=== PATIENT | male | born 1955 | race Two or more races ===

== ENCOUNTER 2020-09-20 12:41 | Outpatient (REF) | payer BC, SELFPAY ==
[2020-09-20 13:33] LABS: Hematocrit 42.9 % (42-52); Hemoglobin 13.9 g/dl (14.0-18.0); Mean Corpuscular HGB Conc 32.4 g/dl (31.0-36.0); Mean Corpuscular Hemoglobin 31.6 pg (27.0-33.0); Mean Corpuscular Volume 97.5 fL (80-98); Mean Platelet Volume 11.2 fL (9.4-12.4); Platelet Count 154 X10*3/uL (160-400); Red Cell Distribution Width 11.3 % (11.0-16.0); White Blood Count 5.2 X10*3/uL (4.8-10.8)
[2020-09-20 13:47] LABS: Alanine Aminotransferase 20 U/L (0-40); Albumin Level 4.2 g/dL (3.5-5.0); Alkaline Phosphatase 87 U/L (39-117); Anion Gap 10 (12-20); Aspartate Amino Transferase 18 U/L (5-37); Bilirubin Direct 0.3 mg/dL (0.0-0.5); Bilirubin Total 1.1 mg/dL (0.0-1.0); Blood Urea Nitrogen 19 mg/dL (9-16); Calcium 9.2 mg/dL (8.4-10.2); Carbon Dioxide 30 mmol/L (22-29); Chloride 104 mmol/L (96-108); Cholesterol 227 mg/dL; Estimated Glomerular Filt Rate > 60; Glucose Random 174 mg/dL (60-115); HDL Cholesterol 52 mg/dL; LDL Cholesterol Calculated 160 mg/dl; Sodium 140 mmol/L (135-145); Total Protein 7.3 g/dL (6.5-8.0); Triglycerides 77 mg/dL
[2020-09-20 13:48] LABS: Glucose Urine UA NEG (NEG); Leukocyte Esterase Urine NEG (NEG); Nitrite Urine NEG (NEG); PH 5.5 (5.0-8.0); Specific Gravity - Urine 1.025 (1.005-1.025); Urine Blood TRACE (NEG); Urine Ketones 5 MG/DL (NEG); Urine Protein NEG (NEG-TRACE)
[2020-09-20 13:58] LABS: Appearance Urine CLEAR; Color Urine YELLOW
[2020-09-20 14:00] LABS: Estimated Average Glucose 120 mg/dL; Hemoglobin A1c % 5.8 %
[2020-09-20 14:07] LABS: Mucus Urine TRACE /LPF; WBC Urine 0 /HPF (0-4)
[2020-09-20 14:10] LABS: Thyroid Stimulating Hormone 1.29 uIU/mL (0.32-4.0)
[2020-09-20 14:18] LABS: Prostate Specific Antigen Scr < 0.05 ng/mL (<0.05-4.0)
[2020-09-20 14:34] LABS: Folate 9.1 ng/mL (> or = 4.0); Vitamin B12 299 pg/mL (200-900)
[2020-09-26 13:57] LABS: Vitamin D 25-OH, D2 39 ng/mL; Vitamin D 25-OH, D3 6 ng/mL; Vitamin D 25-OH, Total 45 ng/mL (30-100)
== END 2020-09-20 12:42 | disposition home or self-care (01) ==
LOC: HO.LAB 12:41
PROVIDERS: PCP Internal Medicine; Visit Provider Internal Medicine
DX: R73.9 Hyperglycemia, unspecified (principal); E55.9 Vitamin D deficiency, unspecified; C61 Malignant neoplasm of prostate; Z12.5 Encounter for screening for malignant neoplasm of prostate
CPT/HCPCS: 36415; 80048; 80061; 80076; 81001; 82306; 82607; 82746; 83036; 84153; 84443; 85027

== ENCOUNTER 2021-04-03 09:57 | Outpatient (RCR) | payer BC, SELFPAY ==
--- NOTE | 2021-04-03 10:50 | MHC.PT.EP ---
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 pt presents to physical therapy with pain, decreased range of motion, decreased strength, impaired functional mobility, and impaired postural awareness. pt is a good candidate for skilled PT due to age, potential remediation of impairments, typical disease/condition progression and prognosis, comorbidities, and motivation. pt would benefit from tailored strengthening and stretching exercise program, functional training, postural re-training, neuromuscular re-education, modalities as needed for pain, equipment safety demonstration. Frequency and Duration: The patient will be seen 2x/wk for 4 wks Short Term Goals: pt will be I w/ HEP to promote self-management of condition. pt will improve shoulder flexion by 15 degrees to promote ease in reaching for objects on higher shelves. [employer]ident Responder Goals: pt will report a statistically significant improvement in self-reported outcome measure, SPADI, to promote return to PLOF. Treatment Plan: Modalities to reduce pain, spasms and effusion. Manual therapy to restore motion and function. Therapeutic exercise to improve strength and flexibility. Neuromuscular re-education for posture and balance. Therapeutic activities to return to functional activities of daily living. Electronically signed by: Kaylynn Kendrick PT, DPT Please sign and return to therapist. Thank you for your referral.
--- NOTE | 2021-04-20 11:30 | MHC.PT.DC ---
[facility] [place] Office [place] Office [place] Office [address] Mario Tam 140 [facility] [phone] F: [phone] F: [phone] F: [phone] F: [phone] Physical Therapy Discharge Report Diagnosis: strain of muscle, fascia, and tendon at shoulder Date of Surgery: N/A Date of Evaluation: 04/03/21 Date of Discharge: 04/20/21 Treatments to Date: 1 Cancellations to Date: 0 No Shows to Date: 0 Discharge Status: Insurance Declined Tx Discharge Summary: The patient's insurance declined the patient to attend physical therapy in a hospital-based outpatient facility. He is discharged due to insurance limitations. Electronically signed by: Kaylynn Kendrick PT, DPT Please sign and return to therapist. Thank you for your referral.
== END 2021-04-20 11:31 | disposition home or self-care (01) ==
LOC: HO.PT 09:57
PROVIDERS: PCP Internal Medicine; Visit Provider Internal Medicine
DX: S46.919A Strain of unspecified muscle, fascia and tendon at shoulder and upper arm level, unspecified arm, initial encounter (principal)
CPT/HCPCS: 97110; 97161

== ENCOUNTER → 2021-05-08 09:35 | Outpatient (BNVA) | payer BC, SELFPAY | PROVIDERS: PCP Internal Medicine; Referring Provider Internal Medicine; Visit Provider Nurse Practitioner ==

== ENCOUNTER 2021-07-17 09:00 | Day surgery (SDC) | payer BC, SELFPAY ==
[2021-07-11 15:35] VITALS: BMI 27.4
[2021-07-17 09:27] VITALS: BP 109/66; PULSE 62; RESP 16; TEMP 36.1; O2SAT 99
--- NOTE | 2021-07-17 09:31 | HO.ANESPROP2 ---
[facility] Active Problems Active Problems: All Active Problems (Updated 03/03/21 @ 07:50 by Edwin Hobbs MD) Strain of AC joint (Acute) Screening for colon cancer (Acute) Blepharitis (Acute) Eczema (Acute) Hyperglycemia (Acute) Prostate cancer (Acute) Vitamin D deficiency (Acute) Past Medical History Medical History Contusion of chest wall Eczema Hyperglycemia Prostate cancer Vitamin D deficiency Family History Family History Father Prostate cancer Mother No problems noted. Surgical History Surgical History History of appendectomy History of prostatectomy History of Problems with Anesthesia: No Social History Social History Housing: House Alcohol intake: current Alcohol intake frequency: holidays/special occasions only Patient Tobacco Use Status: Former Tobacco user Quit Date: quit greater than 20 yr ago e-Cigarette/Vaping Use: Never Used Second Hand Smoke Exposure: No Use of substances other than those prescribed or required for medical reasons: No Are you DNR?: No Advance Directives: No Advance Directives Information Provided: Yes service: No Current occupational status: employed Meds Allergies Allergy/AdvReac Type Severity Reaction Status Date / Time Penicillins Allergy Intermediate SICKNESS Verified 05/08/21 09:47 ampicillin Allergy Unknown Unknown Verified 05/08/21 09:47 Exam Exam Date and Time: July 17, 2021 0931 Height,Weight and Vital Signs: Height 5 ft 6 in Weight 77.111 kg Airway Mallampati Class: III TM Dist: >3cm Heart: RRR Lungs: CTA Assessment and Plan Assessment Anesthesia Assessment: Anesthesia Plan Discussed and Chart Reviewed Final Anesthetic Review History of Problems with Anesthesia: No NPO: Yes ASA Class: II Final Preanesthetic Review: Meds/Allgs Chart Reviewed, Consent Obtained/Reviewed and Anes Risks/Benef Reviewed Patient Risk: Low Procedure Risk: Low Anesthetic Plan Anesthetic Plan: MAC: Disposition: Standard PACU
[2021-07-17] MEDS: Lactated Ringers 1,000 ML 50 ML IVCONT (10:05)
--- NOTE | 2021-07-17 10:52 | MHC.SHP ---
Pre-Procedural Eval Section A Date of Service: 07/17/21 The patient is an INPATIENT: No The History & Physical has been completed within 30 days and I have reviewed it.: No Section B Chief Complaint: screening Details of Present Illness: Colon cancer screening Relevant Family History (Specify if Yes): No Relevant Social History: Tobacco Use (Former smoker) Present Medications: see Short Stay Collaborative assessment Medical History: Significant History (Contusion of chest wall Eczema Hyperglycemia Prostate cancer Vitamin D deficiency) History of Previous Operations: Relevant previous surgery/procedure and date(s) (History of appendectomy History of prostatectomy) Allergies: Allergies Allergy/AdvReac Type Severity Reaction Status Date / Time Penicillins Allergy Intermediate SICKNESS Verified 05/08/21 09:47 ampicillin Allergy Unknown Unknown Verified 05/08/21 09:47 Review of Systems Sugical H&P ROS: Negative: Constitution, Cardiovascular, Respiratory and Gastrointestinal Exam Surgical H&P Exam: Normal: Heart, Normal: Lungs, Normal: Extremities and Normal: Abdomen Plan Diagnosis/Plan: Unchanged I have reviewed the history and physical and performed a pertinent physical examination on my patient. No changes have occurred unless specified.
--- NOTE | 2021-07-17 11:09 | PCN2_ITS ---
Brief Operative Note Date of procedure: 07/17/21 Pre-op diagnosis: Colon cancer screening Post-op diagnosis: other (Diverticulosis, hemorrhoids) Procedure: Procedure:? COLONOSCOPY TILL CECUM Consent: Indications for the procedure and potential complications of bleeding, perforation, reaction to medications and missed diagnosis were discussed with the patient and informed consent was obtained. Instrument: Olympus PCF H 190 L variable stiffness pediatric colonoscope Monitoring: Vital signs and clinical assessment, intermittent blood pressure monitoring, continuous EKG monitoring, Pulse oximetry and Carbon Dioxide monitoring were done throughout the procedure. Colon withdrawl time was 15 minutes. Procedure: The patient was placed in the left lateral decubitis position and pre-procedure medications were administered. After a digital rectal examination of the ano-rectum, the video colonoscope was inserted into the rectum and advanced through the colon to the cecum. The colonoscope was slowly withdrawn in a retrograde panoramic fashion and the colon mucosa was carefully examined including a retroflexed view of the rectum. Findings and interventions are described below. Procedure Difficulty:? Colon was long and tortuous and there was spasm and some loop formation.? LLQ pressure applied to intubate the cecum Findings: Terminal Ileum: Not evaluated Cecum:? Normal Ascending Colon:? Normal Transverse Colon:? Normal Descending Colon:? Moderate diverticulosis Sigmoid Colon:? Moderate diverticulosis Rectum:? Normal Ano-rectum:? Moderate internal hemorrhoids Colon preparation: Excellent ? Impression and Post Procedure Diagnosis: Colonoscopy Findings: No polyps were detected Moderate diverticulosis seen in the left colon Moderate hemorrhoids on retroflexed exam. Plan: Await pathology results Patient has an appointment on 07/31/21 in the GI Clinic with? Shanti Townsend NP? . Repeat Colonoscopy in 10 years. Above findings were reviewed with the patient and diverticulosis handout was given in the discharge area Surgeon:?Danna Bingham MD Anesthesia:?MAC (Dr Infante) Anesthesia: MAC Surgeon: Danna Bingham Conduit Mechanic: Jose Miguel Chapman Estimated blood loss (mL): 0 Pathology: none sent Condition: stable Disposition: PACU
[2021-07-17 11:50] VITALS: BP 95/59; PULSE 68; RESP 18; TEMP 36.4; O2SAT 100
[2021-07-17 12:06] VITALS: BP 91/59; PULSE 87; RESP 14; O2SAT 100
[2021-07-17 12:22] VITALS: BP 119/77; PULSE 61; RESP 18; TEMP 36.9; O2SAT 99
== END 2021-07-17 13:10 | disposition home or self-care (01) ==
PROVIDERS: PCP Internal Medicine; Visit Provider Internal Medicine Gastroenterology
PROC: 0DJD8ZZ Inspection of Lower Intestinal Tract, Via Natural or Artificial Opening Endoscopic (ICD-10-PCS; CPT 45378; principal; 2021-07-17 10:00)
DX: Z12.11 Encounter for screening for malignant neoplasm of colon (principal); K57.30 Diverticulosis of large intestine without perforation or abscess without bleeding; K64.8 Other hemorrhoids; E55.9 Vitamin D deficiency, unspecified; E78.00 Pure hypercholesterolemia, unspecified; L30.9 Dermatitis, unspecified; Z85.46 Personal history of malignant neoplasm of prostate; Z88.0 Allergy status to penicillin; Z87.891 Personal history of nicotine dependence
CPT/HCPCS: 45378

== ENCOUNTER → 2021-09-20 10:04 | Outpatient (BNVA) | payer BC, SELFPAY | PROVIDERS: PCP Internal Medicine; Referring Provider Internal Medicine; Visit Provider Nurse Practitioner ==

== ENCOUNTER 2021-10-31 12:06 | Outpatient (REF) | payer BC, SELFPAY ==
[2021-10-31 13:17] LABS: Hematocrit 40.3 % (42.0-52.0); Hemoglobin 12.8 g/dl (14.0-18.0); Mean Corpuscular HGB Conc 31.8 g/dl (31.0-36.0); Mean Corpuscular Hemoglobin 31.9 pg (27.0-33.0); Mean Corpuscular Volume 100.5 fL (80.0-98.0); Mean Platelet Volume 11.6 fL (9.4-12.4); Platelet Count 158 X10*3/uL (160-400); Red Blood Count 4.01 X10*6/uL (4.60-5.80); Red Cell Distribution Width 11.7 % (11.0-16.0); White Blood Count 5.7 X10*3/uL (4.8-10.8)
[2021-10-31 13:21] LABS: Appearance Urine CLEAR; Color Urine YELLOW; Glucose Urine UA NEG (NEG); Leukocyte Esterase Urine NEG (NEG); Nitrite Urine NEG (NEG); Specific Gravity - Urine 1.015 (1.005-1.025); Urine Blood NEG (NEG); Urine Ketones NEG (NEG); Urine Protein NEG (NEG-TRACE)
[2021-10-31 13:42] LABS: Alanine Aminotransferase 49 U/L (0-40); Albumin Level 4.3 g/dL (3.5-5.0); Alkaline Phosphatase 69 U/L (39-117); Anion Gap 10 (12-20); Aspartate Amino Transferase 38 U/L (5-37); Bilirubin Direct 0.3 mg/dL (0.0-0.5); Blood Urea Nitrogen 18 mg/dL (9-16); Calcium 9.8 mg/dL (8.4-10.2); Carbon Dioxide 29 mmol/L (22-29); Chloride 103 mmol/L (96-108); Estimated Glomerular Filt Rate > 60; Glucose Random 111 mg/dL (60-115); Potassium 4.4 mmol/L (3.3-5.1); Sodium 138 mmol/L (135-145); Total Protein 7.7 g/dL (6.5-8.0)
[2021-10-31 14:00] LABS: Estimated Average Glucose 108 mg/dL; Hemoglobin A1c % 5.4 %
[2021-10-31 14:06] LABS: Prostate Specific Antigen Scr < 0.05 ng/mL (<0.05-4.0); Thyroid Stimulating Hormone 1.07 uIU/mL (0.32-4.0)
== END 2021-10-31 12:07 | disposition home or self-care (01) ==
LOC: HO.LAB 12:06
PROVIDERS: PCP Internal Medicine; Visit Provider Internal Medicine
DX: C61 Malignant neoplasm of prostate (principal); R73.9 Hyperglycemia, unspecified; Z12.5 Encounter for screening for malignant neoplasm of prostate
CPT/HCPCS: 36415; 80048; 80076; 81003; 83036; 84153; 84443; 85027

== ENCOUNTER 2022-03-04 08:44 | Outpatient (REF) | payer BC, SELFPAY ==
--- NOTE | ~2022-03-04 | XR_ITS ---
EXAMINATION: XR SHOULDER, RIGHT CLINICAL INFORMATION: Shoulder pain. COMPARISON: None TECHNIQUE: Three views of the right shoulder. FINDINGS: No acute findings. The humeral head is well positioned over the intact glenoid. Glenohumeral joint space is maintained. No arthritic deformity, fracture or subluxation. Acromioclavicular joint is normal. The acromiohumeral and coracoclavicular distances are normal. Scapula is unremarkable. No calcium deposition within rotator cuff tendons. The visualized portion of the right lung is normal. XR/XR shoulder RT min 2V IMPRESSION: Normal right shoulder. No fracture or malalignment.
== END 2022-03-04 08:45 | disposition home or self-care (01) ==
LOC: HO.HOSX 08:44
PROVIDERS: Visit Provider Orthopaedic Surgery
DX: M75.41 Impingement syndrome of right shoulder (principal)
CPT/HCPCS: 20610; 73030; J1100

== ENCOUNTER 2022-04-17 10:00 | Outpatient (RCR) | payer BC, SELFPAY ==
--- NOTE | 2022-03-20 09:59 | MHC.PT.EP ---
[facility] [place] Office [place] Office [place] Office [address] Mario Tam [address] [phone] F: [phone] F: [phone] F: [phone] F: [phone] Physical Therapy Plan of Care Date of Evaluation: Date of Surgery: Diagnosis: This is a 66 yo male with a script for impingement syndrome of R shoulder. Assessment: This is a 66 yo male with a script for impingement syndrome of R shoulder. Patient (Left hand dominant) presenting with ongoing R shoulder pain for over 2 years now (He also reports of bilateral shoulder pain but the right shoulder is worse) but has been increasing as of late. Pain is located anterior but can be posterior as well at times. Pain is described as sharp. He has increased pain with use of the arm, particularly overhead movements, reaching and lifting (he reports pain at rest when sleeping but also with movement). He has no hx of treatment prior to this and is being followed by [facility] ot (he had a cortisone injection which was helpful, he does not have an appointment to return). He does also report having some numbness and tingling in both arms. Assessment reveals pain that ranges up to a 9/10. He demos decreased shoulder and cervical ROM, decreased B strength, impaired resting posture with forward head, rounded shoulders and decreased scapular awareness, impaired joint mobility with AP mobs as well as gross functional decline with pushing, lifting, reaching. He is a good candidate for skilled PT 2x/wk for 5wks. Frequency and Duration: The patient will be seen 2x/wk for 5wks Short Term Goals: I in HEP Demo good scap/retract/stab with HEP without need from cues from PT Skilled Nursing Goals: Demos functional ROM and strength Improve SPADI by at least 10 points Improve pain at the worst to no more than 2/10 Demo proper lifting, squatting and carrying techniques without increase in pain or radiating symptoms Treatment Plan: Modalities to reduce pain, spasms and effusion. Manual therapy to restore motion and function. Therapeutic exercise to improve strength and flexibility. Neuromuscular re-education for posture and balance. Therapeutic activities to return to functional activities of daily living. Electronically signed by: Lidia Rayo PT Please sign and return to therapist. Thank you for your referral.
--- NOTE | 2022-07-03 09:48 | MHC.PT.DC ---
[facility] [place] Office [place] Office [place] Office [address] Mario Tam [address] [phone] F: [phone] F: [phone] F: [phone] F: [phone] Physical Therapy Discharge Report Diagnosis: This is a 66 yo male with a script for impingement syndrome of R shoulder. Date of Surgery: Date of Evaluation: 03/20/22 Date of Discharge: 07/03/22 Treatments to Date: 7 Cancellations to Date: 0 No Shows to Date: 0 Discharge Status: Independent with HEP Patient Elected to Stop Discharge Summary: Pt elected to continue with HEP only at this time. 04/17; Pt c/o fatigue after wt ball wall exs. Pt fatigued after Rx with no c/o increased pain. 04/15/22: pt progressing well with skilled PT. having reduced s/s and improved tolerance to progressing strength and ROM. 04/10; Pt luan exs with only min c/o pain with pec stretch, modified to luan Electronically signed by: Ervin Hitchcock, PT Please sign and return to therapist. Thank you for your referral.
== END 2022-07-03 09:49 | disposition home or self-care (01) ==
LOC: HO.PTCHIC 10:00
PROVIDERS: Visit Provider Orthopaedic Surgery
DX: M75.41 Impingement syndrome of right shoulder (principal)
CPT/HCPCS: 97110; 97140; 97162

== ENCOUNTER 2022-05-23 13:46 | Outpatient (REF) | payer BC, SELFPAY ==
--- NOTE | ~2022-05-23 | XR_ITS ---
EXAMINATION: XR RIBS, RIGHT CLINICAL INFORMATION: Pleurodynia COMPARISON: None TECHNIQUE: 3 views of the right ribs were obtained. PA view of the chest. FINDINGS: Lungs are clear. No consolidation, pneumothorax, or pleural effusion. The cardiomediastinal silhouette and pulmonary vasculature are normal. A marker overlies the lower right ribs. Osseous structures are unremarkable. Ribs are intact. No fractures are identified. XR/XR ribs RT min 3V w CXR1V IMPRESSION: Clear lungs. No focal rib abnormality identified.
== END 2022-05-23 13:47 | disposition home or self-care (01) ==
LOC: HO.HMGCX 13:46
PROVIDERS: PCP Internal Medicine
DX: R07.81 Pleurodynia (principal)
CPT/HCPCS: 71101

== ENCOUNTER 2022-07-18 09:28 | Outpatient (REF) | payer BC, SELFPAY ==
[2022-07-18 10:30] LABS: Hematocrit 44.3 % (42.0-52.0); Hemoglobin 14.2 g/dl (14.0-18.0); Mean Corpuscular HGB Conc 32.1 g/dl (31.0-36.0); Mean Corpuscular Hemoglobin 31.5 pg (27.0-33.0); Mean Corpuscular Volume 98.2 fL (80.0-98.0); Mean Platelet Volume 11.3 fL (9.4-12.4); Platelet Count 160 X10*3/uL (160-400); Red Blood Count 4.51 X10*6/uL (4.60-5.80); Red Cell Distribution Width 11.3 % (11.0-16.0); White Blood Count 5.2 X10*3/uL (4.8-10.8)
[2022-07-18 11:13] LABS: Alanine Aminotransferase 34 U/L (0-40); Albumin Level 4.3 g/dL (3.5-5.0); Alkaline Phosphatase 73 U/L (39-117); Anion Gap 10 (12-20); Aspartate Amino Transferase 30 U/L (5-37); Bilirubin Direct 0.5 mg/dL (0.0-0.5); Bilirubin Total 1.9 mg/dL (0.0-1.0); Blood Urea Nitrogen 15 mg/dL (9-16); Calcium 9.5 mg/dL (8.4-10.2); Carbon Dioxide 31 mmol/L (22-29); Chloride 103 mmol/L (96-108); Cholesterol 219 mg/dL; Estimated Glomerular Filt Rate > 60; Glucose Random 122 mg/dL (60-115); HDL Cholesterol 61 mg/dL; LDL Cholesterol Calculated 149 mg/dl; Potassium 4.4 mmol/L (3.3-5.1); Sodium 140 mmol/L (135-145); Total Protein 7.6 g/dL (6.5-8.0); Triglycerides 48 mg/dL
== END 2022-07-18 09:29 | disposition home or self-care (01) ==
LOC: HO.LAB 09:28
PROVIDERS: PCP Internal Medicine; Visit Provider Internal Medicine
DX: E78.00 Pure hypercholesterolemia, unspecified (principal); G47.33 Obstructive sleep apnea (adult) (pediatric)
CPT/HCPCS: 36415; 80048; 80061; 80076; 85027

== ENCOUNTER → 2022-07-25 12:44 | Outpatient (BNVA) | payer OTHER, SELFPAY | PROVIDERS: PCP Internal Medicine; Visit Provider Nurse Practitioner Family | DX: Z13.89 Encounter for screening for other disorder (principal) ==

== ENCOUNTER → 2022-08-06 10:44 | Outpatient (REF) | payer OTHER, SELFPAY | LOC: HO.SL 10:44 | PROVIDERS: PCP Internal Medicine; Visit Provider Nurse Practitioner Family | DX: G47.33 Obstructive sleep apnea (adult) (pediatric) (principal); R40.0 Somnolence; R06.83 Snoring | CPT/HCPCS: 95806 ==

== ENCOUNTER → 2022-09-25 08:55 | Outpatient (BNVA) | payer OTHER, SELFPAY | PROVIDERS: PCP Internal Medicine; Visit Provider Nurse Practitioner Family | DX: Z13.89 Encounter for screening for other disorder (principal) ==

== ENCOUNTER → 2022-09-30 19:30 | Outpatient (REF) | payer OTHER, SELFPAY | LOC: HO.SL 19:30 | PROVIDERS: PCP Internal Medicine; Visit Provider Nurse Practitioner Family | DX: G47.33 Obstructive sleep apnea (adult) (pediatric) (principal) | CPT/HCPCS: 95811 ==

== ENCOUNTER 2022-11-12 14:24 | Outpatient (REF) | payer OTHER, SELFPAY ==
[2022-11-12 15:08] LABS: Influenza A PCR NEGATIVE (Negative); Influenza B PCR NEGATIVE (Negative); Resp Syncy Virus RNA Qual PCR NEGATIVE (Negative); SARS COV2 PCR INHOUSE POSITIVE (Negative)
== END 2022-11-12 14:25 | disposition home or self-care (01) ==
LOC: HO.LNP 14:24
PROVIDERS: Visit Provider Internal Medicine
DX: Z20.822 Contact with and (suspected) exposure to COVID-19 (principal); R43.9 Unspecified disturbances of smell and taste
CPT/HCPCS: 0241U

== ENCOUNTER → 2022-12-26 08:56 | Outpatient (BNVA) | payer OTHER, SELFPAY | PROVIDERS: PCP Internal Medicine; Visit Provider Nurse Practitioner Family ==

== ENCOUNTER 2023-02-12 08:15 | Outpatient (AMB) | payer OTHER, SELFPAY ==
--- NOTE | 2023-02-12 08:16 | MHC.PC.OV ---
Vital Signs 02/12/23 08:17 Height 5 ft 6 in Weight 171 lb BMI 27.6 BP 104/62 Blood Pressure Location Lt brachial Position Sitting Pulse 56 Pulse Source Pulse Oximeter Pulse Oximetry (%) 97 Oxygen Delivery Method Room Air Intake Visit Reasons: 6m follow up Medication Allergies Penicillins Allergy (Intermediate, Verified 02/12/23 08:54) SICKNESS ampicillin Allergy (Unknown, Verified 02/12/23 08:54) Unknown Medication List - Last Reconciled 02/12/23 by Edwin Hobbs MD albuterol sulfate 90 mcg/actuation (Ventolin HFA) 1 inh inhalation QID PRN aspirin (Adult Low Dose Aspirin) 81 mg PO DAILY atorvastatin 20 mg PO BEDTIME ergocalciferol (vitamin D2) 1,250 mcg PO QWEEK triamcinolone acetonide 0.025% 1 appl topical BID Tobacco use date assessed: 10/31/21 Fall risk assessment: No Falls in past year Last assessed Fall Risk: 02/12/23 Dental Screening Dental Screen Date: 02/12/23 Did you have a dental visit in the last 12 months?: Yes Did you have a dental problem in the last 6 months where you did not have access to dental care?: No Was dental information given to patient?: Patient has dentist HPI 6m follow up Medication HPI Details 67-year-old male presents to the office to discuss his chronic medical conditions. Patient is compliant with medications and reporting no side effects. Able to function and able to do all activities of daily living. Continues to drive. [facility] Medical History Contusion of chest wall Eczema Hypercholesterolemia Hyperglycemia Osteoarthritis of right shoulder Prostate cancer Rib pain on right side Vitamin D deficiency Surgical History History of appendectomy History of prostatectomy Family History Father Prostate cancer Mother No problems noted. Social History Housing: House Alcohol intake: current Alcohol intake frequency: holidays/special occasions only Patient Tobacco Use Status: Former Tobacco user Quit Date: quit greater than 20 yr ago Tobacco use type: Cigarette e-Cigarette/Vaping Use: Never Used Second Hand Smoke Exposure: No service: No Current occupational status: employed Cognitive needs: No Hearing needs: No Vision needs: Yes (glasses) Questionnaire Thrive Questionnaire Date Thrive assessed: 02/12/23 I am a: Patient What is your living situation today?: I have a steady place to live Within the past 12 months, did the food you bought not last and you didn't have the money to get more?: Never true Within the past 12 months, did you worry whether your food would run out before you got money to buy more?: Never true Do you have trouble paying for medicines?: No Do you have trouble getting transportation to medical appointments?: No Do you have trouble paying your heating and electricity bill?: No Do you have trouble taking care of your child, family member or friend?: No Do you have trouble with day-to-day activities such as bathing, preparing meals, shopping, managing finances, etc.?: No Are you currently unemployed and looking for a job?: No Are you interested in more education?: No Currently or been in a relationship where the following occur: no concerns reported AUDIT C Alcohol Use Questionnaire (AUDIT-C) 1. How often do you have a drink containing alcohol?: Monthly or less 2. How many drinks containing alcohol do you have on a typical day when you are drinking?: 1 or 2 3. How often do you have six or more drinks on one occasion?: Never Total Score: 1 HALLIE-7 AMB Questionnaire HALLIE-7 Date HALLIE - 7 assessed: 02/12/23 Feeling nervous, anxious, or on edge: 0 = Not at all Not being able to stop or control worryin = Not at all Worrying too much about different things: 0 = Not at all Trouble relaxin = Not at all Being so restless that it is hard to sit still: 0 = Not at all Becoming easily annoyed or irritable: 0 = Not at all Feeling afraid as if something awful might happen: 0 = Not at all Total HALLIE-7 score (0-4 normal; 5-9 mild; 10-14 moderate; 15-21 severe): 0 Source: Developed by Drs. Bart Terry, Zeynep Reyes, Santos Uriarte and colleagues, with an educational nahun from [employer]. Physical exam (Primary Care) Vital Signs: Last Vital Signs Pulse 56 02/12/23 08:17 BP 104/62 02/12/23 08:17 Pulse Ox 97 02/12/23 08:17 Oxygen Delivery Method Room Air 02/12/23 08:17 Care Plan Goal for BP management: Blood pressure is in range. Continue current medications. BMI result Body Mass Index 27.6 Tobacco/Smoking Status: Tobacco use Status Tobacco use date assessed 10/31/21 02/12/23 08:19 Patient Tobacco Use Status Former Tobacco user 02/12/23 08:19 Tobacco use type Cigarette 02/12/23 08:19 e-Cigarette/Vaping Use Never Used 02/12/23 08:19 Thrive Assessment: Date of Thrive Assessment Date Thrive assessed 02/12/23 02/12/23 08:24 Currently or been in a relationship where the following occur: no concerns reported Advance Care Planning discussion: Exists, not on file Date of discussion: 02/12/23 Who was present: Patient. Italian version of the healthcare proxy form provided Forms completed: Health Care Proxy Actual minutes spent: 5 Const General: cooperative, healthy appearing and comfortable HENMT Head: Yes normal to inspection and Yes atraumatic Eyes General: appearance normal, both eyes and all related structures Neck Neck: Yes normal visual inspection and Yes full ROM Chest Chest palpation & inspection: normal inspection of the chest Resp Effort & Inspection: normal respiratory effort Auscultation: clear to auscultation bilaterally Cardio Jugular venous distension: no JVD Palpation: normal PMI Rate: regular rate Heart sounds: S1 normal heart sound present and S2 normal heart sound present GI Palpation (GI): Soft to palpation and No hepatosplenomegaly present Extrem General: Yes normal to inspection and Yes full ROM Assessment and Plan Assessment & Plan (1) Obstructive sleep apnea: Comment: Severe degree of sleep apnea. The AHI was 65/hr and oxygen oc was 62%. Code(s): G47.33 - Obstructive sleep apnea (adult) (pediatric) Plan: Condition is stable. Continue current medications. (2) Hypercholesterolemia: Code(s): E78.00 - Pure hypercholesterolemia, unspecified Plan: Blood work has been ordered. Continue current medications. (3) Hyperglycemia: Code(s): R73.9 - Hyperglycemia, unspecified Plan: A1c has been ordered. (4) Prostate cancer: Code(s): C61 - Malignant neoplasm of prostate Plan: PSA has been ordered. Coding Level of Care Code Est Pt Level 4 (16624) Diagnoses Obstructive sleep apnea G47.33 Hypercholesterolemia E78.00 Hyperglycemia R73.9 Prostate cancer C61 Additional Codes Vital Signs *Quality* - Advance Care Planning discussion: Exists, not on file ([id number])
[2023-02-12 08:17] VITALS: BP 104/62; PULSE 56; O2SAT 97; BMI 27.6
== END 2023-02-12 08:48 | disposition home or self-care (01) ==
PROVIDERS: PCP Internal Medicine; Visit Provider Internal Medicine
DX: G47.33 Obstructive sleep apnea (adult) (pediatric) (principal); E78.00 Pure hypercholesterolemia, unspecified; R73.9 Hyperglycemia, unspecified; C61 Malignant neoplasm of prostate; Z00.00 Encounter for general adult medical examination without abnormal findings
CPT/HCPCS: 1123F; 99214

== ENCOUNTER 2023-07-01 10:21 | Outpatient (AMB) | payer OTHER, SELFPAY ==
--- NOTE | 2023-07-01 10:24 | A.OFFVIS_ITS ---
Intake Vital Signs 07/01/23 10:25 Height 5 ft 6 in Weight 175 lb BMI 28.2 BP 140/68 H Blood Pressure Location Lt brachial Position Sitting Pulse 80 Pulse Source Pulse Oximeter Pulse Oximetry (%) 100 Oxygen Delivery Method Room Air Intake Visit Reasons: 6m f/up Sleep Apnea - Confirmed Allergies Penicillins Allergy (Intermediate, Verified 07/01/23 10:27) SICKNESS ampicillin Allergy (Unknown, Verified 07/01/23 10:27) Unknown HPI HPI Comments History of Present Illness Details 67 y/o male patient presents for follow up of PIERRE on CPAP. The home sleep study result was significant for severe degree of sleep apnea. The AHI was 65/hr and oxygen oc was 62%. Pt underwent titration study. The breathing and oxygenation stabilized on CPAP at [id number] and tolerated this pressure. The CPAP compliance and therapy response (04/02/23-06/30/23) reviewed. He is on CPAP at [id number]. The usage days 82% and the average usage hours 4 hrs 30 min. The residual AHI was 2.4/hr. He states that he sleeps better and is more alert and not sleepy during the day. He works from 3 pm to 2 am, sometimes he forgets to put CPAP on. [facility] Medical History Rib pain on right side Osteoarthritis of right shoulder Hypercholesterolemia Eczema Hyperglycemia Prostate cancer Vitamin D deficiency Contusion of chest wall Surgical History History of appendectomy History of prostatectomy Family History Father Prostate cancer Mother No problems noted. Social History Housing: House Alcohol intake: current Alcohol intake frequency: holidays/special occasions only Patient Tobacco Use Status: Former Tobacco user Quit Date: quit greater than 20 yr ago Tobacco use type: Cigarette e-Cigarette/Vaping Use: Never Used Second Hand Smoke Exposure: No service: No Current occupational status: employed Cognitive needs: No Hearing needs: No Vision needs: Yes (glasses) Review of Systems Const All systems reviewed & are unremarkable except as noted in HPI and below ENT Reports Normal hearing present Neuro Reports Normal hearing present Physical Exam Vital Signs: Last Vital Signs Pulse 80 07/01/23 10:25 BP 140/68 H 07/01/23 10:25 Pulse Ox 100 07/01/23 10:25 Oxygen Delivery Method Room Air 07/01/23 10:25 BMI result Body Mass Index 28.2 Const General: cooperative Nutritional Appearance: average body habitus Orientation/consciousness: patient oriented x3 HEENT Throat: Yes other (mallampati grade.) Resp Effort & Inspection: normal respiratory effort and able to speak in complete sentences Neuro General: patient oriented x3 and gait normal Cranial nerves: Yes Bilaterally intact EOM present, Yes Normal facial strength present, Yes Midline tongue present, Yes Symmetric palate elevation present, Yes Normal hearing present, Yes Ability to bilaterally rotate head present and Yes Ability to bilaterally elevate shoulders present Cognition (Neuro): normal cognition Gait exam (Neuro): Normal gait present Motor exam (neuro): Pronator motor function not present and no tremor noted Psych Appearance: grossly normal Mental Status: mental status grossly normal Speech and movement: Normal speech and movement present Affect: normal affect Attitude: cooperative Assessment & Plan Assessment & Plan (1) Obstructive sleep apnea: Comment: Severe degree of sleep apnea. The AHI was 65/hr and oxygen oc was 62%. Code(s): G47.33 - Obstructive sleep apnea (adult) (pediatric) Plan Continue to use CPAP at [id number] as patient experiences good clinical effects. Stressed compliance, use CPAP nightly and more than 4 hours. Advised patient to clean the mask and tubing every morning. Continue to practice good sleep hygiene. Coding Level of Care Code Est Pt Level 3 (76825) Diagnoses Obstructive sleep apnea G47.33
[2023-07-01 10:25] VITALS: BP 140/68; PULSE 80; O2SAT 100; BMI 28.2
== END 2023-07-01 11:05 | disposition home or self-care (01) ==
PROVIDERS: PCP Internal Medicine; Visit Provider Nurse Practitioner Family
DX: G47.33 Obstructive sleep apnea (adult) (pediatric) (principal)
CPT/HCPCS: 99213

== ENCOUNTER → 2023-07-01 10:21 | Outpatient (BNVA) | payer OTHER, SELFPAY | PROVIDERS: PCP Internal Medicine; Visit Provider Nurse Practitioner Family ==

== ENCOUNTER 2023-07-24 09:47 | Outpatient (AMB) | payer OTHER, SELFPAY ==
--- NOTE | 2023-07-24 09:49 | MHC.PC.OV ---
Vital Signs 07/24/23 09:52 Height 5 ft 6 in Weight 172 lb BMI 27.8 BP 110/62 Blood Pressure Location Lt brachial Position Sitting Pulse 70 Pulse Source Pulse Oximeter Pulse Oximetry (%) 96 Oxygen Delivery Method Room Air Intake Visit Reasons: [facility] ED/ Right Knee pain Intake Note: Patient is here to follow-up after a visit the emergency department at [facility] on 07/17/23 for right knee pain. Requesting for MRI for possible fluid in right knee. Poultry Pathologist Required: Yes Poultry Pathologist Language: Refrigerator Assembler Name: Aurelio ([id number]) Information Interpreted: non-clinical & clinical Rhythmic Gymnastics Coach: Not Required per policy Accompanied by: Self / Same As Patient Allergies Penicillins Allergy (Intermediate, Verified 07/24/23 10:49) SICKNESS ampicillin Allergy (Unknown, Verified 07/24/23 10:49) Unknown Medication List - Last Reconciled 07/24/23 by Edwin Hobbs MD albuterol sulfate 90 mcg/actuation (Ventolin HFA) 1 inh inhalation QID PRN aspirin (Adult Low Dose Aspirin) 81 mg PO DAILY atorvastatin 20 mg PO BEDTIME ergocalciferol (vitamin D2) 1,250 mcg PO QWEEK triamcinolone acetonide 0.025% 1 appl topical BID Tobacco use date assessed: 07/24/23 Fall risk assessment: No Falls in past year Last assessed Fall Risk: 07/24/23 Dental Screening Dental Screen Date: 07/24/23 Did you have a dental visit in the last 12 months?: Yes Did you have a dental problem in the last 6 months where you did not have access to dental care?: No Was dental information given to patient?: Patient has dentist HPI [facility] ED/ Right Knee pain HPI Details 67-year-old male presents to the office for a ED follow-up visit. Patient has been complaining of pain in the right knee for the past 3 weeks. Does not recall any fall or injury prior to the onset of symptoms. When he gets up from the chair after prolonged sitting, the pain symptoms are worse. Went to the emergency room at [facility]. They did x-rays over there and asked him to follow-up here. They suggested he probably may need an MRI. [facility] Medical History Rib pain on right side Osteoarthritis of right shoulder Hypercholesterolemia Eczema Hyperglycemia Prostate cancer Vitamin D deficiency Contusion of chest wall Surgical History History of appendectomy History of prostatectomy Family History Father Prostate cancer Mother No problems noted. Social History Housing: House Alcohol intake: current Alcohol intake frequency: holidays/special occasions only Patient Tobacco Use Status: Former Tobacco user Quit Date: quit greater than 20 yr ago Tobacco use type: Cigarette e-Cigarette/Vaping Use: Never Used Second Hand Smoke Exposure: No service: No Current occupational status: employed Cognitive needs: No Hearing needs: No Vision needs: Yes (glasses) Questionnaire PHQ-9 Over the last 2 weeks, how often have you been bothered by any of the following problems? 1. Little interest or pleasure in doing things: not at all 2. Feeling down, depressed, or hopeless: not at all 3. Trouble falling or staying asleep, or sleeping too much: not at all 4. Feeling tired or having little energy: not at all 5. Poor appetite or overeating: not at all 6. Feeling bad about yourself - or that you are a failure or have let yourself or your family down: not at all 7. Trouble concentrating on things, such as reading the newspaper or watching television: not at all 8. Moving or speaking so slowly that other people could have noticed. Or the opposite - being so fidgety or restless that you have been moving around a lot more than usual: not at all 9. Thoughts that you would be better off or of hurting yourself in some way: not at all Total score: 0 Depression Screening Interpretation: Negative Depression Screening Done: Yes Source: Developed by Drs. Bart Terry, Zeynep Reyes, Santos Uriarte and colleagues, with an educational nahun from [employer]. Thrive Questionnaire Date Thrive assessed: 07/24/23 I am a: Patient What is your living situation today?: I have a steady place to live Within the past 12 months, did the food you bought not last and you didn't have the money to get more?: Never true Within the past 12 months, did you worry whether your food would run out before you got money to buy more?: Never true Do you have trouble paying for medicines?: No Do you have trouble getting transportation to medical appointments?: No Do you have trouble paying your heating and electricity bill?: No Do you have trouble taking care of your child, family member or friend?: No Do you have trouble with day-to-day activities such as bathing, preparing meals, shopping, managing finances, etc.?: No Are you currently unemployed and looking for a job?: No Are you interested in more education?: No Currently or been in a relationship where the following occur: no concerns reported AUDIT C Alcohol Use Questionnaire (AUDIT-C) 1. How often do you have a drink containing alcohol?: Monthly or less 2. How many drinks containing alcohol do you have on a typical day when you are drinking?: 1 or 2 Total Score: 1 HALLEI-7 AMB Questionnaire HALLIE-7 Date HALLIE - 7 assessed: 07/24/23 Feeling nervous, anxious, or on edge: 0 = Not at all Not being able to stop or control worryin = Not at all Worrying too much about different things: 0 = Not at all Trouble relaxin = Not at all Being so restless that it is hard to sit still: 0 = Not at all Becoming easily annoyed or irritable: 0 = Not at all Feeling afraid as if something awful might happen: 0 = Not at all Total HALLIE-7 score (0-4 normal; 5-9 mild; 10-14 moderate; 15-21 severe): 0 Source: Developed by Drs. Bart Terry, Zeynep Reyes, Santos Uriarte and colleagues, with an educational nahun from [employer]. Physical exam (Primary Care) Vital Signs: Last Vital Signs Pulse 70 07/24/23 09:52 BP 110/62 07/24/23 09:52 Pulse Ox 96 07/24/23 09:52 Oxygen Delivery Method Room Air 07/24/23 09:52 BMI result Body Mass Index 27.8 Tobacco/Smoking Status: Tobacco use Status Tobacco use date assessed 07/24/23 07/24/23 10:02 Patient Tobacco Use Status Former Tobacco user 01/04/24 09:51 Tobacco use type Cigarette 07/24/23 09:51 e-Cigarette/Vaping Use Never Used 07/24/23 09:51 PHQ-9: PHQ-9 Score PHQ-9: Total score 0 07/24/23 09:51 Depression Screening Interpretation: Negative Thrive Assessment: Date of Thrive Assessment Date Thrive assessed 07/24/23 07/24/23 09:51 Currently or been in a relationship where the following occur: no concerns reported Extrem Other: Right knee: Tenderness over the medial side of the right knee. Full range of motion with discomfort. Assessment and Plan Assessment & Plan (1) Osteoarthritis of right knee: Code(s): M17.11 - Unilateral primary osteoarthritis, right knee Plan: MRIs are not needed at this point. Knee brace suggested. Meloxicam provided. If symptoms do not improve, an orthopedic appointment will be requested for possible steroid injection. (2) Prostate cancer: Code(s): C61 - Malignant neoplasm of prostate Plan: PSA has been ordered and will follow-up. Coding Level of Care Code Est Pt Level 4 (07425) Diagnoses Osteoarthritis of right knee M17.11 Prostate cancer C61
[2023-07-24 09:52] VITALS: BP 110/62; PULSE 70; O2SAT 96; BMI 27.8
== END 2023-07-24 11:09 | disposition home or self-care (01) ==
PROVIDERS: PCP Internal Medicine; Visit Provider Internal Medicine
DX: M17.11 Unilateral primary osteoarthritis, right knee (principal); C61 Malignant neoplasm of prostate
CPT/HCPCS: 99214

== ENCOUNTER 2023-07-24 11:12 | Outpatient (REF) | payer OTHER, SELFPAY ==
[2023-07-24 12:18] LABS: Alanine Aminotransferase 27 U/L (0-40); Albumin Level 4.4 g/dL (3.5-5.0); Alkaline Phosphatase 64 U/L (39-117); Anion Gap 13 (12-20); Aspartate Amino Transferase 30 U/L (5-37); Bilirubin Direct 0.3 mg/dL (0.0-0.5); Bilirubin Total 1.1 mg/dL (0.0-1.0); Blood Urea Nitrogen 21 mg/dL (9-16); Calcium 9.7 mg/dL (8.4-10.2); Carbon Dioxide 29 mmol/L (22-29); Chloride 103 mmol/L (96-108); Cholesterol 218 mg/dL (<200); Estimated Glomerular Filt Rate > 60; Glucose Random 94 mg/dL (60-115); HDL Cholesterol 59 mg/dL (>40); LDL Cholesterol Calculated 150 mg/dL (<100); Sodium 140 mmol/L (135-145); Triglycerides 48 mg/dL (<150)
[2023-07-24 12:36] LABS: Thyroid Stimulating Hormone 0.97 uIU/mL (0.32-4.0)
== END 2023-07-24 11:13 | disposition home or self-care (01) ==
LOC: HO.LAB 11:12
PROVIDERS: Visit Provider Internal Medicine
DX: Z12.5 Encounter for screening for malignant neoplasm of prostate (principal); C61 Malignant neoplasm of prostate; E78.00 Pure hypercholesterolemia, unspecified
CPT/HCPCS: 36415; 80048; 80061; 80076; 81003; 83036; 84153; 84443; 85027; 85652

== ENCOUNTER 2023-08-14 09:06 | Outpatient (AMB) | payer OTHER, SELFPAY ==
--- NOTE | 2023-08-14 09:16 | A.OFFPC_ITS ---
Vital Signs 08/14/23 09:18 Height 5 ft 6 in Weight 174 lb 6 oz BMI 28.1 BP 90/60 Blood Pressure Location Lt brachial Position Sitting Pulse 75 Pulse Source Pulse Oximeter Pulse Oximetry (%) 97 Oxygen Delivery Method Room Air Intake Visit Reasons: 6mth f/u Intake Note: Patient is here to follow up on Hypercholesterolemia, Osteoarthritis, PIERRE and lab results. Complaint of ongoing right knee pain and right hip pain for about 4 days. Traveling Repair Accountant Required: Yes Traveling Repair Accountant Language: Brim Molder Name: Rolanda ([id number]) Information Interpreted: non-clinical & clinical Sandwich Hand: Not Required per policy Accompanied by: Self / Same As Patient Allergies Penicillins Allergy (Intermediate, Verified 08/14/23 09:18) SICKNESS ampicillin Allergy (Unknown, Verified 08/14/23 09:18) Unknown Medication List - Last Reconciled 08/15/23 by Edwin Hobbs MD albuterol sulfate 90 mcg/actuation (Ventolin HFA) 1 inh inhalation QID PRN aspirin (Adult Low Dose Aspirin) 81 mg PO DAILY atorvastatin 20 mg PO BEDTIME ergocalciferol (vitamin D2) 1,250 mcg PO QWEEK meloxicam 15 mg PO DAILY triamcinolone acetonide 0.025% 1 appl topical BID Tobacco use date assessed: 07/24/23 HPI 6mth f/u HPI Details 67-year-old female presents to the [facility] for a follow-up visit. Translation services of Ollie hernandez utilized. Patient is reporting that his knee pain is improving, with the brace and NSAIDS. He is able to climb and come down stairs. Wants to know the results of his recent blood work, [facility] Medical History Rib pain on right side Osteoarthritis of right shoulder Hypercholesterolemia Eczema Hyperglycemia Prostate cancer Vitamin D deficiency Contusion of chest wall Surgical History History of appendectomy History of prostatectomy Family History Father Prostate cancer Mother No problems noted. Social History Housing: House Alcohol intake: current Alcohol intake frequency: holidays/special occasions only Patient Tobacco Use Status: Former Tobacco user Quit Date: quit greater than 20 yr ago Tobacco use type: Cigarette e-Cigarette/Vaping Use: Never Used Second Hand Smoke Exposure: No service: No Current occupational status: employed Cognitive needs: No Hearing needs: No Vision needs: Yes (glasses) Questionnaire Thrive Questionnaire Date Thrive assessed: 07/24/23 HALLIE-7 AMB Questionnaire HALLIE-7 Date HALLIE - 7 assessed: 07/24/23 Source: Developed by Drs. Bart Terry, Zeynep Reyes, Santos santos nd colleagues, with an educational nahun from [employer]. Physical exam (Primary Care) Vital Signs: Last Vital Signs Pulse 75 08/14/23 09:18 BP 90/60 08/14/23 09:18 Pulse Ox 97 08/14/23 09:18 Oxygen Delivery Method Room Air 08/14/23 09:18 BMI result Body Mass Index 28.1 Tobacco/Smoking Status: Tobacco use Status Tobacco use date assessed 07/24/23 08/14/23 09:21 Patient Tobacco Use Status Former Tobacco user 08/14/23 09:21 Tobacco use type Cigarette 08/14/23 09:21 e-Cigarette/Vaping Use Never Used 08/14/23 09:21 Thrive Assessment: Date of Thrive Assessment Date Thrive assessed 07/24/23 08/14/23 09:21 Extrem Other: Right knee: Minimal joint tenderness. FROM at the knee. Assessment and Plan Assessment & Plan (1) Osteoarthritis of right knee: Code(s): M17.11 - Unilateral primary osteoarthritis, right knee Plan: Continue current managment. Ortho appt or steroid injections are not warranted at this point. BW revd with patient. PSA in range Coding Level of Care Code Est Pt Level 3 (18949) Diagnoses Osteoarthritis of right knee M17.11
[2023-08-14 09:18] VITALS: BP 90/60; PULSE 75; O2SAT 97; BMI 28.1
== END 2023-08-14 10:12 | disposition home or self-care (01) ==
PROVIDERS: PCP Internal Medicine; Visit Provider Internal Medicine
DX: M17.11 Unilateral primary osteoarthritis, right knee (principal)
CPT/HCPCS: 99213

== ENCOUNTER 2024-01-27 08:52 | Outpatient (AMB) | payer OTHER, SELFPAY ==
--- NOTE | 2024-01-27 09:18 | MHC.PC.OV ---
Vital Signs 01/27/24 09:20 Height 5 ft 6 in Weight 173 lb BMI 27.9 BP 90/64 Blood Pressure Location Lt brachial Position Sitting Pulse 60 Pulse Source Pulse Oximeter Pulse Oximetry (%) 96 Oxygen Delivery Method Room Air Intake Visit Reasons: 3mnt f/u pain Intake Note: Patient is here to follow up on PIERRE, Hypercholesterolemia, Prostate cancer and pain. Complaint of right shoulder pain. Manager Information Required: Yes Manager Information Language: Air Traffic Control Equipment Repairer Name: Raj ([id number]) Information Interpreted: non-clinical & clinical Licensed Midwife: Not Required per policy Accompanied by: Self / Same As Patient Allergies Penicillins Allergy (Intermediate, Verified 01/27/24 09:20) SICKNESS ampicillin Allergy (Unknown, Verified 01/27/24 09:20) Unknown Tobacco use date assessed: 01/27/24 Fall risk assessment: No Falls in past year Last assessed Fall Risk: 01/27/24 Dental Screening Dental Screen Date: 07/24/23 HPI 3mnt f/u pain HPI Details 68-year-old male presents to the office discuss his medical condition. An historical interpreter through the iPad was used. Patient continues to have pain in the right shoulder. He has received steroid injection in the past. Unable to use his arm over the shoulder level. Compliant with other medications. Able to function and do all activities of daily living. [facility] Medical History Rib pain on right side Osteoarthritis of right shoulder Hypercholesterolemia Eczema Hyperglycemia Prostate cancer Vitamin D deficiency Contusion of chest wall Surgical History History of appendectomy History of prostatectomy Family History Father Prostate cancer Mother No problems noted. Social History Housing: House Alcohol intake: current Alcohol intake frequency: holidays/special occasions only Patient Tobacco Use Status: Former Tobacco user Tobacco use type: Cigarette e-Cigarette/Vaping Use: Never Used Second Hand Smoke Exposure: No service: No Current occupational status: employed Cognitive needs: No Hearing needs: No Vision needs: Yes (glasses) Questionnaire Thrive Questionnaire Date Thrive assessed: 07/24/23 HALLIE-7 AMB Questionnaire HALLIE-7 Date HALLIE - 7 assessed: 07/24/23 Source: Developed by Drs. Bart Terry, Zeynep Reyes, Santos Uriarte and colleagues, with an educational nahun from [employer]. Physical exam (Primary Care) Vital Signs: Last Vital Signs Pulse 60 01/27/24 09:20 BP 90/64 01/27/24 09:20 Pulse Ox 96 01/27/24 09:20 Oxygen Delivery Method Room Air 01/27/24 09:20 BMI result Body Mass Index 27.9 Tobacco/Smoking Status: Tobacco use Status Tobacco use date assessed 01/27/24 01/27/24 09:27 Patient Tobacco Use Status Former Tobacco user 01/27/24 09:27 Tobacco use type Cigarette 01/27/24 09:27 e-Cigarette/Vaping Use Never Used 01/27/24 09:27 Thrive Assessment: Date of Thrive Assessment Date Thrive assessed 07/24/23 01/27/24 09:27 Const General: cooperative and healthy appearing Nutritional Appearance: well nourished Orientation/consciousness: patient oriented x3 Limitations: no limitations HENMT Head: Yes normal to inspection Eyes General: appearance normal, both eyes and all related structures Neck Neck: Yes normal visual inspection Chest Chest palpation & inspection: normal palpation of entire chest wall Resp Effort & Inspection: normal respiratory effort Neuro General: patient oriented x3 Extrem Other: Shoulder: Right: Crepitus on palpation. Able to abduct arm over 90 degrees with minimal discomfort. Full adduction. Full internal and external rotation. Assessment and Plan Assessment & Plan (1) Impingement syndrome of right shoulder: Code(s): M75.41 - Impingement syndrome of right shoulder Plan: A referral for orthopedics is being made. Steroid injection for the shoulder should be considered. (2) Prostate cancer: Code(s): C61 - Malignant neoplasm of prostate Plan: PSA will be checked. Patient has no symptoms. Coding Level of Care Code Est Pt Level 4 (23008) Complex EM visit Add On G2211 Diagnoses Impingement syndrome of right shoulder M75.41 Prostate cancer C61
[2024-01-27 09:20] VITALS: BP 90/64; PULSE 60; O2SAT 96; BMI 27.9
== END 2024-01-27 09:47 | disposition home or self-care (01) ==
PROVIDERS: PCP Internal Medicine; Visit Provider Internal Medicine
DX: M75.41 Impingement syndrome of right shoulder (principal); C61 Malignant neoplasm of prostate
CPT/HCPCS: 99214

== ENCOUNTER 2024-03-01 08:37 | Outpatient (AMB) | payer OTHER, SELFPAY ==
[2024-03-01 08:45] VITALS: BMI 27.9
--- NOTE | 2024-03-01 08:45 | A.OFFVIS_ITS ---
Vital Signs 03/01/24 08:45 Height 5 ft 6 in Weight 173 lb BMI 27.9 Intake Visit Reasons: OV - Right Shoulder Pain Intake Note: Aurelio is a 68 year old right hand dominant male who presents today for a follow up of his right shoulder. This shoulder was injected 03/04/22. Allergies Penicillins Allergy (Intermediate, Verified 01/27/24 09:20) SICKNESS ampicillin Allergy (Unknown, Verified 01/27/24 09:20) Unknown HPI HPI OV - Right Shoulder Pain: Details: Aurelio is a 68 year old right hand dominant male who presents today for a follow up of his right shoulder. This shoulder was injected 03/04/22. He felt relief from the injection and he still doesn't have the funds to attend formal PT. He describes anterior and sub-deltoid shoulder pain. [facility] Medical History Rib pain on right side Osteoarthritis of right shoulder Hypercholesterolemia Eczema Hyperglycemia Prostate cancer Vitamin D deficiency Contusion of chest wall Surgical History History of appendectomy History of prostatectomy Family History Father Prostate cancer Mother No problems noted. Social History Housing: House Alcohol intake: current Alcohol intake frequency: holidays/special occasions only Patient Tobacco Use Status: Former Tobacco user Tobacco use type: Cigarette e-Cigarette/Vaping Use: Never Used Second Hand Smoke Exposure: No service: No Current occupational status: employed Cognitive needs: No Hearing needs: No Vision needs: Yes (glasses) Physical Exam Vital Signs: BMI result Body Mass Index 27.9 Const General: no acute distress, alert and awake Orientation/consciousness: patient oriented x3 HEENT Head: Yes normocephalic and Yes atraumatic Eyes EOM: EOMs intact bilaterally Resp Effort & Inspection: normal respiratory effort and able to speak in complete sentences Cardio Jugular venous distension: no JVD Skin General skin exam: turgor normal Rashes: no rashes Neuro General: patient oriented x3 Extrem Other: Right Shoulder: full ROM Neg empty can mildly + Raygoza and Neer Neg liftoff ER 25 degrees right compared to 45 degrees left Psych Appearance: grossly normal Affect: normal affect Attitude: cooperative Office Procedures Joint Injection/Aspiration Joint Injection/Aspiration Details: Injected 1 mL of Decadron and 3 mL 1% lidocaine and 3 mL of 0.25% Marcaine. Site was prepped using aseptic technique. Patient tolerated the procedure well. Primary Site: right shoulder Approach Used: posterolateral Coding 53149 - Large joint Procedure code (CPT) selection complete Assessment & Plan Assessment & Plan (1) Impingement syndrome of right shoulder: Code(s): M75.41 - Impingement syndrome of right shoulder Category: Medical Plan: I injected his shoulder and gave him a handout for exercises. May follow up as needed. Plan I injected the right shoulder today and provided him with exercise handouts. Coding Level of Care Code Est Pt Level 3 (68580) Diagnoses Impingement syndrome of right shoulder M75.41 CPT Codes Coding - Large joint: 99371 - Large joint ([id number])
== END 2024-03-01 11:15 | disposition home or self-care (01) ==
PROVIDERS: PCP Internal Medicine; Visit Provider Orthopaedic Surgery
DX: M75.41 Impingement syndrome of right shoulder (principal)
CPT/HCPCS: 20610; 99213

== ENCOUNTER → 2024-03-01 08:37 | Outpatient (BNVA) | payer OTHER, SELFPAY | PROVIDERS: PCP Internal Medicine; Visit Provider Orthopaedic Surgery | DX: M75.41 Impingement syndrome of right shoulder (principal) | CPT/HCPCS: 20610; J0665; J1100 ==

== ENCOUNTER 2024-07-01 08:51 | Outpatient (AMB) | payer OTHER, SELFPAY ==
[2024-07-01 08:55] VITALS: BP 114/76; PULSE 71; O2SAT 98; BMI 27.3
--- NOTE | 2024-07-01 08:55 | A.OFFVIS_ITS ---
Vital Signs 07/01/24 08:55 Height 5 ft 6 in Weight 169 lb 6 oz BMI 27.3 BP 114/76 Blood Pressure Location Lt brachial Position Sitting Pulse 71 Pulse Source Pulse Oximeter Pulse Oximetry (%) 98 Oxygen Delivery Method Room Air Intake Visit Reasons: 1 yr f/u - Sleep Basic Sciences Professor Required: Yes Basic Sciences Professor Name: Suellen [id number] Accompanied by: Self / Same As Patient Allergies Penicillins Allergy (Intermediate, Verified 07/01/24 09:00) SICKNESS ampicillin Allergy (Unknown, Verified 07/01/24 09:00) Unknown Medication List - Last Reconciled 07/01/24 by Shaun Gann PA-C albuterol sulfate 90 mcg/actuation (Ventolin HFA) 1 inh inhalation QID PRN aspirin (Adult Low Dose Aspirin) 81 mg PO DAILY atorvastatin 20 mg PO BEDTIME ergocalciferol (vitamin D2) 1,250 mcg PO QWEEK meloxicam 15 mg PO DAILY triamcinolone acetonide 0.025% 1 appl topical BID Do you need a note to return to daycare/school/sports/work: No HPI Comments Details: 67 y/o male patient presents for follow up of PIERRE on CPAP. Latvian speaking, Basic Sciences Professor used Sharyn Price #[id number] The home sleep study result was significant for severe degree of sleep apnea. The AHI was 65/hr and oxygen oc was 62%. Pt underwent titration study. The breathing and oxygenation stabilized on CPAP at [id number] and tolerated this pressure. The CPAP compliance and therapy response (04/02/24-06/30/24) reviewed. He is on CPAP at [id number]. The usage days 12% and the average usage hours 3 hrs 47 min. The residual AHI was 1.2/hr. He states that he is not using it due to the air drying out his throat, and he didn't understand how to adjust the humidifier settings on his machine, he isn't computer literate and has a language barrier, chinese speaking. He works from 3 pm to 2 am, sometimes he forgets to put CPAP on. He also feels the pressures are too high for him and would like to lower them. Mask is a good fit for him. Denies headaches, vision changes, has cataracts. He has bilateral leg pain, like cramps very fast, short sensation, not painful, and when he moves his legs the sensation goes away Denies tingling or numbness. Memory is bad, forgets all the time. Denies hallucinations, nightmares, abnormal sleep behaviors. Diet is good. Drops off his at work at 7am and sleeps all morning bc he works from 3pm to 2am. [facility] Medical History Rib pain on right side Osteoarthritis of right shoulder Hypercholesterolemia Eczema Hyperglycemia Prostate cancer Vitamin D deficiency Contusion of chest wall Surgical History History of appendectomy History of prostatectomy Family History Father Prostate cancer Mother No problems noted. Social History Housing: House Alcohol intake: current Alcohol intake frequency: holidays/special occasions only Patient Tobacco Use Status: Former Tobacco user Tobacco use type: Cigarette e-Cigarette/Vaping Use: Never Used Second Hand Smoke Exposure: No service: No Current occupational status: employed Cognitive needs: No Hearing needs: No Vision needs: Yes (glasses) Review of Systems ENT Reports Normal hearing present Neuro Reports Normal hearing present Physical Exam Vital Signs: Last Vital Signs Pulse 71 07/01/24 08:55 BP 114/76 07/01/24 08:55 Pulse Ox 98 07/01/24 08:55 Oxygen Delivery Method Room Air 07/01/24 08:55 BMI result Body Mass Index 27.3 Const General: cooperative Nutritional Appearance: average body habitus Orientation/consciousness: patient oriented x3 HEENT Throat: Yes other (mallampati grade.) Resp Effort & Inspection: normal respiratory effort and able to speak in complete sentences Neuro General: patient oriented x3 and gait normal Cranial nerves: Yes Bilaterally intact EOM present, Yes Normal facial strength present, Yes Midline tongue present, Yes Symmetric palate elevation present, Yes Normal hearing present, Yes Ability to bilaterally rotate head present and Yes Ability to bilaterally elevate shoulders present Cognition (Neuro): normal cognition Gait exam (Neuro): Normal gait present Motor exam (neuro): Pronator motor function not present and no tremor noted Psych Appearance: grossly normal Mental Status: mental status grossly normal Speech and movement: Normal speech and movement present Affect: normal affect Attitude: cooperative Results Reviewed Results Reviewed: CPAP 03/2024- 06/2024 Total use >4 hours 11 days. Average use 3 hours 47min Pressures [id number] Leaks 4.2 to Max 16.5, AHI is 1.2 Assessment & Plan Assessment & Plan (1) Obstructive sleep apnea: Comment: Severe degree of sleep apnea. The AHI was 65/hr and oxygen oc was 62%. Code(s): G47.33 - Obstructive sleep apnea (adult) (pediatric) Category: Medical Plan Continue to use CPAP. Stressed compliance, use CPAP nightly and more than 4 hour s. Advised patient to clean the mask and tubing every morning. Continue to practice good sleep hygiene. Call the [facility] for supplies as needed and help with instructions on how to adjust the settings, Pressures and temperatures if they are not to your satisfaction. Walk in clinic in [place] for adjustments to the CPAP. Discussed [facility] and ENT referral for DISE procedure Follow up in 3 months to review CPAP therapy Leg Cramps 400mg Magnesium PO at bedtime daily. Medications: New 2 magnesium oxide Muscle cramps. 400 mg PO DAILY 30 tabs 1RF Refilled triamcinolone acetonide 0.025% 1 appl topical BID 15 grams 0RF Coding Level of Care Code Est Pt Level 3 (28645) Diagnoses Obstructive sleep apnea G47.33 Time Spent (min) 45 Comment Worsening CPAP use
== END 2024-07-01 09:56 | disposition home or self-care (01) ==
PROVIDERS: Absent Provider Physician Assistant Medical; PCP Internal Medicine; Visit Provider Physician Assistant Medical
DX: G47.33 Obstructive sleep apnea (adult) (pediatric) (principal)
CPT/HCPCS: 99213

== ENCOUNTER 2024-09-02 08:58 | Outpatient (AMB) | payer OTHER, SELFPAY ==
--- NOTE | 2024-09-02 09:19 | AM.OFFWIN_ITS ---
Intake Vital Signs 09/02/24 09:21 Weight 177 lb BP 114/70 Blood Pressure Location Lt brachial Position Sitting Pulse 64 Pulse Source Pulse Oximeter Pulse Oximetry (%) 98 Oxygen Delivery Method Room Air Intake Visit Reasons: EP-rt side lower back pain Intake Note: Patient here for right sided lower back/hip pain that worsens throughout the day which started about 2 weeks ago. Patient Tobacco Use Status: Former Tobacco user Allergies Penicillins Allergy (Intermediate, Verified 09/02/24 09:22) SICKNESS ampicillin Allergy (Unknown, Verified 09/02/24 09:22) Unknown Do you need a note to return to daycare/school/sports/work: No HPI HPI Comments History of Present Illness Details 68 y/o male patient who presents to the walk in clinic with c/o Right side lower back pain that radiates down to his right lower extremity x 2 weeks now. Reports pain with bending, squatting and walking. Denies Bladder or bowel problems. Denies numbness or tingling. [facility] Medical History (Updated 09/02/24 @ 09:39 by Emilie Marinelli NP) Low back pain radiating to lower extremity Rib pain on right side Osteoarthritis of right shoulder Hypercholesterolemia Eczema Hyperglycemia Prostate cancer Vitamin D deficiency Contusion of chest wall Surgical History History of appendectomy History of prostatectomy Family History Father Prostate cancer Mother No problems noted. Social History Housing: House Alcohol intake: current Alcohol intake frequency: holidays/special occasions only Patient Tobacco Use Status: Former Tobacco user Tobacco use type: Cigarette e-Cigarette/Vaping Use: Never Used Second Hand Smoke Exposure: No service: No Current occupational status: employed Cognitive needs: No Hearing needs: No Vision needs: Yes (glasses) Review of Systems Const All systems reviewed & are unremarkable except as noted in HPI and below Physical Exam Vital Signs: Last Vital Signs Pulse 64 09/02/24 09:21 BP 114/70 09/02/24 09:21 Pulse Ox 98 09/02/24 09:21 Oxygen Delivery Method Room Air 09/02/24 09:21 Const Orientation/consciousness: patient oriented x3 Back/Spine/Pelvis Back: back tenderness Thoracic/Lumbar Spine: pain with thoraco-lumbar ROM, thoraco-lumbar spasm on the right and lumbar spinal tenderness at L4 Neuro General: patient oriented x3, gait normal and moves all extremities Assessment & Plan Assessment & Plan (1) Low back pain radiating to lower extremity: Code(s): M54.50 - Low back pain, unspecified; M79.606 - Pain in leg, unspecified Plan: Ordered PT Acetaminophen for pain relief. Orders: Orders PT Evaluation and Treatment Today M54.50 - Low back pain, unspecified, M79.606 - Pain in leg, unspecified Medications: New lidocaine 5% leave on most painful area for up to 12 hrs 1 patch topical DAILY 30 ea 0RF M54.50 - Low back pain, unspecified, M79.606 - Pain in leg, unspecified acetaminophen 1,000 mg (2 x 500 mg) PO Q6H PRN 30 caps 0RF pain M54.50 - Low back pain, unspecified, M79.606 - Pain in leg, unspecified cyclobenzaprine 5 mg PO BEDTIME 10 tabs 0RF Pain M54.50 - Low back pain, unspecified, M79.606 - Pain in leg, unspecified Coding Level of Care Code Est Pt Level 4 (40240) Diagnoses Low back pain radiating to lower extremity M54.50; M79.606 Time Spent (min) 20
[2024-09-02 09:21] VITALS: BP 114/70; PULSE 64; O2SAT 98
--- OUTSIDE RECORDS SUMMARY | 2024-09-02 09:21 | XMS_ITS | Encounter Summary ---
Author Organization [facility] Address [address] [place] [id number] Care Team Providers Care Salesperson Shoes Name Role Phone Joni Woodruff MD Primary Care Provider Joni Sotelo MD Unavailable Unavailable Lashawn Mitchell RN Unavailable Encounter Details Date Type Department Care Team (Late st Contact Info) Description 01/03/2016 Telephone [facility] Urologic Surgery [address] [address] Alonso Gonzales MD [address] [place] [address] Social History Tobacco Use Types Packs/Day Years Used Date Smoking Tobacco: Former Alcohol Use Standard Drinks/Week Comments Not Asked 0 (1 standard drink = 0.6 oz pur e alcohol) Sex and Gender Information Value Date Recorded Sex Assigned at Not on file Gender Identity Not on file Sexual Orientation Not on file documented as of this encounter Miscellaneous Notes * Telephone Encounter - Bina Pate - 01/03/2016 9:57 AM EDT Pt would like to talk to Kaylee regarding some brochures that MD gave to pt and would like to discuss w/ someone. [place] only. documented in this encounter Plan of Treatment Not on file documented as of this encounter Visit Diagnoses Not on filedocumented in this encounter Care Teams Salesperson Shoes Relationship Specialty Start Date End Date Joni Woodruff MD PCP - General 04/03/15 Joni Woodruff MD Internal Medicine 03/06/15 Lashawn Mitchell RN [address] [place] [address] Oncology Nurse Navigator 04/10/16 documented as of this encounter
--- OUTSIDE RECORDS SUMMARY | 2024-09-02 09:22 | XMS_ITS | Encounter Summary ---
Author Organization [facility] Address [address] [place] [address] Care Team Providers Care Lead Fabricator Name Role Phone Joni Woodruff MD Primary Care Provider Joni Sotelo MD Unavailable Unavailable Lashawn Mitchell RN Unavailable [phone] Encounter Details Date Type Department Care Team (Late st Contact Info) Description 04/20/2015 Scanned Document [address] [phone] Provider, Generic Social History Tobacco Use Types Packs/Day Years Used Date Smoking Tobacco: Former Alcohol Use Standard Drinks/Week Comments Not Asked 0 (1 standard drink = 0.6 oz pur e alcohol) Sex and Gender Information Value Date Recorded Sex Assigned at Not on file Gender Identity Not on file Sexual Orientation Not on file documented as of this encounter Plan of Treatment Not on file documented as of this encounter Visit Diagnoses Not on filedocumented in this encounter Care Teams Lead Fabricator Relationship Specialty Start Date End Date Joni Woodruff MD PCP - General 04/03/15 Joni Woodruff MD Internal Medicine 03/06/15 Lashawn Mitchell, TORRES [address] [address] Oncology Nurse Navigator 04/10/16 documented as of this encounter
--- OUTSIDE RECORDS SUMMARY | 2024-09-02 09:22 | XMS_ITS | Clinical Summary ---
Author Organization [facility] Address [address] [place] [address] Care Team Providers Care Marketing Summer Intern Name Role Phone Joni Woodruff MD Primary Care Provider Joni Sotelo MD Unavailable Unavailable Lashawn Mitchell RN Unavailable [phone] Allergies Active Allergy Reactions Criticality Noted Date Comments Penicillins Other (See Comments) ,GI Intolerance/Nausea/Vomiting Low 03/06/2015 dizziness Medications Medication Sig Dispensed Refills Start Date End Date Status aspirin 81 MG tablet Aspirin 81 MG Oral Tablet TAKE 1 TABLET DAILY. ; Start Date: ; End Date: Active ergocalciferol (ERGOCALCIFEROL) 36165 units capsuleIndications:Vi tamin D Deficiency Take 1 capsule (50,000 Units total) by mouth every 14 days (2 weeks). 6 capsule 3 10/27/2017 Active Elastic Bandages & Supports (WRIST SPLINT) MiscIndications:Carpa l tunnel syndrome of right wrist 1 Device by Does not apply route nightly. Right wrist. Futuro brand or equivalent 1 Device 01/16/2018 Active sildenafil (REVATIO) 20 MG tabletIndications:Ere ctile dysfunction following radical prostatectomy Take 1 tablet (20 mg total) by mouth as needed (ED). Take 1-5 tabs 2 hours prior to sexual activity not to exceed 5 [id number] mg in 24 hrs 50 tablet 11 03/03/2018 Active Active Problems Problem Noted Date Diagnosed Date Carpal tunnel syndrome of right wrist 01/15/2018 Polyradiculopathy 01/15/2018 Muscle weakness (generalized) 12/25/2017 Overview (12/25/2017): Bilateral Leg Weakness: 2014-03-01 13:27:46 Positive RPR test 11/10/2017 Learning disorder 12/19/2016 Snoring 08/27/2016 Erectile dysfunction 03/28/2016 Skin scales 03/12/2016 Malignant neoplasm of prostate 01/16/2015 Hyperlipidemia 09/05/2014 Vitamin D deficiency 08/25/2013 Resolved Problems Problem Noted Date Diagnosed Date Resolved Date Lateral epicondylitis of elbow 09/05/2014 09/07/2015 Immunizations Name Administration Dates Next Due TD Preservative Free 01/30/2010 Family History Medical History Relation Name Comments Depression Brother Suicide attempts Brother No Known Problems Daughter 1 No Known Problems Daughter 2 Prostate cancer Father No Known Problems Mother No Known Problems Son 1 No Known Problems Son 2 No Known Problems Son 3 Relation Name Status Comments Brother Alive Daughter 1 Alive Daughter 2 Alive Father Mother Alive Sister 1 Alive Sister 2 Alive Son 1 Alive Son 2 Alive Son 3 Alive Social History Tobacco Use Types Packs/Day Years Used Date Smoking Tobacco: Former Cigarettes 0 07/21/1985 - 07/21/2000 Smokeless Tobacco: Never Alcohol Use Standard Drinks/Week Comments Yes 7 (1 standard drink = 0.6 oz pur e alcohol) Sex and Gender Information Value Date Recorded Sex Assigned at Not on file Gender Identity Not on file Sexual Orientation Not on file Last Filed Vital Signs Vital Sign Reading Time Taken Comments Blood Pressure 109/70 01/16/2018 3:03 PM EDT Pulse 82 01/16/2018 3:03 PM EDT Temperature 36.1 ??C (97 ??F) 10/08/2016 1:09 PM EDT Respiratory Rate 18 01/16/2018 3:03 PM EDT Oxygen Saturation - - Inhaled Oxygen Concentration - - Weight 71.2 kg (157 lb) 01/16/2018 3:03 PM EDT Height 167.6 cm (5' 6 ) 01/16/2018 3:03 PM EDT Body Mass Index 25.34 01/16/2018 3:03 PM EDT Plan of Treatment Health Maintenance Due Date Last Done Comments Hepatitis C Virus Screening 1955 Pneumococcal Vaccines 50+ (1 of 1 - PCV) 2006 Zoster (Shingles) Vaccine (1 of 2) 2006 DTaP/Tdap/Td Vaccines (1 - Tdap) 01/31/2010 01/30/2010 COVID-19 Vaccine ( - 2023-25 season) 2024 RSV Vaccine 60 years and older and Patients (1 - 1-dose 75+ series) 10/07/2031 HIV Screening Discontinued 11/20/2017, 11/16/2014 Hepatitis B Vaccines Aged Out No long er eligible based on patient's age to complete this topic Procedures Procedure Name Priority Date/Time Associated Diagnosis Comments HIV 1/2 AG/AB CMIA REFLEX TO CONFIRMATION Routine 11/20/2017 4:01 PM EDT Positive RPR test from Last 3 Months or Most Recently Relevant to Health Maintenance Results * HIV 1/2 Ag/Ab CMIA Reflex to Confirmation (11/20/2017 4:01 PM EDT) HIV Ag/Ab, 4th Gen NON-REACT AWILDA NON-REACT AWILDA [facility] Comment: HIV-1 antigen and HIV-1/HIV-2 antibodies were not detected. There is no laboratory evidence of HIV infection. PLEASE NOTE: This information has been disclosed to you from records whose confidentiality may be protected by state law. ??If your state requires such protection, then the state law prohibits you from making any further disclosure of the information without the specific written consent of the person to whom it pertains, or as otherwise permitted by law. A general authorization for the release of medical or other information is NOT sufficient for this purpose. ?? For additional information please refer to http://education.[facility]/faq/DGZ996 (This link is being provided for informational/ educational purposes only.) The performance of this assay has not been clinically validated in patients less than 2 years old. Blood specimen (specimen) 11/20/2017 4:01 PM EDT 11/21/2017 6:28 AM EDT Narrative Resulting Agency Comment Performing Organization Information: ?Site ID: [id number] ?Name: [facility] ?Address: [address] [place] [address], [place] [address] ?Director: Uche Rock MD Joni Woodruff MD LAB BLOOD ORDERABLES [facility] [address] [facility] 3rd Floor, [place] [address] from Last 3 Months or Most Recently Relevant to Health Maintenance Care Teams Marketing Summer Intern Relationship Specialty Start Date End Date Joni Woodruff MD PCP - General 04/03/15 Joni Woodruff MD Internal Medicine 03/06/15 Lashawn Mitchell, RN [address] [place] [address] Oncology Nurse Navigator 04/10/16
--- OUTSIDE RECORDS SUMMARY | 2024-09-02 09:22 | XMS_ITS | Encounter Summary ---
Author Organization [facility] Address [address] [place] [address] Care Team Providers Care Broke Handler Name Role Phone Joni Woodruff MD Primary Care Provider Joni Sotelo MD Unavailable Unavailable Lashawn Mitchell RN Unavailable Encounter Details Date Type Department Care Team (Late st Contact Info) Description 07/11/2015 Scanned Document [address] [phone] Provider, Generic Social History Tobacco [...] on filedocumented in this encounter Care Teams Broke Handler Relationship Specialty Start Date End Date Joni Woodruff MD PCP - General 04/03/15 Joni Woodruff MD Internal Medicine 03/06/15 Lashawn Mitchell, TORRES [address] [address] Oncology Nurse Navigator 04/10/16 documented as of this encounter
--- OUTSIDE RECORDS SUMMARY | 2024-09-02 09:23 | XMS_ITS | Encounter Summary ---
Author Organization [facility] Address [address] [place] [address] Care Team Providers Care Garnett Mechanic Name Role Phone Joni Woodruff MD Primary Care Provider Joni Sotelo MD Unavailable Unavailable Lashawn Mitchell RN Unavailable Encounter Details Date Type Department Care Team (Late st Contact Info) Description 11/21/2017 Scanned Document [address] [phone] Joni Woodruff MD Social History Tobacco Use Types Packs/Day Years [...] on filedocumented in this encounter Care Teams Garnett Mechanic Relationship Specialty Start Date End Date Joni Woodruff MD PCP - General 04/03/15 Joni Woodruff MD Internal Medicine 03/06/15 Lashawn Mitchell RN [address] [address] Oncology Nurse Navigator 04/10/16 documented as of this encounter
--- OUTSIDE RECORDS SUMMARY | 2024-09-02 09:23 | XMS_ITS | Encounter Summary ---
Author Organization [facility] Address [address] [place] [address] Care Team Providers Care Chief Construction Inspector Name Role Phone Joni Woodruff MD Primary Care Provider Joni Sotelo MD Unavailable Unavailable Lashawn Mitchell RN Unavailable [phone] Encounter Details Date Type Department Care Team (Late st Contact Info) Description 06/21/2016 Scanned Document [address] [facility] [address] [place] [phone] Provider, Generic Social History Tobacco Use Types Packs/Day Years Used Date Smoking Tobacco: Former Cigarettes 0 07/21/1985 - 07/21/2000 Alcohol Use Standard Drinks/Week Comments Yes 7 (1 standard drink = 0.6 oz pur e alcohol) Sex and Gender Information Value Date Recorded Sex Assigned at Not on file Gender Identity Not on file Sexual Orientation Not on file documented as of this encounter Plan of Treatment Not on file documented as of this encounter Procedures Procedure Name Priority Date/Time Associated Diagnosis Comments HX OUTSIDE ORDER 06/21/2016 documented in this encounter Results * HX OUTSIDE ORDER (06/21/2016) Narrative 06/21/2016 Ordered by an unspecified provider. Generic Provider HX AMB PROCEDURES documented in this encounter Visit Diagnoses Not on filedocumented in this encounter Care Teams Chief Construction Inspector Relationship Specialty Start Date End Date Joni Woodruff MD PCP - General 04/03/15 Joni Woodruff MD Internal Medicine 03/06/15 Lashawn Mitchell RN [address] [place] [address] Oncology Nurse Navigator 04/10/16 documented as of this encounter
--- OUTSIDE RECORDS SUMMARY | 2024-09-02 09:23 | XMS_ITS | Encounter Summary ---
Author Organization [facility] Address [address] [place] [address] Care Team Providers Care Dot Net Developer Name Role Phone Joni Woodruff MD Primary Care Provider Joni Sotelo MD Unavailable Unavailable Lashawn Mitchell RN Unavailable Reason for Visit * Reason Onset Date Comments Medication Refill 04/24/2017 Encounter Details Date Type Department Care Team (Late st Contact Info) Description 04/24/2017 [facility] [place] [address] [facility] [address] [place] [address] Suad Orr, SCREW REMOVER [address] [place] [address] Social History Tobacco Use Types Packs/Day Years [...] on filedocumented in this encounter Care Teams Dot Net Developer Relationship Specialty Start Date End Date Joni Woodruff MD PCP - General 04/03/15 Joni Woodruff MD Internal Medicine 8/17/15 Lashawn Mitchell RN [address] [place] [address] Oncology Nurse Navigator 04/10/16 documented as of this encounter
--- OUTSIDE RECORDS SUMMARY | 2024-09-02 09:23 | XMS_ITS | Clinical Summary ---
Author Organization [facility] Address [address] [place] [address] Care Team Providers Care Storm Window Installer Name Role Phone Damon Pastrana MD Primary Care Provider [phone] Source Comments PLEASE NOTE, if this patient is a minor, it may be UNLAWFUL to discuss sensitive information that is contained in these records (such as FAMILY PLANNING, MENTAL HEALTH or SUBSTANCE ABUSE) with the minor patient's parent or other person without the patient's specific authorization.[facility] Allergies Active Allergy Reactions Criticality Noted Date Comments Penicillins Nausea and Vomiting, Other (See Comments) Low 03/06/2015 dizziness Medications meloxicam (MOBIC) 15 mg tablet TOME LINNETTE TABLETA POR V A ORAL TODOS LOS D 07/25/2023 Active aspirin [address] tablet Aspirin 81 MG Oral Tablet TAKE 1 TABLET DAILY. ; Start Date: ; End Date: Active atorvastatin (LIPITOR) 40 mg tablet Take 1 Tablet by mouth nightly at bedtime 90 Tablet 3 09/29/2023 Active Active Problems Problem Noted Date Diagnosed Date Erectile dysfunction due to arterial insufficien cy 09/26/2023 Overview (09/26/2023): PDE5 inhibitors ineffective. Follows with urology. History of prostate cancer 09/26/2023 Overview (09/26/2023): S/p prostatectomy 2014 Primary osteoarthritis of right knee 09/26/2023 Overweight 09/26/2023 Learning disorder 12/19/2016 Hypercholesterolemia 09/05/2014 Immunizations Name Administration Dates Next Due PNEUMOCOCCAL CONJUGATE PCV 20 (Prevnar) 09/26/19 Pfizer COVID-19 (Comirnaty), Mrna, Lnp-s, Pf, Jameson-sucrose, 30 Mcg/0.3 Ml, 12yr+ 09/26/2023 Td (adult) unspecified 01/30/2010 ZOSTER VACCINE, RECOMBINANT (SHINGRIX) Social History Tobacco Use Types Packs/Day Years Used Date Smoking Tobacco: Former Cigarettes 1 20 0 09/15/1982 - 09/15/2002 Smokeless Tobacco: Never Alcohol Use Standard Drinks/Week Comments Yes 0 (1 standard drink = 0.6 oz pur e alcohol) social Social Connections Answer Date Recorded Connectedness 1 09/26/2023 Financial Resource Strain Answer Date R ecorded Financial Resource Strain 1 2023 Stress Answer Date Recorded Stress 1 09/26/2023 Physical Activity Answer Date Recorded Physical Activity 0 08/18/2023 Food Insecurity Answer Date Recorded Food 1 09/26/2023 Transportation Needs Answer Date Record ed Transportation 1 09/26/2023 Housing Stability Answer Date Recorded Housing 1 09/26/2023 Safety and Environment Answer Date Kain rded Safety 1 09/26/2023 Utilities Answer Date Recorded Utilities 1 09/26/2023 Employment Answer Date Recorded Employment 0 08/18/2023 Sex and Gender Information Value Date Recorded Sex Assigned at Male 09/26/2023 6:22 AM PST Legal Sex Male 5:44 AM PST Gender Identity Male 09/26/2023 6:22 AM PST Sexual Orientation Straight 09/26/2023 6: 22 AM PST Last Filed Vital Signs Vital Sign Reading Time Taken Comments Blood Pressure 112/80 09/26/2023 9:01 AM EST Pulse 74 09/26/2023 9:01 AM EST Temperature 36.6 ??C (97.8 ??F) 09/26/2023 9:01 AM ES T Respiratory Rate 20 09/26/2023 9:01 AM EST Oxygen Saturation - - Inhaled Oxygen Concentration - - Weight 78.8 kg (173 lb 12.8 oz) 09/26/2023 9:01 AM EST Height 167.6 cm (5' 6 ) 09/26/2023 9:01 AM EST Body Mass Index 28.05 09/26/2023 9:01 AM EST Plan of Treatment Health Maintenance Due Date Last Done Comments CT Colonography 2001 FIT/gFOBT 2001 Fecal DNA 2001 Flexible Sigmoidoscopy 2001 Imm-DTaP/Tdap/Td (1 - Tdap) 01/31/2010 01/30/2010 Abdominal Aortic Aneurysm Screening 2021 Falls Prevention 2021 Imm-Zoster, Recombinant (2 of 2) 11/21/2023 09/26/19 [id number] ( season) 2024 09/26/2023, 09/10/2021, 12/25/2020, Additional history exists Imm-Influenza (#1) 2024 Alcohol and Drug Screen 07/21/2024 09/26/2023 Depression Annual Screen 07/21/2024 09/26/2023 Hypertension Screening (#1) 09/25/2024 Lipid Screening 09/25/2024 09/26/2023 Tobacco Screening 09/25/2024 09/26/2023 Diabetes Screening 09/25/2026 09/26/2023 Colonoscopy 07/17/2031 07/17/2021 Colorectal Cancer Screening 07/17/2031 Hepatitis C Screening Completed 09/26/2023 Imm-Pneumococcal 65+ Completed 09/26/2023 Procedures Procedure Name Priority Date/Time Associated Diagnosis Comments HEPATITIS C AB W/RFLX HCV RNA, QT, RT PCR Routine 09/26/2023 9:52 AM EST Exposure to potential infection COMPREHENSIVE METABOLIC PANEL Routine 09/26/2023 9:52 AM EST Hypercholesterolem ia LIPIDS W RFLX TO DIRECT LDL Routine 09/26/2023 9:52 AM EST Hypercholesterolem ia HISTORIC COLONOSCOPY 07/17/2021 3:00 AM EST from Last 3 Months or Most Recently Relevant to Health Maintenance Results * HEPATITIS C AB W/RFLX HCV RNA, QT, RT PCR (09/26/2023 9:52 AM EST) Pathologist [facility] HEPATITIS C ANTIBODY NON-REACT AWILDA NON-REACT AWILDA [facility] Comment: HCV antibody was non-reactive. There is no laboratory evidence of HCV infection. In most cases, no further action is required. However, if recent HCV exposure is suspected, a test for HCV RNA (test code 73285) is suggested. For additional information please refer to http://Electric Cloud.PeerReach/faq/SMR08f4 (This link is being provided for informational/ educational purposes only.) Blood Blood / Unknown 09/26/2023 9 :52 AM EST 09/26/2023 9:52 AM EST us Damon Pastrana MD LAB - BLOOD DRAW Final Resul t [facility] [address] [address], [facility] [address] [address] * (ABNORMAL) LIPIDS W RFLX TO DIRECT LDL (09/26/2023 9:52 AM EST) CHOLESTEROL, TOTAL 223(H) <200 mg/dL [facility] HDL CHOLESTEROL 64 > OR = 40 mg/dL [facility] TRIGLYCERIDES 33 <150 mg/dL [facility] LDL-CHOLESTEROL 149(H) 99 mg/dL (calc) [facility] Comment: Reference range: <100 Desirable range <100 mg/dL for primary prevention; ?? <70 mg/dL for patients with CHD or diabetic patients with > or = 2 CHD risk factors. LDL-C is now calculated using the Singh-Kassandra calculation, which is a validated novel method providing better accuracy than the Friedewald equation in the estimation of LDL-C. Singh ORTEGA et al. GAB. 2013;310(19): 0435-3587 (http://education.Vital Farms/faq/QHD555) CHOL/HDLC RATIO 3.5 <5.0 (calc) [facility] NON-HDL CHOLESTEROL 159(H) <130 mg/dL (calc) [facility] Comment: For patients with diabetes plus 1 major ASCVD risk factor, treating to a non-HDL-C goal of <100 mg/dL (LDL-C of <70 mg/dL) is considered a therapeutic option. Blood Blood / Unknown 09/26/2023 9 :52 AM EST 09/26/2023 9:52 AM EST us Damon Pastrana MD LAB - BLOOD DRAW Final Resul t [email or web address] [address] [address], [facility] [address] [place] [address] * (ABNORMAL) COMPREHENSIVE METABOLIC PANEL (09/26/2023 9:52 AM EST) GLUCOSE 129(H) 65 - 99 mg/dL [facility] Comment: ?Fasting reference interval For someone without known diabetes, a glucose value >125 mg/dL indicates that they may have diabetes and this should be confirmed with a follow-up test. UREA NITROGEN (BUN) 19 7 - 25 mg/dL [facility] CREATININE (blood) 0.80 0.70 - 1.35 mg/dL [facility] EGFR 98 > OR = 60 mL/min/1. 73m2 [facility] BUN/CREATININE RATIO SEE NOTE: [facility] Comment: ?? Not Reported: BUN and Creatinine are within ?? reference range. ? SODIUM 138 135 - 146 mmol/L [facility] POTASSIUM 4.3 3.5 - 5.3 mmol/L [facility] CHLORIDE 103 98 - 110 mmol/L [facility] CARBON DIOXIDE 27 20 - 32 mmol/L [facility] CALCIUM 8.9 8.6 - 10.3 mg/dL [facility] PROTEIN, TOTAL 7.2 6.1 - 8.1 g/dL [facility] ALBUMIN 4.5 3.6 - 5.1 g/dL [facility] GLOBULIN 2.7 1.9 - 3.7 g/dL (calc) [facility] ALBUMIN/GLOBULI N RATIO 1.7 1.0 - 2.5 (calc) [facility] BILIRUBIN, TOTAL 1.0 0.2 - 1.2 mg/dL [facility] ALKALINE PHOSPHATASE 64 35 - 144 U/L [facility] AST 26 10 - 35 U/L [facility] ALT 32 9 - 46 U/L [facility] Blood Blood / Unknown 09/26/2023 9 :52 AM EST 09/26/2023 9:52 AM EST Damon Pastrana MD LAB - BLOOD DRAW Edited Resu lt - Final [facility] [address] [address], [facility] [address] [place] [address] * HISTORIC COLONOSCOPY (07/17/2021 3:00 AM EST) 07/17/2021 3:00 AM EST Damon Pastrana MD PROCEDURES Edited Resul t - Final from Last 3 Months or Most Recently Relevant to Health Maintenance Insurance [facility] Care Teams Storm Window Installer Relationship Specialty Start Date End Date Damon Pastrana MD [address] [place] [address] PCP - General Internal Medicine 09/26/23
--- OUTSIDE RECORDS SUMMARY | 2024-09-02 09:23 | XMS_ITS | Encounter Summary ---
Author Organization [facility] Address [address] [place] [address] Care Team Providers Care Digital Engineer Name Role Phone Joni Woodruff MD Primary Care Provider Joni Sotelo MD Unavailable Unavailable Lashawn Mitchell RN Unavailable [phone] Encounter Details Date Type Department Care Team (Late st Contact Info) Description 03/12/2016 Scanned Document [address] [phone] Provider, Generic Social History Tobacco [...] on filedocumented in this encounter Care Teams Digital Engineer Relationship Specialty Start Date End Date Joni Woodruff MD PCP - General 04/03/15 Joni Woodruff MD Internal Medicine 03/06/15 Lashawn Mitchell RN [address] [address] Oncology Nurse Navigator 04/10/16 documented as of this encounter
--- OUTSIDE RECORDS SUMMARY | 2024-09-02 09:23 | XMS_ITS | Clinical Summary ---
Author Organization [facility], Address [address] [place] [address] [place] [address] Phone Care Team Providers Care Labor Training Manager Name Role Phone Jackson Moyer MD Primary Care Provider [phone] Allergies Active Allergy Reactions Criticality Noted Date Comments Penicillins Nausea And Vomiting, Other (see comments) Low 03/06/2015 dizziness Medications aspirin 81 MG tablet Aspirin 81 MG Oral Tablet TAKE 1 TABLET DAILY. ; Start Date: ; End Date: Active azithromycin (ZITHROMAX) 250 MG tablet TAKE 2 TABLETS FIRST DAY, THEN ONE TABLET EVERY DAY FOR 4 DAYS 11/12/2019 Active guaiFENesin-cod eine (Cheratussin AC) 100-10 MG/5ML liquid Take 10 mL by mouth 11/12/2019 Active Active Problems Problem Noted Date Diagnosed Date Hypertension 12/07/2019 Other diseases of respirator y system, not elsewhere classified 12/02/2019 Overview (12/07/2019): COVID-19 Tracking [reviewed or updated 12/07/2019] ? Exposure to confirmed case or travel risk - No ? Date that symptoms began - 11/07 ? Patient risk factors for severe COVID-19: None ? Healthcare worker or dust puller? No ? COVID-19 Tested? - Yes - Date Tested 11/03/2019 Testing Location - [facility] - Testing Results - Positive ? Is patient ? No Vitamin D deficiency 08/25/2013 Immunizations Name Administration Dates Next Due Td, Unspecified 01/30/2010 Social History Tobacco Use Types Packs/Day Years Used Date Smoking Tobacco: Unknown Sex and Gender Information Value Date Recorded Sex Assigned at Not on file Legal Sex Male 10:37 AM EDT Gender Identity Not on file Sexual Orientation Not on file Plan of Treatment Health Maintenance Due Date Last Done Comments Colorectal Cancer Screening: Annual FOBT 2005 Colorectal Cancer Screening: Colonoscopy 2005 Colorectal Cancer Screening: Sigmoidoscopy 2005 Pneumococcal Vaccine: 65+ Ye ars (1 of 1 - PCV) 2021 Influenza Vaccine (#1) 2024 Hepatitis B Vaccine Aged Out No longe r eligible based on patient's age to complete this topic Insurance [facility] Care Teams Labor Training Manager Relationship Specialty Start Date End Date Jackson Moyer MD [address] [place] [address] PCP - General Internal Medicine 11/24/19
--- OUTSIDE RECORDS SUMMARY | 2024-09-02 09:23 | XMS_ITS | Encounter Summary ---
Author Organization [facility] Address [address] [place] [address] Care Team Providers Care Border Measurer And Cutter Name Role Phone Joni Woodruff MD Primary Care Provider Joni Sotelo MD Unavailable Unavailable Lashawn Mitchell RN Unavailable [phone] Encounter Details Date Type Department Care Team (Late st Contact Info) Description 03/23/2015 Scanned Document [address] [phone] Provider, Generic Social History Tobacco [...] on filedocumented in this encounter Care Teams Border Measurer And Cutter Relationship Specialty Start Date End Date Joni Woodruff MD PCP - General 04/03/15 Joni Woodruff MD Internal Medicine 03/06/15 Lashawn Mitchell, TORRES [address] [address] Oncology Nurse Navigator 04/10/16 documented as of this encounter
--- OUTSIDE RECORDS SUMMARY | 2024-09-02 09:23 | XMS_ITS | Encounter Summary ---
Author Organization [facility] Address [address] [place] [address] Care Team Providers Care Rag Room Supervisor Name Role Phone Joni Woodruff MD Primary Care Provider Joni Sotelo MD Unavailable Unavailable Lashawn Mitchell RN Unavailable [phone] Encounter Details Date Type Department Care Team (Late st Contact Info) Description 02/14/2015 Scanned Document [address] [phone] Provider, Generic Social History Tobacco Use Types Packs/Day Years Used Date Smoking Tobacco: Never Assessed Sex and Gender Information Value Date Recorded Sex Assigned at Not on file Gender Identity Not on file Sexual Orientation Not on file documented as of this encounter Plan of Treatment Not on file documented as of this encounter Visit Diagnoses Not on filedocumented in this encounter Care Teams Rag Room Supervisor Relationship Specialty Start Date End Date Joni Woodruff MD PCP - General 04/03/15 Joni Woodruff MD Internal Medicine 03/06/15 Lashawn Mitchell, TORRES [address] [address] Oncology Nurse Navigator 04/10/16 documented as of this encounter
--- OUTSIDE RECORDS SUMMARY | 2024-09-02 09:23 | XMS_ITS | Encounter Summary ---
Author Organization [facility] Address [address] [place] [address] Care Team Providers Care Pilot Submersible Name Role Phone Joni Woodruff MD Primary Care Provider Joni Sotelo MD Unavailable Unavailable Lashawn Mitchell RN Unavailable Encounter Details Date Type Department Care Team (Late st Contact Info) Description 03/20/2017 Scanned Document [address] [phone] Joni Woodruff MD Social History [...] on filedocumented in this encounter Care Teams Pilot Submersible Relationship Specialty Start Date End Date Joni Woodruff MD PCP - General 04/03/15 Joni Woodruff MD Internal Medicine 03/06/15 Lashawn Mitchell RN [address] [address] Oncology Nurse Navigator 04/10/16 documented as of this encounter
--- OUTSIDE RECORDS SUMMARY | 2024-09-02 09:23 | XMS_ITS | Encounter Summary ---
Author Organization [facility] Address [address] [place] [address] Care Team Providers Care Irrigationist Name Role Phone Joni Woodruff MD Primary Care Provider Joni Sotelo MD Unavailable Unavailable Lashawn Mitchell RN Unavailable Encounter Details Date Type Department Care Team (Late st Contact Info) Description 04/16/2016 Scanned Document [address] [facility] [address] [place] [phone] Provider, Generic Social History Tobacco Use [...] on filedocumented in this encounter Care Teams Irrigationist Relationship Specialty Start Date End Date Joni Woodruff MD PCP - General 04/03/15 Joni Woodruff MD Internal Medicine 03/06/15 Lashawn Mitchell RN [address] [address] Oncology Nurse Navigator 04/10/16 documented as of this encounter
--- OUTSIDE RECORDS SUMMARY | 2024-09-02 09:23 | XMS_ITS | Encounter Summary ---
Author Organization [facility] Address [address] [place] [address] Care Team Providers Care Office Workforce Planner Name Role Phone Joni Woodruff MD Primary Care Provider Joni Sotelo MD Unavailable Unavailable Lashawn Mitchell RN Unavailable Encounter Details Date Type Department Care Team (Late st Contact Info) Description 03/06/2015 Scanned Document [address] [place] [phone] Provider, Generic Social History Tobacco Use Types [...] Procedure Name Priority Date/Time Associated Diagnosis Comments ECG 12-LEAD 03/06/2015 documented in this encounter Results * ECG 12-LEAD (03/06/2015) Narrative 03/06/2015 Ordered by an unspecified provider. Generic Provider ECG ORDERABLES documented in this encounter Visit Diagnoses Not on filedocumented in this encounter Care Teams Office Workforce Planner Relationship Specialty Start Date End Date Joni Woodruff MD PCP - General 04/03/15 Joni Woodruff MD Internal Medicine 03/06/15 Lashawn Mitchell RN [address] [place] [address] Oncology Nurse Navigator 04/10/16 documented as of this encounter
--- OUTSIDE RECORDS SUMMARY | 2024-09-02 09:23 | XMS_ITS | Clinical Summary ---
Author Organization [facility] [employer] [facility] it Address [address] [place] [address] Care Team Providers Care Sprinkler Driver Name Role Phone Unavailable Primary Care Provider Unavailabl e Social History Tobacco Use Types Packs/Day Years Used Date Smoking Tobacco: Never Assessed Sex and Gender Information Value Date Recorded Sex Assigned at Not on file Legal Sex Male 8:53 PM EST Gender Identity Not on file Sexual Orientation Not on file Plan of Treatment Health Maintenance Due Date Last Done Comments DTaP,Tdap,and Td Vaccines (1 - Tdap) 10/07/1975 Pneumococcal Vaccine: 50+ Ye ars (1 of 1 - PCV) 2006 Zoster Vaccines (1 of 2) 2006 Abdominal Aortic Aneurysm (A AA) Screen 08/15/2023 Cholesterol Screening (Lipid Panel) 08/15/2023 Colorectal Cancer Screening: Colonoscopy 08/15/2023 Depression Screening 08/15/2023 Falls Risk Assessment 08/15/2023 Hepatitis C Screening 08/15/2023 Social Influencers of Health Screening 08/15/2023 COVID-19 Vaccine ( - 2023-2 5 season) 2024 Influenza Vaccine (#1) 2024 RSV Immunization Patients 60 + Years Old (1 - 1-dose 75+ series) 10/07/2031 HIB Vaccines Aged Out No longer eligi ble based on patient's age to complete this topic HPV Vaccines Aged Out No longer eligi ble based on patient's age to complete this topic Hepatitis A Vaccines Aged Out No long er eligible based on patient's age to complete this topic Hepatitis B Vaccines Aged Out No long er eligible based on patient's age to complete this topic IPV Vaccines Aged Out No longer eligi ble based on patient's age to complete this topic MMR Vaccines Aged Out No longer eligi ble based on patient's age to complete this topic Meningococcal ACWY Vaccine Aged Out N o longer eligible based on patient's age to complete this topic Meningococcal B Vacine Aged Out No lo nger eligible based on patient's age to complete this topic RSV Immunization Patients Un erendira 20 months Aged Out No longer eligible b ased on patient's age to complete this topic Varicella Vaccines Aged Out No longer eligible based on patient's age to complete this topic
== END 2024-09-02 09:41 | disposition home or self-care (01) ==
PROVIDERS: PCP Internal Medicine; Visit Provider Nurse Practitioner Family
DX: M54.50 Low back pain, unspecified (principal); M79.606 Pain in leg, unspecified

== ENCOUNTER 2024-09-03 15:21 | Outpatient (REF) | payer OTHER, SELFPAY ==
--- OUTSIDE RECORDS SUMMARY | 2024-09-03 15:54 | XMS_ITS | Clinical Summary ---
Author Organization [facility], Address [address] [place] [address] [place] [address] Phone Care Team Providers Care Psychiatric Aide Name Role Phone Jackson Moyer MD Primary Care Provider [phone] Allergies Active Allergy Reactions Criticality Noted Date [...] severe COVID-19: None ? Healthcare worker or reed polisher? No ? COVID-19 Tested? - Yes - Date Tested 11/03/2019 Testing Location - [facility] - Testing Results - Positive ? Is [...] patient's age to complete this topic Insurance [facility] Care Teams Psychiatric Aide Relationship Specialty Start Date End Date Jackson Moyer MD [address] [place] [id number] PCP - General Internal Medicine 11/24/19
--- OUTSIDE RECORDS SUMMARY | 2024-09-03 15:54 | XMS_ITS | Encounter Summary ---
Author Organization [facility] Address [address] [place] [address] Care Team Providers Care Link Machine Operator Name Role Phone Joni Woodruff MD Primary Care Provider Joni Sotelo MD Unavailable Unavailable Lashawn Mitchell RN Unavailable [phone] Encounter Details Date Type Department Care Team (Late st Contact Info) Description 04/16/2016 Scanned Document [facility] [address] [facility] [address] [place] [phone] Provider, Generic Social History Tobacco Use [...] on filedocumented in this encounter Care Teams Link Machine Operator Relationship Specialty Start Date End Date Joni Woodruff MD PCP - General 04/03/15 Joni Woodruff MD Internal Medicine 03/06/15 Lashawn Mitchell RN [address] [address] Oncology Nurse Navigator 04/10/16 documented as of this encounter
--- OUTSIDE RECORDS SUMMARY | 2024-09-03 15:54 | XMS_ITS | Encounter Summary ---
Author Organization [facility] Address [address] [place] [address] Care Team Providers Care Insurance Claims Representative Name Role Phone Joni Woodruff MD Primary Care Provider Joni Sotelo MD Unavailable Unavailable Lashawn Mitchell RN Unavailable Encounter Details Date Type Department Care Team (Late st Contact Info) Description 11/21/2017 Scanned Document [address] [phone] Joni Woodruff MD Social [...] on filedocumented in this encounter Care Teams Insurance Claims Representative Relationship Specialty Start Date End Date Joni Woodruff MD PCP - General 04/03/15 Joni Woodruff MD Internal Medicine 03/06/15 Lashawn Mitchell RN [address] [address] Oncology Nurse Navigator 04/10/16 documented as of this encounter
--- OUTSIDE RECORDS SUMMARY | 2024-09-03 15:54 | XMS_ITS | Clinical Summary ---
Author Organization [facility] Address [address] [place] [address] Care Team Providers Care Municipal Services Manager Name Role Phone Unavailable Primary Care Provider [...]
--- OUTSIDE RECORDS SUMMARY | 2024-09-03 15:54 | XMS_ITS | Encounter Summary ---
Author Organization [facility] Address [address] [place] [address] Care Team Providers Care Motor Vehicle Parts Interpreter Name Role Phone Joni Woodruff MD Primary Care Provider Joni Sotelo MD Unavailable Unavailable Lashawn Mitchell RN Unavailable [phone] Encounter Details Date Type Department Care Team (Late st Contact Info) Description 03/06/2015 Scanned Document [address] [place] [phone] Provider, Generic Social History Tobacco Use Types [...] on filedocumented in this encounter Care Teams Motor Vehicle Parts Interpreter Relationship Specialty Start Date End Date Joni Woodruff MD PCP - General 04/03/15 Joni Woodruff MD Internal Medicine 03/06/15 Lashawn Mitchell RN [address] [place] [address] Oncology Nurse Navigator 04/10/16 documented as of this encounter
--- OUTSIDE RECORDS SUMMARY | 2024-09-03 15:54 | XMS_ITS | Encounter Summary ---
Author Organization [facility] Address [address] [place] [address] Care Team Providers Care Associate Professor Of Education Name Role Phone Joni Woodruff MD Primary Care Provider Joni Sotelo MD Unavailable Unavailable Lashawn Mitchell RN Unavailable Encounter Details Date Type Department Care Team (Late st Contact Info) Description 03/12/2016 Scanned Document [address] [phone] Provider, Generic Social History Tobacco [...] on filedocumented in this encounter Care Teams Associate Professor Of Education Relationship Specialty Start Date End Date Joni Woodruff MD PCP - General 04/03/15 Joni Woodruff MD Internal Medicine 03/06/15 Lashawn Mitchell RN [address] [address] Oncology Nurse Navigator 04/10/16 documented as of this encounter
--- OUTSIDE RECORDS SUMMARY | 2024-09-03 15:54 | XMS_ITS | Encounter Summary ---
Author Organization [facility] Address [address] [place] [address] Care Team Providers Care Hoop Driving Machine Operator Helper Name Role Phone Joni Woodruff MD Primary Care Provider Joni Sotelo MD Unavailable Unavailable Lashawn Mitchell RN Unavailable Encounter Details Date Type Department Care Team (Late st Contact Info) Description 03/23/2015 Scanned Document [address] [phone] Provider, Generic Social History Tobacco [...] on filedocumented in this encounter Care Teams Hoop Driving Machine Operator Helper Relationship Specialty Start Date End Date Joni Woodruff MD PCP - General 04/03/15 Joni Woodruff MD Internal Medicine 03/06/15 Lashawn Mitchell, TORRES [address] [address] Oncology Nurse Navigator 04/10/16 documented as of this encounter
--- OUTSIDE RECORDS SUMMARY | 2024-09-03 15:54 | XMS_ITS | Encounter Summary ---
Author Organization [facility] Address [address] [place] [address] Care Team Providers Care Manufacturing Process Engineer Name Role Phone Joni Woodruff MD Primary Care Provider Joni Sotelo MD Unavailable Unavailable Lashawn Mitchell RN Unavailable [phone] Encounter Details Date Type Department Care Team (Late st Contact Info) Description 07/11/2015 Scanned Document [address] [phone] Provider, Generic Social History Tobacco [...] on filedocumented in this encounter Care Teams Manufacturing Process Engineer Relationship Specialty Start Date End Date Joni Woodruff MD PCP - General 04/03/15 Joni Woodruff MD Internal Medicine 03/06/15 Lashawn Mitchell, TORRES [address] [address] Oncology Nurse Navigator 04/10/16 documented as of this encounter
--- OUTSIDE RECORDS SUMMARY | 2024-09-03 15:54 | XMS_ITS | Encounter Summary ---
Author Organization [facility] Address [address] [place] [address] Care Team Providers Care Endocrinology Specialist Name Role Phone Joni Woodruff MD Primary Care Provider Joni Sotelo MD Unavailable Unavailable Lashawn Mitchell RN Unavailable Encounter Details Date Type Department Care Team (Late st Contact Info) Description 06/21/2016 Scanned Document [address] [facility] [address] [place] [phone] Provider, Generic Social History Tobacco Use [...] on filedocumented in this encounter Care Teams Endocrinology Specialist Relationship Specialty Start Date End Date Joni Woodruff MD PCP - General 04/03/15 Joni Woodruff MD Internal Medicine 03/06/15 Lashawn Mitchell RN [address] [place] [address] Oncology Nurse Navigator 04/10/16 documented as of this encounter
--- OUTSIDE RECORDS SUMMARY | 2024-09-03 15:54 | XMS_ITS | Encounter Summary ---
Author Organization [facility] Address [address] [place] [address] Care Team Providers Care Assigner Name Role Phone Joni Woodruff MD Primary Care Provider Joni Sotelo MD Unavailable Unavailable Lashawn Mitchell RN Unavailable [phone] Reason for Visit * Reason Onset Date Comments Medication Refill 04/24/2017 Encounter Details Date Type Department Care Team (Late st Contact Info) Description 04/24/2017 Refill [facility] [place] [address] [facility] [address] [place] [address] Suad Orr, LEAD GENERATION REPRESENTATIVE [address] [place] [address] Social History Tobacco Use Types Packs/Day Years [...] on filedocumented in this encounter Care Teams Assigner Relationship Specialty Start Date End Date Joni Woodruff MD PCP - General 04/03/15 Joni Woodruff MD Internal Medicine 8/17/15 Lashawn Mitchell RN [address] [place] [phone] Oncology Nurse Navigator 04/10/16 documented as of this encounter
--- OUTSIDE RECORDS SUMMARY | 2024-09-03 15:54 | XMS_ITS | Encounter Summary ---
Author Organization [facility] Address [address] [place] [address] Care Team Providers Care Manager Advanced Name Role Phone Joni Woodruff MD Primary Care Provider Joni Sotelo MD Unavailable Unavailable Lashawn Mitchell RN Unavailable Encounter Details Date Type Department Care Team (Late st Contact Info) Description 02/14/2015 Scanned Document [address] [phone] Provider, Generic Social History Tobacco [...] on filedocumented in this encounter Care Teams Manager Advanced Relationship Specialty Start Date End Date Joni Woodruff MD PCP - General 04/03/15 Joni Woodruff MD Internal Medicine 03/06/15 Lashawn Mitchell, TORRES [address] [address] Oncology Nurse Navigator 04/10/16 documented as of this encounter
--- OUTSIDE RECORDS SUMMARY | 2024-09-03 15:54 | XMS_ITS | Clinical Summary ---
Author Organization Formerly [facility] Address [address] [place] [address] Care Team Providers Care Sterile Processing Manager Name Role Phone Joni Woodruff MD Primary Care Provider Joni Sotelo MD Unavailable Unavailable Lashawn Mitchell RN Unavailable Allergies Active Allergy Reactions Criticality Noted Date Comments Penicillins Other (See Comments) ,GI Intolerance/Nausea/Vomiting Low 03/06/2015 dizziness Medications Medication Sig Dispensed Refills Start Date End Date Status aspirin 81 MG tablet Aspirin 81 MG Oral Tablet TAKE 1 TABLET DAILY. ; Start Date: ; End Date: Active ergocalciferol (ERGOCALCIFEROL) 10913 units capsuleIndications:Vi tamin D Deficiency Take 1 [...] to sexual activity not to exceed 5 iuw=854 mg in 24 hrs 50 tablet 11 [...] Ag/Ab, 4th Gen NON-REACT AWILDA NON-REACT AWILDA [facility] NL[facility] Comment: HIV-1 antigen and HIV-1/HIV-2 [...] ?? For additional information please refer to http://education.Theorem/faq/XCT602 (This link is being provided for informational/ educational purposes only.) The performance of this assay has not been clinically validated in patients less than 2 years old. Blood specimen (specimen) 11/20/2017 4:01 PM EDT 11/21/2017 6:28 AM EDT Narrative Resulting Agency Comment Performing Organization Information: ?Site ID: [id number] ?Name: [id number] ?Address: [address] [place] [address], [place] [address] ?Director: Uche Rock MD Joni Woodruff MD LAB BLOOD ORDERABLES [facility] [address] [facility] 3rd Floor, [place] [address] from Last 3 Months or Most Recently Relevant to Health Maintenance Care Teams Sterile Processing Manager Relationship Specialty Start Date End Date Joni Woodruff MD PCP - General 04/03/15 Joni Woodruff MD Internal Medicine 03/06/15 Lashawn Mitchell, RN [address] [place] [address] Oncology Nurse Navigator 04/10/16
--- OUTSIDE RECORDS SUMMARY | 2024-09-03 15:54 | XMS_ITS | Clinical Summary ---
Author Organization [facility] Address [address] [place] [address] Care Team Providers Care Corporate Operations Compliance Manager Name Role Phone Damon Pastrana MD Primary Care Provider [phone] Source Comments PLEASE NOTE, if this patient [...] Imm-Zoster, Recombinant (2 of 2) 11/21/2023 09/26/19 [id number] ( season) 2024 09/26/2023, 09/10/2021, 12/25/2020, Additional [...] RT PCR (09/26/2023 9:52 AM EST) Pathologist [facility] HEPATITIS C ANTIBODY NON-REACT AWILDA NON-REACT AWILDA [facility] Comment: HCV antibody was non-reactive. There is no laboratory evidence of HCV infection. In most cases, no further action is required. However, if recent HCV exposure is suspected, a test for HCV RNA (test code 53309) is suggested. For additional information please refer to http://Owingo.EV Connect/faq/HDD39d5 (This link is being provided for informational/ educational purposes only.) Blood Blood / Unknown 09/26/2023 9 :52 AM EST 09/26/2023 9:52 AM EST us Damon Psatrana MD LAB - BLOOD DRAW Final Resul t [facility] [address] [address], [facility] [address] [address] * (ABNORMAL) LIPIDS W RFLX TO DIRECT LDL (09/26/2023 9:52 AM EST) CHOLESTEROL, TOTAL 223(H) <200 mg/dL [facility] HDL CHOLESTEROL 64 > OR = 40 mg/dL [facility] TRIGLYCERIDES 33 <150 mg/dL [facility] LDL-CHOLESTEROL 149(H) 99 mg/dL (calc) [facility] Comment: Reference range: <100 Desirable range <100 mg/dL for primary prevention; ?? <70 mg/dL for patients with CHD or diabetic patients with > or = 2 CHD risk factors. LDL-C is now calculated using the Singh-Kassandra calculation, which is a validated novel method providing better accuracy than the Friedewald equation in the estimation of LDL-C. Singh ORTEGA et al. GAB. 2013;310(19): 5080-2737 (http://education.Ghostery/faq/QZC071) CHOL/HDLC RATIO 3.5 <5.0 (calc) [facility] NON-HDL CHOLESTEROL 159(H) <130 mg/dL (calc) [facility] Comment: For patients with diabetes plus 1 major ASCVD risk factor, treating to a non-HDL-C goal of <100 mg/dL (LDL-C of <70 mg/dL) is considered a therapeutic option. Blood Blood / Unknown 09/26/2023 9 :52 AM EST 09/26/2023 9:52 AM EST us Damon Pastrana MD LAB - BLOOD DRAW Final Resul t [employer] [address] [address], [facility] [address] [place] [address] * (ABNORMAL) COMPREHENSIVE METABOLIC PANEL (09/26/2023 9:52 AM EST) GLUCOSE 129(H) 65 - 99 mg/dL [facility] Comment: ?Fasting reference interval For someone without known diabetes, a glucose value >125 mg/dL indicates that they may have diabetes and this should be confirmed with a follow-up test. UREA NITROGEN (BUN) 19 7 - 25 mg/dL [facility] CREATININE (blood) 0.80 0.70 - 1.35 mg/dL [facility] EGFR 98 > OR = 60 mL/min/1. 73m2 [facility] BUN/CREATININE RATIO SEE NOTE: [facility] Comment: ?? Not Reported: BUN and Creatinine are within ?? reference range. ? SODIUM 138 135 - 146 mmol/L [facility] POTASSIUM 4.3 3.5 - 5.3 mmol/L [facility] CHLORIDE 103 98 - 110 mmol/L [facility] CARBON DIOXIDE 27 20 - 32 mmol/L [facility] CALCIUM 8.9 8.6 - 10.3 mg/dL [facility] PROTEIN, TOTAL 7.2 6.1 - 8.1 g/dL [facility] ALBUMIN 4.5 3.6 - 5.1 g/dL [facility] GLOBULIN 2.7 1.9 - 3.7 g/dL (calc) [facility] ALBUMIN/GLOBULI N RATIO 1.7 1.0 - 2.5 (calc) [facility] BILIRUBIN, TOTAL 1.0 0.2 - 1.2 mg/dL [facility] ALKALINE PHOSPHATASE 64 35 - 144 U/L [facility] AST 26 10 - 35 U/L [facility] ALT 32 9 - 46 U/L [facility] Blood Blood / Unknown 09/26/2023 9 :52 AM EST 09/26/2023 9:52 AM EST Damon Pastrana MD LAB - BLOOD DRAW Edited Resu lt - Final [facility] [place] [address] [address], [facility] [address] [place] [address] * HISTORIC COLONOSCOPY (07/17/2021 3:00 AM EST) 07/17/2021 3:00 AM EST Damon Pastrana MD PROCEDURES Edited Resul t - Final from Last 3 Months or Most Recently Relevant to Health Maintenance Insurance [facility] Care Teams Corporate Operations Compliance Manager Relationship Specialty Start Date End Date Damon Pastrana MD [address] [place] [address] PCP - General Internal Medicine 09/26/23
--- OUTSIDE RECORDS SUMMARY | 2024-09-03 15:54 | XMS_ITS | Encounter Summary ---
Author Organization [facility] Address [address] [place] [address] Care Team Providers Care Electronic Video Games Servicer Name Role Phone Joni Woodruff MD Primary Care Provider Joni Sotelo MD Unavailable Unavailable Lashawn Mitchell RN Unavailable Encounter Details Date Type Department Care Team (Late st Contact Info) Description 04/20/2015 Scanned Document [address] [address] Provider, Generic Social History Tobacco [...] on filedocumented in this encounter Care Teams Electronic Video Games Servicer Relationship Specialty Start Date End Date Joni Woodruff MD PCP - General 04/03/15 Joni Woodruff MD Internal Medicine 03/06/15 Lashawn Mitchell, TORRES [address] [address] Oncology Nurse Navigator 04/10/16 documented as of this encounter
--- OUTSIDE RECORDS SUMMARY | 2024-09-03 15:54 | XMS_ITS | Encounter Summary ---
Author Organization [facility] Address [address] [place] [address] Care Team Providers Care Hopper Operator Name Role Phone Joni Woodruff MD Primary Care Provider Joni Sotelo MD Unavailable Unavailable Lashawn Mitchell RN Unavailable Encounter Details Date Type Department Care Team (Late st Contact Info) Description 03/20/2017 Scanned Document [address] [address] Joni Woodruff MD Social History [...] on filedocumented in this encounter Care Teams Hopper Operator Relationship Specialty Start Date End Date Joni Woodruff MD PCP - General 04/03/15 Joni Woodruff MD Internal Medicine 03/06/15 Lashawn Mitchell RN [address] [address] Oncology Nurse Navigator 04/10/16 documented as of this encounter
[2024-09-03 16:06] LABS: MANUAL DIFF FLAG NO
[2024-09-03 16:19] LABS: Appearance Urine Clear; Color Urine Yellow; Glucose Urine UA Negative (Negative); Leukocyte Esterase Urine Negative (Negative); Nitrite Urine Negative (Negative); PH 6.5 (5.0-9.0); Urine Blood Negative (Negative); Urine Ketones Negative (Negative); Urine Protein Negative (Neg-Trace)
[2024-09-03 16:31] LABS: Basophils Percent Auto 0.6 % (0-2); Eosinophils Absolute Auto 0.2 X10*3/uL (0.0-0.4); Eosinophils Percent Auto 3.6 % (0-4); Hematocrit 41.9 % (42.0-52.0); Hemoglobin 13.6 g/dl (14.0-18.0); Imm Gran Abs Auto 0.02 X10*3/uL (0.00-0.03); Imm Gran Pct Auto 0.4 % (0.0-0.4); Lymphocytes Absolute Auto 1.6 X10*3/uL (1.2-4.9); Lymphocytes Percent Auto 29.8 % (20-40); Mean Corpuscular HGB Conc 32.5 g/dl (31.0-36.0); Mean Corpuscular Volume 98.6 fL (80.0-98.0); Mean Platelet Volume 11.2 fL (9.4-12.4); Monocytes Absolute Auto 0.4 X10*3/uL (0.1-1.2); Monocytes Percent Auto 8.2 % (2-11); Neutrophils Absolute Auto 3.1 x10*3/uL (2.0-8.3); Neutrophils Percent Auto 57.4 % (45-73); Platelet Count 134 X10*3/uL (160-400); Red Blood Count 4.25 X10*6/uL (4.60-5.80); Red Cell Distribution Width 11.1 % (11.0-16.0); White Blood Count 5.3 X10*3/uL (4.8-10.8)
[2024-09-03 16:58] LABS: Alanine Aminotransferase 44 U/L (0-40); Albumin Level 4.2 g/dL (3.5-5.0); Alkaline Phosphatase 76 U/L (39-117); Anion Gap 10 (12-20); Aspartate Amino Transferase 30 U/L (5-37); Bilirubin Total 0.8 mg/dL (0.0-1.0); Blood Urea Nitrogen 21 mg/dL (9-16); Calcium 9.2 mg/dL (8.4-10.2); Carbon Dioxide 30 mmol/L (22-29); Chloride 102 mmol/L (96-108); Estimated Glomerular Filt Rate > 60; Glucose Random 114 mg/dL (60-115); Potassium 4.3 mmol/L (3.3-5.1); Sodium 138 mmol/L (135-145); Total Protein 7.8 g/dL (6.5-8.0)
== END 2024-09-03 15:22 | disposition home or self-care (01) ==
LOC: HO.LAB 15:21
PROVIDERS: PCP Internal Medicine; Visit Provider Physician Assistant Medical
DX: Z00.00 Encounter for general adult medical examination without abnormal findings (principal); R10.9 Unspecified abdominal pain; C61 Malignant neoplasm of prostate; G47.33 Obstructive sleep apnea (adult) (pediatric); E78.00 Pure hypercholesterolemia, unspecified; E55.9 Vitamin D deficiency, unspecified; E66.3 Overweight
CPT/HCPCS: 36415; 80053; 81003; 85025; 96127

== ENCOUNTER 2024-09-03 15:21 | Outpatient (AMB) | payer OTHER, SELFPAY ==
--- OUTSIDE RECORDS SUMMARY | 2024-09-03 15:25 | XMS_ITS | Encounter Summary ---
Author Organization [facility] Address [address] [place] [address] Care Team Providers Care Registered Medical Transcriptionist Name Role Phone Joni Woodruff MD Primary Care Provider Joni Sotelo MD Unavailable Unavailable Lashawn Mitchell RN Unavailable [phone] Encounter Details Date Type Department Care Team (Late st Contact Info) Description 03/12/2016 Scanned Document [address] [phone] Provider, Generic Social History Tobacco [...] on filedocumented in this encounter Care Teams Registered Medical Transcriptionist Relationship Specialty Start Date End Date Joni Woodruff MD PCP - General 04/03/15 Joni Woodruff MD Internal Medicine 03/06/15 Lashawn Mitchell RN [address] [address] Oncology Nurse Navigator 04/10/16 documented as of this encounter
--- OUTSIDE RECORDS SUMMARY | 2024-09-03 15:25 | XMS_ITS | Encounter Summary ---
Author Organization [facility] Address [address] [place] [address] Care Team Providers Care Tax Professional Name Role Phone Joni Woodruff MD Primary Care Provider Joni Sotelo MD Unavailable Unavailable Lashawn Mitchell RN Unavailable Encounter Details Date Type Department Care Team (Late st Contact Info) Description 04/16/2016 Scanned Document [facility] [address] [facility] [address] [place] [phone] Provider, Generic Social History Tobacco Use [...] on filedocumented in this encounter Care Teams Tax Professional Relationship Specialty Start Date End Date Joni Woodruff MD PCP - General 04/03/15 Joni Woodruff MD Internal Medicine 03/06/15 Lashawn Mitchell RN [address] [address] Oncology Nurse Navigator 04/10/16 documented as of this encounter
--- OUTSIDE RECORDS SUMMARY | 2024-09-03 15:25 | XMS_ITS | Clinical Summary ---
Author Organization [facility] Address [address] [place] [address] Care Team Providers Care Professional Development Manager Name Role Phone Joni Woodruff MD Primary Care Provider Joni Sotelo MD Unavailable Unavailable Lashawn Mitchell RN Unavailable [phone] Allergies Active Allergy Reactions Criticality Noted Date Comments Penicillins Other (See Comments) ,GI Intolerance/Nausea/Vomiting Low 03/06/2015 dizziness Medications Medication Sig Dispensed Refills Start Date End Date Status aspirin 81 MG tablet Aspirin 81 MG Oral Tablet TAKE 1 TABLET DAILY. ; Start Date: ; End Date: Active ergocalciferol (ERGOCALCIFEROL) 92551 units capsuleIndications:Vi tamin D Deficiency Take 1 [...] to sexual activity not to exceed 5 eto=685 mg in 24 hrs 50 tablet 11 [...] Ag/Ab, 4th Gen NON-REACT AWILDA NON-REACT AWILDA [facility] Comment: HIV-1 antigen and HIV-1/HIV-2 [...] ?? For additional information please refer to http://education.DealDash/faq/YAU706 (This link is being provided for informational/ educational purposes only.) The performance of this assay has not been clinically validated in patients less than 2 years old. Blood specimen (specimen) 11/20/2017 4:01 PM EDT 11/21/2017 6:28 AM EDT Narrative Resulting Agency Comment Performing Organization Information: ?Site ID: [id number] ?Name: [employer] ?Address: [address] [place] [address], [place] [address] ?Director: Uche Rock MD Joni Woodruff MD LAB BLOOD ORDERABLES [id number] [address] [facility] [address], [place] [address] from Last 3 Months or Most Recently Relevant to Health Maintenance Care Teams Professional Development Manager Relationship Specialty Start Date End Date Joni Woodruff MD PCP - General 04/03/15 Joni Woodruff MD Internal Medicine 03/06/15 Lashawn Mitchell, RN [address] [place] [address] Oncology Nurse Navigator 04/10/16
--- OUTSIDE RECORDS SUMMARY | 2024-09-03 15:25 | XMS_ITS | Encounter Summary ---
Author Organization [facility] Address [address] [place] [address] Care Team Providers Care Consulting Business Developer Name Role Phone Joni Woodruff MD Primary Care Provider Joni Sotelo MD Unavailable Unavailable Lashawn Mitchell RN Unavailable Encounter Details Date Type Department Care Team (Late st Contact Info) Description 02/14/2015 Scanned Document [address] [phone] Provider, Generic Social History Tobacco [...] on filedocumented in this encounter Care Teams Consulting Business Developer Relationship Specialty Start Date End Date Joni Woodruff MD PCP - General 04/03/15 Joni Woodruff MD Internal Medicine 03/06/15 Lashawn Mitchell, TORRES [address] [address] Oncology Nurse Navigator 04/10/16 documented as of this encounter
--- OUTSIDE RECORDS SUMMARY | 2024-09-03 15:25 | XMS_ITS | Encounter Summary ---
Author Organization Formerly [facility] Address [address] [place] [address] Care Team Providers Care Grain Farmworker Name Role Phone Joni Woodruff MD Primary Care Provider Joni Sotelo MD Unavailable Unavailable Lashawn Mitchell RN Unavailable [phone] Encounter Details Date Type Department Care Team (Late st Contact Info) Description 03/20/2017 Scanned Document [address] [phone] Joni Woodruff MD Social History [...] on filedocumented in this encounter Care Teams Grain Farmworker Relationship Specialty Start Date End Date Joni Woodruff MD PCP - General 04/03/15 Joni Woodruff MD Internal Medicine 03/06/15 Lahsawn Mitchell RN [address] [address] Oncology Nurse Navigator 04/10/16 documented as of this encounter
--- OUTSIDE RECORDS SUMMARY | 2024-09-03 15:25 | XMS_ITS | Encounter Summary ---
Author Organization [facility] Address [address] [place] [address] Care Team Providers Care Electronics Repair Technician Name Role Phone Joni Woodruff MD Primary Care Provider Joni Sotelo MD Unavailable Unavailable Lashawn Mitchell RN Unavailable Encounter Details Date Type Department Care Team (Late st Contact Info) Description 01/03/2016 Telephone [facility] Urologic Surgery [address] [address] Alonso Gonzales MD [address] [place] [phone] Social History Tobacco Use Types Packs/Day Years [...] and would like to discuss w/ someone. Malaysian only. documented in this encounter Plan of Treatment Not on file documented as of this encounter Visit Diagnoses Not on filedocumented in this encounter Care Teams Electronics Repair Technician Relationship Specialty Start Date End Date Joni Woodruff MD PCP - General 04/03/15 Joni Woodruff MD Internal Medicine 03/06/15 Lashawn Mitchell RN [address] [place] [address] Oncology Nurse Navigator 04/10/16 documented as of this encounter
--- OUTSIDE RECORDS SUMMARY | 2024-09-03 15:25 | XMS_ITS | Clinical Summary ---
Author Organization [facility], Address [address] [place] [address] [place] [address] Phone Care Team Providers Care Security Software Engineer Name Role Phone Jackson Moyer MD Primary Care Provider [phone] Allergies Active Allergy Reactions Criticality Noted Date [...] severe COVID-19: None ? Healthcare worker or rn first assistant? No ? COVID-19 Tested? - Yes - Date Tested 11/03/2019 Testing Location - [facility] - Testing Results - Positive ? Is [...] patient's age to complete this topic Insurance [facility] Care Teams Security Software Engineer Relationship Specialty Start Date End Date Jackson Moyer MD [address] [place] [address] PCP - General Internal Medicine 11/24/19
--- OUTSIDE RECORDS SUMMARY | 2024-09-03 15:25 | XMS_ITS | Encounter Summary ---
Author Organization [facility] Address [address] [place] [address] Care Team Providers Care Lion Hunter Name Role Phone Joni Woodruff MD Primary Care Provider Joni Sotelo MD Unavailable Unavailable Lashawn Mitchell RN Unavailable Encounter Details Date Type Department Care Team (Late st Contact Info) Description 03/23/2015 Scanned Document [address] [phone] Provider, Generic Social History Tobacco [...] on filedocumented in this encounter Care Teams Lion Hunter Relationship Specialty Start Date End Date Joni Woodruff MD PCP - General 04/03/15 Joni Woodruff MD Internal Medicine 03/06/15 Lashawn Mitchell, TORRSE [address] [address] Oncology Nurse Navigator 04/10/16 documented as of this encounter
--- OUTSIDE RECORDS SUMMARY | 2024-09-03 15:25 | XMS_ITS | Encounter Summary ---
Author Organization [facility] Address [address] [place] [address] Care Team Providers Care Decay Control Operator Name Role Phone Joni Woodruff MD Primary Care Provider Joni Sotelo MD Unavailable Unavailable Lashawn Mitchell RN Unavailable Reason for Visit * Reason Onset Date Comments Medication Refill 04/24/2017 Encounter Details Date Type Department Care Team (Late st Contact Info) Description 04/24/2017 Refill [facility] U[facility] [place] [address] [facility] [address] [place] [address] Suad Orr, BARROW WORKER [address] [place] [address] Social History Tobacco Use Types Packs/Day Years [...] on filedocumented in this encounter Care Teams Decay Control Operator Relationship Specialty Start Date End Date Joni Woodruff MD PCP - General 04/03/15 Joni Woodruff MD Internal Medicine 8/17/15 Lashawn Mitchell RN [address] [place] [address] Oncology Nurse Navigator 04/10/16 documented as of this encounter
--- OUTSIDE RECORDS SUMMARY | 2024-09-03 15:25 | XMS_ITS | Clinical Summary ---
Author Organization [facility] Address [address] [place] [address] Care Team Providers Care Nuclear Medical Tech Name Role Phone Unavailable Primary Care Provider [...]
--- OUTSIDE RECORDS SUMMARY | 2024-09-03 15:25 | XMS_ITS | Encounter Summary ---
Author Organization [facility] Address [address] [place] [address] Care Team Providers Care Parking Meter Servicer Name Role Phone Joni Woodruff MD Primary Care Provider Joni Sotelo MD Unavailable Unavailable Lashawn Mitchell RN Unavailable Encounter Details Date Type Department Care Team (Late st Contact Info) Description 04/20/2015 Scanned Document [address] [phone] Provider, Generic Social History Tobacco [...] on filedocumented in this encounter Care Teams Parking Meter Servicer Relationship Specialty Start Date End Date Joni Woodruff MD PCP - General 04/03/15 Joni Woodruff MD Internal Medicine 03/06/15 Lashawn Mitchell, TORRES [address] [address] Oncology Nurse Navigator 04/10/16 documented as of this encounter
--- OUTSIDE RECORDS SUMMARY | 2024-09-03 15:25 | XMS_ITS | Encounter Summary ---
Author Organization [facility] Address [address] [place] [address] Care Team Providers Care Product Manager Name Role Phone Joni Woodruff MD Primary Care Provider Joni Sotelo MD Unavailable Unavailable Lashawn Mitchell RN Unavailable [phone] Encounter Details Date Type Department Care Team (Late st Contact Info) Description 06/21/2016 Scanned Document [address] [facility] [address] [place] [phone] Provider, Generic Social History Tobacco Use [...] on filedocumented in this encounter Care Teams Product Manager Relationship Specialty Start Date End Date Joni Woodruff MD PCP - General 04/03/15 Joni Woodruff MD Internal Medicine 03/06/15 Lashawn Mitchell RN [address] [place] [address] Oncology Nurse Navigator 04/10/16 documented as of this encounter
--- OUTSIDE RECORDS SUMMARY | 2024-09-03 15:25 | XMS_ITS | Encounter Summary ---
Author Organization [facility] Address [address] [place] [address] Care Team Providers Care Block Handler Name Role Phone Joni Woodruff MD Primary Care Provider Joni Sotelo MD Unavailable Unavailable Lashawn Mitchell RN Unavailable Encounter Details Date Type Department Care Team (Late st Contact Info) Description 11/21/2017 Scanned Document [address] [phone] Joni Woodruff MD Social History [...] on filedocumented in this encounter Care Teams Block Handler Relationship Specialty Start Date End Date Joni Woodruff MD PCP - General 04/03/15 Joni Woodruff MD Internal Medicine 03/06/15 Lashawn Mitchell RN [address] [address] Oncology Nurse Navigator 04/10/16 documented as of this encounter
--- OUTSIDE RECORDS SUMMARY | 2024-09-03 15:25 | XMS_ITS | Encounter Summary ---
Author Organization [facility] Address [address] [place] [address] Care Team Providers Care Corrosion Control Specialist Name Role Phone Joni Woodruff MD Primary Care Provider Joni Sotelo MD Unavailable Unavailable Lashawn Mitchell RN Unavailable [phone] Encounter Details Date Type Department Care Team (Late st Contact Info) Description 03/06/2015 Scanned Document [address] [place] [phone] Provider, Generic Social History Tobacco Use Types [...] on filedocumented in this encounter Care Teams Corrosion Control Specialist Relationship Specialty Start Date End Date Joni Woodruff MD PCP - General 04/03/15 Joni Woodruff MD Internal Medicine 03/06/15 Lashawn Mitchell RN [address] [place] [address] Oncology Nurse Navigator 04/10/16 documented as of this encounter
--- OUTSIDE RECORDS SUMMARY | 2024-09-03 15:25 | XMS_ITS | Clinical Summary ---
Author Organization [facility] Address [address] [place] [address] Care Team Providers Care Brake Shoe Rebuilder Name Role Phone Damon Pastrana MD Primary Care Provider [phone] Source Comments PLEASE NOTE, if this patient [...] Imm-Zoster, Recombinant (2 of 2) 11/21/2023 09/26/19 [id number] ( season) 2024 09/26/2023, 09/10/2021, 12/25/2020, Additional [...] RT PCR (09/26/2023 9:52 AM EST) Pathologist [facility] HEPATITIS C ANTIBODY NON-REACT AWILDA NON-REACT AWILDA [facility] Comment: HCV antibody was non-reactive. There is no laboratory evidence of HCV infection. In most cases, no further action is required. However, if recent HCV exposure is suspected, a test for HCV RNA (test code 99081) is suggested. For additional information please refer to http://Quizens.Moat/faq/WDI71y8 (This link is being provided for informational/ educational purposes only.) Blood Blood / Unknown 09/26/2023 9 :52 AM EST 09/26/2023 9:52 AM EST us Damon Pastrana MD LAB - BLOOD DRAW Final Resul t [facility] [address] [address], [facility] [address] [address] * (ABNORMAL) LIPIDS W RFLX TO DIRECT LDL (09/26/2023 9:52 AM EST) CHOLESTEROL, TOTAL 223(H) <200 mg/dL [facility] HDL CHOLESTEROL 64 > OR = 40 mg/dL [facility] TRIGLYCERIDES 33 <150 mg/dL [facility] LDL-CHOLESTEROL 149(H) 99 mg/dL (calc) [facility] Comment: Reference range: <100 Desirable range <100 mg/dL for primary prevention; ?? <70 mg/dL for patients with CHD or diabetic patients with > or = 2 CHD risk factors. LDL-C is now calculated using the Singh-Kassandra calculation, which is a validated novel method providing better accuracy than the Friedewald equation in the estimation of LDL-C. Singh ORTEGA et al. GAB. 2013;310(19): 6411-1795 (http://education.PhaseRx/faq/DIC820) CHOL/HDLC RATIO 3.5 <5.0 (calc) [facility] NON-HDL CHOLESTEROL 159(H) <130 mg/dL (calc) [facility] Comment: For patients with diabetes plus 1 major ASCVD risk factor, treating to a non-HDL-C goal of <100 mg/dL (LDL-C of <70 mg/dL) is considered a therapeutic option. Blood Blood / Unknown 09/26/2023 9 :52 AM EST 09/26/2023 9:52 AM EST us Damon Pastrana MD LAB - BLOOD DRAW Final Resul t [facility] [address] [address], [facility] [address] [place] [address] * (ABNORMAL) COMPREHENSIVE METABOLIC PANEL (09/26/2023 9:52 AM EST) GLUCOSE 129(H) 65 - 99 mg/dL [facility] Comment: ?Fasting reference interval For someone without known diabetes, a glucose value >125 mg/dL indicates that they may have diabetes and this should be confirmed with a follow-up test. UREA NITROGEN (BUN) 19 7 - 25 mg/dL [facility] CREATININE (blood) 0.80 0.70 - 1.35 mg/dL [facility] EGFR 98 > OR = 60 mL/min/1. 73m2 [facility] BUN/CREATININE RATIO SEE NOTE: [facility] Comment: ?? Not Reported: BUN and Creatinine are within ?? reference range. ? SODIUM 138 135 - 146 mmol/L [facility] POTASSIUM 4.3 3.5 - 5.3 mmol/L [facility] CHLORIDE 103 98 - 110 mmol/L [facility] CARBON DIOXIDE 27 20 - 32 mmol/L [facility] CALCIUM 8.9 8.6 - 10.3 mg/dL [facility] PROTEIN, TOTAL 7.2 6.1 - 8.1 g/dL [facility] ALBUMIN 4.5 3.6 - 5.1 g/dL [facility] GLOBULIN 2.7 1.9 - 3.7 g/dL (calc) [facility] ALBUMIN/GLOBULI N RATIO 1.7 1.0 - 2.5 (calc) [facility] BILIRUBIN, TOTAL 1.0 0.2 - 1.2 mg/dL [facility] ALKALINE PHOSPHATASE 64 35 - 144 U/L [facility] AST 26 10 - 35 U/L [facility] ALT 32 9 - 46 U/L [facility] Blood Blood / Unknown 09/26/2023 9 :52 AM EST 09/26/2023 9:52 AM EST Damon Pastrana MD LAB - BLOOD DRAW Edited Resu lt - Final [facility] [place] [facility] [address] [address], [facility] [address] [place] [address] * HISTORIC COLONOSCOPY (07/17/2021 3:00 AM EST) 07/17/2021 3:00 AM EST Damon Pastrana MD PROCEDURES Edited Resul t - Final from Last 3 Months or Most Recently Relevant to Health Maintenance Insurance [facility] Care Teams Brake Shoe Rebuilder Relationship Specialty Start Date End Date Damon Pastrana MD [address] [place] [address] PCP - General Internal Medicine 09/26/23
--- OUTSIDE RECORDS SUMMARY | 2024-09-03 15:25 | XMS_ITS | Encounter Summary ---
Author Organization [facility] Address [address] [place] [address] Care Team Providers Care Computer Systems Design Analyst Name Role Phone Joni Woodruff MD Primary Care Provider Joni Sotelo MD Unavailable Unavailable Lashawn Mitchell RN Unavailable Encounter Details Date Type Department Care Team (Late st Contact Info) Description 07/11/2015 Scanned Document [address] [phone] Provider, Generic Social History Tobacco [...] on filedocumented in this encounter Care Teams Computer Systems Design Analyst Relationship Specialty Start Date End Date Joni Woodruff MD PCP - General 04/03/15 Joni Woodruff MD Internal Medicine 03/06/15 Lashawn Mitchell, TORRES [address] [address] Oncology Nurse Navigator 04/10/16 documented as of this encounter
[2024-09-03 15:28] VITALS: BP 110/70; PULSE 69; O2SAT 97; BMI 28.6
--- NOTE | 2024-09-03 15:28 | MHC.PC.OV ---
Vital Signs 09/03/24 15:28 Height 5 ft 6 in Weight 177 lb 2 oz BMI 28.6 BP 110/70 Blood Pressure Location Lt brachial Position Sitting Pulse 69 Pulse Source Pulse Oximeter Pulse Oximetry (%) 97 Oxygen Delivery Method Room Air Intake Visit Reasons: lower back pain Allergies Penicillins Allergy (Intermediate, Verified 09/03/24 15:37) SICKNESS ampicillin Allergy (Unknown, Verified 09/03/24 15:37) Unknown Medication List - Last Reconciled 09/03/24 by Marla Garrison PA-C acetaminophen 1,000 mg (2 x 500 mg) PO Q6H PRN albuterol sulfate 90 mcg/actuation (Ventolin HFA) 1 inh inhalation QID PRN aspirin (Adult Low Dose Aspirin) 81 mg PO DAILY atorvastatin 20 mg PO BEDTIME cyclobenzaprine 5 mg PO BEDTIME ergocalciferol (vitamin D2) 1,250 mcg PO QWEEK lidocaine 5% 1 patch topical DAILY magnesium oxide 400 mg PO DAILY meloxicam 15 mg PO DAILY triamcinolone acetonide 0.025% 1 appl topical BID Tobacco use date assessed: 09/03/24 Dental Screening Dental Screen Date: 09/03/24 Did you have a dental visit in the last 12 months?: Yes Did you have a dental problem in the last 6 months where you did not have access to dental care?: No Was dental information given to patient?: Patient has dentist [facility] Medical History (Updated 09/03/24 @ 15:53 by Marla Garrison PA-C) Overweight (BMI 25.0-29.9) Right flank pain Low back pain radiating to lower extremity Rib pain on right side Osteoarthritis of right shoulder Hypercholesterolemia Eczema Hyperglycemia Prostate cancer Vitamin D deficiency Contusion of chest wall Surgical History History of appendectomy History of prostatectomy Family History Father Prostate cancer Mother No problems noted. Social History Housing: House Alcohol intake: current Alcohol intake frequency: holidays/special occasions only Patient Tobacco Use Status: Former Tobacco user Tobacco use type: Cigarette e-Cigarette/Vaping Use: Never Used Second Hand Smoke Exposure: No service: No Current occupational status: employed Cognitive needs: No Hearing needs: No Vision needs: Yes (glasses) Questionnaire PHQ-9 Over the last 2 weeks, how often have you been bothered by any of the following problems? 1. Little interest or pleasure in doing things: not at all 2. Feeling down, depressed, or hopeless: not at all 3. Trouble falling or staying asleep, or sleeping too much: not at all 4. Feeling tired or having little energy: not at all 5. Poor appetite or overeating: not at all 6. Feeling bad about yourself - or that you are a failure or have let yourself or your family down: not at all 7. Trouble concentrating on things, such as reading the newspaper or watching television: not at all 8. Moving or speaking so slowly that other people could have noticed. Or the opposite - being so fidgety or restless that you have been moving around a lot more than usual: not at all 9. Thoughts that you would be better off or of hurting yourself in some way: not at all Total score: 0 Depression Screening Interpretation: Negative Depression Screening Done: Yes 80456 - PHQ-9 Billing: Yes Source: Developed by Drs. Bart Terry, Zeynep Reyes, Santos Uriarte and colleagues, with an educational nahun from [employer]. Thrive Questionnaire Date Thrive assessed: 09/03/24 I am a: Patient What is your living situation today?: I have a steady place to live Within the past 12 months, did the food you bought not last and you didn't have the money to get more?: Never true Within the past 12 months, did you worry whether your food would run out before you got money to buy more?: Never true Do you have trouble paying for medicines?: No Do you have trouble getting transportation to medical appointments?: No Do you have trouble paying your heating and electricity bill?: No Do you have trouble taking care of your child, family member or friend?: No Do you have trouble with day-to-day activities such as bathing, preparing meals, shopping, managing finances, etc.?: No Are you currently unemployed and looking for a job?: No Are you interested in more education?: No THRIVE Score: 0 AUDIT C Alcohol Use Questionnaire (AUDIT-C) 1. How often do you have a drink containing alcohol?: Monthly or less 2. How many drinks containing alcohol do you have on a typical day when you are drinking?: 1 or 2 Total Score: 1 Score Reviewed/Action Taken: Yes HALLIE-7 AMB Questionnaire HALLIE-7 Date HALLIE - 7 assessed: 09/03/24 Feeling nervous, anxious, or on edge: 0 = Not at all Not being able to stop or control worryin = Not at all Worrying too much about different things: 0 = Not at all Trouble relaxin = Not at all Being so restless that it is hard to sit still: 0 = Not at all Becoming easily annoyed or irritable: 0 = Not at all Feeling afraid as if something awful might happen: 0 = Not at all Total HALLIE-7 score (0-4 normal; 5-9 mild; 10-14 moderate; 15-21 severe): 0 Source: Developed by Drs. Bart Terry, Zeynep Reyes, Santos Uriarte and colleagues, with an educational nahun from [employer]. HALLIE-7 Assessment Billing HALLIE-7 Assessment Tool: HALLIE-7 Assessment 31631 Physical exam (Primary Care) Vital Signs: Last Vital Signs Pulse 69 09/03/24 15:28 BP 110/70 09/03/24 15:28 Pulse Ox 97 09/03/24 15:28 Oxygen Delivery Method Room Air 09/03/24 15:28 Care Plan Goal for BP management: <130/80 BMI result Body Mass Index 28.6 BMI Assessment/Plan discussion: High BMI High, discussed plan: lifestyle, weight reduction, dietary, physical activity and alcohol moderation Tobacco/Smoking Status: Tobacco use Status Tobacco use date assessed 09/03/24 09/03/24 15:35 Patient Tobacco Use Status Former Tobacco user 09/03/24 15:35 Tobacco use type Cigarette 09/03/24 15:35 e-Cigarette/Vaping Use Never Used 09/03/24 15:35 PHQ-9: PHQ-9 Score PHQ-9: Total score 0 09/03/24 15:35 Depression Screening Interpretation: Negative Thrive Assessment: Date of Thrive Assessment Date Thrive assessed 09/03/24 09/03/24 15:35 Coding Level of Care Code Est Pt Level 4 (61404) Complex EM visit Add On G2211 Diagnoses Right flank pain R10.9 Prostate cancer C61 Obstructive sleep apnea G47.33 Hypercholesterolemia E78.00 Vitamin D deficiency E55.9 Overweight (BMI 25.0-29.9) E66.3 Additional Codes PHQ-9 - 92167 - PHQ-9 Billing: Yes ([id number]) HALLIE-7 Assessment Billing - HALLIE-7 Assessment Tool: HALLIE-7 Assessment 14030 ([id number]) Assessment & Plan Assessment & Plan (1) Right flank pain: Code(s): R10.9 - Unspecified abdominal pain Category: Medical Plan: Patient with right flank pain. On exam he does have flank pain/CVA tenderness right-sided. There are no rashes. He has a normal steady gait. No mid lumbar tenderness step-offs or deformities. Not consistent with infection. H and P not consistent with cauda equina. Concerned for kidney stones versus muscular etiology. Will obtain CBC, CMP, UA an outpatient CT scan. Patient will be prescribed Tylenol, meloxicam, Flexeril, prednisone and Lidoderm patches. Patient to return in 2 weeks. (2) Prostate cancer: Code(s): C61 - Malignant neoplasm of prostate Category: Medical Plan: Patient with history of prostate cancer and due to this right flank pain will order imaging to evaluate for possible malignancies. Will continue to monitor. (3) Obstructive sleep apnea: Comment: Severe degree of sleep apnea. The AHI was 65/hr and oxygen oc was 62%. Code(s): G47.33 - Obstructive sleep apnea (adult) (pediatric) Category: Medical Plan: Condition is chronic and stable continue to monitor. (4) Hypercholesterolemia: Code(s): E78.00 - Pure hypercholesterolemia, unspecified Category: Medical Plan: Patient to continue torus signs 20 mg at bedtime. Condition is chronic and stable continue to monitor. (5) Vitamin D deficiency: Code(s): E55.9 - Vitamin D deficiency, unspecified Category: Medical Plan: Patient currently on vitamin-D supplement 1,250mcg weekly. Condition is chronic and stable continue to monitor. (6) Overweight (BMI 25.0-29.9): Code(s): E66.3 - Overweight Category: Medical Plan: Condition is chronic and stable continue to monitor. Plan Plan - Order a blood test to evaluate kidney function immediately. - Request a CT scan to assess kidney health and determine any potential structural issues or stones. - Prescribe 10 mg of flexeril muscle relaxant to be taken three times daily. - Suggest a trial of prednisone for five days if inflammation is suspected. - Advise consideration of sciatica as a potential cause of pain, with follow-up in two weeks to monitor progress. Orders: Orders Comprehensive Met. Panel Today Z00.00 - Encounter for general adult medical examination without abnormal findings UA CC w/rflx Micro + Cult Today R10.9 - Unspecified abdominal pain CT abdomen pelvis wo IV con Today C61 - Malignant neoplasm of prostate, R10.9 - Unspecified abdominal pain Complete Blood Count Auto Diff Today Z00.00 - Encounter for general adult medical examination without abnormal findings Medications: New prednisone 40 mg (2 x 20 mg) PO DAILY 5 days 10 tabs 0RF Changed From cyclobenzaprine 5 mg PO BEDTIME 10 tabs 0RF Pain M54.50 - Low back pain, unspecified, M79.606 - Pain in leg, unspecified To cyclobenzaprine 10 mg PO TID 90 tabs 1RF Pain M54.50 - Low back pain, unspecified, M79.606 - Pain in leg, unspecified Patient Instructions: Patient Instructions - Proceed to get a blood test as soon as possible; no fasting required. - Expect a call regarding scheduling a CT scan; anticipate appointment by Friday. - Take the prescribed muscle relaxant three daily. - Consider prednisone if inflammation is suspected. - Follow up in two weeks or sooner if pain worsens or symptoms change. - Consult immediate care if you experience severe symptoms. Scribe Plan - Not visible on output: History of Present Illness The patient is a 68-year-old male presenting with flank pain. He reports the onset of the pain approximately two weeks ago, primarily localized to the Right side and back regions, exacerbated by movements such as bending and rising. The patient describes the pain as persistent and severe enough to prompt him to seek a medical consultation even before his scheduled appointment in October. He reports no prior history of kidney stones but mentions an acquaintance with similar symptoms who was diagnosed with such. In addition, he has been experiencing increased urinary frequency without dysuria. There was one instance of vomiting, likely associated with recent food consumption. The patient has a history of prostate cancer but denies any falls or injuries. Previous attempts to manage the pain included visits to an urgent care physician, where he was prescribed lidoderm patch, Tylenol and a muscle relaxant, but he found no relief. The pain occasionally radiates to his leg but does not affect his chest or cause severe nausea. Review of Systems - Musculoskeletal: Reports Right flank/back pain. - Genitourinary: Denies hematuria. Reports increased urinary frequency. Physical Exam Appearance: Alert. Oriented X3. No acute distress. Head: Normal external exam. Normocephalic. Atraumatic. Eyes: Pupils are equal, round, and reactive to light. Extraocular movements intact. Conjunctiva and sclera normal. Eyelids normal. Throat: Moist mucous membranes. Neck: Normal inspection. Neck supple. Full range of motion. No adenopathy. Thyroid Normal. No meningeal signs. No neck mass noted. Cardiovascular: Normal heart rate and rhythm. Respiratory: No respiratory distress. Painless inspiration. Abdomen: Soft and nontender. Bowel sounds normal in all 4 quadrants. No distention noted. No organomegaly noted. No visible injury noted. Back: + Right costovertebral angle tenderness. No Left CVAT noted. Full range of motion noted. Pain reported when bending down and standing up, with pain radiating to the leg at times. Mild tenderness to the right lower lumbar paraspinous musculature. No mid thoracic or lumbar tenderness. No step-offs or deformities are noted. No fluctuance, induration, rashes or signs of active infection. Skin: Skin warm and dry. Normal skin color. Normal skin turgor. No rashes/lesions/lacerations noted. Extremities: Extremities exhibit normal range of motion. Extremities nontender. Neuro: Oriented X 3. No motor deficit. No sensory deficit. Reflexes normal. Normal steady gait. Plan - Order a blood test to evaluate kidney function immediately. - Request a CT scan to assess kidney health and determine any potential structural issues or stones. - Prescribe 10 mg of flexeril muscle relaxant to be taken three times daily. - Suggest a trial of prednisone for five days if inflammation is suspected. - Advise consideration of sciatica as a potential cause of pain, with follow-up in two weeks to monitor progress. Patient was informed and verbally consented to the use of an ambient scribe for clinic note documentation during this visit. Discussion Notes I explained to the patient that flank pain could be due to various causes, including issues with the kidneys such as stones, or possibly due to sciatica. Given his history of prostate cancer, I emphasized the importance of rule-out diagnostics like the CT scan for comprehensive evaluation. We discussed the use of a muscle relaxant and the potential benefits of a short course of prednisone to reduce inflammation. I advised on the intake of previously prescribed medication and the necessity of follow-up appointments. I also mentioned that if the CT scan results show any concerns, I would reach out promptly before his subsequent office visit. Patient Instructions - Proceed to get a blood test as soon as possible; no fasting required. - Expect a call regarding scheduling a CT scan; anticipate appointment by Friday. - Take the prescribed muscle relaxant three daily. - Consider prednisone if inflammation is suspected. - Follow up in two weeks or sooner if pain worsens or symptoms change. - Consult immediate care if you experience severe symptoms.
== END 2024-09-03 15:47 | disposition home or self-care (01) ==
PROVIDERS: PCP Internal Medicine; Visit Provider Physician Assistant Medical
DX: R10.9 Unspecified abdominal pain (principal); C61 Malignant neoplasm of prostate; G47.33 Obstructive sleep apnea (adult) (pediatric); E78.00 Pure hypercholesterolemia, unspecified; E55.9 Vitamin D deficiency, unspecified; E66.3 Overweight

== ENCOUNTER 2024-09-17 09:43 | Outpatient (REF) | payer OTHER, SELFPAY ==
--- NOTE | ~2024-09-17 | XR_ITS ---
Examination: Lumbar spine 4 views. CLINICAL INDICATION: Low back pain. COMPARISON: None. FINDINGS: There is normal lumbar lordosis. The vertebral heights, alignment and disc heights are normal. There is no pars defect or listhesis. No visible acute fracture or dislocation seen. There is no lytic process. The SI joints are symmetrical and normal. FINDINGS: Unremarkable lumbar spine exam. Electronically signed by: Ramo Damon MD 09/17/2024 10:44 AM SAEED
--- OUTSIDE RECORDS SUMMARY | 2024-09-17 11:19 | XMS_ITS | Encounter Summary ---
Author Organization [facility] Address [address] [place] [address] Care Team Providers Care Diesel Power Shovel Operator Name Role Phone Joni Woodruff MD Primary Care Provider Joni Sotelo MD Unavailable Unavailable Lashawn Mitchell RN Unavailable Encounter Details Date Type Department Care Team (Late st Contact Info) Description 04/20/2015 Scanned Document [address] [phone] Provider, Generic Social History Tobacco [...] on filedocumented in this encounter Care Teams Diesel Power Shovel Operator Relationship Specialty Start Date End Date Joni Woodruff MD PCP - General 04/03/15 Joni Woodruff MD Internal Medicine 03/06/15 Lashawn Mitchell, TORRES [address] [address] Oncology Nurse Navigator 04/10/16 documented as of this encounter
--- OUTSIDE RECORDS SUMMARY | 2024-09-17 11:19 | XMS_ITS | Encounter Summary ---
Author Organization [facility] Address [address] [place] [address] Care Team Providers Care Editor Producer Name Role Phone Joni Woodruff MD Primary Care Provider Joni Sotelo MD Unavailable Unavailable Lsahawn Mitchell RN Unavailable [phone] Encounter Details Date Type Department Care Team (Late st Contact Info) Description 03/12/2016 Scanned Document [address] [phone] Provider, Generic Social History Tobacco [...] on filedocumented in this encounter Care Teams Editor Producer Relationship Specialty Start Date End Date Joni Woodruff MD PCP - General 04/03/15 Joni Woodruff MD Internal Medicine 03/06/15 Lashawn Mitchell RN [address] [address] Oncology Nurse Navigator 04/10/16 documented as of this encounter
--- OUTSIDE RECORDS SUMMARY | 2024-09-17 11:19 | XMS_ITS | Encounter Summary ---
Author Organization [facility] Address [address] [place] [address] Care Team Providers Care Senior Manager Creative Services Name Role Phone Joni Woodruff MD Primary Care Provider Joni Sotelo MD Unavailable Unavailable Lashawn Mitchell RN Unavailable Encounter Details Date Type Department Care Team (Late st Contact Info) Description 03/23/2015 Scanned Document [address] [phone] Provider, Generic Social History Tobacco [...] on filedocumented in this encounter Care Teams Senior Manager Creative Services Relationship Specialty Start Date End Date Joni Woodruff MD PCP - General 04/03/15 Joni Woodruff MD Internal Medicine 03/06/15 Lashawn Mitchell, TORRES [address] [address] Oncology Nurse Navigator 04/10/16 documented as of this encounter
--- OUTSIDE RECORDS SUMMARY | 2024-09-17 11:19 | XMS_ITS | Encounter Summary ---
Author Organization [facility] Address [address] [place] [address] Care Team Providers Care Physician Coder Name Role Phone Joni Woodruff MD Primary Care Provider Joni Sotelo MD Unavailable Unavailable Lashawn Mitchell RN Unavailable Encounter Details Date Type Department Care Team (Late st Contact Info) Description 01/03/2016 Telephone [facility] Urologic Surgery [address] [address] Alonso Gonzales MD [address] [place] [address] Social History Tobacco Use Types Packs/Day Years [...] and would like to discuss w/ someone. Turkmen only. documented in this encounter Plan of Treatment Not on file documented as of this encounter Visit Diagnoses Not on filedocumented in this encounter Care Teams Physician Coder Relationship Specialty Start Date End Date Joni Woodruff MD PCP - General 04/03/15 Joni Woodruff MD Internal Medicine 03/06/15 Lashawn Mitchell RN [address] [place] [address] Oncology Nurse Navigator 04/10/16 documented as of this encounter
--- OUTSIDE RECORDS SUMMARY | 2024-09-17 11:19 | XMS_ITS | Clinical Summary ---
Author Organization [facility] Address [address] [place] [address] Care Team Providers Care Files Supervisor Name Role Phone Joni Woodruff MD [...] Date: ; End Date: Active ergocalciferol (ERGOCALCIFEROL) 15971 units capsuleIndications:Vi tamin D Deficiency Take 1 [...] to sexual activity not to exceed 5 bda=742 mg in 24 hrs 50 tablet 11 [...] Ag/Ab, 4th Gen NON-REACT AWILDA NON-REACT AWILDA [facility] Comment: HIV-1 antigen and HIV-1/HIV-2 [...] ?? For additional information please refer to http://education.CityOdds/faq/JLN995 (This link is being provided for informational/ educational purposes only.) The performance of this assay has not been clinically validated in patients less than 2 years old. Blood specimen (specimen) 11/20/2017 4:01 PM EDT 11/21/2017 6:28 AM EDT Narrative Resulting Agency Comment Performing Organization Information: ?Site ID: [id number] ?Name: [employer] ?Address: [address] [place] [address], [place] [address] ?Director: Uche Rock MD Joni Woodruff MD LAB BLOOD ORDERABLES [id number] [address] [facility] [address], [place] [address] from Last 3 Months or Most Recently Relevant to Health Maintenance Care Teams Files Supervisor Relationship Specialty Start Date End Date Joni Woodruff MD PCP - General 04/03/15 Joni Woodruff MD Internal Medicine 03/06/15 Lashawn Mitchell, RN [address] [place] [address] Oncology Nurse Navigator 04/10/16
--- OUTSIDE RECORDS SUMMARY | 2024-09-17 11:19 | XMS_ITS | Clinical Summary ---
Author Organization [facility], Address [address] [place] [address] [place] [address] Phone Care Team Providers Care Service Center Appraiser Name Role Phone Jackson Moyer MD Primary Care Provider [phone] Allergies Active Allergy Reactions Criticality Noted Date [...] severe COVID-19: None ? Healthcare worker or first officer? No ? COVID-19 Tested? - Yes - Date Tested 11/03/2019 Testing Location - [facility] - Testing Results - Positive [...] patient's age to complete this topic Insurance [facility] Care Teams Service Center Appraiser Relationship Specialty Start Date End Date Jackson Moyer MD [address] [place] [address] PCP - General Internal Medicine 11/24/19
--- OUTSIDE RECORDS SUMMARY | 2024-09-17 11:19 | XMS_ITS | Encounter Summary ---
Author Organization [facility] Address [address] [place] [address] Care Team Providers Care Tire Installer Name Role Phone Joni Woodruff MD Primary Care Provider Joni Sotelo MD Unavailable Unavailable Lashawn Mitchell RN Unavailable Encounter Details Date Type Department Care Team (Late st Contact Info) Description 07/11/2015 Scanned Document [address] [phone] Provider, Generic Social History Tobacco [...] on filedocumented in this encounter Care Teams Tire Installer Relationship Specialty Start Date End Date Joni Woodruff MD PCP - General 04/03/15 Joni Woodruff MD Internal Medicine 03/06/15 Lashawn Mitchell, TORRES [address] [address] Oncology Nurse Navigator 04/10/16 documented as of this encounter
--- OUTSIDE RECORDS SUMMARY | 2024-09-17 11:19 | XMS_ITS | Clinical Summary ---
Author Organization [facility] Address [address] [place] [address] Care Team Providers Care Analytical Lead Name Role Phone Damon Pastrana MD Primary Care Provider [phone] Source Comments PLEASE NOTE, if this patient [...] Imm-Zoster, Recombinant (2 of 2) 11/21/2023 09/26/19 [id number] ( season) 2024 09/26/2023, 09/10/2021, 12/25/2020, Additional [...] RT PCR (09/26/2023 9:52 AM EST) Pathologist [facility] HEPATITIS C ANTIBODY NON-REACT AWILDA NON-REACT AWILDA [facility] Comment: HCV antibody was non-reactive. There is no laboratory evidence of HCV infection. In most cases, no further action is required. However, if recent HCV exposure is suspected, a test for HCV RNA (test code 68515) is suggested. For additional information please refer to http://Moven.Answerology/faq/EDD79w0 (This link is being provided for informational/ educational purposes only.) Blood Blood / Unknown 09/26/2023 9 :52 AM EST 09/26/2023 9:52 AM EST us Damon Pastrana MD LAB - BLOOD DRAW Final Resul t [facility] [address] [address], [facility] [address] [address] * (ABNORMAL) LIPIDS W RFLX TO DIRECT LDL (09/26/2023 9:52 AM EST) CHOLESTEROL, TOTAL 223(H) <200 mg/dL [facility] HDL CHOLESTEROL 64 > OR = 40 mg/dL [facility] TRIGLYCERIDES 33 <150 mg/dL [facility] LDL-CHOLESTEROL 149(H) 99 mg/dL (calc) [facility] Comment: Reference range: <100 Desirable range <100 mg/dL for primary prevention; ?? <70 mg/dL for patients with CHD or diabetic patients with > or = 2 CHD risk factors. LDL-C is now calculated using the Singh-Kassandra calculation, which is a validated novel method providing better accuracy than the Friedewald equation in the estimation of LDL-C. Singh ORTEGA et al. GAB. 2013;310(19): 0007-5330 (http://education.Mingleplay/faq/ULE081) CHOL/HDLC RATIO 3.5 <5.0 (calc) [facility] NON-HDL CHOLESTEROL 159(H) <130 mg/dL (calc) [facility] Comment: For patients with diabetes plus 1 major ASCVD risk factor, treating to a non-HDL-C goal of <100 mg/dL (LDL-C of <70 mg/dL) is considered a therapeutic option. Blood Blood / Unknown 09/26/2023 9 :52 AM EST 09/26/2023 9:52 AM EST us Damon Pastrana MD LAB - BLOOD DRAW Final Resul t [facility] [address] [address], [facility] [address] [place] [address] * (ABNORMAL) COMPREHENSIVE METABOLIC PANEL (09/26/2023 9:52 AM EST) GLUCOSE 129(H) 65 - 99 mg/dL [facility] Comment: ?Fasting reference interval For someone without known diabetes, a glucose value >125 mg/dL indicates that they may have diabetes and this should be confirmed with a follow-up test. UREA NITROGEN (BUN) 19 7 - 25 mg/dL [facility] CREATININE (blood) 0.80 0.70 - 1.35 mg/dL [facility] EGFR 98 > OR = 60 mL/min/1. 73m2 [facility] BUN/CREATININE RATIO SEE NOTE: [facility] Comment: ?? Not Reported: BUN and Creatinine are within ?? reference range. ? SODIUM 138 135 - 146 mmol/L [facility] POTASSIUM 4.3 3.5 - 5.3 mmol/L [facility] CHLORIDE 103 98 - 110 mmol/L [facility] CARBON DIOXIDE 27 20 - 32 mmol/L [facility] CALCIUM 8.9 8.6 - 10.3 mg/dL [facility] PROTEIN, TOTAL 7.2 6.1 - 8.1 g/dL [facility] ALBUMIN 4.5 3.6 - 5.1 g/dL [facility] GLOBULIN 2.7 1.9 - 3.7 g/dL (calc) [facility] ALBUMIN/GLOBULI N RATIO 1.7 1.0 - 2.5 (calc) [facility] BILIRUBIN, TOTAL 1.0 0.2 - 1.2 mg/dL [facility] ALKALINE PHOSPHATASE 64 35 - 144 U/L [facility] AST 26 10 - 35 U/L [facility] ALT 32 9 - 46 U/L [facility] Blood Blood / Unknown 09/26/2023 9 :52 AM EST 09/26/2023 9:52 AM EST Damon Pastrana MD LAB - BLOOD DRAW Edited Resu lt - Final [facility] [employer] [facility] [address] [address], [facility] [address] [place] [address] * HISTORIC COLONOSCOPY (07/17/2021 3:00 AM EST) 07/17/2021 3:00 AM EST Damon Pastrana MD PROCEDURES Edited Resul t - Final from Last 3 Months or Most Recently Relevant to Health Maintenance Insurance [facility] Care Teams Analytical Lead Relationship Specialty Start Date End Date Damon Pastrana MD [address] [place] [address] PCP - General Internal Medicine 09/26/23
--- OUTSIDE RECORDS SUMMARY | 2024-09-17 11:19 | XMS_ITS | Encounter Summary ---
Author Organization [facility] Address [address] [place] [address] Care Team Providers Care Ui Developer Designer Name Role Phone Joni Woodruff MD Primary Care Provider Joni Sotelo MD Unavailable Unavailable Lashawn Mitchell RN Unavailable [phone] Encounter Details Date Type Department Care Team (Late st Contact Info) Description 02/14/2015 Scanned Document [address] [phone] Provider, Generic Social History Tobacco [...] on filedocumented in this encounter Care Teams Ui Developer Designer Relationship Specialty Start Date End Date Joni Woodruff MD PCP - General 04/03/15 Joni Woodruff MD Internal Medicine 03/06/15 Lashawn Mitchell, TORRES [address] [address] Oncology Nurse Navigator 04/10/16 documented as of this encounter
--- OUTSIDE RECORDS SUMMARY | 2024-09-17 11:19 | XMS_ITS | Encounter Summary ---
Author Organization [facility] Address [address] [place] [address] Care Team Providers Care Research Investigator Name Role Phone Joni Woodruff MD Primary Care Provider Joni Sotelo MD Unavailable Unavailable Lashawn Mitchell RN Unavailable Encounter Details Date Type Department Care Team (Late st Contact Info) Description 04/16/2016 Scanned Document [facility] [address] [place] [phone] Provider, Generic Social History Tobacco Use [...] on filedocumented in this encounter Care Teams Research Investigator Relationship Specialty Start Date End Date Joni Woodruff MD PCP - General 04/03/15 Joni Woodruff MD Internal Medicine 03/06/15 Lashawn Mitchell RN [address] [address] Oncology Nurse Navigator 04/10/16 documented as of this encounter
--- OUTSIDE RECORDS SUMMARY | 2024-09-17 11:19 | XMS_ITS | Encounter Summary ---
Author Organization [facility]ly [facility] Address [address] [place] [address] Care Team Providers Care Survey Interviewer Name Role Phone Joni Woodruff MD Primary Care Provider Joni Sotelo MD Unavailable Unavailable Lashawn Mitchell RN Unavailable Encounter Details Date Type Department Care Team (Late st Contact Info) Description 06/21/2016 Scanned Document [address] [facility] [address] [place] [phone] Provider, Generic Social History Tobacco Use [...] on filedocumented in this encounter Care Teams Survey Interviewer Relationship Specialty Start Date End Date Joni Woodruff MD PCP - General 04/03/15 Joni Woodruff MD Internal Medicine 03/06/15 Lashawn Mitchell RN [address] [place] [address] Oncology Nurse Navigator 04/10/16 documented as of this encounter
--- OUTSIDE RECORDS SUMMARY | 2024-09-17 11:19 | XMS_ITS | Clinical Summary ---
Author Organization [facility] it Address [address] [place] [address] Care Team Providers Care National Account Representative Name Role Phone Unavailable Primary Care Provider [...]
--- OUTSIDE RECORDS SUMMARY | 2024-09-17 11:19 | XMS_ITS | Encounter Summary ---
Author Organization [facility] Address [address] [place] [address] Care Team Providers Care Accounts Payable Clerk Name Role Phone Joni Woodruff MD Primary Care Provider Joni Sotelo MD Unavailable Unavailable Lashawn Mitchell RN Unavailable Encounter Details Date Type Department Care Team (Late st Contact Info) Description 11/21/2017 Scanned Document [address] [phone] Joni Woodruff MD Social History [...] on filedocumented in this encounter Care Teams Accounts Payable Clerk Relationship Specialty Start Date End Date Joni Woodruff MD PCP - General 04/03/15 Joni Woodruff MD Internal Medicine 03/06/15 Lashawn Mitchell RN [address] [address] Oncology Nurse Navigator 04/10/16 documented as of this encounter
--- OUTSIDE RECORDS SUMMARY | 2024-09-17 11:19 | XMS_ITS | Encounter Summary ---
Author Organization [facility]ly [facility] Address [address] [place] [address] Care Team Providers Care Data Modeling Architect Name Role Phone Joni Woodruff MD Primary Care Provider Joni Sotelo MD Unavailable Unavailable Lashawn Mitchell RN Unavailable [phone] Encounter Details Date Type Department Care Team (Late st Contact Info) Description 03/20/2017 Scanned Document [address] [phone] Joni Woodruff MD Social History [...] on filedocumented in this encounter Care Teams Data Modeling Architect Relationship Specialty Start Date End Date Joni Woodruff MD PCP - General 04/03/15 Joni Woodruff MD Internal Medicine 03/06/15 Lashawn Mitchell RN [address] [address] Oncology Nurse Navigator 04/10/16 documented as of this encounter
--- OUTSIDE RECORDS SUMMARY | 2024-09-17 11:19 | XMS_ITS | Encounter Summary ---
Author Organization [facility] Address [address] [place] [address] Care Team Providers Care Crusher Wet Ground Mica Name Role Phone Joni Woodruff MD Primary Care Provider Joni Sotelo MD Unavailable Unavailable Lashawn Mitchell RN Unavailable [phone] Reason for Visit * Reason Onset Date Comments Medication Refill 04/24/2017 Encounter Details Date Type Department Care Team (Late st Contact Info) Description 04/24/2017 Refill [facility] Urologic Surgery [place] [address] [facility] [address] [place] [address] Suad Orr, CARDIOVASCULAR DISEASE SPECIALIST [address] [place] [address] Social History Tobacco Use Types Packs/Day Years [...] on filedocumented in this encounter Care Teams Crusher Wet Ground Mica Relationship Specialty Start Date End Date Joni Woodruff MD PCP - General 04/03/15 Joni Woodruff MD Internal Medicine 8/17/15 Lashawn Mitchell RN [address] [place] [address] Oncology Nurse Navigator 04/10/16 documented as of this encounter
--- OUTSIDE RECORDS SUMMARY | 2024-09-17 11:19 | XMS_ITS | Encounter Summary ---
Author Organization [facility] Address [address] [place] [address] Care Team Providers Care Construction Analyst Name Role Phone Joni Woodruff MD Primary Care Provider Joni Sotelo MD Unavailable Unavailable Lashawn Mitchell RN Unavailable Encounter Details Date Type Department Care Team (Late st Contact Info) Description 03/06/2015 Scanned Document [address] [place] [phone] Provider, Generic Social History Tobacco Use Types [...] on filedocumented in this encounter Care Teams Construction Analyst Relationship Specialty Start Date End Date Joni Woodruff MD PCP - General 04/03/15 Joni Woodruff MD Internal Medicine 03/06/15 Lashawn Mitchell RN [address] [place] [address] Oncology Nurse Navigator 04/10/16 documented as of this encounter
== END 2024-09-17 09:44 | disposition home or self-care (01) ==
LOC: HO.XRAY 09:43
PROVIDERS: PCP Internal Medicine; Visit Provider Physician Assistant Medical
DX: M54.50 Low back pain, unspecified (principal); M79.606 Pain in leg, unspecified; R10.9 Unspecified abdominal pain
CPT/HCPCS: 72110

== ENCOUNTER 2024-09-17 09:43 | Outpatient (AMB) | payer OTHER, SELFPAY ==
--- NOTE | 2024-09-17 09:48 | A.OFFPC_ITS ---
Vital Signs 09/17/24 09:52 Height 5 ft 6 in Weight 174 lb 8 oz BMI 28.2 BP 132/70 Blood Pressure Location Lt brachial Position Sitting Pulse 68 Pulse Source Pulse Oximeter Temp 97.1 F Temp Source Temporal Artery Scan Pulse Oximetry (%) 98 Oxygen Delivery Method Room Air Intake Visit Reasons: 2 week f/u Coupon Redemption Clerk Required: No Coupon Redemption Clerk Name: Marla Garrison PA-C Information Interpreted: non-clinical & clinical Bobcat Operator: Not Required per policy Accompanied by: Self / Same As Patient Allergies Penicillins Allergy (Intermediate, Verified 09/17/24 10:08) SICKNESS ampicillin Allergy (Unknown, Verified 09/17/24 10:08) Unknown Medication List - Last Reconciled 09/17/24 by Marla Garrison PA-C acetaminophen 1,000 mg (2 x 500 mg) PO Q6H PRN albuterol sulfate 90 mcg/actuation (Ventolin HFA) 1 inh inhalation QID PRN aspirin (Adult Low Dose Aspirin) 81 mg PO DAILY atorvastatin 20 mg PO BEDTIME cyclobenzaprine 10 mg PO TID ergocalciferol (vitamin D2) 1,250 mcg PO QWEEK lidocaine 5% 1 patch topical DAILY magnesium oxide 400 mg PO DAILY meloxicam 15 mg PO DAILY prednisone 40 mg (2 x 20 mg) PO DAILY 5 days triamcinolone acetonide 0.025% 1 appl topical BID Tobacco use date assessed: 09/17/24 Dental Screening Dental Screen Date: 09/03/24 [facility] Medical History Overweight (BMI 25.0-29.9) Right flank pain Low back pain radiating to lower extremity Rib pain on right side Osteoarthritis of right shoulder Hypercholesterolemia Eczema Hyperglycemia Prostate cancer Vitamin D deficiency Contusion of chest wall Surgical History History of appendectomy History of prostatectomy Family History Father Prostate cancer Mother No problems noted. Social History Housing: House Alcohol intake: current Alcohol intake frequency: holidays/special occasions only Patient Tobacco Use Status: Former Tobacco user Tobacco use type: Cigarette e-Cigarette/Vaping Use: Never Used Second Hand Smoke Exposure: No service: No Current occupational status: employed Cognitive needs: No Hearing needs: No Vision needs: Yes (glasses) Questionnaire Thrive Questionnaire Date Thrive assessed: 09/03/24 HALLIE-7 AMB Questionnaire HALLIE-7 Date HALLIE - 7 assessed: 09/03/24 Source: Developed by Drs. Bart Terry, Zeynep Reyes, Santos Uriarte and colleagues, with an educational nahun from [employer]. Physical exam (Primary Care) Vital Signs: Last Vital Signs Temp 97.1 F 09/17/24 09:52 Pulse 68 09/17/24 09:52 BP 132/70 09/17/24 09:52 Pulse Ox 98 09/17/24 09:52 Oxygen Delivery Method Room Air 09/17/24 09:52 BMI result Body Mass Index 28.2 Tobacco/Smoking Status: Tobacco use Status Tobacco use date assessed 09/17/24 09/17/24 09:55 Patient Tobacco Use Status Former Tobacco user 09/17/24 09:48 Tobacco use type Cigarette 09/17/24 09:48 e-Cigarette/Vaping Use Never Used 09/17/24 09:48 Thrive Assessment: Date of Thrive Assessment Date Thrive assessed 09/03/24 09/17/24 09:48 Coding Level of Care Code Est Pt Level 4 (94510) Diagnoses Low back pain radiating to lower extremity M54.50; M79.606 Right flank pain R10.9 Assessment & Plan Assessment & Plan (1) Low back pain radiating to lower extremity: Code(s): M54.50 - Low back pain, unspecified; M79.606 - Pain in leg, unspecified Category: Medical Plan: Most likely musculoskeletal pain. Will order lumbar x-ray. Patient has CT with IV contrast in place to evaluate any other intra-abdominal processes. Patient currently taking Tylenol 1000 mg every 6 hours, cyclobenzaprine 10 mg t.i.d., Lidoderm patches and meloxicam with mild symptomatic relief. Condition is chronic and stable continue to monitor. (2) Right flank pain: Code(s): R10.9 - Unspecified abdominal pain Category: Medical Plan: Labs reviewed labs within normal limits including kidney function. UA was within normal limits. Still awaiting CT scan to rule out any intra-abdominal processes. Condition is chronic and stable continue to monitor. Plan Plan For the suspected musculoskeletal pain, the patient will undergo further imaging studies, including an X-ray to be completed today, given the delay in obtaining a CT scan. He will confirm the details of the CT scan during this visit. The patient will not resume Flexeril due to exacerbated symptoms while using the medication and will continue monitoring symptoms until further notice. A follow- up appointment is scheduled in one month to revisit the management plan based on new imaging results or symptom changes. Orders: Orders XR lumbar spine 4V min Today M54.50 - Low back pain, unspecified, M79.606 - Pain in leg, unspecified, R10.9 - Unspecified abdominal pain Patient Instructions: Patient Instructions - Obtain an X-ray for back pain evaluation today. - Check on CT scan appointment at the imaging department. - Do not continue taking Flexeril due to adverse reactions. - Report any changes in symptoms or new findings from imaging. - Follow up in one month unless otherwise advised based on imaging results. Scribe Plan - Not visible on output: History of Present Illness The patient is a 68-year-old male presenting with right flank pain back pain primarily localized to one area on his right lower back, which is aggravated by specific movements such as bending or standing. The patient has yet to determine the precise onset but describes worsening symptoms related to positional changes. No prior incident is noted as precipitating this pain, and the patient discontinued the use of Flexeril due to increased discomfort. Previously, he experienced transient burning during urination over two to three days, which has since resolved without intervention. Laboratory analysis confirmed no urinary tract infection, as evidenced by the absence of bacteria or blood in the urine. The patient is in the process of securing a CT scan and X- ray for further assessment but has experienced delays. Review of Systems - Genitourinary: Previously reports burning sensation during urination, resolved. Denies current issues. - Musculoskeletal: Reports pain in the back region, aggravated by certain movements. Physical Exam Appearance: Alert. Oriented X3. No acute distress. Head: Normal external exam. Normocephalic. Atraumatic. Eyes: Pupils are equal, round, and reactive to light. Extraocular movements intact. Conjunctiva and sclera normal. Eyelids normal. Throat: Pharynx normal. Uvula midline. Moist mucous membranes. Neck: Normal inspection. Neck supple. Full range of motion. Cardiovascular: Normal heart rate and rhythm. Respiratory: No respiratory distress. Painless inspiration. Abdomen: Soft and nontender. Bowel sounds normal in all 4 quadrants. No distention noted. No organomegaly noted. No visible injury noted. Back: No costovertebral angle tenderness. Full range of motion noted. Patient reports pain when bending down, but no pain when lifting the leg. Mild tenderness to palpation to right mid to lower paraspinous lumbar musculature. No mid lumbar tenderness step-offs or deformities are noted. No signs of infection. No fluctuance were noted. No signs of rashes are noted. Skin: Skin warm and dry. Normal skin color. Normal skin turgor. No rashes/lesions/lacerations noted. Extremities: Extremities exhibit normal range of motion. Extremities nontender. Neuro: Oriented X 3. No motor deficit. No sensory deficit. Reflexes normal. Results - Labs: No bacteria or blood detected in urine, confirming absence of urinary tract infection. - Tests and Diagnostics: Awaiting results of CT scan and X-ray for further assessment. Patient was informed and verbally consented to the use of an ambient scribe for clinic note documentation during this visit. Discussion Notes I discussed with the patient the current evaluation plan for his musculoskeletal pain, emphasizing the importance of obtaining imaging results to guide further treatment. We reviewed the findings that indicated no urinary tract infection correlated with his resolved urinary symptoms. We acknowledged the delay in the CT scan and ensured efforts to rectify this with a scheduled X-ray and verification while on-site. Future appointments were planned around forthcoming imaging results, endorsing regular communication to adjust care as necessary. We discussed continuing with existing medications, save for Flexeril due to adverse outcomes, and emphasized follow-up in one month unless expedited imaging yields earlier insights.
[2024-09-17 09:52] VITALS: BP 132/70; PULSE 68; TEMP 36.2; O2SAT 98; BMI 28.2
--- OUTSIDE RECORDS SUMMARY | 2024-09-17 10:32 | XMS_ITS | Encounter Summary ---
Author Organization [facility] Address [address] [place] [address] Care Team Providers Care Surgery Aide Name Role Phone Joni Woodruff MD Primary Care Provider Joni Sotelo MD Unavailable Unavailable Lashawn Mitchell RN Unavailable [phone] Encounter Details Date Type Department Care Team (Late st Contact Info) Description 04/20/2015 Scanned Document [address] [address] Provider, Generic Social History Tobacco [...] on filedocumented in this encounter Care Teams Surgery Aide Relationship Specialty Start Date End Date Joni Woodruff MD PCP - General 04/03/15 Joni Woodruff MD Internal Medicine 03/06/15 Lashawn Mitchell, TORRES [address] [address] Oncology Nurse Navigator 04/10/16 documented as of this encounter
--- OUTSIDE RECORDS SUMMARY | 2024-09-17 10:32 | XMS_ITS | Clinical Summary ---
Author Organization [facility] Address [address] [place] [address] Care Team Providers Care Human Services Manager Name Role Phone Damon Pastrana MD Primary Care Provider [phone] Source Comments PLEASE NOTE, if this patient [...] Imm-Zoster, Recombinant (2 of 2) 11/21/2023 09/26/19 [id number] ( season) 2024 09/26/2023, 09/10/2021, 12/25/2020, Additional [...] RT PCR (09/26/2023 9:52 AM EST) Pathologist [facility] HEPATITIS C ANTIBODY NON-REACT AWILDA NON-REACT AWILDA [facility] Comment: HCV antibody was non-reactive. There is no laboratory evidence of HCV infection. In most cases, no further action is required. However, if recent HCV exposure is suspected, a test for HCV RNA (test code 90670) is suggested. For additional information please refer to http://ROR Media.Pushing Green/faq/GTF09c5 (This link is being provided for informational/ educational purposes only.) Blood Blood / Unknown 09/26/2023 9 :52 AM EST 09/26/2023 9:52 AM EST us Damon Pastrana MD LAB - BLOOD DRAW Final Resul t [facility] [address] [address], [facility] [address] [address] * (ABNORMAL) LIPIDS W RFLX TO DIRECT LDL (09/26/2023 9:52 AM EST) CHOLESTEROL, TOTAL 223(H) <200 mg/dL [facility] HDL CHOLESTEROL 64 > OR = 40 mg/dL [facility] TRIGLYCERIDES 33 <150 mg/dL [facility] LDL-CHOLESTEROL 149(H) 99 mg/dL (calc) [facility] Comment: Reference range: <100 Desirable range <100 mg/dL for primary prevention; ?? <70 mg/dL for patients with CHD or diabetic patients with > or = 2 CHD risk factors. LDL-C is now calculated using the Singh-Kassandra calculation, which is a validated novel method providing better accuracy than the Friedewald equation in the estimation of LDL-C. Singh ORTEGA et al. GAB. 2013;310(19): 8046-9816 (http://education.SumUp/faq/WAA567) CHOL/HDLC RATIO 3.5 <5.0 (calc) [facility] NON-HDL CHOLESTEROL 159(H) <130 mg/dL (calc) [facility] Comment: For patients with diabetes plus 1 major ASCVD risk factor, treating to a non-HDL-C goal of <100 mg/dL (LDL-C of <70 mg/dL) is considered a therapeutic option. Blood Blood / Unknown 09/26/2023 9 :52 AM EST 09/26/2023 9:52 AM EST us Damon Pastrana MD LAB - BLOOD DRAW Final Resul t [facility] [address] [address], [facility] [address] [place] [address] * (ABNORMAL) COMPREHENSIVE METABOLIC PANEL (09/26/2023 9:52 AM EST) GLUCOSE 129(H) 65 - 99 mg/dL [facility] Comment: ?Fasting reference interval For someone without known diabetes, a glucose value >125 mg/dL indicates that they may have diabetes and this should be confirmed with a follow-up test. UREA NITROGEN (BUN) 19 7 - 25 mg/dL [facility] CREATININE (blood) 0.80 0.70 - 1.35 mg/dL [facility] EGFR 98 > OR = 60 mL/min/1. 73m2 [facility] BUN/CREATININE RATIO SEE NOTE: [facility] Comment: ?? Not Reported: BUN and Creatinine are within ?? reference range. ? SODIUM 138 135 - 146 mmol/L [facility] POTASSIUM 4.3 3.5 - 5.3 mmol/L [facility] CHLORIDE 103 98 - 110 mmol/L [facility] CARBON DIOXIDE 27 20 - 32 mmol/L [facility] CALCIUM 8.9 8.6 - 10.3 mg/dL [facility] PROTEIN, TOTAL 7.2 6.1 - 8.1 g/dL [facility] ALBUMIN 4.5 3.6 - 5.1 g/dL [facility] GLOBULIN 2.7 1.9 - 3.7 g/dL (calc) [facility] ALBUMIN/GLOBULI N RATIO 1.7 1.0 - 2.5 (calc) [facility] BILIRUBIN, TOTAL 1.0 0.2 - 1.2 mg/dL [facility] ALKALINE PHOSPHATASE 64 35 - 144 U/L [facility] AST 26 10 - 35 U/L [facility] ALT 32 9 - 46 U/L [facility] Blood Blood / Unknown 09/26/2023 9 :52 AM EST 09/26/2023 9:52 AM EST Damon Pastrana MD LAB - BLOOD DRAW Edited Resu lt - Final [facility] [place] [facility] [address] [address], [facility] [address] [place] [address] * HISTORIC COLONOSCOPY (07/17/2021 3:00 AM EST) 07/17/2021 3:00 AM EST Damon Pastrana MD PROCEDURES Edited Resul t - Final from Last 3 Months or Most Recently Relevant to Health Maintenance Insurance [facility] Care Teams Human Services Manager Relationship Specialty Start Date End Date Damon Pastrana MD [address] [place] [address] PCP - General Internal Medicine 09/26/23
--- OUTSIDE RECORDS SUMMARY | 2024-09-17 10:32 | XMS_ITS | Clinical Summary ---
Author Organization [facility], Address [address] [place] [address] [place] [address] Phone Care Team Providers Care Roll Icer Name Role Phone Jackson Moyer MD Primary Care Provider [phone] Allergies Active Allergy Reactions Criticality Noted Date [...] severe COVID-19: None ? Healthcare worker or certified first assistant? No ? COVID-19 Tested? - Yes - Date Tested 11/03/2019 Testing Location - [facility] - Testing Results - Positive ? [...] patient's age to complete this topic Insurance [facility] Care Teams Roll Icer Relationship Specialty Start Date End Date Jackson Moyer MD [address] [place] [address] PCP - General Internal Medicine 11/24/19
--- OUTSIDE RECORDS SUMMARY | 2024-09-17 10:32 | XMS_ITS | Clinical Summary ---
Author Organization [facility] Address [address] [place] [address] Care Team Providers Care Agent Based Modeler Name Role Phone Joni Woodruff MD Primary [...] Date: ; End Date: Active ergocalciferol (ERGOCALCIFEROL) 34492 units capsuleIndications:Vi tamin D Deficiency Take 1 [...] to sexual activity not to exceed 5 [id number] mg in 24 hrs 50 tablet 11 [...] Ag/Ab, 4th Gen NON-REACT AWILDA NON-REACT AWILDA [facility] NL1 Comment: HIV-1 antigen and HIV-1/HIV-2 [...] ?? For additional information please refer to http://education.Websand/faq/PDG808 (This link is being provided for informational/ educational purposes only.) The performance of this assay has not been clinically validated in patients less than 2 years old. Blood specimen (specimen) 11/20/2017 4:01 PM EDT 11/21/2017 6:28 AM EDT Narrative Resulting Agency Comment Performing Organization Information: ?Site ID: [id number] ?Name: [facility] ?Address: [address] [place] [address], [place] [address] ?Director: Uche Rock MD Joni Woodruff MD LAB BLOOD ORDERABLES [facility] [address] [facility] 3rd Floor, [place] [address] from Last 3 Months or Most Recently Relevant to Health Maintenance Care Teams Agent Based Modeler Relationship Specialty Start Date End Date Joni Woodruff MD PCP - General 04/03/15 Joni Woodruff MD Internal Medicine 03/06/15 Lashawn Mitchell, RN [address] [place] [address] Oncology Nurse Navigator 04/10/16
--- OUTSIDE RECORDS SUMMARY | 2024-09-17 10:32 | XMS_ITS | Encounter Summary ---
Author Organization Formerly [facility] Address [address] [place] [address] Care Team Providers Care Sheriff Detective Name Role Phone Joni Woodruff MD Primary Care Provider Joni Sotelo MD Unavailable Unavailable Lashawn Mitchell RN Unavailable [phone] Encounter Details Date Type Department Care Team (Late st Contact Info) Description 03/23/2015 Scanned Document [address] [phone] Provider, Generic Social History Tobacco [...] on filedocumented in this encounter Care Teams Sheriff Detective Relationship Specialty Start Date End Date Joni Woodruff MD PCP - General 04/03/15 Joni Woodruff MD Internal Medicine 03/06/15 Lashawn Mitchell, TORRES [address] [address] Oncology Nurse Navigator 04/10/16 documented as of this encounter
--- OUTSIDE RECORDS SUMMARY | 2024-09-17 10:32 | XMS_ITS | Encounter Summary ---
Author Organization [facility] Address [address] [place] [address] Care Team Providers Care Impregnator Operator Name Role Phone Joni Woodruff MD Primary Care Provider Joni Sotelo MD Unavailable Unavailable Lashawn Mitchell RN Unavailable Encounter Details Date Type Department Care Team (Late st Contact Info) Description 04/16/2016 Scanned Document [facility] 80 [facility] [address] [place] [phone] Provider, Generic Social History Tobacco Use [...] on filedocumented in this encounter Care Teams Impregnator Operator Relationship Specialty Start Date End Date Joni Woodruff MD PCP - General 04/03/15 Joni Woodruff MD Internal Medicine 03/06/15 Lashawn Mitchell RN [address] [address] Oncology Nurse Navigator 04/10/16 documented as of this encounter
--- OUTSIDE RECORDS SUMMARY | 2024-09-17 10:32 | XMS_ITS | Encounter Summary ---
Author Organization [facility] Address [address] [place] [address] Care Team Providers Care Doll Surgeon Name Role Phone Joni Woodruff MD Primary Care Provider Joni Sotelo MD Unavailable Unavailable Lashawn Mitchell RN Unavailable Encounter Details Date Type Department Care Team (Late st Contact Info) Description 01/03/2016 Telephone [facility] Urologic Surgery [address] [address] Alonso Gonzales MD [address] [place] [address] Social History Tobacco Use Types Packs/Day Years [...] and would like to discuss w/ someone. Slovenian only. documented in this encounter Plan of Treatment Not on file documented as of this encounter Visit Diagnoses Not on filedocumented in this encounter Care Teams Doll Surgeon Relationship Specialty Start Date End Date Joni Woodruff MD PCP - General 04/03/15 Joni Woodruff MD Internal Medicine 03/06/15 Lashawn Mitchell RN [address] [place] [address] Oncology Nurse Navigator 04/10/16 documented as of this encounter
--- OUTSIDE RECORDS SUMMARY | 2024-09-17 10:32 | XMS_ITS | Encounter Summary ---
Author Organization [facility] Address [address] [place] [address] Care Team Providers Care Office Spec Name Role Phone Joni Woodruff MD Primary Care Provider Joni Sotelo MD Unavailable Unavailable Lashawn Mitchell RN Unavailable [phone] Encounter Details Date Type Department Care Team (Late st Contact Info) Description 07/11/2015 Scanned Document [address] [phone] Provider, Generic Social History Tobacco [...] filedocumented in this encounter Care Teams Office Spec Relationship Specialty Start Date End Date Joni Woodruff MD PCP - General 04/03/15 Joni Woodruff MD Internal Medicine 03/06/15 Lashawn Mitchell, TORRES [address] [address] Oncology Nurse Navigator 04/10/16 documented as of this encounter
--- OUTSIDE RECORDS SUMMARY | 2024-09-17 10:33 | XMS_ITS | Encounter Summary ---
Author Organization [facility] Address [address] [place] [address] Care Team Providers Care Oven Worker Name Role Phone Joni Woodruff MD Primary Care Provider Joni Sotelo MD Unavailable Unavailable Lashawn Mitchell RN Unavailable [phone] Encounter Details Date Type Department Care Team (Late st Contact Info) Description 03/20/2017 Scanned Document [address] [phone] Joni Woodruff MD Social History [...] on filedocumented in this encounter Care Teams Oven Worker Relationship Specialty Start Date End Date Joni Woodruff MD PCP - General 04/03/15 Joni Woodruff MD Internal Medicine 03/06/15 Lashawn Mitchell RN [address] [address] Oncology Nurse Navigator 04/10/16 documented as of this encounter
--- OUTSIDE RECORDS SUMMARY | 2024-09-17 10:33 | XMS_ITS | Encounter Summary ---
Author Organization [facility] Address [address] [place] [address] Care Team Providers Care Speech Pathology Supervisor Name Role Phone Joni Woodruff MD Primary Care Provider Joni Sotelo MD Unavailable Unavailable Lashawn Mitchell RN Unavailable Encounter Details Date Type Department Care Team (Late st Contact Info) Description 03/12/2016 Scanned Document [address] [phone] Provider, Generic Social History Tobacco [...] on filedocumented in this encounter Care Teams Speech Pathology Supervisor Relationship Specialty Start Date End Date Joni Woodruff MD PCP - General 04/03/15 Joni Woodruff MD Internal Medicine 03/06/15 Lashawn Mitchell RN [address] [address] Oncology Nurse Navigator 04/10/16 documented as of this encounter
--- OUTSIDE RECORDS SUMMARY | 2024-09-17 10:33 | XMS_ITS | Clinical Summary ---
Author Organization [facility] it Address [address] [place] [address] Care Team Providers Care Inspector Clip On Sunglasses Name Role Phone Unavailable Primary Care Provider [...]
--- OUTSIDE RECORDS SUMMARY | 2024-09-17 10:33 | XMS_ITS | Encounter Summary ---
Author Organization [facility] Address [address] [place] [address] Care Team Providers Care Ribbon Inker Name Role Phone Joni Woodruff MD Primary Care Provider Joni Sotelo MD Unavailable Unavailable Lashawn Mitchell RN Unavailable Encounter Details Date Type Department Care Team (Late st Contact Info) Description 03/06/2015 Scanned Document [address] [place] [phone] Provider, Generic Social History Tobacco Use Types [...] on filedocumented in this encounter Care Teams Ribbon Inker Relationship Specialty Start Date End Date Joni Woodruff MD PCP - General 04/03/15 Joni Woodruff MD Internal Medicine 03/06/15 Lashawn Mitchell RN [address] [place] [address] Oncology Nurse Navigator 04/10/16 documented as of this encounter
--- OUTSIDE RECORDS SUMMARY | 2024-09-17 10:33 | XMS_ITS | Encounter Summary ---
Author Organization [facility] Address [address] [place] [address] Care Team Providers Care Pile Driving Supervisor Name Role Phone Joni Woodruff MD Primary Care Provider Joni Sotelo MD Unavailable Unavailable Lashawn Mitchell RN Unavailable [phone] Encounter Details Date Type Department Care Team (Late st Contact Info) Description 11/21/2017 Scanned Document [address] [phone] Joni Woodruff MD Social History [...] on filedocumented in this encounter Care Teams Pile Driving Supervisor Relationship Specialty Start Date End Date Joni Woodruff MD PCP - General 04/03/15 Joni Woodruff MD Internal Medicine 03/06/15 Lashawn Mitchell RN [address] [address] Oncology Nurse Navigator 04/10/16 documented as of this encounter
--- OUTSIDE RECORDS SUMMARY | 2024-09-17 10:33 | XMS_ITS | Encounter Summary ---
Author Organization Former[facility] Address [address] [place] [address] Care Team Providers Care Store Sales Manager Name Role Phone Joni Woodruff MD Primary Care Provider Joni Sotelo MD Unavailable Unavailable Lashawn Mitchell RN Unavailable [phone] Encounter Details Date Type Department Care Team (Late st Contact Info) Description 06/21/2016 Scanned Document [address] [facility] [address] [place] [phone] Provider, Generic Social History Tobacco Use [...] on filedocumented in this encounter Care Teams Store Sales Manager Relationship Specialty Start Date End Date Joni Woodruff MD PCP - General 04/03/15 Joni Woodruff MD Internal Medicine 03/06/15 Lashawn Mitchell RN [address] [place] [address] Oncology Nurse Navigator 04/10/16 documented as of this encounter
--- OUTSIDE RECORDS SUMMARY | 2024-09-17 10:33 | XMS_ITS | Encounter Summary ---
Author Organization [facility] Address [address] [place] [address] Care Team Providers Care Materials Manager Name Role Phone Joni Woodruff MD Primary Care Provider Joni Sotelo MD Unavailable Unavailable Lashawn Mitchell RN Unavailable [phone] Encounter Details Date Type Department Care Team (Late st Contact Info) Description 02/14/2015 Scanned Document [address] [phone] Provider, Generic Social History Tobacco [...] on filedocumented in this encounter Care Teams Materials Manager Relationship Specialty Start Date End Date Joni Woodruff MD PCP - General 04/03/15 Joni Woodruff MD Internal Medicine 03/06/15 Lashawn Mitchell, TORRES [address] [address] Oncology Nurse Navigator 04/10/16 documented as of this encounter
--- OUTSIDE RECORDS SUMMARY | 2024-09-17 10:33 | XMS_ITS | Encounter Summary ---
Author Organization [facility] Address [address] [place] [address] Care Team Providers Care Referral Rn Name Role Phone Joni Woodruff MD Primary Care Provider Joni Sotelo MD Unavailable Unavailable Lashawn Mitchell RN Unavailable Reason for Visit * Reason Onset Date Comments Medication Refill 04/24/2017 Encounter Details Date Type Department Care Team (Late st Contact Info) Description 04/24/2017 Refill [facility] Urologic Surgery [place] 85 [facility] [address] [place] [address] Suad Orr, MANAGER FOOD SAFETY [address] [place] [address] Social History Tobacco Use Types Packs/Day Years [...] on filedocumented in this encounter Care Teams Referral Rn Relationship Specialty Start Date End Date Joni Woodruff MD PCP - General 04/03/15 Joni Woodruff MD Internal Medicine 8/17/15 Lashawn Mitchell RN [address] [place] [address] Oncology Nurse Navigator 04/10/16 documented as of this encounter
== END 2024-09-17 10:05 | disposition home or self-care (01) ==
PROVIDERS: PCP Internal Medicine; Visit Provider Physician Assistant Medical
DX: M54.50 Low back pain, unspecified (principal); M79.606 Pain in leg, unspecified; R10.9 Unspecified abdominal pain

== ENCOUNTER → 2024-09-17 10:13 | Outpatient (BNV) | payer OTHER, SELFPAY | PROVIDERS: PCP Internal Medicine; Visit Provider Radiology Diagnostic Radiology | DX: M54.50 Low back pain, unspecified (principal) | CPT/HCPCS: 72110 ==

== ENCOUNTER 2024-09-29 07:57 | Outpatient (AMB) | payer OTHER, SELFPAY ==
--- OUTSIDE RECORDS SUMMARY | 2024-09-29 08:01 | XMS_ITS | Encounter Summary ---
Author Organization [facility] Address [address] [place] [address] Care Team Providers Care Bark Fitter Name Role Phone Joni Woodruff MD Primary Care Provider Joni Sotelo MD Unavailable Unavailable Lashawn Mitchell RN Unavailable Encounter Details Date Type Department Care Team (Late st Contact Info) Description 03/06/2015 Scanned Document [address] [place] [phone] Provider, Generic Social History Tobacco Use Types [...] on filedocumented in this encounter Care Teams Bark Fitter Relationship Specialty Start Date End Date Joni Woodruff MD PCP - General 04/03/15 Joni Woodruff MD Internal Medicine 03/06/15 Lashawn Mitchell RN [address] [place] [address] Oncology Nurse Navigator 04/10/16 documented as of this encounter
--- OUTSIDE RECORDS SUMMARY | 2024-09-29 08:01 | XMS_ITS | Clinical Summary ---
Author Organization [facility] Address [address] [place] [address] Care Team Providers Care Fender Mechanic Name Role Phone Damon Pastrana MD Primary Care Provider [phone] Source Comments PLEASE NOTE, if this patient [...] Imm-Zoster, Recombinant (2 of 2) 11/21/2023 09/26/19 [id number] ( season) 2024 09/26/2023, 09/10/2021, 12/25/2020, Additional [...] PCR (09/26/2023 9:52 AM EST) Pathologist [facility] HEPATITIS C ANTIBODY NON-REACT AWILDA NON-REACT AWILDA Interventional Imaging [facility] Comment: HCV antibody was non-reactive. There is no laboratory evidence of HCV infection. In most cases, no further action is required. However, if recent HCV exposure is suspected, a test for HCV RNA (test code 46928) is suggested. For additional information please refer to http://ViViFi.Abril/faq/VBU94w2 (This link is being provided for informational/ educational purposes only.) Blood Blood / Unknown 09/26/2023 9 :52 AM EST 09/26/2023 9:52 AM EST us Damon Pastrana MD LAB - BLOOD DRAW Final Resul t [facility] [address] [address], Interventional Imaging [address] [address] * (ABNORMAL) LIPIDS W RFLX TO DIRECT LDL (09/26/2023 9:52 AM EST) CHOLESTEROL, TOTAL 223(H) <200 mg/dL [facility] HDL CHOLESTEROL 64 > OR = 40 mg/dL [facility] TRIGLYCERIDES 33 <150 mg/dL [facility] LDL-CHOLESTEROL 149(H) 99 mg/dL (calc) [facility] Comment: Reference range: <100 Desirable range <100 mg/dL for primary prevention; ?? <70 mg/dL for patients with CHD or diabetic patients with > or = 2 CHD risk factors. LDL-C is now calculated using the Singh-Kassandra calculation, which is a validated novel method providing better accuracy than the Friedewald equation in the estimation of LDL-C. Singh ORTEGA et al. GAB. 2013;310(19): 1601-5256 (http://education.[employer]/faq/FLL104) CHOL/HDLC RATIO 3.5 <5.0 (calc) [facility] NON-HDL CHOLESTEROL 159(H) <130 mg/dL (calc) [facility] Comment: For patients with diabetes plus 1 major ASCVD risk factor, treating to a non-HDL-C goal of <100 mg/dL (LDL-C of <70 mg/dL) is considered a therapeutic option. Blood Blood / Unknown 09/26/2023 9 :52 AM EST 09/26/2023 9:52 AM EST us Damon Pastrnaa MD LAB - BLOOD DRAW Final Resul t [facility] [address] [address], [facility] [address] [place] [address] * (ABNORMAL) COMPREHENSIVE METABOLIC PANEL (09/26/2023 9:52 AM EST) GLUCOSE 129(H) 65 - 99 mg/dL [facility] Comment: ?Fasting reference interval For someone without known diabetes, a glucose value >125 mg/dL indicates that they may have diabetes and this should be confirmed with a follow-up test. UREA NITROGEN (BUN) 19 7 - 25 mg/dL [facility] CREATININE (blood) 0.80 0.70 - 1.35 mg/dL [facility] EGFR 98 > OR = 60 mL/min/1. 73m2 [facility] BUN/CREATININE RATIO SEE NOTE: [facility] Comment: ?? Not Reported: BUN and Creatinine are within ?? reference range. ? SODIUM 138 135 - 146 mmol/L [facility] POTASSIUM 4.3 3.5 - 5.3 mmol/L [facility] CHLORIDE 103 98 - 110 mmol/L [facility] CARBON DIOXIDE 27 20 - 32 mmol/L [facility] CALCIUM 8.9 8.6 - 10.3 mg/dL [facility] PROTEIN, TOTAL 7.2 6.1 - 8.1 g/dL [facility] ALBUMIN 4.5 3.6 - 5.1 g/dL [facility] GLOBULIN 2.7 1.9 - 3.7 g/dL (calc) [facility] ALBUMIN/GLOBULI N RATIO 1.7 1.0 - 2.5 (calc) [facility] BILIRUBIN, TOTAL 1.0 0.2 - 1.2 mg/dL [facility] ALKALINE PHOSPHATASE 64 35 - 144 U/L [facility] AST 26 10 - 35 U/L [facility] ALT 32 9 - 46 U/L [facility] Blood Blood / Unknown 09/26/2023 9 :52 AM EST 09/26/2023 9:52 AM EST Damon Pastrana MD LAB - BLOOD DRAW Edited Resu lt - Final [facility] [employer] [address] [address], [facility] [address] [place] [address] * HISTORIC COLONOSCOPY (07/17/2021 3:00 AM EST) 07/17/2021 3:00 AM EST Damon Pastrana MD PROCEDURES Edited Resul t - Final from Last 3 Months or Most Recently Relevant to Health Maintenance Insurance [facility] Care Teams Fender Mechanic Relationship Specialty Start Date End Date Damon Pastrana MD [address] [place] [address] PCP - General Internal Medicine 09/26/23
--- OUTSIDE RECORDS SUMMARY | 2024-09-29 08:01 | XMS_ITS | Encounter Summary ---
Author Organization [facility] Address [address] [place] [address] Care Team Providers Care Logging Rafter Laborer Name Role Phone Joni Woodruff MD Primary Care Provider Joni Sotelo MD Unavailable Unavailable Lashawn Mitchell RN Unavailable [phone] Encounter Details Date Type Department Care Team (Late st Contact Info) Description 01/03/2016 Telephone [facility] Urologic Surgery [address] [address] Alonso Gonzales MD [address] [place] [address] Social History Tobacco Use Types Packs/Day Years [...] and would like to discuss w/ someone. Iranian only. documented in this encounter Plan of Treatment Not on file documented as of this encounter Visit Diagnoses Not on filedocumented in this encounter Care Teams Logging Rafter Laborer Relationship Specialty Start Date End Date Joni Woodruff MD PCP - General 04/03/15 Joni Woodruff MD Internal Medicine 03/06/15 Lashawn Mitchell RN [address] [place] [address] Oncology Nurse Navigator 04/10/16 documented as of this encounter
--- OUTSIDE RECORDS SUMMARY | 2024-09-29 08:01 | XMS_ITS | Encounter Summary ---
Author Organization Formerly [facility] Address [address] [place] [address] Care Team Providers Care Senior Peoplesoft Developer Name Role Phone Joni Woodruff MD Primary Care Provider Joni Sotelo MD Unavailable Unavailable Lashawn Mitchell RN Unavailable [phone] Encounter Details Date Type Department Care Team (Late st Contact Info) Description 04/20/2015 Scanned Document [address] [phone] Provider, Generic Social History Tobacco [...] filedocumented in this encounter Care Teams Senior Peoplesoft Developer Relationship Specialty Start Date End Date Joni Woodruff MD PCP - General 04/03/15 Joni Woodruff MD Internal Medicine 03/06/15 Lashawn Mitchell, TORRES [address] [address] Oncology Nurse Navigator 04/10/16 documented as of this encounter
--- OUTSIDE RECORDS SUMMARY | 2024-09-29 08:01 | XMS_ITS | Encounter Summary ---
Author Organization [facility] Address [address] [place] [address] Care Team Providers Care Tinning Machine Set Up Operator Name Role Phone Joni Woodruff MD Primary Care Provider Joni Sotelo MD Unavailable Unavailable Lashawn Mitchell RN Unavailable Encounter Details Date Type Department Care Team (Late st Contact Info) Description 07/11/2015 Scanned Document [address] [phone] Provider, Generic Social History Tobacco [...] on filedocumented in this encounter Care Teams Tinning Machine Set Up Operator Relationship Specialty Start Date End Date Joni Woodruff MD PCP - General 04/03/15 Joni Woodruff MD Internal Medicine 03/06/15 Lashawn Mitchell, TORRES [address] [address] Oncology Nurse Navigator 04/10/16 documented as of this encounter
--- OUTSIDE RECORDS SUMMARY | 2024-09-29 08:01 | XMS_ITS | Encounter Summary ---
Author Organization [facility] Address [address] [place] [address] Care Team Providers Care Welding Machine Operator Electron Beam Name Role Phone Joni Woodruff MD Primary Care Provider Joni Sotelo MD Unavailable Unavailable Lashawn Mitchell RN Unavailable Encounter Details Date Type Department Care Team (Late st Contact Info) Description 06/21/2016 Scanned Document [address] [facility] [address] [place] [phone] Provider, Generic Social History Tobacco Use [...] on filedocumented in this encounter Care Teams Welding Machine Operator Electron Beam Relationship Specialty Start Date End Date Joni Woodruff MD PCP - General 04/03/15 Joni Woodruff MD Internal Medicine 03/06/15 Lashawn Mitchell RN [address] [place] [address] Oncology Nurse Navigator 04/10/16 documented as of this encounter
--- OUTSIDE RECORDS SUMMARY | 2024-09-29 08:01 | XMS_ITS | Clinical Summary ---
Author Organization [facility] Address [address] [place] [address] Care Team Providers Care Learning And Development Analyst Name Role Phone Joni Woodruff MD [...] Date: ; End Date: Active ergocalciferol (ERGOCALCIFEROL) 63796 units capsuleIndications:Vi tamin D Deficiency Take 1 [...] to sexual activity not to exceed 5 uim=125 mg in 24 hrs 50 tablet 11 [...] Ag/Ab, 4th Gen NON-REACT AWILDA NON-REACT AWILDA [facility] Comment: HIV-1 antigen and HIV-1/HIV-2 [...] ?? For additional information please refer to http://education.Happy Cloud/faq/MEF431 (This link is being provided for informational/ educational purposes only.) The performance of this assay has not been clinically validated in patients less than 2 years old. Blood specimen (specimen) 11/20/2017 4:01 PM EDT 11/21/2017 6:28 AM EDT Narrative Resulting Agency Comment Performing Organization Information: ?Site ID: [id number] ?Name: [facility] ?Address: [address] [place] [address], [place] [address] ?Director: Uche Rock MD Joni Woodruff MD LAB BLOOD ORDERABLES [facility] [address] [facility] 3rd Floor, [place] [address] from Last 3 Months or Most Recently Relevant to Health Maintenance Care Teams Learning And Development Analyst Relationship Specialty Start Date End Date Joni Woodruff MD PCP - General 04/03/15 Joni Woodruff MD Internal Medicine 03/06/15 Lashawn Mitchell, RN [address] [place] [address] Oncology Nurse Navigator 04/10/16
--- OUTSIDE RECORDS SUMMARY | 2024-09-29 08:01 | XMS_ITS | Clinical Summary ---
Author Organization [facility] [employer] [facility] it Address [address] [place] [address] Care Team Providers Care Manager Of Internal Name Role Phone Unavailable Primary Care Provider [...]
--- OUTSIDE RECORDS SUMMARY | 2024-09-29 08:01 | XMS_ITS | Encounter Summary ---
Author Organization [facility] Address [address] [place] [address] Care Team Providers Care Tour Guide Name Role Phone Joni Woodruff MD Primary Care Provider Joni Sotelo MD Unavailable Unavailable Lashawn Mitchell RN Unavailable Encounter Details Date Type Department Care Team (Late st Contact Info) Description 02/14/2015 Scanned Document [address] [phone] Provider, Generic Social History [...] on filedocumented in this encounter Care Teams Tour Guide Relationship Specialty Start Date End Date Joni Woodruff MD PCP - General 04/03/15 Joni Woodruff MD Internal Medicine 03/06/15 Lashawn Mitchell, TORRES [address] [address] Oncology Nurse Navigator 04/10/16 documented as of this encounter
--- OUTSIDE RECORDS SUMMARY | 2024-09-29 08:01 | XMS_ITS | Encounter Summary ---
Author Organization [facility] Address [address] [place] [address] Care Team Providers Care Investigation Clerk Name Role Phone Joni Woodruff MD Primary Care Provider Joni Sotelo MD Unavailable Unavailable Lashawn Mitchell RN Unavailable [phone] Encounter Details Date Type Department Care Team (Late st Contact Info) Description 04/16/2016 Scanned Document [facility] 80 [facility] [address] [place] [phone] Provider, Generic Social History Tobacco Use [...] on filedocumented in this encounter Care Teams Investigation Clerk Relationship Specialty Start Date End Date Joni Woodruff MD PCP - General 04/03/15 Join Woodruff MD Internal Medicine 03/06/15 Lashawn Mitchell RN [address] [address] Oncology Nurse Navigator 04/10/16 documented as of this encounter
--- OUTSIDE RECORDS SUMMARY | 2024-09-29 08:01 | XMS_ITS | Encounter Summary ---
Author Organization [facility] Address [address] [place] [address] Care Team Providers Care Management Tech Name Role Phone Joni Woodruff MD Primary Care Provider Joni Sotelo MD Unavailable Unavailable Lashawn Mitchell RN Unavailable [phone] Encounter Details Date Type Department Care Team (Late st Contact Info) Description 03/12/2016 Scanned Document [address] [phone] Provider, Generic Social History Tobacco [...] on filedocumented in this encounter Care Teams Management Tech Relationship Specialty Start Date End Date Joni Woodruff MD PCP - General 04/03/15 Joni Woodruff MD Internal Medicine 03/06/15 Lashawn Mitchell RN [address] [address] Oncology Nurse Navigator 04/10/16 documented as of this encounter
--- OUTSIDE RECORDS SUMMARY | 2024-09-29 08:01 | XMS_ITS | Encounter Summary ---
Author Organization [facility] Address [address] [place] [address] Care Team Providers Care Gas Transfer Operator Name Role Phone Joni Woodruff MD Primary Care Provider Joni Sotelo MD Unavailable Unavailable Lashawn Mitchell RN Unavailable [phone] Encounter Details Date Type Department Care Team (Late st Contact Info) Description 03/20/2017 Scanned Document [address] [phone] Joni Woodruff MD Social History [...] on filedocumented in this encounter Care Teams Gas Transfer Operator Relationship Specialty Start Date End Date Joni Woodruff MD PCP - General 04/03/15 Joni Woodruff MD Internal Medicine 03/06/15 Lashawn Mitchell RN [address] [address] Oncology Nurse Navigator 04/10/16 documented as of this encounter
--- OUTSIDE RECORDS SUMMARY | 2024-09-29 08:01 | XMS_ITS | Clinical Summary ---
Author Organization [facility], Address [address] [place] [address] [place] [address] Phone Care Team Providers Care Tipping Machine Operator Automatic Name Role Phone Jackson Moyer MD Primary Care Provider [phone] Allergies Active Allergy Reactions Criticality Noted Date [...] severe COVID-19: None ? Healthcare worker or donor services coordinator? No ? COVID-19 Tested? - Yes - Date Tested 11/03/2019 Testing Location - [facility] - Testing Results - Positive ? [...] patient's age to complete this topic Insurance [facility] Care Teams Tipping Machine Operator Automatic Relationship Specialty Start Date End Date Jackson Moyer MD [address] [place] [address] PCP - General Internal Medicine 11/24/19
--- OUTSIDE RECORDS SUMMARY | 2024-09-29 08:01 | XMS_ITS | Encounter Summary ---
Author Organization [facility] Address [address] [place] [address] Care Team Providers Care Psychologist Developmental Name Role Phone Joni Woodruff MD Primary Care Provider Joni Stoelo MD Unavailable Unavailable Lashawn Mitchell RN Unavailable Encounter Details Date Type Department Care Team (Late st Contact Info) Description 11/21/2017 Scanned Document [address] [phone] Joni Woodruff MD Social History [...] on filedocumented in this encounter Care Teams Psychologist Developmental Relationship Specialty Start Date End Date Joni Woodruff MD PCP - General 04/03/15 Joni Woodruff MD Internal Medicine 03/06/15 Lashawn Mitchell RN [address] [address] Oncology Nurse Navigator 04/10/16 documented as of this encounter
--- OUTSIDE RECORDS SUMMARY | 2024-09-29 08:01 | XMS_ITS | Encounter Summary ---
Author Organization [facility] Address [address] [place] [address] Care Team Providers Care Hemodialysis Technician Name Role Phone Joni Woodruff MD Primary Care Provider Joni Sotelo MD Unavailable Unavailable Lashawn Mitchell RN Unavailable Encounter Details Date Type Department Care Team (Late st Contact Info) Description 03/23/2015 Scanned Document [address] [phone] Provider, Generic Social History Tobacco [...] on filedocumented in this encounter Care Teams Hemodialysis Technician Relationship Specialty Start Date End Date Joni Woodruff MD PCP - General 04/03/15 Joni Woodruff MD Internal Medicine 03/06/15 Lashawn Mitchell, TORRES [address] [address] Oncology Nurse Navigator 04/10/16 documented as of this encounter
--- NOTE | 2024-09-29 08:06 | MHC.OFFVIS ---
Vital Signs 09/29/24 08:07 Height 5 ft 6 in Weight 170 lb BMI 27.4 BP 102/60 Blood Pressure Location Rt brachial Position Sitting Pulse 75 Pulse Source Pulse Oximeter Pulse Oximetry (%) 95 Oxygen Delivery Method Room Air Intake Visit Reasons: 3 mo follow up Intake Note: Patient presents for 3 month follow up PIERRE. Compliance report on file. Carbon Rod Inserter Required: No Accompanied by: Self / Same As Patient Allergies Penicillins Allergy (Intermediate, Verified 09/29/24 08:10) SICKNESS ampicillin Allergy (Unknown, Verified 09/29/24 08:10) Unknown HPI Comments Details: 67 y/o male patient presents for follow up of PIERRE on CPAP. Latvian speaking, Carbon Rod Inserter used #[id number] The CPAP compliance and therapy response (06/25/24-09/22/24) reviewed with patient. He is on CPAP at [id number]. The usage days 33% and the average usage hours 1 hr 53 min. The residual AHI was 2.1 He states the air dries out his throat, and he didn't understand how to adjust the humidifier settings on his machine, he isn't computer literate and has a language barrier, Latvian speaking, CPap machine pressures are still too high for him. He works from 3 pm to 2 am, sometimes when he gets home at 3am, he forgets to put the CPAP on. Mask is a good fit for him. He washes the mask, changes his filters, tubing and water as needed. Denies headaches. Continues to have bilateral leg pain, like cramps very fast, short sensation, not painful, and when he moves his legs the sensation goes away. He denies tingling or numbness. He c/o r. knee pain> l.knee pain, difficult to get up and sit down because the knee sounds like it is making some noise. He denies falls and or injury. He takes his to work at 7am and sleeps all morning b/c he works from 3pm to 2am. He continues to have LBP and MRI was normal. His STM is poor, he forgets tasks, names and has word finding difficulties. Denies hallucinations, nightmares, abnormal sleep behaviors. His diet is good. [facility] Medical History Overweight (BMI 25.0-29.9) Right flank pain Low back pain radiating to lower extremity Rib pain on right side Osteoarthritis of right shoulder Hypercholesterolemia Eczema Hyperglycemia Prostate cancer Vitamin D deficiency Contusion of chest wall Surgical History History of appendectomy History of prostatectomy Family History Father Prostate cancer Mother No problems noted. Social History Housing: House Alcohol intake: current Alcohol intake frequency: holidays/special occasions only Patient Tobacco Use Status: Former Tobacco user Tobacco use type: Cigarette e-Cigarette/Vaping Use: Never Used Second Hand Smoke Exposure: No service: No Current occupational status: employed Cognitive needs: No Hearing needs: No Vision needs: Yes (glasses) Review of Systems ENT Reports Normal hearing present Neuro Reports Normal hearing present Physical Exam Vital Signs: Last Vital Signs Pulse 75 09/29/24 08:07 BP 102/60 09/29/24 08:07 Pulse Ox 95 09/29/24 08:07 Oxygen Delivery Method Room Air 09/29/24 08:07 BMI result Body Mass Index 27.4 Const General: cooperative Nutritional Appearance: average body habitus Orientation/consciousness: patient oriented x3 HEENT Throat: Yes other (mallampati grade.) Resp Effort & Inspection: normal respiratory effort and able to speak in complete sentences Back/Spine/Pelvis Back: back tenderness Thoracic/Lumbar Spine: pain with thoraco-lumbar ROM, thoraco-lumbar spasm on the right and lumbar spinal tenderness at L4 Neuro General: patient oriented x3, gait normal and moves all extremities Cranial nerves: Yes Bilaterally intact EOM present, Yes Normal facial strength present, Yes Midline tongue present, Yes Symmetric palate elevation present, Yes Normal hearing present, Yes Ability to bilaterally rotate head present and Yes Ability to bilaterally elevate shoulders present Cognition (Neuro): normal cognition Gait exam (Neuro): Normal gait present Motor exam (neuro): 5/5 motor strength present throughout and Normal motor muscle tone present throughout Deep tendon reflexes (DTR's): Right triceps reflex intensity grade: 2+, Left triceps reflex intensity grade: 2+, Rt Biceps (C5, C6): 2+, Left biceps reflex intensity grade: 2+, Right brachioradialis reflex intensity grade: 2+, Left brachioradialis reflex intensity grade: 2+, Right patellar reflex intensity grade: 2+ and Left patellar reflex intensity grade: 2+ Psych Appearance: grossly normal Thought process: Normal thought process present Thought content: Normal thought content present Results Reviewed Results Reviewed: Sep 17, 2024 Examination: Lumbar spine 4 views. CLINICAL INDICATION: Low back pain. COMPARISON: None. FINDINGS: There is normal lumbar lordosis. The vertebral heights, alignment and disc heights are normal. There is no pars defect or listhesis. No visible acute fracture or dislocation seen. There is no lytic process. The SI joints are symmetrical and normal. FINDINGS: Unremarkable lumbar spine exam. The CPAP compliance and therapy response (06/25/24-09/22/24) reviewed with patient. He is on CPAP at [id number]. The usage days 33% and the average usage hours 1 hr 53 min. The residual AHI was 2.1 Assessment & Plan Assessment & Plan (1) Obstructive sleep apnea: Comment: Severe degree of sleep apnea. The AHI was 65/hr and oxygen oc was 62%. Code(s): G47.33 - Obstructive sleep apnea (adult) (pediatric) Category: Medical (2) Left knee pain: Code(s): M25.562 - Pain in left knee Category: Medical Qualifiers: Chronicity: chronic Qualified Code(s): M25.562 - Pain in left knee; G89.29 - Other chronic pain (3) Right knee pain: Code(s): M25.561 - Pain in right knee Category: Medical Qualifiers: Chronicity: chronic Qualified Code(s): M25.561 - Pain in right knee; G89.29 - Other chronic pain Plan CPAP Pressures are too high at [id number], Titration study order is sent for evaluation Continue to use CPAP. Stressed compliance, use CPAP nightly and more than 4 hours. Call the [employer] for supplies as needed and help with instructions on how to adjust the settings, pressures and temperatures if they are not to your satisfaction. Walk in clinic in [place] for adjustments to the CPAP. Rest Less Leg Cramps, 400mg Magnesium PO at bedtime daily. Xray Bilateral knee pain Orders: Orders RT PSG in-lab sleep titration Today G47.33 - Obstructive sleep apnea (adult) (pediatric) XR knee LT 3V Today M25.562 - Pain in left knee XR knee RT 3V Today M25.561 - Pain in right knee Patient Instructions: CPAP Pressures are too high at 07yvR12, Titration study order is sent for evaluation Continue to use CPAP. Stressed compliance, use CPAP nightly and more than 4 hours. Call the [employer] for supplies as needed and help with instructions on how to adjust the settings, pressures and temperatures if they are not to your satisfaction. Walk in clinic in [place] for adjustments to the CPAP. Rest Less Leg Cramps, 400mg Magnesium PO at bedtime daily. Xray Bilateral knee pain Coding Level of Care Code Est Pt Level 4 (25510) Diagnoses Obstructive sleep apnea G47.33 Chronic pain of left knee M25.562; G89.29 Chronicity: chronic Chronic pain of right knee M25.561; G89.29 Chronicity: chronic Time Spent (min) 25 Comment Worsening Apnea
[2024-09-29 08:07] VITALS: BP 102/60; PULSE 75; O2SAT 95; BMI 27.4
== END 2024-09-29 08:36 | disposition home or self-care (01) ==
LOC: HO.HSMS 07:58
PROVIDERS: PCP Internal Medicine; Visit Provider Physician Assistant Medical
DX: G47.33 Obstructive sleep apnea (adult) (pediatric) (principal); M25.562 Pain in left knee; G89.29 Other chronic pain; M25.561 Pain in right knee
CPT/HCPCS: 99214

== ENCOUNTER → 2024-09-29 07:57 | Outpatient (BNVA) | payer OTHER, SELFPAY | PROVIDERS: PCP Internal Medicine; Visit Provider Physician Assistant Medical ==

== ENCOUNTER 2024-10-04 11:21 | Outpatient (REF) | payer OTHER, SELFPAY ==
--- NOTE | ~2024-10-04 | CT_ITS ---
EXAMINATION: CT ABDOMEN PELVIS WITH IV CONTRAST HISTORY: R10.9 - Unspecified abdominal pain COMPARISON: There are no prior studies for comparison. TECHNIQUE: CT scan of the abdomen and pelvis was performed following administration of 85 mL Omnipaque 350 using standard departmental protocol. Coronal and sagittal reformatted images were generated and reviewed. The patient received oral contrast material. This CT exam was performed with one or more of the following dose reduction techniques: automated exposure control, adjustment of the mA and/or kV according to patient size, use of iterative reconstruction technique. DLP: 367 mGy-cm FINDINGS: LOWER CHEST: The visualized lung bases are clear. There is no pleural effusion. CARDIOVASCULATURE: The heart is normal in size. There is no pericardial effusion. LIVER: The liver is normal in size and contour. No liver mass is identified. The hepatic and portal veins are patent. GALLBLADDER / BILE DUCTS: The gallbladder is unremarkable. There is no intra or extrahepatic biliary ductal dilatation. SPLEEN: The spleen is normal in size. No focal splenic lesion is identified. PANCREAS: The pancreas is unremarkable in appearance. ADRENAL GLANDS: Within normal limits. KIDNEYS/RETROPERITONEUM: No renal calculi are identified. There is no hydronephrosis. No renal masses are identified. LYMPH NODES: No abdominal or pelvic lymphadenopathy. VASCULATURE: The abdominal aorta is normal in caliber. MESENTERY/PERITONEUM: No free fluid. No masses. There is no free intraperitoneal gas. STOMACH: The stomach is collapsed, limiting evaluation. SMALL BOWEL: The small bowel is normal in caliber. COLON: There is a large amount of stool throughout the colon. There is diverticulosis of the descending colon, without evidence of diverticulitis. APPENDIX: The appendix is not seen, however no inflammatory changes are seen adjacent to the cecum. URINARY BLADDER/PELVIC ORGANS: The urinary bladder is collapsed, limiting evaluation. The prostate is normal in size. BONES / SOFT TISSUES: No suspicious bony or soft tissue abnormalities. CT/CT abdomen pelvis w IV con IMPRESSION: Large amount of stool throughout the colon. Diverticulosis of the descending colon without evidence of diverticulitis. Electronically signed by: Bart Rhodes MD 10/04/2024 03:28 PM EDT
--- OUTSIDE RECORDS SUMMARY | 2024-10-04 13:31 | XMS_ITS | Encounter Summary ---
Author Organization [facility] Address [address] [place] [address] Care Team Providers Care Automatic Tire Tester Name Role Phone Joni Woodruff MD Primary Care Provider Joni Sotelo MD Unavailable Unavailable Lashawn Mitchell RN Unavailable Encounter Details Date Type Department Care Team (Late st Contact Info) Description 11/21/2017 Scanned Document [address] [phone] Joni Woodruff MD Social History [...] on filedocumented in this encounter Care Teams Automatic Tire Tester Relationship Specialty Start Date End Date Joni Woodruff MD PCP - General 04/03/15 Joni Woodruff MD Internal Medicine 03/06/15 Lashawn Mitchell RN [address] [address] Oncology Nurse Navigator 04/10/16 documented as of this encounter
--- OUTSIDE RECORDS SUMMARY | 2024-10-04 13:31 | XMS_ITS | Encounter Summary ---
Author Organization [facility] Address [address] [place] [address] Care Team Providers Care Branch Manager Trainee Name Role Phone Joni Woodruff MD Primary Care Provider Joni Sotelo MD Unavailable Unavailable Lashawn Mitchell RN Unavailable [phone] Reason for Visit * Reason Onset Date Comments Medication Refill 04/24/2017 Encounter Details Date Type Department Care Team (Late st Contact Info) Description 04/24/2017 Refill [facility] Urologic Surgery [place] [address] [place] [address] Suad Orr, SUPERVISOR PRINTING AND STAMPING [address] [place] [address] Social History Tobacco Use Types Packs/Day Years [...] on filedocumented in this encounter Care Teams Branch Manager Trainee Relationship Specialty Start Date End Date Joni Woodruff MD PCP - General 04/03/15 Joni Woodruff MD Internal Medicine 8/17/15 Lashawn Mitchell RN [address] [place] [address] Oncology Nurse Navigator 04/10/16 documented as of this encounter"
--- OUTSIDE RECORDS SUMMARY | 2024-10-04 13:31 | XMS_ITS | Encounter Summary ---
Author Organization [facility] Address [address] [place] [address] Care Team Providers Care Nailhead Operator Name Role Phone Joni Woodruff MD Primary Care Provider Joni Sotelo MD Unavailable Unavailable Lashawn Mitchell RN Unavailable [phone] Encounter Details Date Type Department Care Team (Late st Contact Info) Description 03/20/2017 Scanned Document [address] [phone] Joni Woodruff MD Social History [...] on filedocumented in this encounter Care Teams Nailhead Operator Relationship Specialty Start Date End Date Joni Woodruff MD PCP - General 04/03/15 Joni Woodruff MD Internal Medicine 03/06/15 Lashawn Mitchell RN [address] [address] Oncology Nurse Navigator 04/10/16 documented as of this encounter
--- OUTSIDE RECORDS SUMMARY | 2024-10-04 13:31 | XMS_ITS ---
Author Name [facility] Organization Unknown Care Team Organization Name Specialty Phone Email Start Date End Da te [facility], [facility] Chinyere Meehan MD Primary Care 04/12/2021 03/08/2024 [facility], [facility] Chinyere Meehan MD Primary Care 04/12/2021 03/08/2024
--- OUTSIDE RECORDS SUMMARY | 2024-10-04 13:31 | XMS_ITS | Encounter Summary ---
Author Organization [facility] Address [address] [place] [address] Care Team Providers Care Caustic Plant Worker Name Role Phone Joni Woodruff MD Primary Care Provider Joni Sotelo MD Unavailable Unavailable Lashawn Mitchell RN Unavailable Encounter Details Date Type Department Care Team (Late st Contact Info) Description 04/20/2015 Scanned Document [address] [phone] Provider, Generic Social History Tobacco [...] on filedocumented in this encounter Care Teams Caustic Plant Worker Relationship Specialty Start Date End Date Joni Woodruff MD PCP - General 04/03/15 Joni Woodruff MD Internal Medicine 03/06/15 Lashawn Mitchell, TORRES [address] [address] Oncology Nurse Navigator 04/10/16 documented as of this encounter
--- OUTSIDE RECORDS SUMMARY | 2024-10-04 13:31 | XMS_ITS | Clinical Summary ---
Author Organization [facility] Address [address] [place] [address] Care Team Providers Care Inside Sales Recruiter Name Role Phone Damon Pastrana MD Primary Care Provider [phone] Source Comments PLEASE NOTE, if this patient [...] Due PNEUMOCOCCAL CONJUGATE PCV 20 (Prevnar) 09/26/19 24 Pfizer COVID-19 (Comirnaty), Mrna, Lnp-s, Pf, Jameson-sucrose, [...] Imm-Zoster, Recombinant (2 of 2) 11/21/2023 09/26/19 [id number] ( season) 2024 09/26/2023, 09/10/2021, 12/25/2020, Additional [...] (09/26/2023 9:52 AM EST) Pathologist [facility] HEPATITIS C ANTIBODY NON-REACT AWILDA NON-REACT AWILDA [facility] Comment: HCV antibody was non-reactive. There is no laboratory evidence of HCV infection. In most cases, no further action is required. However, if recent HCV exposure is suspected, a test for HCV RNA (test code 66046) is suggested. For additional information please refer to http://LE TOTE.[employer]Card/faq/FJK72d0 (This link is being provided for informational/ educational purposes only.) Blood Blood / Unknown 09/26/2023 9 :52 AM EST 09/26/2023 9:52 AM EST us Damon Pastrana MD LAB - BLOOD DRAW Final Resul t [facility] [address] [address], [facility] [address] [address] * (ABNORMAL) LIPIDS W RFLX TO DIRECT LDL (09/26/2023 9:52 AM EST) CHOLESTEROL, TOTAL 223(H) <200 mg/dL [facility] HDL CHOLESTEROL 64 > OR = 40 mg/dL [facility] TRIGLYCERIDES 33 <150 mg/dL [facility] LDL-CHOLESTEROL 149(H) 99 mg/dL (calc) [facility] Comment: Reference range: <100 Desirable range <100 mg/dL for primary prevention; ?? <70 mg/dL for patients with CHD or diabetic patients with > or = 2 CHD risk factors. LDL-C is now calculated using the Singh-Kassandra calculation, which is a validated novel method providing better accuracy than the Friedewald equation in the estimation of LDL-C. Singh ORTEGA et al. GAB. 2013;310(19): 2279-0024 (http://education.OpenGov Solutions/faq/MMY192) CHOL/HDLC RATIO 3.5 <5.0 (calc) [facility] NON-HDL CHOLESTEROL 159(H) <130 mg/dL (calc) [facility] Comment: For patients with diabetes plus 1 major ASCVD risk factor, treating to a non-HDL-C goal of <100 mg/dL (LDL-C of <70 mg/dL) is considered a therapeutic option. Blood Blood / Unknown 09/26/2023 9 :52 AM EST 09/26/2023 9:52 AM EST us Damon Pastrana MD LAB - BLOOD DRAW Final Resul t [facility] [address] [address], [facility] [address] [place] [address] * (ABNORMAL) COMPREHENSIVE METABOLIC PANEL (09/26/2023 9:52 AM EST) GLUCOSE 129(H) 65 - 99 mg/dL [facility] Comment: ?Fasting reference interval For someone without known diabetes, a glucose value >125 mg/dL indicates that they may have diabetes and this should be confirmed with a follow-up test. UREA NITROGEN (BUN) 19 7 - 25 mg/dL [facility] CREATININE (blood) 0.80 0.70 - 1.35 mg/dL [facility] EGFR 98 > OR = 60 mL/min/1. 73m2 [facility] BUN/CREATININE RATIO SEE NOTE: [facility] Comment: ?? Not Reported: BUN and Creatinine are within ?? reference range. ? SODIUM 138 135 - 146 mmol/L [facility] POTASSIUM 4.3 3.5 - 5.3 mmol/L [facility] CHLORIDE 103 98 - 110 mmol/L [facility] CARBON DIOXIDE 27 20 - 32 mmol/L [facility] CALCIUM 8.9 8.6 - 10.3 mg/dL [facility] PROTEIN, TOTAL 7.2 6.1 - 8.1 g/dL [facility] ALBUMIN 4.5 3.6 - 5.1 g/dL [facility] GLOBULIN 2.7 1.9 - 3.7 g/dL (calc) [facility] ALBUMIN/GLOBULI N RATIO 1.7 1.0 - 2.5 (calc) [facility] BILIRUBIN, TOTAL 1.0 0.2 - 1.2 mg/dL [facility] ALKALINE PHOSPHATASE 64 35 - 144 U/L [facility] AST 26 10 - 35 U/L [facility] ALT 32 9 - 46 U/L [facility] Blood Blood / Unknown 09/26/2023 9 :52 AM EST 09/26/2023 9:52 AM EST Damon Pastrana MD LAB - BLOOD DRAW Edited Resu lt - Final [facility] [address] [address], [facility] [address] [place] [address] * HISTORIC COLONOSCOPY (07/17/2021 3:00 AM EST) 07/17/2021 3:00 AM EST Damon Pastrana MD PROCEDURES Edited Resul t - Final from Last 3 Months or Most Recently Relevant to Health Maintenance Insurance [facility] Care Teams Inside Sales Recruiter Relationship Specialty Start Date End Date Damon Pastrana MD [address] [place] [address] PCP - General Internal Medicine 09/26/23
--- OUTSIDE RECORDS SUMMARY | 2024-10-04 13:31 | XMS_ITS | Clinical Summary ---
Author Organization [employer] [facility] it Address [address] [place] [address] Care Team Providers Care Fourdrinier Machine Tender Name Role Phone Unavailable Primary Care Provider [...]
--- OUTSIDE RECORDS SUMMARY | 2024-10-04 13:31 | XMS_ITS | Encounter Summary ---
Author Organization [facility] Address [address] [place] [address] Care Team Providers Care Sausage Maker Name Role Phone Joni Woodruff MD Primary Care Provider Joni Sotelo MD Unavailable Unavailable Lashawn Micthell RN Unavailable Encounter Details Date Type Department Care Team (Late st Contact Info) Description 01/03/2016 Telephone [facility] Urologic Surgery [address] [address] Alonso Gonzales MD [address] [place] [address] Social History Tobacco Use Types Packs/Day Years [...] and would like to discuss w/ someone. Azerbaijani only. documented in this encounter Plan of Treatment Not on file documented as of this encounter Visit Diagnoses Not on filedocumented in this encounter Care Teams Sausage Maker Relationship Specialty Start Date End Date Joni Woodruff MD PCP - General 04/03/15 Joni Woodruff MD Internal Medicine 03/06/15 Lashawn Mitchell RN [address] [place] [address] Oncology Nurse Navigator 04/10/16 documented as of this encounter
--- OUTSIDE RECORDS SUMMARY | 2024-10-04 13:31 | XMS_ITS | Encounter Summary ---
Author Organization [facility] Address [address] [place] [address] Care Team Providers Care Lift Builder Whole Name Role Phone Joni Woodruff MD Primary Care Provider Joni Sotelo MD Unavailable Unavailable Lashawn Mitchell RN Unavailable Encounter Details Date Type Department Care Team (Late st Contact Info) Description 04/16/2016 Scanned Document [facility] [address] [facility] [address] [place] [phone] Provider, Generic Social History Tobacco Use [...] on filedocumented in this encounter Care Teams Lift Builder Whole Relationship Specialty Start Date End Date Joni Woodruff MD PCP - General 04/03/15 Joni Woodruff MD Internal Medicine 03/06/15 Lashawn Mitchell RN [address] [address] Oncology Nurse Navigator 04/10/16 documented as of this encounter
--- OUTSIDE RECORDS SUMMARY | 2024-10-04 13:31 | XMS_ITS | Encounter Summary ---
Author Organization [facility] Address [address] [place] [address] Care Team Providers Care Environmental Services Tech Name Role Phone Joni Woodruff MD Primary Care Provider Joni Sotelo MD Unavailable Unavailable Lashawn Mitchell RN Unavailable [phone] Encounter Details Date Type Department Care Team (Late st Contact Info) Description 03/06/2015 Scanned Document [address] [place] [phone] Provider, Generic Social History Tobacco Use Types [...] on filedocumented in this encounter Care Teams Environmental Services Tech Relationship Specialty Start Date End Date Joni Woodruff MD PCP - General 04/03/15 Joni Woodruff MD Internal Medicine 03/06/15 Lashawn Mitchell RN [address] [place] [address] Oncology Nurse Navigator 04/10/16 documented as of this encounter
--- OUTSIDE RECORDS SUMMARY | 2024-10-04 13:31 | XMS_ITS | Encounter Summary ---
Author Organization [facility] Address [address] [place] [address] Care Team Providers Care Beer Cooler Name Role Phone Joni Woodruff MD Primary Care Provider Joni Sotelo MD Unavailable Unavailable Lashawn Mitchell RN Unavailable Encounter Details Date Type Department Care Team (Late st Contact Info) Description 03/12/2016 Scanned Document [address] [phone] Provider, Generic Social History Tobacco [...] on filedocumented in this encounter Care Teams Beer Cooler Relationship Specialty Start Date End Date Joni Woodruff MD PCP - General 04/03/15 Joni Woodruff MD Internal Medicine 03/06/15 Lashawn Mitchell RN [address] [address] Oncology Nurse Navigator 04/10/16 documented as of this encounter
--- OUTSIDE RECORDS SUMMARY | 2024-10-04 13:31 | XMS_ITS | Clinical Summary ---
Author Organization [facility] Address [address] [place] [address] Care Team Providers Care Propeller Layout Worker Name Role Phone Joni Woodruff MD Primary Care Provider Joni Sotelo MD Unavailable Unavailable Lashawn Mitchell RN Unavailable [phone] Allergies Active Allergy Reactions Criticality Noted Date Comments Penicillins Other (See Comments) ,GI Intolerance/Nausea/Vomiting Low 03/06/2015 dizziness Medications Medication Sig Dispensed Refills Start Date End Date Status aspirin 81 MG tablet Aspirin 81 MG Oral Tablet TAKE 1 TABLET DAILY. ; Start Date: ; End Date: Active ergocalciferol (ERGOCALCIFEROL) 60291 units capsuleIndications:Vi tamin D Deficiency Take 1 [...] to sexual activity not to exceed 5 fsj=209 mg in 24 hrs 50 tablet 11 [...] Ag/Ab, 4th Gen NON-REACT AWILDA NON-REACT AWILDA [facility] Comment: HIV-1 antigen and HIV-1/HIV-2 [...] ?? For additional information please refer to http://education.20/20 [employer]faq/UYN528 (This link is being provided for informational/ educational purposes only.) The performance of this assay has not been clinically validated in patients less than 2 years old. Blood specimen (specimen) 11/20/2017 4:01 PM EDT 11/21/2017 6:28 AM EDT Narrative Resulting Agency Comment Performing Organization Information: ?Site ID: [id number] ?Name: [facility] ?Address: [address] [place] [address], [place] [address] ?Director: Uche Rock MD Joni Woodruff MD LAB BLOOD ORDERABLES [facility] [address] [facility] 3rd Floor, [place] [address] from Last 3 Months or Most Recently Relevant to Health Maintenance Care Teams Propeller Layout Worker Relationship Specialty Start Date End Date Joni Woodruff MD PCP - General 04/03/15 Joni Woorduff MD Internal Medicine 03/06/15 Lashawn Mitchell, RN [address] [place] [address] Oncology Nurse Navigator 04/10/16
--- OUTSIDE RECORDS SUMMARY | 2024-10-04 13:31 | XMS_ITS | Encounter Summary ---
Author Organization [facility] Address [address] [place] [address] Care Team Providers Care Stone Banker Name Role Phone Joni Woodruff MD Primary Care Provider Joni Sotelo MD Unavailable Unavailable Lashawn Mitchell RN Unavailable [phone] Encounter Details Date Type Department Care Team (Late st Contact Info) Description 02/14/2015 Scanned Document [address] [phone] Provider, Generic Social History Tobacco [...] on filedocumented in this encounter Care Teams Stone Banker Relationship Specialty Start Date End Date Joni Woodruff MD PCP - General 04/03/15 Joni Woodruff MD Internal Medicine 03/06/15 Lashawn Mitchell, TORRES [address] [address] Oncology Nurse Navigator 04/10/16 documented as of this encounter
--- OUTSIDE RECORDS SUMMARY | 2024-10-04 13:31 | XMS_ITS | Encounter Summary ---
Author Organization [facility] Address [address] [place] [address] Care Team Providers Care Hose Mender Name Role Phone Joni Woodruff MD Primary Care Provider Joni Sotelo MD Unavailable Unavailable Lashawn Mitchell RN Unavailable Encounter Details Date Type Department Care Team (Late st Contact Info) Description 07/11/2015 Scanned Document [address] [phone] Provider, Generic Social History Tobacco [...] on filedocumented in this encounter Care Teams Hose Mender Relationship Specialty Start Date End Date Joni Woodruff MD PCP - General 04/03/15 Joni Woodruff MD Internal Medicine 03/06/15 Lashawn Mitchell, TORRES [address] [address] Oncology Nurse Navigator 04/10/16 documented as of this encounter
--- OUTSIDE RECORDS SUMMARY | 2024-10-04 13:31 | XMS_ITS | Encounter Summary ---
Author Organization [facility] Address [address] [place] [address] Care Team Providers Care Deck Lid Fitter Name Role Phone Joni Woodruff MD Primary Care Provider Joni Sotelo MD Unavailable Unavailable Lashawn Mitchell RN Unavailable [phone] Encounter Details Date Type Department Care Team (Late st Contact Info) Description 03/23/2015 Scanned Document [address] [address] Provider, Generic Social History [...] on filedocumented in this encounter Care Teams Deck Lid Fitter Relationship Specialty Start Date End Date Joni Woodruff MD PCP - General 04/03/15 Joni Woodruff MD Internal Medicine 03/06/15 Lashawn Mitchell, TORRES [address] [address] Oncology Nurse Navigator 04/10/16 documented as of this encounter
--- OUTSIDE RECORDS SUMMARY | 2024-10-04 13:31 | XMS_ITS | Clinical Summary ---
Author Organization [facility], Address [address] [place] [address] [place] [address] Phone Care Team Providers Care Dip Stand Loader Name Role Phone Jackson Moyer MD Primary Care Provider [phone] Allergies Active Allergy Reactions Criticality Noted Date [...] severe COVID-19: None ? Healthcare worker or wheelchair van operator first responder? No ? COVID-19 Tested? - Yes - Date Tested 11/03/2019 Testing Location - [facility] - Testing Results - Positive ? [...] patient's age to complete this topic Insurance [facility] Care Teams Dip Stand Loader Relationship Specialty Start Date End Date Jackson Moyer MD [address] [place] [address] PCP - General Internal Medicine 11/24/19
--- OUTSIDE RECORDS SUMMARY | 2024-10-04 13:31 | XMS_ITS | Encounter Summary ---
Author Organization [facility] Address [address] [place] [address] Care Team Providers Care Palletizer Operator Name Role Phone Joni Woodruff MD Primary Care Provider Joni Sotelo MD Unavailable Unavailable Lashawn Mitchell RN Unavailable [phone] Encounter Details Date Type Department Care Team (Late st Contact Info) Description 06/21/2016 Scanned Document [address] [facility] [address] [place] [phone] Provider, Generic Social History Tobacco Use [...] on filedocumented in this encounter Care Teams Palletizer Operator Relationship Specialty Start Date End Date Joni Woodruff MD PCP - General 04/03/15 Joni Woodruff MD Internal Medicine 03/06/15 Lashawn Mitchell RN [address] [place] [address] Oncology Nurse Navigator 04/10/16 documented as of this encounter
[2024-10-04] MEDS: iohexoL 350 MG/ML 75 ML INFUS..BTL 85 ML IV (15:15)
[2024-10-04] MEDS: Barium Sulfate Oral (Mocha) 450 ML ORAL.SUSP 900 ML PO (15:15)
[2024-10-05 08:16] LABS: Creatinine POC 0.9 mg/dL (0.5-1.4); GFR POC > 60
== END 2024-10-04 11:22 | disposition home or self-care (01) ==
LOC: HO.CT 11:21
PROVIDERS: PCP Internal Medicine; Visit Provider Physician Assistant Medical
DX: R10.9 Unspecified abdominal pain (principal); C61 Malignant neoplasm of prostate
CPT/HCPCS: 74177; 82565; Q9967

== ENCOUNTER → 2024-10-04 11:24 | Outpatient (BNV) | payer OTHER, SELFPAY | PROVIDERS: PCP Internal Medicine; Visit Provider Radiology Diagnostic Radiology | DX: K57.30 Diverticulosis of large intestine without perforation or abscess without bleeding (principal); K56.41 Fecal impaction | CPT/HCPCS: 74177 ==

== ENCOUNTER 2024-10-21 09:39 | Outpatient (AMB) | payer OTHER, SELFPAY ==
--- NOTE | 2024-10-21 10:03 | A.OFFPC_ITS ---
Vital Signs 10/21/24 10:05 Height 5 ft 6 in Weight 176 lb 4 oz BMI 28.4 BP 130/60 Blood Pressure Location Lt brachial Position Sitting Pulse 71 Pulse Source Pulse Oximeter Temp 97.3 F Temp Source Temporal Artery Scan Pulse Oximetry (%) 96 Oxygen Delivery Method Room Air Intake Visit Reasons: 1 month f/u Intake Note: Patient is here to follow up on lower back pain. Patrol Community Service Officer Required: Yes Patrol Community Service Officer Language: Control And Recovery Special Tactics Name: Marla Garrison PA-C Information Interpreted: non-clinical & clinical Maple Syrup Maker: Not Required per policy Accompanied by: Self / Same As Patient Allergies Penicillins Allergy (Intermediate, Verified 10/21/24 10:29) SICKNESS ampicillin Allergy (Unknown, Verified 10/21/24 10:29) Unknown Medication List - Last Reconciled 10/21/24 by Marla Garrison PA-C acetaminophen 1,000 mg (2 x 500 mg) PO Q6H PRN albuterol sulfate 90 mcg/actuation (Ventolin HFA) 1 inh inhalation QID PRN aspirin (Adult Low Dose Aspirin) 81 mg PO DAILY atorvastatin 20 mg PO BEDTIME cyclobenzaprine 10 mg PO TID ergocalciferol (vitamin D2) 1,250 mcg PO QWEEK lidocaine 5% 1 patch topical DAILY magnesium oxide 400 mg PO DAILY meloxicam 15 mg PO DAILY prednisone 40 mg (2 x 20 mg) PO DAILY 5 days triamcinolone acetonide 0.025% 1 appl topical BID Tobacco use date assessed: 10/21/24 Fall risk assessment: No Falls in past year Last assessed Fall Risk: 10/21/24 Dental Screening Dental Screen Date: 09/03/24 [facility] Medical History (Updated 10/21/24 @ 10:33 by Marla Garrison PA-C) Anemia Diverticulosis Overweight (BMI 25.0-29.9) Right flank pain Low back pain radiating to lower extremity Rib pain on right side Osteoarthritis of right shoulder Hypercholesterolemia Eczema Hyperglycemia Prostate cancer Vitamin D deficiency Contusion of chest wall Surgical History History of appendectomy History of prostatectomy Family History Father Prostate cancer Mother No problems noted. Social History Housing: House Alcohol intake: current Alcohol intake frequency: holidays/special occasions only Patient Tobacco Use Status: Former Tobacco user Tobacco use type: Cigarette e-Cigarette/Vaping Use: Never Used Second Hand Smoke Exposure: Yes service: No Current occupational status: employed Cognitive needs: No Hearing needs: No Vision needs: Yes (glasses) Questionnaire Thrive Questionnaire Date Thrive assessed: 09/03/24 HALLIE-7 AMB Questionnaire HALLIE-7 Date HALLIE - 7 assessed: 09/03/24 Source: Developed by Drs. Bart Terry, Zeynep Reyes, Santos Uriarte and colleagues, with an educational nahun from [employer]. Physical exam (Primary Care) Vital Signs: Last Vital Signs Temp 97.3 F 10/21/24 10:05 Pulse 71 10/21/24 10:05 BP 130/60 10/21/24 10:05 Pulse Ox 96 10/21/24 10:05 Oxygen Delivery Method Room Air 10/21/24 10:05 Care Plan Goal for BP management: <130/80 at Goal BMI result Body Mass Index 28.4 BMI Assessment/Plan discussion: High BMI High, discussed plan: lifestyle, weight reduction, dietary, physical activity and alcohol moderation Tobacco/Smoking Status: Tobacco use Status Tobacco use date assessed 10/21/24 10/21/24 10:04 Patient Tobacco Use Status Former Tobacco user 10/21/24 10:04 Tobacco use type Cigarette 10/21/24 10:04 e-Cigarette/Vaping Use Never Used 10/21/24 10:04 Thrive Assessment: Date of Thrive Assessment Date Thrive assessed 09/03/24 10/21/24 10:04 Coding Level of Care Code Est Pt Level 4 (31949) Complex EM visit Add On G2211 Diagnoses Low back pain radiating to lower extremity M54.50; M79.606 Diverticulosis K57.90 Anemia D64.9 Assessment & Plan Assessment & Plan (1) Low back pain radiating to lower extremity: Code(s): M54.50 - Low back pain, unspecified; M79.606 - Pain in leg, unspecified Category: Medical Plan: Muscular in nature. Imaging is negative for any acute processes. Patient reports meloxicam and Flexeril helping with his symptoms. Patient does not need any refills. Instructed to continue treatment with meloxicam and Flexeril as needed and to return if any new or worsening symptoms (2) Diverticulosis: Code(s): K57.90 - Diverticulosis of intestine, part unspecified, without perforation or abscess without bleeding Category: Medical Plan: The recent CT scan has affirmed diverticulosis. Currently, no signs indicative of diverticulitis, such as fever or acute pain, make intervention unnecessary. I advised monitoring symptoms and educating the patient on dietary and lifestyle adjustments to prevent flare-ups. Immediate reporting of acute symptoms for potential intervention was counseled. (3) Anemia: Code(s): D64.9 - Anemia, unspecified Category: Medical Plan: A minimal drop in hemoglobin suggests mild anemia, not deemed urgent. Full recovery or symptom management is anticipated with regular observation and necessary dietary advice, ensuring no exacerbation without supplementary measures currently needed. Plan Plan Patient was informed and verbally consented to the use of an ambient scribe for clinic note documentation during this visit. 1. Diverticulosis The recent tomography has affirmed diverticulosis. Currently, no signs indicative of diverticulitis, such as fever or acute pain, make intervention unnecessary. I advised monitoring symptoms and educating the patient on dietary and lifestyle adjustments to prevent flare-ups. Immediate reporting of acute symptoms for potential intervention was counseled. 2. Mild Anemia A minimal drop in hemoglobin suggests mild anemia, not deemed urgent. Full recovery or symptom management is anticipated with regular observation and necessary dietary advice, ensuring no exacerbation without supplementary measures currently needed. 3. Prostate Cancer Screening Follow-Up Continued prostate health screening is planned, focusing on further analysis evidenced by available test results. Scheduling and completing blood tests will support thorough assessment aligned with current health maintenance strategies. Discussion Notes I discussed the confirmed diagnosis of diverticulosis with the patient, emphasizing the absence of diverticulitis signs. We reviewed symptom management and advised monitoring for any acute changes that might require prompt attention. The mild anemia, nearing normal levels, was discussed, requiring routine follow-up and no urgent intervention unless symptoms worsen, necessitating dietary interventions. We focused on the importance of adhering to the prostate cancer screening regimen, reinforcing the value of pre-appointment blood tests to ensure proactive health measures. Patient Instructions: Patient Instructions - Monitor for acute abdominal pain, fever, or changes in bowel habits; seek immediate care if such symptoms arise. - Follow dietary modifications for diverticulosis to help prevent flares. - Attend scheduled blood tests and prostate cancer screening labs before the next appointment. - Return for routine follow-up as scheduled unless symptoms indicate otherwise. Scribe Plan - Not visible on output: History of Present Illness The patient is a 69-year-old male presenting for follow-up on his left-sided back/abdominal pain that he was seen here on 09/17/2024. He had labs ordered, CT scan of abdomen pelvis along with x-ray of lumbar spine. X-ray of lumbar spine was within normal limits. CBC revealed anemia otherwise all other labs were normal. The CT scan abdomen pelvis revealed diverticulosis without evidence of acute diverticulitis. Patient denies any abdominal discomfort recently since he was seen last month. There has been no pivotal change in stool characteristics or frequency. He has not suffered acute episodes synonymous with diverticulitis, such as high fever, intense localized pain, or systemic signs of infection. Patient requesting for prostate cancer screening. 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 Review of Systems - Gastrointestinal: Denies abdominal discomfort; denies diarrhea, nausea, vomiting, or changes in bowel habits. - Genitourinary: Denies urinary symptoms or alterations. - Constitutional: Denies fever or systemic signs. Physical Exam Appearance: Alert. Oriented X3. No acute distress. Head: Normal external exam. Normocephalic. Atraumatic. Eyes: Pupils are equal, round, and reactive to light. Extraocular movements intact. Conjunctiva and sclera normal. Eyelids normal. Throat: Pharynx normal. Uvula midline. Moist mucous membranes. Neck: Normal inspection. Neck supple. Full range of motion Cardiovascular: Normal heart rate and rhythm. Respiratory: No respiratory distress. Painless inspiration. Abdomen: Soft and nontender. Bowel sounds normal in all 4 quadrants. No distention noted. No organomegaly noted. No visible injury noted. Evidence of diverticulosis without diverticulitis. Back: No costovertebral angle tenderness. Full range of motion noted. Skin: Skin warm and dry. Normal skin color. Normal skin turgor. No rashes/lesions/lacerations noted. Extremities: Extremities exhibit normal range of motion. Extremities nontender. Neuro: Oriented X 3. No motor deficit. No sensory deficit. Reflexes normal. Results - Labs: Mild anemia noted; other blood work details were not explicitly discussed. - Imaging: Abdominal tomography demonstrated diverticulosis without acute diverticulitis.
[2024-10-21 10:05] VITALS: BP 130/60; PULSE 71; TEMP 36.3; O2SAT 96; BMI 28.4
--- OUTSIDE RECORDS SUMMARY | 2024-10-21 10:08 | XMS_ITS | Clinical Summary ---
Author Organization [facility] Address [address] [place] [address] Care Team Providers Care Event Sales Representative Name Role Phone Joni Woodruff MD [...] Date: ; End Date: Active ergocalciferol (ERGOCALCIFEROL) 17064 units capsuleIndications:Vi tamin D Deficiency Take 1 [...] to sexual activity not to exceed 5 tnd=445 mg in 24 hrs 50 tablet 11 [...] Ag/Ab, 4th Gen NON-REACT AWILDA NON-REACT AWILDA [facility] Comment: HIV-1 antigen and HIV-1/HIV-2 [...] ?? For additional information please refer to http://education.Skeeble/faq/FOB255 (This link is being provided for informational/ educational purposes only.) The performance of this assay has not been clinically validated in patients less than 2 years old. Blood specimen (specimen) 11/20/2017 4:01 PM EDT 11/21/2017 6:28 AM EDT Narrative Resulting Agency Comment Performing Organization Information: ?Site ID: [id number] ?Name: [email or web address] ?Address: [address] [place] [address], [place] [address] ?Director: Uche Rock MD Joni Woodruff MD LAB BLOOD ORDERABLES [facility] [address] [facility] 3rd Floor, [place] [address] from Last 3 Months or Most Recently Relevant to Health Maintenance Care Teams Event Sales Representative Relationship Specialty Start Date End Date Joni Woodruff MD PCP - General 04/03/15 Joni Woodruff MD Internal Medicine 03/06/15 Lashawn Mitchell, RN [address] [place] [address] Oncology Nurse Navigator 04/10/16
--- OUTSIDE RECORDS SUMMARY | 2024-10-21 10:08 | XMS_ITS | Clinical Summary ---
Author Organization [facility] Address [address] [place] [address] Care Team Providers Care Editor At Large Name Role Phone Damon Pasrtana MD Primary Care Provider [phone] Source Comments PLEASE NOTE, if this patient [...] 09/26/2023 Learning disorder 12/19/2016 Hypercholesterolemia 09/05/2014 Immunizations Immunization Administration Dates Next Due PNEUMOCOCCAL CONJUGATE PCV [...] Imm-Zoster, Recombinant (2 of 2) 11/21/2023 09/26/19 Kce-BQUWH-21 ( season) 2024 09/26/2023, 09/10/2021, 12/25/2020, Additional [...] PCR (09/26/2023 9:52 AM EST) Pathologist [facility] HEPATITIS C ANTIBODY NON-REACT AWILDA NON-REACT AWILDA [facility] Comment: HCV antibody was non-reactive. There is no laboratory evidence of HCV infection. In most cases, no further action is required. However, if recent HCV exposure is suspected, a test for HCV RNA (test code 90407) is suggested. For additional information please refer to http://Joyus.BioSilta/faq/HGJ92u6 (This link is being provided for informational/ educational purposes only.) Blood Blood / Unknown 09/26/2023 9 :52 AM EST 09/26/2023 9:52 AM EST us Damon Pastrana MD LAB - BLOOD DRAW Final Resul t [facility] [address] [address], [facility] [address] [address] * (ABNORMAL) LIPIDS W RFLX TO DIRECT LDL (09/26/2023 9:52 AM EST) CHOLESTEROL, TOTAL 223(H) <200 mg/dL [facility] HDL CHOLESTEROL 64 > OR = 40 mg/dL [facility] TRIGLYCERIDES 33 <150 mg/dL [facility] LDL-CHOLESTEROL 149(H) 99 mg/dL (calc) [facility] Comment: Reference range: <100 Desirable range <100 mg/dL for primary prevention; ?? <70 mg/dL for patients with CHD or diabetic patients with > or = 2 CHD risk factors. LDL-C is now calculated using the Singh-Kassandra calculation, which is a validated novel method providing better accuracy than the Friedewald equation in the estimation of LDL-C. Singh ORTEGA et al. GAB. 2013;310(19): 8244-5888 (http://education.SimplyGiving.com/faq/SRT293) CHOL/HDLC RATIO 3.5 <5.0 (calc) [facility] NON-HDL CHOLESTEROL 159(H) <130 mg/dL (calc) [facility] Comment: For patients with diabetes plus 1 major ASCVD risk factor, treating to a non-HDL-C goal of <100 mg/dL (LDL-C of <70 mg/dL) is considered a therapeutic option. Blood Blood / Unknown 09/26/2023 9 :52 AM EST 09/26/2023 9:52 AM EST us Damon Pastrana MD LAB - BLOOD DRAW Final Resul t [facility] [address] [address], [facility] [address] [place] [address] * (ABNORMAL) COMPREHENSIVE METABOLIC PANEL (09/26/2023 9:52 AM EST) GLUCOSE 129(H) 65 - 99 mg/dL [facility] Comment: ?Fasting reference interval For someone without known diabetes, a glucose value >125 mg/dL indicates that they may have diabetes and this should be confirmed with a follow-up test. UREA NITROGEN (BUN) 19 7 - 25 mg/dL [facility] CREATININE (blood) 0.80 0.70 - 1.35 mg/dL [facility] EGFR 98 > OR = 60 mL/min/1. 73m2 [facility] BUN/CREATININE RATIO SEE NOTE: [facility] Comment: ?? Not Reported: BUN and Creatinine are within ?? reference range. ? SODIUM 138 135 - 146 mmol/L [facility] POTASSIUM 4.3 3.5 - 5.3 mmol/L [facility] CHLORIDE 103 98 - 110 mmol/L [facility] CARBON DIOXIDE 27 20 - 32 mmol/L [facility] CALCIUM 8.9 8.6 - 10.3 mg/dL [facility] PROTEIN, TOTAL 7.2 6.1 - 8.1 g/dL [facility] ALBUMIN 4.5 3.6 - 5.1 g/dL [facility] GLOBULIN 2.7 1.9 - 3.7 g/dL (calc) [facility] ALBUMIN/GLOBULI N RATIO 1.7 1.0 - 2.5 (calc) [facility] BILIRUBIN, TOTAL 1.0 0.2 - 1.2 mg/dL [facility] ALKALINE PHOSPHATASE 64 35 - 144 U/L [facility] AST 26 10 - 35 U/L [facility] ALT 32 9 - 46 U/L [facility] Blood Blood / Unknown 09/26/2023 9 :52 AM EST 09/26/2023 9:52 AM EST Damon Pastrana MD LAB - BLOOD DRAW Edited Resu lt - Final [facility] [address] [address], [facility] [address] [place] [address] * HISTORIC COLONOSCOPY (07/17/2021 3:00 AM EST) 07/17/2021 3:00 AM EST Damon Pastrana MD PROCEDURES Edited Resul t - Final from Last 3 Months or Most Recently Relevant to Health Maintenance Insurance [facility] Care Teams Editor At Large Relationship Specialty Start Date End Date Damon Pastrana MD [address] [place] [address] PCP - General Internal Medicine 09/26/23
--- OUTSIDE RECORDS SUMMARY | 2024-10-21 10:08 | XMS_ITS | Encounter Summary ---
Author Organization [facility] Address [address] [place] [address] Care Team Providers Care Clam Bed Worker Name Role Phone Joni Woodruff MD Primary Care Provider Joni Sotelo MD Unavailable Unavailable Lashawn Mitchell RN Unavailable [phone] Reason for Visit * Reason Onset Date Comments Medication Refill 04/24/2017 Encounter Details Date Type Department Care Team (Late st Contact Info) Description 04/24/[address] [facility] [place] Urologic Surgery [place] [address] [facility] [address] [place] [address] Suad Orr, VENDOR RELATIONSHIP MANAGER [address] [place] [address] Social History Tobacco Use Types Packs/Day Years [...] on filedocumented in this encounter Care Teams Clam Bed Worker Relationship Specialty Start Date End Date Joni Woodruff MD PCP - General 04/03/15 Joni Woodruff MD Internal Medicine 8/17/15 Lashawn Mitchell RN [address] [place] [address] Oncology Nurse Navigator 04/10/16 documented as of this encounter
--- OUTSIDE RECORDS SUMMARY | 2024-10-21 10:08 | XMS_ITS | Clinical Summary ---
Author Organization [facility], Address [address] [place] [address] [place] [address] Phone Care Team Providers Care Stock Repairer Name Role Phone Jackson Moyer MD Primary Care Provider [phone] Allergies Active Allergy Reactions Criticality Noted Date [...] severe COVID-19: None ? Healthcare worker or chimney builder helper? No ? COVID-19 Tested? - Yes - Date Tested 11/03/2019 Testing Location - [facility] - Testing Results - Positive ? [...] patient's age to complete this topic Insurance [facility] Care Teams Stock Repairer Relationship Specialty Start Date End Date Jackson Moyer MD [address] [place] [address] PCP - General Internal Medicine 11/24/19
--- OUTSIDE RECORDS SUMMARY | 2024-10-21 10:08 | XMS_ITS | Encounter Summary ---
Author Organization [facility] Address [address] [place] [address] Care Team Providers Care Classroom Aide Name Role Phone Joni Woodruff MD Primary Care Provider Joni Sotelo MD Unavailable Unavailable Lashawn Mitchell RN Unavailable [phone] Encounter Details Date Type Department Care Team (Late st Contact Info) Description 04/20/2015 Scanned Document [address] [address] Provider, Generic Social History Tobacco [...] on filedocumented in this encounter Care Teams Classroom Aide Relationship Specialty Start Date End Date Joni Woodruff MD PCP - General 04/03/15 Joni Woodruff MD Internal Medicine 03/06/15 Lashawn Mitchell, TORRES [address] [address] Oncology Nurse Navigator 04/10/16 documented as of this encounter
--- OUTSIDE RECORDS SUMMARY | 2024-10-21 10:08 | XMS_ITS | Clinical Summary ---
Author Organization [facility] it Address [address] [place] [address] Care Team Providers Care Ferry Engineer Name Role Phone Unavailable Primary Care Provider [...] 2024 Influenza Vaccine (#1) 2024 RSV Immunization Adult Patie nts (1 - 1-dose 75+ series) 10/07/2031 HIB [...]
--- OUTSIDE RECORDS SUMMARY | 2024-10-21 10:08 | XMS_ITS | Encounter Summary ---
Author Organization [facility] Address [address] [place] [address] Care Team Providers Care House Player Name Role Phone Joni Woodruff MD Primary Care Provider Joni Sotelo MD Unavailable Unavailable Lashawn Mitchell RN Unavailable Encounter Details Date Type Department Care Team (Late st Contact Info) Description 03/20/2017 Scanned Document [address] [phone] Joni Woodruff MD Social History [...] on filedocumented in this encounter Care Teams House Player Relationship Specialty Start Date End Date Joni Woodruff MD PCP - General 04/03/15 Joni Woodruff MD Internal Medicine 03/06/15 Lashawn Mitchell RN [address] [address] Oncology Nurse Navigator 04/10/16 documented as of this encounter
--- OUTSIDE RECORDS SUMMARY | 2024-10-21 10:08 | XMS_ITS | Encounter Summary ---
Author Organization [facility] Address [address] [place] [address] Care Team Providers Care Apprentice Instrument Technician Name Role Phone Joni Woodruff MD Primary Care Provider Joni Sotelo MD Unavailable Unavailable Lashawn Mitchell RN Unavailable Encounter Details Date Type Department Care Team (Late st Contact Info) Description 03/12/2016 Scanned Document [address] [phone] Provider, Generic Social History Tobacco [...] on filedocumented in this encounter Care Teams Apprentice Instrument Technician Relationship Specialty Start Date End Date Joni Woodruff MD PCP - General 04/03/15 Joni Woodruff MD Internal Medicine 03/06/15 Lashawn Mitchell RN [address] [address] Oncology Nurse Navigator 04/10/16 documented as of this encounter
--- OUTSIDE RECORDS SUMMARY | 2024-10-21 10:08 | XMS_ITS | Encounter Summary ---
Author Organization [facility] Address [address] [place] [address] Care Team Providers Care Aquaculture Farm Manager Name Role Phone Joni Woodruff MD Primary Care Provider Joni Sotelo MD Unavailable Unavailable Lashawn Mitchell RN Unavailable Encounter Details Date Type Department Care Team (Late st Contact Info) Description 01/03/2016 Telephone [facility] Urologic Surgery [address] [address] Alonso Gonzales MD [address] [place] [phone] Social History Tobacco Use Types Packs/Day Years [...] and would like to discuss w/ someone. Cuban only. documented in this encounter Plan of Treatment Not on file documented as of this encounter Visit Diagnoses Not on filedocumented in this encounter Care Teams Aquaculture Farm Manager Relationship Specialty Start Date End Date Joni Woodruff MD PCP - General 04/03/15 Joni Woodruff MD Internal Medicine 03/06/15 Lashawn Mitchell RN [address] [place] [address] Oncology Nurse Navigator 04/10/16 documented as of this encounter
--- OUTSIDE RECORDS SUMMARY | 2024-10-21 10:08 | XMS_ITS | Encounter Summary ---
Author Organization [facility] Address [address] [place] [address] Care Team Providers Care Match Marker Name Role Phone Joni Woodruff MD Primary Care Provider Joni Sotelo MD Unavailable Unavailable Lashawn Mitchell RN Unavailable Encounter Details Date Type Department Care Team (Late st Contact Info) Description 07/11/2015 Scanned Document [address] [phone] Provider, Generic Social History Tobacco [...] on filedocumented in this encounter Care Teams Match Marker Relationship Specialty Start Date End Date Joni Woodruff MD PCP - General 04/03/15 Join Woodruff MD Internal Medicine 03/06/15 Lashawn Mitchell, TORRES [address] [address] Oncology Nurse Navigator 04/10/16 documented as of this encounter
--- OUTSIDE RECORDS SUMMARY | 2024-10-21 10:08 | XMS_ITS | Encounter Summary ---
Author Organization [facility] Address [address] [place] [address] Care Team Providers Care Manager Commercial Name Role Phone Joni Woodruff MD Primary Care Provider Joni Sotelo MD Unavailable Unavailable Lashawn Mitchell RN Unavailable [phone] Encounter Details Date Type Department Care Team (Late st Contact Info) Description 06/21/2016 Scanned Document [address] [facility] [address] [place] [phone] Provider, Generic Social History Tobacco Use [...] filedocumented in this encounter Care Teams Manager Commercial Relationship Specialty Start Date End Date Joni Woodruff MD PCP - General 04/03/15 Joni Woodruff MD Internal Medicine 03/06/15 Lashawn Mitchell RN [address] [place] [address] Oncology Nurse Navigator 04/10/16 documented as of this encounter
--- OUTSIDE RECORDS SUMMARY | 2024-10-21 10:08 | XMS_ITS | Encounter Summary ---
Author Organization [facility] Address [address] [place] [address] Care Team Providers Care Meter Shop Supervisor Name Role Phone Joni Woodruff MD Primary Care Provider Join Sotelo MD Unavailable Unavailable Lashawn Mitchell RN Unavailable [phone] Encounter Details Date Type Department Care Team (Late st Contact Info) Description 11/21/2017 Scanned Document [address] [phone] Joni Woodruff MD Social History [...] on filedocumented in this encounter Care Teams Meter Shop Supervisor Relationship Specialty Start Date End Date Joni Woodruff MD PCP - General 04/03/15 Joni Woodruff MD Internal Medicine 03/06/15 Lashawn Mitchell RN [address] [address] Oncology Nurse Navigator 04/10/16 documented as of this encounter
--- OUTSIDE RECORDS SUMMARY | 2024-10-21 10:08 | XMS_ITS | Encounter Summary ---
Author Organization [facility] Address [address] [place] [address] Care Team Providers Care Supervisor Industrial Garment Name Role Phone Joni Woodruff MD Primary Care Provider Joni Sotelo MD Unavailable Unavailable Lashawn Mitchell RN Unavailable Encounter Details Date Type Department Care Team (Late st Contact Info) Description 04/16/2016 Scanned Document [address] [facility] [address] [place] [phone] Provider, Generic Social History Tobacco Use [...] on filedocumented in this encounter Care Teams Supervisor Industrial Garment Relationship Specialty Start Date End Date Joni Woodruff MD PCP - General 04/03/15 Joni Woodruff MD Internal Medicine 03/06/15 Lashawn Mitchell RN [address] [address] Oncology Nurse Navigator 04/10/16 documented as of this encounter
--- OUTSIDE RECORDS SUMMARY | 2024-10-21 10:08 | XMS_ITS | Encounter Summary ---
Author Organization [facility] Address [address] [place] [address] Care Team Providers Care Metal Welder Name Role Phone Joni Woodruff MD Primary Care Provider Joni Sotelo MD Unavailable Unavailable Lashawn Mitchell RN Unavailable Encounter Details Date Type Department Care Team (Late st Contact Info) Description 02/14/2015 Scanned Document [address] [phone] Provider, Generic Social History Tobacco [...] on filedocumented in this encounter Care Teams Metal Welder Relationship Specialty Start Date End Date Joni Woodruff MD PCP - General 04/03/15 Joni Woodruff MD Internal Medicine 03/06/15 Lashawn Mitchell, TORRES [address] [address] Oncology Nurse Navigator 04/10/16 documented as of this encounter
--- OUTSIDE RECORDS SUMMARY | 2024-10-21 10:08 | XMS_ITS | Encounter Summary ---
Author Organization [facility] Address [address] [place] [address] Care Team Providers Care Product Strategy Director Name Role Phone Joni Woodruff MD Primary Care Provider Joni Sotelo MD Unavailable Unavailable Lashawn Mitchell RN Unavailable [phone] Encounter Details Date Type Department Care Team (Late st Contact Info) Description 03/23/2015 Scanned Document [address] [phone] Provider, Generic Social History Tobacco [...] filedocumented in this encounter Care Teams Product Strategy Director Relationship Specialty Start Date End Date Joni Woodruff MD PCP - General 04/03/15 Joni Woodruff MD Internal Medicine 03/06/15 Lashawn Mitchell, TORRES [address] [address] Oncology Nurse Navigator 04/10/16 documented as of this encounter
--- OUTSIDE RECORDS SUMMARY | 2024-10-21 10:08 | XMS_ITS | Encounter Summary ---
Author Organization [facility] Address [address] [place] [address] Care Team Providers Care Energy Conservation Engineer Name Role Phone Joni Woodruff MD Primary Care Provider Joni Sotelo MD Unavailable Unavailable Lashawn Mitchell RN Unavailable Encounter Details Date Type Department Care Team (Late st Contact Info) Description 03/06/2015 Scanned Document [address] [place] [phone] Provider, Generic Social History Tobacco Use Types [...] on filedocumented in this encounter Care Teams Energy Conservation Engineer Relationship Specialty Start Date End Date Joni Woodruff MD PCP - General 04/03/15 Joni Woodruff MD Internal Medicine 03/06/15 Lashawn Mitchell RN [address] [place] [address] Oncology Nurse Navigator 04/10/16 documented as of this encounter
== END 2024-10-21 11:10 | disposition home or self-care (01) ==
LOC: HO.HMCH 09:40
PROVIDERS: PCP Internal Medicine; Visit Provider Physician Assistant Medical
DX: M54.50 Low back pain, unspecified (principal); M79.606 Pain in leg, unspecified; K57.90 Diverticulosis of intestine, part unspecified, without perforation or abscess without bleeding; D64.9 Anemia, unspecified

== ENCOUNTER → 2024-10-21 09:39 | Outpatient (BNVA) | payer OTHER, SELFPAY | PROVIDERS: PCP Internal Medicine; Visit Provider Physician Assistant Medical ==

== ENCOUNTER 2024-10-22 09:53 | Outpatient (REF) | payer OTHER, SELFPAY ==
--- NOTE | ~2024-10-22 | XR_ITS ---
EXAMINATION: X-ray knee, bilaterally 3 views. CLINICAL INFORMATION: Pain in the left knee. TECHNIQUE: AP view in standing position. Lateral views and sunrise projections both knees. COMPARISON: None FINDINGS: No acute cortical disruption or malalignment. There is preservation of the joint spaces. No lytic or blastic lesions. No suprapatellar bursa joint effusion. XR/XR Knee Joel 3V IMPRESSION: No acute fracture or dislocation. Negative exam. Electronically signed by: Shane Woodson MD 10/25/2024 10:19 AM EDT
[2024-10-22 10:33] LABS: Hematocrit 42.7 % (42.0-52.0); Hemoglobin 13.9 g/dl (14.0-18.0); Mean Corpuscular HGB Conc 32.6 g/dl (31.0-36.0); Mean Corpuscular Volume 98.4 fL (80.0-98.0); Mean Platelet Volume 10.6 fL (9.4-12.4); Platelet Count 133 X10*3/uL (160-400); Red Blood Count 4.34 X10*6/uL (4.60-5.80); Red Cell Distribution Width 11.1 % (11.0-16.0); White Blood Count 4.8 X10*3/uL (4.8-10.8)
[2024-10-22 10:34] LABS: Appearance Urine Clear; Color Urine Yellow; Glucose Urine UA Negative (Negative); Leukocyte Esterase Urine Negative (Negative); Nitrite Urine Negative (Negative); PH 6.5 (5.0-9.0); Specific Gravity - Urine >= 1.030 (1.005-1.025); Urine Blood Negative (Negative); Urine Ketones Negative (Negative); Urine Protein Negative (Neg-Trace)
--- OUTSIDE RECORDS SUMMARY | 2024-10-22 11:07 | XMS_ITS | Clinical Summary ---
Author Organization [facility] Address [address] [place] [address] Care Team Providers Care Health Informatics Advisor Name Role Phone Damon Pastrana MD Primary Care Provider [phone] Source Comments PLEASE NOTE, if this patient [...] Imm-Zoster, Recombinant (2 of 2) 11/21/2023 09/26/19 [id number] ( season) 2024 09/26/2023, 09/10/2021, 12/25/2020, Additional [...] RT PCR (09/26/2023 9:52 AM EST) Pathologist [facility] HEPATITIS C ANTIBODY NON-REACT AWILDA NON-REACT AWILDA [facility] Comment: HCV antibody was non-reactive. There is no laboratory evidence of HCV infection. In most cases, no further action is required. However, if recent HCV exposure is suspected, a test for HCV RNA (test code 17031) is suggested. For additional information please refer to http://Sepaton.FRS/faq/NVB61o5 (This link is being provided for informational/ educational purposes only.) Blood Blood / Unknown 09/26/2023 9 :52 AM EST 09/26/2023 9:52 AM EST us Damon Pastrana MD LAB - BLOOD DRAW Final Resul t [facility] [address] [address], [facility] [address] [phone] * (ABNORMAL) LIPIDS W RFLX TO DIRECT LDL (09/26/2023 9:52 AM EST) CHOLESTEROL, TOTAL 223(H) <200 mg/dL [facility] HDL CHOLESTEROL 64 > OR = 40 mg/dL [facility] TRIGLYCERIDES 33 <150 mg/dL [facility] LDL-CHOLESTEROL 149(H) 99 mg/dL (calc) [facility] Comment: Reference range: <100 Desirable range <100 mg/dL for primary prevention; ?? <70 mg/dL for patients with CHD or diabetic patients with > or = 2 CHD risk factors. LDL-C is now calculated using the Singh-Kassandra calculation, which is a validated novel method providing better accuracy than the Friedewald equation in the estimation of LDL-C. Singh ORTEGA et al. GAB. 2013;310(19): 8213-0469 (http://education.Varolii/faq/KGY607) CHOL/HDLC RATIO 3.5 <5.0 (calc) [facility] NON-HDL CHOLESTEROL 159(H) <130 mg/dL (calc) [facility] Comment: For patients with diabetes plus 1 major ASCVD risk factor, treating to a non-HDL-C goal of <100 mg/dL (LDL-C of <70 mg/dL) is considered a therapeutic option. Blood Blood / Unknown 09/26/2023 9 :52 AM EST 09/26/2023 9:52 AM EST us Damon Pastrana MD LAB - BLOOD DRAW Final Resul t [email or web address] [address] [address], [facility] [address] [place] [address] * (ABNORMAL) COMPREHENSIVE METABOLIC PANEL (09/26/2023 9:52 AM EST) GLUCOSE 129(H) 65 - 99 mg/dL [facility] Comment: ?Fasting reference interval For someone without known diabetes, a glucose value >125 mg/dL indicates that they may have diabetes and this should be confirmed with a follow-up test. UREA NITROGEN (BUN) 19 7 - 25 mg/dL [facility] CREATININE (blood) 0.80 0.70 - 1.35 mg/dL [facility] EGFR 98 > OR = 60 mL/min/1. 73m2 [facility] BUN/CREATININE RATIO SEE NOTE: [facility] Comment: ?? Not Reported: BUN and Creatinine are within ?? reference range. ? SODIUM 138 135 - 146 mmol/L [facility] POTASSIUM 4.3 3.5 - 5.3 mmol/L [facility] CHLORIDE 103 98 - 110 mmol/L [facility] CARBON DIOXIDE 27 20 - 32 mmol/L [facility] CALCIUM 8.9 8.6 - 10.3 mg/dL [facility] PROTEIN, TOTAL 7.2 6.1 - 8.1 g/dL [facility] ALBUMIN 4.5 3.6 - 5.1 g/dL [facility] GLOBULIN 2.7 1.9 - 3.7 g/dL (calc) [facility] ALBUMIN/GLOBULI N RATIO 1.7 1.0 - 2.5 (calc) [facility] BILIRUBIN, TOTAL 1.0 0.2 - 1.2 mg/dL [facility] ALKALINE PHOSPHATASE 64 35 - 144 U/L [facility] AST 26 10 - 35 U/L [facility] ALT 32 9 - 46 U/L [facility] Blood Blood / Unknown 09/26/2023 9 :52 AM EST 09/26/2023 9:52 AM EST Damon Pastrana MD LAB - BLOOD DRAW Edited Resu lt - Final [facility] [address] [address], [facility] [address] [place] [address] * HISTORIC COLONOSCOPY (07/17/2021 3:00 AM EST) 07/17/2021 3:00 AM EST Damon Pastrana MD PROCEDURES Edited Resul t - Final from Last 3 Months or Most Recently Relevant to Health Maintenance Insurance [facility] Care Teams Health Informatics Advisor Relationship Specialty Start Date End Date Damon Pastrana MD [address] [place] [address] PCP - General Internal Medicine 09/26/23
--- OUTSIDE RECORDS SUMMARY | 2024-10-22 11:07 | XMS_ITS | Clinical Summary ---
Author Organization [facility], Address [address] [place] [address] [place] [address] Phone Care Team Providers Care Family Consumer Science Teacher Name Role Phone Jackson Moyer MD Primary Care Provider [phone] Allergies Active Allergy Reactions Criticality Noted Date [...] severe COVID-19: None ? Healthcare worker or heel sprayer first? No ? COVID-19 Tested? - Yes - Date Tested 11/03/2019 Testing Location - [facility] - Testing Results - Positive ? [...] patient's age to complete this topic Insurance [facility] Care Teams Family Consumer Science Teacher Relationship Specialty Start Date End Date Jackson Moyer MD [address] [place] [address] PCP - General Internal Medicine 11/24/19
--- OUTSIDE RECORDS SUMMARY | 2024-10-22 11:07 | XMS_ITS | Encounter Summary ---
Author Organization [facility] Address [address] [place] [address] Care Team Providers Care Floorworker Name Role Phone Joni Woodruff MD Primary Care Provider Joni Sotelo MD Unavailable Unavailable Lashawn Mitchell RN Unavailable Encounter Details Date Type Department Care Team (Late st Contact Info) Description 01/03/2016 Telephone [facility] Urologic Surgery [address] [address] Alonso Gonzales MD [address] [place] [phone] Social History Tobacco Use Types Packs/Day Years [...] and would like to discuss w/ someone. Djiboutian only. documented in this encounter Plan of Treatment Not on file documented as of this encounter Visit Diagnoses Not on filedocumented in this encounter Care Teams Floorworker Relationship Specialty Start Date End Date Joni Woodruff MD PCP - General 04/03/15 Joni Woodruff MD Internal Medicine 03/06/15 Lashawn Mitchell RN [address] [place] [address] Oncology Nurse Navigator 04/10/16 documented as of this encounter
--- OUTSIDE RECORDS SUMMARY | 2024-10-22 11:07 | XMS_ITS | Encounter Summary ---
Author Organization [facility] Address [address] [place] [address] Care Team Providers Care Mechanical Assembly Name Role Phone Joni Woodruff MD Primary Care Provider Joni Sotelo MD Unavailable Unavailable Lashawn Mitchell RN Unavailable [phone] Encounter Details Date Type Department Care Team (Late st Contact Info) Description 04/20/2015 Scanned Document [address] [phone] Provider, Generic Social History Tobacco [...] on filedocumented in this encounter Care Teams Mechanical Assembly Relationship Specialty Start Date End Date Joni Woodruff MD PCP - General 04/03/15 Joni Woodruff MD Internal Medicine 03/06/15 Lashawn Mitchell, TORRES [address] [address] Oncology Nurse Navigator 04/10/16 documented as of this encounter
--- OUTSIDE RECORDS SUMMARY | 2024-10-22 11:07 | XMS_ITS | Encounter Summary ---
Author Organization [facility] Address [address] [place] [address] Care Team Providers Care Asphalt Heater Tender Name Role Phone Joni Woodruff MD Primary Care Provider Joni Sotelo MD Unavailable Unavailable Lashawn Mitchell RN Unavailable [phone] Encounter Details Date Type Department Care Team (Late st Contact Info) Description 07/11/2015 Scanned Document [address] [phone] Provider, Generic Social History Tobacco [...] on filedocumented in this encounter Care Teams Asphalt Heater Tender Relationship Specialty Start Date End Date Joni Woodruff MD PCP - General 04/03/15 Joni Woodruff MD Internal Medicine 03/06/15 Lashawn Mitchell, TORRES [address] [address] Oncology Nurse Navigator 04/10/16 documented as of this encounter
--- OUTSIDE RECORDS SUMMARY | 2024-10-22 11:07 | XMS_ITS | Encounter Summary ---
Author Organization [facility] Address [address] [place] [address] Care Team Providers Care Bacon Stringer Name Role Phone Joni Woodruff MD Primary Care Provider Joni Sotelo MD Unavailable Unavailable Lashawn Mitchell RN Unavailable Encounter Details Date Type Department Care Team (Late st Contact Info) Description 03/23/2015 Scanned Document [address] [phone] Provider, Generic Social History [...] on filedocumented in this encounter Care Teams Bacon Stringer Relationship Specialty Start Date End Date Joni Woodruff MD PCP - General 04/03/15 Joni Woodruff MD Internal Medicine 03/06/15 Lashawn Mitchell, TORRES [address] [address] Oncology Nurse Navigator 04/10/16 documented as of this encounter
--- OUTSIDE RECORDS SUMMARY | 2024-10-22 11:07 | XMS_ITS | Clinical Summary ---
Author Organization [facility] Address [address] [place] [address] Care Team Providers Care Software Quality Specialist Name Role Phone Joni Woodruff MD [...] Date: ; End Date: Active ergocalciferol (ERGOCALCIFEROL) [address] units capsuleIndications:Vi tamin D Deficiency Take 1 [...] to sexual activity not to exceed 5 [id number] mg in 24 hrs 50 tablet 11 [...] Ag/Ab, 4th Gen NON-REACT AWILDA NON-REACT AWILDA [facility] Comment: HIV-1 antigen and HIV-1/HIV-2 [...] ?? For additional information please refer to http://education.Pelamis Wave Power/faq/DKK408 (This link is being provided for informational/ educational purposes only.) The performance of this assay has not been clinically validated in patients less than 2 years old. Blood specimen (specimen) 11/20/2017 4:01 PM EDT 11/21/2017 6:28 AM EDT Narrative Resulting Agency Comment Performing Organization Information: ?Site ID: [id number] ?Name: [facility] ?Address: [address] [place] [address], [place] [address] ?Director: Uche Rock MD Joni Woodruff MD LAB BLOOD ORDERABLES [email or web address] [address] [facility] 3rd Floor, [place] [address] from Last 3 Months or Most Recently Relevant to Health Maintenance Care Teams Software Quality Specialist Relationship Specialty Start Date End Date Joni Woodruff MD PCP - General 04/03/15 Joni Woodruff MD Internal Medicine 03/06/15 Lashawn Mitchell, RN [address] [place] [address] Oncology Nurse Navigator 04/10/16
--- OUTSIDE RECORDS SUMMARY | 2024-10-22 11:07 | XMS_ITS | Encounter Summary ---
Author Organization [facility] Address [address] [place] [address] Care Team Providers Care Tank Hoop Bender Name Role Phone Joni Woodruff MD Primary Care Provider Joni Sotelo MD Unavailable Unavailable Lashawn Mitchell RN Unavailable Encounter Details Date Type Department Care Team (Late st Contact Info) Description 04/16/2016 Scanned Document [address] [facility] [address] [place] [phone] Provider, Generic Social History Tobacco Use [...] on filedocumented in this encounter Care Teams Tank Hoop Bender Relationship Specialty Start Date End Date Joni Woodruff MD PCP - General 04/03/15 Joni Woodruff MD Internal Medicine 03/06/15 Lashawn Mitchell RN [address] [address] Oncology Nurse Navigator 04/10/16 documented as of this encounter
--- OUTSIDE RECORDS SUMMARY | 2024-10-22 11:08 | XMS_ITS | Encounter Summary ---
Author Organization [facility] Address [address] [place] [address] Care Team Providers Care Road Grader Operator Name Role Phone Joni Woodruff MD Primary Care Provider Joni Sotelo MD Unavailable Unavailable Lashawn Mitchell RN Unavailable [phone] Encounter Details Date Type Department Care Team (Late st Contact Info) Description 03/20/2017 Scanned Document [address] [phone] Joni Woodruff MD Social History [...] on filedocumented in this encounter Care Teams Road Grader Operator Relationship Specialty Start Date End Date Joni Woodruff MD PCP - General 04/03/15 Joni Woodruff MD Internal Medicine 03/06/15 Lashawn Mitchell RN [address] [address] Oncology Nurse Navigator 04/10/16 documented as of this encounter
--- OUTSIDE RECORDS SUMMARY | 2024-10-22 11:08 | XMS_ITS | Encounter Summary ---
Author Organization [facility] Address [address] [place] [address] Care Team Providers Care Rounder Hand Name Role Phone Joni Woodruff MD Primary Care Provider Joni Sotelo MD Unavailable Unavailable Lashawn Mitchell RN Unavailable Encounter Details Date Type Department Care Team (Late st Contact Info) Description 03/06/2015 Scanned Document [address] [place] [phone] Provider, Generic Social History Tobacco Use Types [...] on filedocumented in this encounter Care Teams Rounder Hand Relationship Specialty Start Date End Date Joni Woodruff MD PCP - General 04/03/15 Joni Woodruff MD Internal Medicine 03/06/15 Lashawn Mitchell RN [address] [place] [address] Oncology Nurse Navigator 04/10/16 documented as of this encounter
--- OUTSIDE RECORDS SUMMARY | 2024-10-22 11:08 | XMS_ITS | Encounter Summary ---
Author Organization [facility] Address [address] [place] [address] Care Team Providers Care Proposal Consultant Name Role Phone Joni Woodruff MD Primary Care Provider Joni Sotelo MD Unavailable Unavailable Lashawn Mitchell RN Unavailable [phone] Encounter Details Date Type Department Care Team (Late st Contact Info) Description 11/21/2017 Scanned Document [address] [phone] Joni Woodruff MD Social History [...] on filedocumented in this encounter Care Teams Proposal Consultant Relationship Specialty Start Date End Date Joni Woodruff MD PCP - General 04/03/15 Joni Woodruff MD Internal Medicine 03/06/15 Lashawn Mitchell RN [address] [address] Oncology Nurse Navigator 04/10/16 documented as of this encounter
--- OUTSIDE RECORDS SUMMARY | 2024-10-22 11:08 | XMS_ITS | Encounter Summary ---
Author Organization [facility] Address [address] [place] [address] Care Team Providers Care Director Of Strategic Programs Name Role Phone Joni Woodruff MD Primary Care Provider Joni Sotelo MD Unavailable Unavailable Lashawn Mitchell RN Unavailable [phone] Encounter Details Date Type Department Care Team (Late st Contact Info) Description 02/14/2015 Scanned Document [address] [phone] Provider, Generic Social History Tobacco [...] on filedocumented in this encounter Care Teams Director Of Strategic Programs Relationship Specialty Start Date End Date Joni Woodruff MD PCP - General 04/03/15 Joni Woodruff MD Internal Medicine 03/06/15 Lashawn Mitchell, TORRES [address] [address] Oncology Nurse Navigator 04/10/16 documented as of this encounter
--- OUTSIDE RECORDS SUMMARY | 2024-10-22 11:08 | XMS_ITS | Clinical Summary ---
Author Organization [employer] [facility] it Address [address] [place] [address] Care Team Providers Care Special Education Curriculum Specialist Name Role Phone Unavailable Primary Care Provider [...]
--- OUTSIDE RECORDS SUMMARY | 2024-10-22 11:08 | XMS_ITS | Encounter Summary ---
Author Organization Formerly [facility] Address [address] [place] [address] Care Team Providers Care Diabetologist Name Role Phone Joni Woodruff MD Primary Care Provider Joni Sotelo MD Unavailable Unavailable Lashawn Mitchell RN Unavailable Reason for Visit * Reason Onset Date Comments Medication Refill 04/24/2017 Encounter Details Date Type Department Care Team (Late st Contact Info) Description 04/24/2017 Refill [facility] Urologic Surgery [place] [address] [facility] [address] [place] [address] Suad Orr, PROCESS DEVELOPMENT ENGINEER [address] [place] [address] Social History Tobacco Use Types Packs/Day Years [...] on filedocumented in this encounter Care Teams Diabetologist Relationship Specialty Start Date End Date Joni Woodruff MD PCP - General 04/03/15 Joni Woodruff MD Internal Medicine 8/17/15 Lashawn Mitchell RN [address] [place] [address] Oncology Nurse Navigator 04/10/16 documented as of this encounter
--- OUTSIDE RECORDS SUMMARY | 2024-10-22 11:08 | XMS_ITS | Encounter Summary ---
Author Organization [facility] Address [address] [place] [address] Care Team Providers Care Director Of Hotel Name Role Phone Joni Woodruff MD Primary Care Provider Joni Sotelo MD Unavailable Unavailable Lashawn Mitchell RN Unavailable [phone] Encounter Details Date Type Department Care Team (Late st Contact Info) Description 03/12/2016 Scanned Document [address] [phone] Provider, Generic Social History Tobacco [...] in this encounter Care Teams Director Of Hotel Relationship Specialty Start Date End Date Joni Woodruff MD PCP - General 04/03/15 Joni Woodruff MD Internal Medicine 03/06/15 Lashawn Mitchell RN [address] [address] Oncology Nurse Navigator 04/10/16 documented as of this encounter
--- OUTSIDE RECORDS SUMMARY | 2024-10-22 11:08 | XMS_ITS | Encounter Summary ---
Author Organization Formerly [facility] Address [address] [place] [address] Care Team Providers Care Promotions Specialist Name Role Phone Joni Woodruff MD Primary Care Provider Joni Sotelo MD Unavailable Unavailable Lashawn Mitchell RN Unavailable [phone] Encounter Details Date Type Department Care Team (Late st Contact Info) Description 06/21/2016 Scanned Document [address] [facility] [address] [place] [phone] Provider, Generic Social History Tobacco Use [...] on filedocumented in this encounter Care Teams Promotions Specialist Relationship Specialty Start Date End Date Joni Woodruff MD PCP - General 04/03/15 Joni Woodruff MD Internal Medicine 03/06/15 Lashawn Mitchell RN [address] [place] [address] Oncology Nurse Navigator 04/10/16 documented as of this encounter
[2024-10-22 11:15] LABS: Erythrocyte Sedimentation Rate 6 MM/HR (0-15)
[2024-10-22 12:16] LABS: Alanine Aminotransferase 34 U/L (0-40); Alkaline Phosphatase 69 U/L (39-117); Anion Gap 7 (12-20); Aspartate Amino Transferase 26 U/L (5-37); Bilirubin Direct 0.4 mg/dL (0.0-0.5); Bilirubin Total 1.4 mg/dL (0.0-1.0); Blood Urea Nitrogen 22 mg/dL (9-16); Calcium 8.9 mg/dL (8.4-10.2); Carbon Dioxide 29 mmol/L (22-29); Chloride 107 mmol/L (96-108); Cholesterol 167 mg/dL (<200); Estimated Glomerular Filt Rate > 60; Glucose Random 147 mg/dL (60-115); HDL Cholesterol 60 mg/dL (>40); LDL Cholesterol Calculated 101 mg/dL (<100); Potassium 4.5 mmol/L (3.3-5.1); Prostate Specific Antigen Scr < 0.10 ng/mL (<0.05-4.0); Sodium 138 mmol/L (135-145); Total Protein 7.2 g/dL (6.5-8.0); Triglycerides 34 mg/dL (<150)
[2024-10-22 12:45] LABS: Thyroid Stimulating Hormone 0.88 uIU/mL (0.32-4.0)
== END 2024-10-22 09:54 | disposition home or self-care (01) ==
LOC: HO.XRAY 09:53
PROVIDERS: PCP Internal Medicine; Visit Provider Physician Assistant Medical
DX: C61 Malignant neoplasm of prostate (principal); M25.562 Pain in left knee; M25.561 Pain in right knee; E78.00 Pure hypercholesterolemia, unspecified; Z12.5 Encounter for screening for malignant neoplasm of prostate
CPT/HCPCS: 36415; 73562; 80048; 80061; 80076; 81003; 84153; 84443; 85027; 85652

== ENCOUNTER → 2024-10-22 10:18 | Outpatient (BNV) | payer OTHER, SELFPAY | PROVIDERS: PCP Internal Medicine; Visit Provider Radiology Diagnostic Radiology | DX: M25.561 Pain in right knee (principal); M25.562 Pain in left knee | CPT/HCPCS: 73562 ==

== ENCOUNTER 2024-11-04 08:39 | Outpatient (AMB) | payer OTHER, SELFPAY ==
--- NOTE | 2024-11-04 08:59 | MHC.PC.OV ---
Vital Signs 11/04/24 09:01 Height 5 ft 6 in Weight 173 lb 2 oz BMI 27.9 BP 110/72 Blood Pressure Location Lt brachial Position Sitting Pulse 75 Pulse Source Pulse Oximeter Temp 97.3 F Temp Source Temporal Artery Scan Pulse Oximetry (%) 98 Oxygen Delivery Method Room Air Intake Visit Reasons: follow up Intake Note: Patient is here to follow up on Hyperglycemia, PIERRE, Hypercholesterolemia. Property Management Bookkeeper Required: Yes Property Management Bookkeeper Language: Divehi Information Interpreted: non-clinical & clinical Pelletizer Tender: Not Required per policy Accompanied by: Self / Same As Patient Allergies Penicillins Allergy (Intermediate, Verified 11/04/24 09:00) SICKNESS ampicillin Allergy (Unknown, Verified 11/04/24 09:00) Unknown Tobacco use date assessed: 11/04/24 Fall risk assessment: No Falls in past year Last assessed Fall Risk: 11/04/24 Dental Screening Dental Screen Date: 09/03/24 [facility] Medical History (Updated 10/21/24 @ 10:33 by Marla Garrison PA-C) Anemia Diverticulosis Overweight (BMI 25.0-29.9) Right flank pain Low back pain radiating to lower extremity Rib pain on right side Osteoarthritis of right shoulder Hypercholesterolemia Eczema Hyperglycemia Prostate cancer Vitamin D deficiency Contusion of chest wall Surgical History History of colonoscopy (~07/11/21) History of appendectomy History of prostatectomy Family History Father Prostate cancer Mother No problems noted. Social History Housing: House Alcohol intake: current Alcohol intake frequency: holidays/special occasions only Patient Tobacco Use Status: Former Tobacco user Tobacco use type: Cigarette e-Cigarette/Vaping Use: Never Used Second Hand Smoke Exposure: Yes service: No Current occupational status: employed Cognitive needs: No Hearing needs: No Vision needs: Yes (glasses) Questionnaire Thrive Questionnaire Date Thrive assessed: 09/03/24 HALLIE-7 AMB Questionnaire HALLIE-7 Date HALLIE - 7 assessed: 09/03/24 Source: Developed by Drs. Bart Terry, Zeynep Reyes, Santos Uriarte and colleagues, with an educational nahun from [employer]. Physical exam (Primary Care) Vital Signs: Last Vital Signs Temp 97.3 F 11/04/24 09:01 Pulse 75 11/04/24 09:01 BP 110/72 11/04/24 09:01 Pulse Ox 98 11/04/24 09:01 Oxygen Delivery Method Room Air 11/04/24 09:01 BMI result Body Mass Index 27.9 Tobacco/Smoking Status: Tobacco use Status Tobacco use date assessed 11/04/24 11/04/24 09:11 Patient Tobacco Use Status Former Tobacco user 11/04/24 09:11 Tobacco use type Cigarette 11/04/24 09:11 e-Cigarette/Vaping Use Never Used 11/04/24 09:11 Thrive Assessment: Date of Thrive Assessment Date Thrive assessed 09/03/24 11/04/24 09:11 Coding Level of Care Code Est Pt Level 4 (08730) Complex EM visit Add On G2211 Diagnoses Low back pain radiating to lower extremity M54.50; M79.606 Assessment & Plan Assessment & Plan (1) Low back pain radiating to lower extremity: Code(s): M54.50 - Low back pain, unspecified; M79.606 - Pain in leg, unspecified Category: Medical Plan: PT added to the regimen Plan History of Present Illness The patient is a 69-year-old male presenting with ongoing chronic back pain, persisting despite previous medical consultations and prescribed medications. Initially managed in October with medication, the pain shows periodic improvement yet predominantly persists without substantial relief. Previous advice to undergo physical therapy was not implemented due to a lack of follow-up on scheduling. The current management includes an irregular use of prescribed muscle relaxants, due to forgetfulness and inconsistency in the patient?s adherence to recommended dosage. Additionally, the patient sporadically utilizes an hmos-cmz-wkgcxif medication for muscle pain, though the identity of this medication remains unclear. Recently completed blood work showed results within normal parameters. Social History Review of Systems - Musculoskeletal: Reports chronic back pain. - Neurological: Denies any other symptoms. Physical Exam General: Cooperative and healthy appearing Nutritional Appearance: Well nourished Orientation/consciousness: Patient oriented x3 Limitations: No limitations Head: Normal to inspection General: Appearance normal, both eyes and all related structures Neck: Normal visual inspection Chest: Normal palpation of entire chest wall Respiratory: Patient reports chest pain when device is placed on chest. ormal respiratory effort Neurology: Patient oriented x3 Results - Labs: Recent blood work, all results within normal range. Plan To address chronic back pain, the current management plan involves restarting physical therapy, ensuring the patient consents to and adheres to the medication regimen, and evaluating rmzo-yuv-ywmfhtp medication use. Physical therapy aims to bolster muscle support for the back, potentially alleviating pain levels. No further diagnostics were required given the normalization of recent blood tests. Patient was informed and verbally consented to the use of an ambient scribe for clinic note documentation during this visit. Discussion Notes I discussed with the patient the chronic nature of his back pain and the importance of consistent adherence to his prescribed medication regimen for optimal management. We reviewed the rationale for restarting physical therapy, noting its proven benefits in improving muscle strength and pain relief. The patient expressed understanding and agreement with this plan. Additionally, the importance of confirming the name and use of his sbyw-nch-qgmxqpf medication was highlighted to avoid interactions or inappropriate use. Follow-up will ensure continued improvement and management of his chronic pain. Patient Instructions - Follow the medication schedule as prescribed. - Attend scheduled physical therapy appointments. - Track the use of ssut-zhl-htbxubc medications and confirm them at the next visit. - Notify the clinic if experiencing increased pain or new symptoms.
[2024-11-04 09:01] VITALS: BP 110/72; PULSE 75; TEMP 36.3; O2SAT 98; BMI 27.9
--- OUTSIDE RECORDS SUMMARY | 2024-11-04 09:13 | XMS_ITS | Clinical Summary ---
Author Organization [facility] Address [address] [place] [address] Care Team Providers Care Quilting Supervisor Name Role Phone Damon Pastrana MD Primary Care Provider [phone] Source Comments PLEASE NOTE, if this patient [...] Imm-Zoster, Recombinant (2 of 2) 11/21/2023 09/26/19 [id number] ( season) 2024 09/26/2023, 09/10/2021, 12/25/2020, Additional [...] HEPATITIS C ANTIBODY NON-REACT AWILDA NON-REACT AWILDA [facility] Comment: HCV antibody was non-reactive. There is no laboratory evidence of HCV infection. In most cases, no further action is required. However, if recent HCV exposure is suspected, a test for HCV RNA (test code 24226) is suggested. For additional information please refer to http://Waluzi.3C Plus/faq/GYA36x7 (This link is being provided for informational/ educational purposes only.) Blood Blood / Unknown 09/26/2023 9 :52 AM EST 09/26/2023 9:52 AM EST us Damon Pastrana MD LAB - BLOOD DRAW Final Resul t [facility] [address] [address], [facility] [address] [address] * (ABNORMAL) LIPIDS W RFLX TO DIRECT LDL (09/26/2023 9:52 AM EST) CHOLESTEROL, TOTAL 223(H) <200 mg/dL [facility] HDL CHOLESTEROL 64 > OR = 40 mg/dL [facility] TRIGLYCERIDES 33 <150 mg/dL [facility] LDL-CHOLESTEROL 149(H) 99 mg/dL (calc) Pharmacopeia Comment: Reference range: <100 Desirable range <100 mg/dL for primary prevention; ?? <70 mg/dL for patients with CHD or diabetic patients with > or = 2 CHD risk factors. LDL-C is now calculated using the Singh-Kassandra calculation, which is a validated novel method providing better accuracy than the Friedewald equation in the estimation of LDL-C. Singh ORTEGA et al. GAB. 2013;310(19): 5037-4855 (http://education.Apprema/faq/SBK174) CHOL/HDLC RATIO 3.5 <5.0 (calc) Pharmacopeia NON-HDL CHOLESTEROL 159(H) <130 mg/dL (calc) [facility]ia Comment: For patients with diabetes plus 1 major ASCVD risk factor, treating to a non-HDL-C goal of <100 mg/dL (LDL-C of <70 mg/dL) is considered a therapeutic option. Blood Blood / Unknown 09/26/2023 9 :52 AM EST 09/26/2023 9:52 AM EST us Damon Pastrana MD LAB - BLOOD DRAW Final Resul t [facility] [address] [address], [facility] [address] [place] [address] * (ABNORMAL) COMPREHENSIVE METABOLIC PANEL (09/26/2023 9:52 AM EST) GLUCOSE 129(H) 65 - 99 mg/dL [facility] Comment: ?Fasting reference interval For someone without known diabetes, a glucose value >125 mg/dL indicates that they may have diabetes and this should be confirmed with a follow-up test. UREA NITROGEN (BUN) 19 7 - 25 mg/dL [facility] CREATININE (blood) 0.80 0.70 - 1.35 mg/dL [facility] EGFR 98 > OR = 60 mL/min/1. 73m2 Pharmac[facility]ia BUN/CREATININE RATIO SEE NOTE: Pharmacopeia Comment: ?? Not Reported: BUN and Creatinine are within ?? reference range. ? SODIUM 138 135 - 146 mmol/L [facility] POTASSIUM 4.3 3.5 - 5.3 mmol/L [facility] CHLORIDE 103 98 - 110 mmol/L [facility]ia CARBON DIOXIDE 27 20 - 32 mmol/L [facility]ia CALCIUM 8.9 8.6 - 10.3 mg/dL [facility]ia PROTEIN, TOTAL 7.2 6.1 - 8.1 g/dL [facility] ALBUMIN 4.5 3.6 - 5.1 g/dL [facility] GLOBULIN 2.7 1.9 - 3.7 g/dL (calc) Pharmac[facility]ia ALBUMIN/GLOBULI N RATIO 1.7 1.0 - 2.5 (calc) Pharmacopeia BILIRUBIN, TOTAL 1.0 0.2 - 1.2 mg/dL [facility] ALKALINE PHOSPHATASE 64 35 - 144 U/L [facility] AST 26 10 - 35 U/L [facility] ALT 32 9 - 46 U/L [facility] Blood Blood / Unknown 09/26/2023 9 :52 AM EST 09/26/2023 9:52 AM EST Damon Pastrana MD LAB - BLOOD DRAW Edited Resu lt - Final [facility] [address] [address], [facility] [address] [place] [address] * HISTORIC COLONOSCOPY (07/17/2021 3:00 AM EST) 07/17/2021 3:00 AM EST Damon Pastrana MD PROCEDURES Edited Resul t - Final from Last 3 Months or Most Recently Relevant to Health Maintenance Insurance [facility] Care Teams Quilting Supervisor Relationship Specialty Start Date End Date Damon Pastrana MD [address] [place] [address] PCP - General Internal Medicine 09/26/23
--- OUTSIDE RECORDS SUMMARY | 2024-11-04 09:13 | XMS_ITS | Encounter Summary ---
Author Organization [facility] Address [address] [place] [address] Care Team Providers Care Dumping Machine Operator Name Role Phone Joni Woodruff MD Primary Care Provider Joni Sotelo MD Unavailable Unavailable Lashawn Mitchell RN Unavailable Encounter Details Date Type Department Care Team (Late st Contact Info) Description 03/12/2016 Scanned Document [address] [phone] Provider, Generic Social History Tobacco Use Types Packs/Day Years Used Date Smoking Tobacco: Former Cigarettes 0 07/21/1985 - 07/21/2000 Alcohol Use Standard Drinks/Week Comments Yes 7 (1 standard drink = 0.6 oz pur e alcohol) Sex and Gender Information Value Date Recorded Sex Assigned at Not on file Legal Sex Male 4:42 PM EDT Gender Identity Not on file Sexual Orientation Not on file documented as of this encounter Plan of Treatment Not on file documented as of this encounter Visit Diagnoses Not on filedocumented in this encounter Care Teams Dumping Machine Operator Relationship Specialty Start Date End Date Joni Woodruff MD PCP - General 04/03/15 Joni Woodruff MD Internal Medicine 03/06/15 Lashawn Mitchell RN [address] [address] Oncology Nurse Navigator 04/10/16 documented as of this encounter
--- OUTSIDE RECORDS SUMMARY | 2024-11-04 09:13 | XMS_ITS | Encounter Summary ---
Author Organization [facility] Address [address] [place] [address] Care Team Providers Care Marketing Systems Analyst Name Role Phone Joni Woodruff MD Primary Care Provider Joni Sotelo MD Unavailable Unavailable Lashawn Mitchell RN Unavailable Encounter Details Date Type Department Care Team (Late st Contact Info) Description 04/20/2015 Scanned Document [address] [phone] Provider, Generic Social History Tobacco [...] on filedocumented in this encounter Care Teams Marketing Systems Analyst Relationship Specialty Start Date End Date Joni Woodruff MD PCP - General 04/03/15 Joni Woodruff MD Internal Medicine 03/06/15 Lashawn Mitchell RN [address] [address] Oncology Nurse Navigator 04/10/16 documented as of this encounter
--- OUTSIDE RECORDS SUMMARY | 2024-11-04 09:13 | XMS_ITS | Encounter Summary ---
Author Organization [facility] Address [address] [place] [address] Care Team Providers Care Sex Worker Or Escort Name Role Phone Joni Woodruff MD Primary Care Provider Joni Sotelo MD Unavailable Unavailable Lashawn Mitchell RN Unavailable Reason for Visit * Reason Onset Date Comments Medication Refill 04/24/2017 Encounter Details Date Type Department Care Team (Late st Contact Info) Description 04/24/2017 Refill [facility] Urologic Surgery [place] [address] [facility] [address] [place] [address] Suad Orr, GOLD LEAF LAYER [address] [place] [address] Social History Tobacco Use Types Packs/Day Years [...] on filedocumented in this encounter Care Teams Sex Worker Or Escort Relationship Specialty Start Date End Date Joni Woodruff MD PCP - General 04/03/15 oJni Woodruff MD Internal Medicine 03/06/15 Lashawn Mitchell RN [address] [place] [address] Oncology Nurse Navigator 04/10/16 documented as of this encounter
--- OUTSIDE RECORDS SUMMARY | 2024-11-04 09:13 | XMS_ITS | Clinical Summary ---
Author Organization [facility] Address [address] [place] [address] Care Team Providers Care Flight Simulator Teacher Name Role Phone Joni Woodruff MD Primary Care Provider Joni Sotelo MD Unavailable Unavailable Lashawn Mitchell RN Unavailable Allergies Active Allergy Reactions Criticality Noted Date Comments Penicillins Other (See Comments) ,GI Intolerance/Nausea/Vomiting Low 03/06/2015 dizziness Medications aspirin 81 MG tablet Aspirin 81 MG Oral Tablet TAKE 1 TABLET DAILY. ; Start Date: ; End Date: Active ergocalciferol (ERGOCALCIFEROL) 81013 units capsuleIndication s:Vitamin D Deficiency Take 1 capsule (50,000 Units total) by mouth every 14 days (2 weeks). 6 capsule 3 8 Active Elastic Bandages & Supports (WRIST SPLINT) MiscIndications:C arpal tunnel syndrome of right wrist 1 Device by Does not apply route nightly. Right wrist. Futuro brand or equivalent 1 Device 8 Active sildenafil (REVATIO) 20 MG tabletIndications :Erectile dysfunction following radical prostatectomy Take 1 tablet (20 mg total) by mouth as needed (ED). Take 1-5 tabs 2 hours prior to sexual activity not to exceed 5 xpr=161 mg in 24 hrs 50 tablet 11 8 Active Active Problems Problem Noted Date Diagnosed [...] Lateral epicondylitis of elbow 09/05/2014 09/07/2015 Immunizations Immunization Administration Dates Next Due TD Preservative Free [...] (1 - Tdap) 01/31/2010 01/30/2010 COVID-19 Vaccine (1 - 2023- season) 2024 RSV Vaccine 60 years and [...] Ag/Ab, 4th Gen NON-REACT AWILDA NON-REACT AWILDA [facility] Comment: HIV-1 antigen and HIV-1/HIV-2 antibodies [...] ?? For additional information please refer to http://education.Lovethelook/faq/ZJN541 (This link is being provided for informational/ educational purposes only.) The performance of this assay has not been clinically validated in patients less than 2 years old. Blood specimen (specimen) 11/20/2017 4:01 PM EDT 11/21/2017 6:28 AM EDT Narrative Resulting Agency Comment Performing Organization Information: ?Site ID: [id number] ?Name: [facility] ?Address: [address] [place] [address], [place] [address] ?Director: Uche Rock MD Joni Woodruff MD LAB BLOOD ORDERABLES Final Re sult [facility] [address], [place] [address] from Last 3 Months or Most Recently Relevant to Health Maintenance Care Teams Flight Simulator Teacher Relationship Specialty Start Date End Date Joni Woodruff MD PCP - General 04/03/15 Joni Woodruff MD Internal Medicine 03/06/15 Lashawn Mitchell RN [address] [place] [address] Oncology Nurse Navigator 04/10/16
--- OUTSIDE RECORDS SUMMARY | 2024-11-04 09:13 | XMS_ITS | Encounter Summary ---
Author Organization [facility] Address [address] [place] [address] Care Team Providers Care Diesel Engine I Pipe Fitter Name Role Phone Joni Woodruff MD Primary Care Provider Joni Sotelo MD Unavailable Unavailable Lashawn Mitchell RN Unavailable Encounter Details Date Type Department Care Team (Late st Contact Info) Description 07/11/2015 Scanned Document [address] [phone] Provider, Generic Social History Tobacco [...] filedocumented in this encounter Care Teams Diesel Engine I Pipe Fitter Relationship Specialty Start Date End Date Joni Woodruff MD PCP - General 04/03/15 Joni Woodruff MD Internal Medicine 03/06/15 Lashawn Mitchell RN [address] [address] Oncology Nurse Navigator 04/10/16 documented as of this encounter
--- OUTSIDE RECORDS SUMMARY | 2024-11-04 09:13 | XMS_ITS | Encounter Summary ---
Author Organization [facility] Address [address] [place] [address] Care Team Providers Care Service Supervisor Name Role Phone Join Woodruff MD Primary Care Provider Joni Sotelo MD Unavailable Unavailable Lashawn Mitchell RN Unavailable Encounter Details Date Type Department Care Team (Late st Contact Info) Description 01/03/2016 Telephone [facility] [place] [address] Alonso Gonzales MD [address] [place] [address] Social History Tobacco Use Types Packs/Day Years [...] on filedocumented in this encounter Care Teams Service Supervisor Relationship Specialty Start Date End Date Joni Woodruff MD PCP - General 04/03/15 Joni Woodruff MD Internal Medicine 03/06/15 Lashawn Mitchell RN [address] [place] [address] Oncology Nurse Navigator 04/10/16 documented as of this encounter
--- OUTSIDE RECORDS SUMMARY | 2024-11-04 09:13 | XMS_ITS | Clinical Summary ---
Author Organization [facility], Address [address] [place] [address] [place] [address] Phone Care Team Providers Care Leasing Sales Consultant Name Role Phone Jackson Moyer MD Primary Care Provider [phone] Allergies Active Allergy Reactions Criticality Noted Date [...] severe COVID-19: None ? Healthcare worker or emergency medicine specialist? No ? COVID-19 Tested? - Yes - Date Tested 11/03/2019 Testing Location - [facility] - Testing Results - Positive ? Is patient ? No Vitamin D deficiency 08/25/2013 Immunizations Immunization Administration Dates Next Due Td, Unspecified 01/30/2010 [...] Colorectal Cancer Screening: Sigmoidoscopy 2005 Pneumococcal Vaccine: 50+ Ye ars (1 of 1 - PCV) 2006 Influenza Vaccine (Season Ended) 2025 Hepatitis B Vaccine Aged Out No longe r eligible based on patient's age to complete this topic Insurance [facility] Care Teams Leasing Sales Consultant Relationship Specialty Start Date End Date Jackson Moyer MD [address] [place] [address] PCP - General Internal Medicine 11/24/19
--- OUTSIDE RECORDS SUMMARY | 2024-11-04 09:13 | XMS_ITS | Encounter Summary ---
Author Organization [facility] Address [address] [place] [address] Care Team Providers Care Conference Services Manager Name Role Phone Joni Woodruff MD Primary Care Provider Joni Sotelo MD Unavailable Unavailable Lashawn Mitchell RN Unavailable Encounter Details Date Type Department Care Team (Late st Contact Info) Description 04/16/2016 Scanned Document [facility] [address] [facility] [address] [place] [phone] Provider, Generic Social History Tobacco Use Types [...] on filedocumented in this encounter Care Teams Conference Services Manager Relationship Specialty Start Date End Date Joni Woodruff MD PCP - General 04/03/15 Joni Woodruff MD Internal Medicine 03/06/15 Lashawn Mitchell RN [address] [address] Oncology Nurse Navigator 04/10/16 documented as of this encounter
--- OUTSIDE RECORDS SUMMARY | 2024-11-04 09:13 | XMS_ITS | Encounter Summary ---
Author Organization [facility] Address [address] [place] [address] Care Team Providers Care Clinical Safety Specialist Name Role Phone Joni Woodruff MD Primary Care Provider Joni Sotelo MD Unavailable Unavailable Lashawn Mitchell RN Unavailable Encounter Details Date Type Department Care Team (Late st Contact Info) Description 03/23/2015 Scanned Document [address] [phone] Provider, Generic Social History Tobacco [...] on filedocumented in this encounter Care Teams Clinical Safety Specialist Relationship Specialty Start Date End Date Joni Woodruff MD PCP - General 04/03/15 Joni Woodruff MD Internal Medicine 03/06/15 Lashawn Mitchell RN [address] [address] Oncology Nurse Navigator 04/10/16 documented as of this encounter
--- OUTSIDE RECORDS SUMMARY | 2024-11-04 09:13 | XMS_ITS | Encounter Summary ---
Author Organization [facility] Address [address] [place] [address] Care Team Providers Care Security Systems Integrator Name Role Phone Joni Woodruff MD Primary Care Provider Joni Sotelo MD Unavailable Unavailable Lashawn Mitchell RN Unavailable Encounter Details Date Type Department Care Team (Late st Contact Info) Description 03/20/2017 Scanned Document [address] [phone] Joni Woodruff MD Social History [...] on filedocumented in this encounter Care Teams Security Systems Integrator Relationship Specialty Start Date End Date Joni Woodruff MD PCP - General 04/03/15 Joni Woodruff MD Internal Medicine 03/06/15 Lashawn Mitchell RN [address] [address] Oncology Nurse Navigator 04/10/16 documented as of this encounter
--- OUTSIDE RECORDS SUMMARY | 2024-11-04 09:14 | XMS_ITS | Encounter Summary ---
Author Organization [facility] Address [address] [place] [address] Care Team Providers Care Mainframe Consultant Name Role Phone Joni Woodruff MD Primary Care Provider Joni Sotelo MD Unavailable Unavailable Lashawn Mitchell RN Unavailable [phone] Encounter Details Date Type Department Care Team (Late st Contact Info) Description 03/06/2015 Scanned Document [address] [facility] [address] [place] [phone] Provider, Generic Social History Tobacco Use [...] Narrative 03/06/2015 Ordered by an unspecified provider. us Generic Provider ECG ORDERABLES Edited Result - Final documented in this encounter Visit Diagnoses Not on filedocumented in this encounter Care Teams Mainframe Consultant Relationship Specialty Start Date End Date Joni Woodruff MD PCP - General 04/03/15 Joni Woodruff MD Internal Medicine 03/06/15 Lashawn Mitchell RN [address] [place] [address] Oncology Nurse Navigator 04/10/16 documented as of this encounter
--- OUTSIDE RECORDS SUMMARY | 2024-11-04 09:14 | XMS_ITS | Encounter Summary ---
Author Organization [facility] Address [address] [place] [address] Care Team Providers Care Gas Check Pad Maker Name Role Phone Joni Woodruff MD Primary Care Provider Joni Sotelo MD Unavailable Unavailable Lashawn Mitchell RN Unavailable [phone] Encounter Details Date Type Department Care Team (Late st Contact Info) Description 06/21/2016 Scanned Document [address] [facility] [address] [place] [phone] Provider, Generic Social History Tobacco Use [...] Narrative 06/21/2016 Ordered by an unspecified provider. us Generic Provider HX AMB PROCEDURES Edited Result - Final documented in this encounter Visit Diagnoses Not on filedocumented in this encounter Care Teams Gas Check Pad Maker Relationship Specialty Start Date End Date Joni Woodruff MD PCP - General 04/03/15 Joni Woodruff MD Internal Medicine 03/06/15 Lashawn Mitchell RN [address] [place] [address] Oncology Nurse Navigator 04/10/16 documented as of this encounter
--- OUTSIDE RECORDS SUMMARY | 2024-11-04 09:14 | XMS_ITS | Encounter Summary ---
Author Organization [facility] Address [address] [place] [address] Care Team Providers Care Inspector Assemblies And Installations Name Role Phone Joni Woodruff MD Primary Care Provider Joni Sotelo MD Unavailable Unavailable Lashawn Mitchell RN Unavailable Encounter Details Date Type Department Care Team (Late st Contact Info) Description 11/21/2017 Scanned Document [address] [phone] Joni Woodruff MD Social History [...] on filedocumented in this encounter Care Teams Inspector Assemblies And Installations Relationship Specialty Start Date End Date Joni Woodruff MD PCP - General 04/03/15 Joni Woodruff MD Internal Medicine 03/06/15 Lashawn Mitchell RN [address] [address] Oncology Nurse Navigator 04/10/16 documented as of this encounter
--- OUTSIDE RECORDS SUMMARY | 2024-11-04 09:14 | XMS_ITS | Clinical Summary ---
Author Organization [employer] [facility] it Address [address] [place] [address] Care Team Providers Care Blaster Helper Name Role Phone Unavailable Primary Care Provider [...] - 2023-2 5 season) 2024 Influenza Vaccine (Season Ended) 2025 RSV Immunization Adult Patie nts (1 - [...] age to complete this topic Meningococcal B Vaccine Aged Out No l onger eligible based on patient's age to complete this topic RSV Immunization Patients Un erendira 20 months Aged Out No longer eligible b ased on patient's age to complete this topic Varicella Vaccines Aged Out No longer eligible based on patient's age to complete this topic
--- OUTSIDE RECORDS SUMMARY | 2024-11-04 09:14 | XMS_ITS | Encounter Summary ---
Author Organization [facility] Address [address] [place] [address] Care Team Providers Care Sports Official Name Role Phone Joni Woodruff MD Primary Care Provider Joni Sotelo MD Unavailable Unavailable Lashawn Mitchell RN Unavailable [phone] Encounter Details Date Type Department Care Team (Late st Contact Info) Description 02/14/2015 Scanned Document [address] [phone] Provider, Generic Social History Tobacco [...] on filedocumented in this encounter Care Teams Sports Official Relationship Specialty Start Date End Date Joni Woodruff MD PCP - General 04/03/15 Joni Woodruff MD Internal Medicine 03/06/15 Lashawn Mitchell, RN [address] [address] Oncology Nurse Navigator 04/10/16 documented as of this encounter
== END 2024-11-04 11:21 | disposition home or self-care (01) ==
LOC: HO.HMCH 08:40
PROVIDERS: PCP Internal Medicine; Visit Provider Internal Medicine
DX: M54.50 Low back pain, unspecified (principal); M79.606 Pain in leg, unspecified

== ENCOUNTER → 2024-11-04 08:39 | Outpatient (BNVA) | payer OTHER, SELFPAY | PROVIDERS: PCP Internal Medicine; Visit Provider Internal Medicine ==

== ENCOUNTER → 2024-11-26 20:30 | Outpatient (REF) | payer OTHER, SELFPAY ==
--- OUTSIDE RECORDS SUMMARY | 2024-11-26 21:46 | XMS_ITS | Clinical Summary ---
Author Organization [facility] [facility] it Address [address] [place] [address] Care Team Providers Care Head Of Insight Name Role Phone Unavailable Primary Care Provider [...]
--- OUTSIDE RECORDS SUMMARY | 2024-11-26 21:46 | XMS_ITS | Encounter Summary ---
Author Organization [facility] Address [address] [place] [address] Care Team Providers Care Gas Regulator Repairer Name Role Phone Joni Woodruff MD Primary Care Provider Joni Sotelo MD Unavailable Unavailable Lashawn Mitchell RN Unavailable Encounter Details Date Type Department Care Team (Late st Contact Info) Description 04/16/2016 Scanned Document [facility] 80 [facility] [address] [place] [phone] Provider, Generic Social History Tobacco Use Types [...] filedocumented in this encounter Care Teams Gas Regulator Repairer Relationship Specialty Start Date End Date Joni Woodruff MD PCP - General 04/03/15 Joni Woodruff MD Internal Medicine 03/06/15 Lashawn Mitchell RN [address] [address] Oncology Nurse Navigator 04/10/16 documented as of this encounter
--- OUTSIDE RECORDS SUMMARY | 2024-11-26 21:46 | XMS_ITS | Encounter Summary ---
Author Organization [facility] Address [address] [place] [address] Care Team Providers Care Marketing Services Rep Name Role Phone Joni Woodruff MD Primary Care Provider Joni Sotelo MD Unavailable Unavailable Lashawn Mitchell RN Unavailable Encounter Details Date Type Department Care Team (Late st Contact Info) Description 07/11/2015 Scanned Document [address] [phone] Provider, Generic Social History [...] filedocumented in this encounter Care Teams Marketing Services Rep Relationship Specialty Start Date End Date Joni Woodruff MD PCP - General 04/03/15 Joni Woodruff MD Internal Medicine 03/06/15 Lashawn Mitchell RN [address] [address] Oncology Nurse Navigator 04/10/16 documented as of this encounter
--- OUTSIDE RECORDS SUMMARY | 2024-11-26 21:46 | XMS_ITS | Encounter Summary ---
Author Organization [facility] Address [address] [place] [address] Care Team Providers Care Hand Thermal Cutter Name Role Phone Joni Woodruff MD Primary Care Provider Joni Sotelo MD Unavailable Unavailable Lashawn Mitchell RN Unavailable Encounter Details Date Type Department Care Team (Late st Contact Info) Description 03/23/2015 Scanned Document [address] [phone] Provider, Generic Social History [...] on filedocumented in this encounter Care Teams Hand Thermal Cutter Relationship Specialty Start Date End Date Joni Woodruff MD PCP - General 04/03/15 Joni Woodruff MD Internal Medicine 03/06/15 Lashawn Mitchell RN [address] [address] Oncology Nurse Navigator 04/10/16 documented as of this encounter
--- OUTSIDE RECORDS SUMMARY | 2024-11-26 21:46 | XMS_ITS | Clinical Summary ---
Author Organization [facility] Address [address] [place] [address] Care Team Providers Care Marine Equipment Design Engineer Name Role Phone Damon Pastrana MD Primary Care Provider [phone] Source Comments PLEASE NOTE, if this patient [...] Imm-Zoster, Recombinant (2 of 2) 11/21/2023 09/26/19 [id number] ( season) 2024 09/26/2023, 09/10/2021, 12/25/2020, Additional [...] RT PCR (09/26/2023 9:52 AM EST) Pathologist [facility] HEPATITIS C ANTIBODY NON-REACT AWILDA NON-REACT AWILDA [employer] [facility] Comment: HCV antibody was non-reactive. There is no laboratory evidence of HCV infection. In most cases, no further action is required. However, if recent HCV exposure is suspected, a test for HCV RNA (test code 87696) is suggested. For additional information please refer to http://[employer].geolad/faq/BYV56h8 (This link is being provided for informational/ educational purposes only.) Blood Blood / Unknown 09/26/2023 9 :52 AM EST 09/26/2023 9:52 AM EST us Damon Pastrana MD LAB - BLOOD DRAW Final Resul t [employer] [address] [address], [employer] [address] [address] * (ABNORMAL) LIPIDS W RFLX TO DIRECT LDL (09/26/2023 9:52 AM EST) CHOLESTEROL, TOTAL 223(H) <200 mg/dL [employer] HDL CHOLESTEROL 64 > OR = 40 mg/dL [employer] TRIGLYCERIDES 33 <150 mg/dL [employer] LDL-CHOLESTEROL 149(H) 99 mg/dL (calc) [employer] Comment: Reference range: <100 Desirable range <100 mg/dL for primary prevention; ?? <70 mg/dL for patients with CHD or diabetic patients with > or = 2 CHD risk factors. LDL-C is now calculated using the Singh-Kassandra calculation, which is a validated novel method providing better accuracy than the Friedewald equation in the estimation of LDL-C. Singh ORTEGA et al. GAB. 2013;310(19): 3874-3345 (http://education.Jigsee/faq/WNU829) CHOL/HDLC RATIO 3.5 <5.0 (calc) [employer] NON-HDL CHOLESTEROL 159(H) <130 mg/dL (calc) [employer] Comment: For patients with diabetes plus 1 major ASCVD risk factor, treating to a non-HDL-C goal of <100 mg/dL (LDL-C of <70 mg/dL) is considered a therapeutic option. Blood Blood / Unknown 09/26/2023 9 :52 AM EST 09/26/2023 9:52 AM EST us Damon Pastrana MD LAB - BLOOD DRAW Final Resul t [employer] [address] [address], [employer] [address] [place] [address] * (ABNORMAL) COMPREHENSIVE METABOLIC PANEL (09/26/2023 9:52 AM EST) GLUCOSE 129(H) 65 - 99 mg/dL [employer] Comment: ?Fasting reference interval For someone without known diabetes, a glucose value >125 mg/dL indicates that they may have diabetes and this should be confirmed with a follow-up test. UREA NITROGEN (BUN) 19 7 - 25 mg/dL [employer] [facility] CREATININE (blood) 0.80 0.70 - 1.35 mg/dL [employer] EGFR 98 > OR = 60 mL/min/1. 73m2 [employer] BUN/CREATININE RATIO SEE NOTE: [employer] Comment: ?? Not Reported: BUN and Creatinine are within ?? reference range. ? SODIUM 138 135 - 146 mmol/L [employer] POTASSIUM 4.3 3.5 - 5.3 mmol/L [employer] CHLORIDE 103 98 - 110 mmol/L [employer] CARBON DIOXIDE 27 20 - 32 mmol/L [employer] CALCIUM 8.9 8.6 - 10.3 mg/dL [employer] PROTEIN, TOTAL 7.2 6.1 - 8.1 g/dL [employer] ALBUMIN 4.5 3.6 - 5.1 g/dL [employer] [facility] GLOBULIN 2.7 1.9 - 3.7 g/dL (calc) [employer] ALBUMIN/GLOBULI N RATIO 1.7 1.0 - 2.5 (calc) [employer] BILIRUBIN, TOTAL 1.0 0.2 - 1.2 mg/dL [employer] ALKALINE PHOSPHATASE 64 35 - 144 U/L [employer] AST 26 10 - 35 U/L [employer] ALT 32 9 - 46 U/L [employer] Blood Blood / Unknown 09/26/2023 9 :52 AM EST 09/26/2023 9:52 AM EST Damon Pastrana MD LAB - BLOOD DRAW Edited Resu lt - Final [facility] [place] [email or web address] [address] [address], [facility] [address] [place] [address] * HISTORIC COLONOSCOPY (07/17/2021 3:00 AM EST) 07/17/2021 3:00 AM EST Damon Pastrana MD PROCEDURES Edited Resul t - Final from Last 3 Months or Most Recently Relevant to Health Maintenance Insurance [facility] Care Teams Marine Equipment Design Engineer Relationship Specialty Start Date End Date Damon Pastrana MD [address] [place] [address] PCP - General Internal Medicine 09/26/23
--- OUTSIDE RECORDS SUMMARY | 2024-11-26 21:46 | XMS_ITS | Encounter Summary ---
Author Organization [facility] Address [address] [place] [address] Care Team Providers Care Director Erp Name Role Phone Joni Woodruff MD Primary Care Provider Joni Sotelo MD Unavailable Unavailable Lashawn Mitchell RN Unavailable [phone] Encounter Details Date Type Department Care Team (Late st Contact Info) Description 06/21/2016 Scanned Document [address] [facility] [address] [place] [phone] Provider, Generic Social History Tobacco Use [...] filedocumented in this encounter Care Teams Director Erp Relationship Specialty Start Date End Date Joni Woodruff MD PCP - General 04/03/15 Joni Woodruff MD Internal Medicine 03/06/15 Lashawn Mitchell RN [address] [place] [address] Oncology Nurse Navigator 04/10/16 documented as of this encounter
--- OUTSIDE RECORDS SUMMARY | 2024-11-26 21:46 | XMS_ITS | Encounter Summary ---
Author Organization [facility] Address [address] [place] [address] Care Team Providers Care Purchasing Associate Name Role Phone Joni Woodruff MD Primary Care Provider Joni Sotelo MD Unavailable Unavailable Lashawn Mitchell RN Unavailable Encounter Details Date Type Department Care Team (Late st Contact Info) Description 04/20/2015 Scanned Document [address] [phone] Provider, Generic Social History Tobacco [...] on filedocumented in this encounter Care Teams Purchasing Associate Relationship Specialty Start Date End Date Joni Woodruff MD PCP - General 04/03/15 Joni Woodruff MD Internal Medicine 03/06/15 Lashawn Mitchell RN [address] [address] Oncology Nurse Navigator 04/10/16 documented as of this encounter
--- OUTSIDE RECORDS SUMMARY | 2024-11-26 21:46 | XMS_ITS | Clinical Summary ---
Author Organization [facility], Address [address] [place] [address] [place] [address] Phone Care Team Providers Care Electronic Controls Repairer Supervisor Name Role Phone Jackson Moyer MD Primary Care Provider Allergies Active Allergy Reactions Criticality Noted Date [...] severe COVID-19: None ? Healthcare worker or abrasive mixer helper? No ? COVID-19 Tested? - Yes - Date Tested 11/03/2019 Testing Location - [facility] - Testing Results - Positive ? [...] age to complete this topic Insurance [facility] Care Teams Electronic Controls Repairer Supervisor Relationship Specialty Start Date End Date Jackson Moyer MD [address] [place] [address] PCP - General Internal Medicine 11/24/19
--- OUTSIDE RECORDS SUMMARY | 2024-11-26 21:46 | XMS_ITS | Encounter Summary ---
Author Organization [facility] Address [address] [place] [address] Care Team Providers Care Patient Carrier Name Role Phone Joni Woodruff MD Primary Care Provider Joni Sotelo MD Unavailable Unavailable Lashawn Mitchell RN Unavailable Encounter Details Date Type Department Care Team (Late st Contact Info) Description 03/12/2016 Scanned Document [address] [phone] Provider, Generic Social History Tobacco [...] on filedocumented in this encounter Care Teams Patient Carrier Relationship Specialty Start Date End Date Joni Woodruff MD PCP - General 04/03/15 Joni Woodruff MD Internal Medicine 03/06/15 Lashawn Mitchell RN [address] [address] Oncology Nurse Navigator 04/10/16 documented as of this encounter
--- OUTSIDE RECORDS SUMMARY | 2024-11-26 21:46 | XMS_ITS | Encounter Summary ---
Author Organization [facility] Address [address] [place] [address] Care Team Providers Care Event Decorator And Designer Name Role Phone Joni Woodruff MD Primary Care Provider Joni Sotelo MD Unavailable Unavailable Lashawn Mitchell RN Unavailable Reason for Visit * Reason Onset Date Comments Medication Refill 04/24/2017 Encounter Details Date Type Department Care Team (Late st Contact Info) Description 04/24/2017 Refill [facility] [place] [address] [facility] [address] [place] [address] Suad Orr, BOBBIN DRIER [address] [place] [address] Social History Tobacco Use Types Packs/Day Years [...] on filedocumented in this encounter Care Teams Event Decorator And Designer Relationship Specialty Start Date End Date Joni Woodruff MD PCP - General 04/03/15 Joni Woodruff MD Internal Medicine 03/06/15 Lashawn Mitchell RN [address] [place] [address] Oncology Nurse Navigator 04/10/16 documented as of this encounter
--- OUTSIDE RECORDS SUMMARY | 2024-11-26 21:46 | XMS_ITS | Encounter Summary ---
Author Organization [facility] Address [address] [place] [address] Care Team Providers Care Quotation Checker Name Role Phone Joni Woodruff MD Primary Care Provider Joni Sotelo MD Unavailable Unavailable Lashawn Mitchell RN Unavailable Encounter Details Date Type Department Care Team (Late st Contact Info) Description 03/20/2017 Scanned Document [address] [phone] Joni Woodruff MD Social History [...] on filedocumented in this encounter Care Teams Quotation Checker Relationship Specialty Start Date End Date Joni Woodruff MD PCP - General 04/03/15 Joni Woodruff MD Internal Medicine 03/06/15 Lashawn Mitchell RN [address] [address] Oncology Nurse Navigator 04/10/16 documented as of this encounter
--- OUTSIDE RECORDS SUMMARY | 2024-11-26 21:46 | XMS_ITS | Encounter Summary ---
Author Organization [facility] Address [address] [place] [address] Care Team Providers Care Animal Husbandry Worker Name Role Phone Joni Woodurff MD Primary Care Provider Joni Sotelo MD Unavailable Unavailable Lashawn Mitchell RN Unavailable [phone] Encounter Details Date Type Department Care Team (Late st Contact Info) Description 02/14/2015 Scanned Document [address] [phone] Provider, Generic Social History [...] on filedocumented in this encounter Care Teams Animal Husbandry Worker Relationship Specialty Start Date End Date Joni Woodruff MD PCP - General 04/03/15 Joni Woodruff MD Internal Medicine 03/06/15 Lashawn Mitchell, RN [address] [address] Oncology Nurse Navigator 04/10/16 documented as of this encounter
--- OUTSIDE RECORDS SUMMARY | 2024-11-26 21:46 | XMS_ITS | Clinical Summary ---
Author Organization [facility] Address [address] [place] [address] Care Team Providers Care Communications Officer Name Role Phone Joni Woodruff MD Primary Care Provider Joni Sotelo MD Unavailable Unavailable Lashawn Mitchell RN Unavailable [phone] Allergies Active Allergy Reactions Criticality Noted Date Comments Penicillins Other (See Comments) ,GI Intolerance/Nausea/Vomiting Low 03/06/2015 dizziness Medications aspirin 81 MG tablet Aspirin 81 MG Oral Tablet TAKE 1 TABLET DAILY. ; Start Date: ; End Date: Active ergocalciferol (ERGOCALCIFEROL) 93282 units capsuleIndication s:Vitamin D Deficiency Take 1 [...] to sexual activity not to exceed 5 gvf=991 mg in 24 hrs 50 tablet 11 [...] Ag/Ab, 4th Gen NON-REACT AWILDA NON-REACT AWILDA [employer] [facility] Comment: HIV-1 antigen and HIV-1/HIV-2 antibodies [...] ?? For additional information please refer to http://education.Enchanted Diamonds/faq/KLX689 (This link is being provided for informational/ educational purposes only.) The performance of this assay has not been clinically validated in patients less than 2 years old. Blood specimen (specimen) 11/20/2017 4:01 PM EDT 11/21/2017 6:28 AM EDT Narrative Resulting Agency Comment Performing Organization Information: ?Site ID: [id number] ?Name: [facility] ?Address: [address] [place] [address], [place] [address] ?Director: Uche Rock MD Joni Woodruff MD LAB BLOOD ORDERABLES Final Re sult [id number] [address], [place] [address] from Last 3 Months or Most Recently Relevant to Health Maintenance Care Teams Communications Officer Relationship Specialty Start Date End Date Joni Woodruff MD PCP - General 04/03/15 Joni Woodruff MD Internal Medicine 03/06/15 Lashawn Mitchell RN [address] [place] [address] Oncology Nurse Navigator 04/10/16
--- OUTSIDE RECORDS SUMMARY | 2024-11-26 21:47 | XMS_ITS | Encounter Summary ---
Author Organization [facility] Address [address] [place] [address] Care Team Providers Care Appellate Conferee Name Role Phone Joni Woodruff MD Primary Care Provider Joni Sotelo MD Unavailable Unavailable Lashawn Mitchell RN Unavailable Encounter Details Date Type Department Care Team (Late st Contact Info) Description 03/06/2015 Scanned Document [address] [facility] [address] [place] [phone] Provider, Generic Social History Tobacco Use [...] on filedocumented in this encounter Care Teams Appellate Conferee Relationship Specialty Start Date End Date Joni Woodruff MD PCP - General 04/03/15 Joni Woodruff MD Internal Medicine 03/06/15 Lashawn Mitchell RN [address] [place] [address] Oncology Nurse Navigator 04/10/16 documented as of this encounter
--- OUTSIDE RECORDS SUMMARY | 2024-11-26 21:47 | XMS_ITS | Encounter Summary ---
Author Organization [facility] Address [address] [place] [address] Care Team Providers Care Hand Weaver Name Role Phone Joni Woodruff MD Primary Care Provider Joni Sotelo MD Unavailable Unavailable Lashawn Mitchell RN Unavailable [phone] Encounter Details Date Type Department Care Team (Late st Contact Info) Description 11/21/2017 Scanned Document [address] [phone] Joni Woodruff MD Social History [...] filedocumented in this encounter Care Teams Hand Weaver Relationship Specialty Start Date End Date Joni Woodruff MD PCP - General 04/03/15 Joni Woodruff MD Internal Medicine 03/06/15 Lashawn Mitchell RN [address] [address] Oncology Nurse Navigator 04/10/16 documented as of this encounter
== END ==
LOC: HO.SL 20:30
PROVIDERS: PCP Internal Medicine; Visit Provider Physician Assistant Medical
DX: G47.33 Obstructive sleep apnea (adult) (pediatric) (principal); G25.81 Restless legs syndrome; G25.3 Myoclonus; R06.83 Snoring
CPT/HCPCS: 95810

== ENCOUNTER → 2024-11-26 21:31 | Outpatient (BNV) | payer OTHER, SELFPAY | PROVIDERS: PCP Internal Medicine; Visit Provider Psychiatry & Neurology Neurology | DX: G47.33 Obstructive sleep apnea (adult) (pediatric) (principal) | CPT/HCPCS: 95810 ==

== ENCOUNTER 2024-12-30 09:47 | Outpatient (AMB) | payer OTHER, SELFPAY ==
--- NOTE | 2024-12-30 09:51 | MHC.OFFVIS ---
Vital Signs 12/30/24 09:53 Height 5 ft 6 in Weight 172 lb BMI 27.8 BP 116/72 Blood Pressure Location Rt brachial Position Sitting Intake Visit Reasons: 3mon follow-up Intake Note: Patient presents follow up PIERRE. X-ray/Titration in chart( AHI-40, OC-71%, Trialed CPAP 4-9cm water. Stabilized at 9cm water. Start CPAP 9cm water) Computer Network And Systems Engineer Required: Yes Computer Network And Systems Engineer Services: Computer Network And Systems Engineer Present Computer Network And Systems Engineer Name: ZAIN Lopes ID#[id number] Information Interpreted: non-clinical & clinical Allergies Penicillins Allergy (Intermediate, Verified 12/30/24 09:53) SICKNESS ampicillin Allergy (Unknown, Verified 12/30/24 09:53) Unknown HPI Comments Details: 69 y/o male patient presents for follow up of PIERRE on CPAP. 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 He has a h/o tachycardia and takes aspirin daily. Denies stroke or [place]. The CPAP compliance and therapy response (06/25/24-09/22/24) reviewed with patient. He is on CPAP at [id number]. The usage days 33% and the average usage hours 1 hr 53 min. The residual AHI was 2.1 He goes to bed at 1am to 2am and wakes up at 7am. He works from 3 pm to 2 am, sometimes when he gets home at 3am, he forgets to put the CPAP on. He is trying to use his machine more consisitently now. He washes the mask, changes his tubing and filters, tubing and fills water in the reservoir with water. Denies headaches. RLS symptoms: Continues to have bilateral leg pain, numbness r>l, he has cramps and spasms. It does not keep him up. He c/o r. knee pain> l.knee pain, difficult to get up and sit down because the knee sounds like it is making some noise. Discussed wearing knee brace, using meloxicam 15mg as needed and f/u with PCP/ Ortho/ PT. He takes 10mg cyclobenzaprine TID. He denies falls and or injury. His STM is poor, he forgets tasks, names and has word finding difficulties. will discuss after using cpap consistently at next f/u patient education provided today as he has +fh of dementia. His diet is good. [facility] Medical History Anemia Diverticulosis Overweight (BMI 25.0-29.9) Right flank pain Low back pain radiating to lower extremity Rib pain on right side Osteoarthritis of right shoulder Hypercholesterolemia Eczema Hyperglycemia Prostate cancer Vitamin D deficiency Contusion of chest wall Surgical History History of colonoscopy (~07/11/21) History of appendectomy History of prostatectomy Family History Father Prostate cancer Mother No problems noted. Social History Housing: House Alcohol intake: current Alcohol intake frequency: holidays/special occasions only Patient Tobacco Use Status: Former Tobacco user Tobacco use type: Cigarette e-Cigarette/Vaping Use: Never Used Second Hand Smoke Exposure: Yes service: No Current occupational status: employed Cognitive needs: No Hearing needs: No Vision needs: Yes (glasses) Physical Exam Vital Signs: Last Vital Signs BP 116/72 12/30/24 09:53 BMI result Body Mass Index 27.8 Const General: cooperative Nutritional Appearance: average body habitus Orientation/consciousness: patient oriented x3 HEENT Throat: Yes other (mallampati grade.) Eyes Pupils: Equal, round and reactive pupils present Resp Effort & Inspection: normal respiratory effort and able to speak in complete sentences Back/Spine/Pelvis Back: back tenderness Thoracic/Lumbar Spine: pain with thoraco-lumbar ROM, thoraco-lumbar spasm on the right and lumbar spinal tenderness at L4 Neuro General: patient oriented x3 and moves all extremities Cranial nerves: Yes Equal, round and reactive pupils present, Yes Normal accommodation reflex present, Yes Midline tongue present, Yes Ability to bilaterally rotate head present and Yes Ability to bilaterally elevate shoulders present Gait exam (Neuro): Normal gait present Motor exam (neuro): 5/5 motor strength present throughout and Normal motor muscle tone present throughout Coordination: [id number] test normal Psych Appearance: grossly normal Thought process: Normal thought process present Thought content: Normal thought content present Results Reviewed Results Reviewed: 11/2024 CPAP Titration study is completed cpap titration to 9cmH20 Knee Xray 10/2024 XR/XR Knee Joel 3V IMPRESSION: No acute fracture or dislocation. Negative exam. Assessment & Plan Assessment & Plan (1) Obstructive sleep apnea: Comment: Severe degree of sleep apnea. The AHI was 65/hr and oxygen oc was 62%. Titration 11/2024 9cmH20 Code(s): G47.33 - Obstructive sleep apnea (adult) (pediatric) Category: Medical (2) Left knee pain: Code(s): M25.562 - Pain in left knee Category: Medical Qualifiers: Chronicity: chronic Qualified Code(s): M25.562 - Pain in left knee; G89.29 - Other chronic pain (3) Right knee pain: Code(s): M25.561 - Pain in right knee Category: Medical Qualifiers: Chronicity: chronic Qualified Code(s): M25.561 - Pain in right knee; G89.29 - Other chronic pain (4) RLS (restless legs syndrome): Comment: declines meds today Code(s): G25.81 - Restless legs syndrome Category: Medical Plan Titration study completed pressures adjusted to 9cmh20,. Continue to use CPAP. Stressed compliance, use CPAP nightly and more than 4 hours. Call the [employer] for supplies as needed and help with instructions on how to adjust the settings, pressures and temperatures if they are not to your satisfaction. Walk in clinic in [place] for adjustments to the CPAP. Rest Less Leg Cramps, 400mg Magnesium PO at bedtime daily and B6, 200mg, declines meds today, will check ferritin homocysteine, mma, B12 and vit d. he does have anemia. Xray Bilateral knee pain reviewed no fractures, f/u with pcp/ortho. Take D3 with K2. F/u in 3 months for compliance Patient Instructions: Sleep Hygiene provided: set a scheduled bedtime and wake time to help regulate the circadian rhythm and balance the release of pituitary hormones. Sleep in a dark room, temperatures below 68 degrees, and no devices n bed. Limit caffeinated products 6 hours prior to bed, and limit fluids 2-4 hours prior to bed. Gentle night yoga, diffusing essential oils, and playing soft music can be relaxing. Coding Level of Care Code Est Pt Level 4 (07338) Diagnoses Obstructive sleep apnea G47.33 Chronic pain of left knee M25.562; G89.29 Chronicity: chronic Chronic pain of right knee M25.561; G89.29 Chronicity: chronic RLS (restless legs syndrome) G25.81 Time Spent (min) 25 Comment Improving
[2024-12-30 09:53] VITALS: BP 116/72; BMI 27.8
--- OUTSIDE RECORDS SUMMARY | 2024-12-30 10:49 | XMS_ITS | Encounter Summary ---
Author Organization [facility] Address [address] [place] [id number] Care Team Providers Care Collateral Specialist Name Role Phone Joni Woodruff MD Primary Care Provider Joni Sotelo MD Unavailable Unavailable Lashawn Mitchell RN Unavailable Encounter Details Date Type Department Care Team (Late st Contact Info) Description 01/03/[address] [facility] [place] [place] [address] Alonso Gonzales MD [address] [place] [id number] Social History Tobacco Use Types Packs/Day Years [...] and would like to discuss w/ someone. Sudanese only. documented in this encounter Plan of Treatment Not on file documented as of this encounter Visit Diagnoses Not on filedocumented in this encounter Care Teams Collateral Specialist Relationship Specialty Start Date End Date Joni Woodruff MD PCP - General 04/03/15 Joni Woodruff MD Internal Medicine 03/06/15 Lashawn Mitchell RN [address] [place] [address] Oncology Nurse Navigator 04/10/16 documented as of this encounter
== END 2024-12-30 10:56 | disposition home or self-care (01) ==
LOC: HO.HSMS 09:48
PROVIDERS: PCP Internal Medicine; Visit Provider Physician Assistant Medical
DX: G47.33 Obstructive sleep apnea (adult) (pediatric) (principal); M25.562 Pain in left knee; G89.29 Other chronic pain; M25.561 Pain in right knee; G25.81 Restless legs syndrome
CPT/HCPCS: 99214

== ENCOUNTER → 2024-12-30 09:47 | Outpatient (BNVA) | payer OTHER, SELFPAY | PROVIDERS: PCP Internal Medicine; Visit Provider Physician Assistant Medical ==

== ENCOUNTER 2025-01-27 15:46 | Outpatient (AMB) | payer OTHER, SELFPAY ==
--- OUTSIDE RECORDS SUMMARY | 2025-01-27 15:49 | XMS_ITS | Encounter Summary ---
Author Organization [facility] Address [address] [place] [address] Care Team Providers Care Senior Interactive Producer Name Role Phone Joni Woodruff MD Primary Care Provider Joni Sotelo MD Unavailable Unavailable Lashawn Mitchell RN Unavailable Encounter Details Date Type Department Care Team (Late st Contact Info) Description 01/03/2016 Telephone [facility] [place] [address] Alonso Gonzales MD [address] [place] [id number] Social History Tobacco Use Types Packs/Day Years [...] and would like to discuss w/ someone. Uzbek only. documented in this encounter Plan of Treatment Not on file documented as of this encounter Visit Diagnoses Not on filedocumented in this encounter Care Teams Senior Interactive Producer Relationship Specialty Start Date End Date Joni Woodruff MD PCP - General 04/03/15 Joni Woodruff MD Internal Medicine 03/06/15 Lashawn Mitchell RN [address] [place] [address] Oncology Nurse Navigator 04/10/16 documented as of this encounter
--- OUTSIDE RECORDS SUMMARY | 2025-01-27 15:49 | XMS_ITS | Clinical Summary ---
Author Organization [facility] Address [address] [place] [address] Care Team Providers Care Dance Teacher Name Role Phone Damon Pastrana MD Primary Care Provider [phone] Source Comments PLEASE NOTE, if this patient [...] Dates Next Due PNEUMOCOCCAL CONJUGATE PCV 20 (Prevnar 20) 09/25 Pfizer COVID-19 (Comirnaty), Mrna, Lnp-s, Pf, Jameson-sucrose, [...] 74 09/26/2023 9:01 AM EST Temperature 36.6 C (97.8 F) 09/26/2023 9:01 AM EST Respiratory Rate 20 09/26/2023 9:01 AM EST [...] Imm-Zoster, Recombinant (2 of 2) 11/21/2023 09/26/19 [id number] ( season) 2024 09/26/2023, 09/10/2021, 12/25/2020, Additional history exists Alcohol and Drug Screen 07/21/2024 09/26/2023 Depression Annual Screen 07/21/2024 09/26/2023 Hypertension Screening (#1) 09/25/2024 Lipid Screening 09/25/2024 09/26/2023 Tobacco Screening 09/25/2024 09/26/2023 Imm-Influenza (#1) 2025 Diabetes Screening 09/25/2026 09/26/2023 Colonoscopy 07/17/2031 07/17/2021 Colorectal Cancer Screening 07/17/2031 Hepatitis C Screening Completed 09/26/2023 Imm-Pneumococcal 50+ Completed 09/26/2023 Procedures Procedure Name Priority Date/Time [...] QT, RT PCR (09/26/2023 9:52 AM EST) HEPATITIS C ANTIBODY NON-REACT AWILDA NON-REACT AWILDA [facility] Comment: HCV antibody was non-reactive. There is no laboratory evidence of HCV infection. In most cases, no further action is required. However, if recent HCV exposure is suspected, a test for HCV RNA (test code 41915) is suggested. For additional information please refer to http://[employer].Your Policy Manager/faq/HVT32w2 (This link is being provided for informational/ educational purposes only.) Blood Blood / Unknown 09/26/2023 9 :52 AM EST 09/26/2023 9:52 AM EST us Damon Pastrana MD LAB - BLOOD DRAW Final Resul t [facility] [address] [address], [facility] [address] [address] * (ABNORMAL) LIPIDS W RFLX TO DIRECT LDL (09/26/2023 9:52 AM EST) CHOLESTEROL, TOTAL 223(H) <200 mg/dL [facility] HDL CHOLESTEROL 64 > OR = 40 mg/dL [facility] TRIGLYCERIDES 33 <150 mg/dL [facility] LDL-CHOLESTEROL 149(H) 99 mg/dL (calc) [facility] Comment: Reference range: <100 Desirable range <100 mg/dL for primary prevention; <70 mg/dL for patients with CHD or diabetic patients with > or = 2 CHD risk factors. LDL-C is now calculated using the Singh-Cannon calculation, which is a validated novel method providing better accuracy than the Friedewald equation in the estimation of LDL-C. Singh SS et al. GAB. 2013;310(19): 1464-3024 (http://[employer]/faq/DAU199) CHOL/HDLC RATIO 3.5 <5.0 (calc) [facility] NON-HDL CHOLESTEROL 159(H) <130 mg/dL (calc) [facility] Comment: For patients with diabetes plus 1 major ASCVD risk factor, treating to a non-HDL-C goal of <100 mg/dL (LDL-C of <70 mg/dL) is considered a therapeutic option. Blood Blood / Unknown 09/26/2023 9 :52 AM EST 09/26/2023 9:52 AM EST us Damon Pastrana MD LAB - BLOOD DRAW Final Resul t [facility] [address] [address], [facility] [address] [place] [address] * (ABNORMAL) COMPREHENSIVE METABOLIC PANEL (09/26/2023 9:52 AM EST) GLUCOSE 129(H) 65 - 99 mg/dL [facility] Comment: Fasting reference interval For someone without known diabetes, a glucose value >125 mg/dL indicates that they may have diabetes and this should be confirmed with a follow-up test. UREA NITROGEN (BUN) 19 7 - 25 mg/dL [facility] CREATININE (blood) 0.80 0.70 - 1.35 mg/dL [facility] EGFR 98 > OR = 60 mL/min/1. 73m2 [facility] BUN/CREATININE RATIO SEE NOTE: [facility] Comment: Not Reported: BUN and Creatinine are within reference range. SODIUM 138 135 - 146 mmol/L [facility] POTASSIUM 4.3 3.5 - 5.3 mmol/L [facility] CHLORIDE 103 98 - 110 mmol/L [facility] CARBON DIOXIDE 27 20 - 32 mmol/L [facility] CALCIUM 8.9 8.6 - 10.3 mg/dL [facility] PROTEIN, TOTAL 7.2 6.1 - 8.1 g/dL [facility] ALBUMIN 4.5 3.6 - 5.1 g/dL [facility] GLOBULIN 2.7 1.9 - 3.7 g/dL (calc) [facility] ALBUMIN/GLOBULI N RATIO 1.7 1.0 - 2.5 (calc) [facility] BILIRUBIN, TOTAL 1.0 0.2 - 1.2 mg/dL [facility] ALKALINE PHOSPHATASE 64 35 - 144 U/L [facility] AST 26 10 - 35 U/L [facility] ALT 32 9 - 46 U/L [facility] Blood Blood / Unknown 09/26/2023 9 :52 AM EST 09/26/2023 9:52 AM EST Damon Pastrana MD LAB - BLOOD DRAW Edited Resu lt - Final [facility] [address] [address], [facility] [address] [place] [address] * HISTORIC COLONOSCOPY (07/17/2021 3:00 AM EST) 07/17/2021 3:00 AM EST Damon Pastrana MD PROCEDURES Edited Resul t - Final from Last 3 Months or Most Recently Relevant to Health Maintenance Insurance [facility] Care Teams Dance Teacher Relationship Specialty Start Date End Date Damon Pastrana MD [address] [place] [address] PCP - General Internal Medicine 09/26/23
--- OUTSIDE RECORDS SUMMARY | 2025-01-27 15:49 | XMS_ITS | Clinical Summary ---
Author Organization [facility], Address [address] [place] [address] [place] [address] Phone Care Team Providers Care Model And Pattern Supervisor Name Role Phone Jackson Moyer MD Primary Care Provider [phone] Allergies Active Allergy Reactions Criticality Noted Date [...] severe COVID-19: None ? Healthcare worker or pharmacologist? No ? COVID-19 Tested? - Yes - Date Tested 11/03/2019 Testing Location - [facility] - Testing Results - Positive ? Is [...] of 1 - PCV) 2006 Influenza Vaccine (#1) 2025 Hepatitis B Vaccine Aged Out No longe r eligible based on patient's age to complete this topic Insurance [facility] Care Teams Model And Pattern Supervisor Relationship Specialty Start Date End Date Jackson Moyer MD [address] [place] [address] PCP - General Internal Medicine 11/24/19
--- OUTSIDE RECORDS SUMMARY | 2025-01-27 15:49 | XMS_ITS | Clinical Summary ---
Author Organization [employer] [facility] it Address [address] [place] [address] Care Team Providers Care Center Manager Name Role Phone Unavailable Primary Care [...] 2023-2 5 season) 2024 Influenza Vaccine (#1) 2025 RSV Immunization Adult Patie nts (1 [...]
--- OUTSIDE RECORDS SUMMARY | 2025-01-27 15:49 | XMS_ITS ---
Author Name [facility] Organization Unknown Care Team Organization Name Specialty Phone Email Start Date End Da te [facility] Chinyere Meehan MD Primary Care 04/12/2021 03/08/2024 [facility] Chinyere Meehan MD Primary Care 04/12/2021 03/08/2024
[2025-01-27 15:53] VITALS: BP 110/60; BMI 27.9
--- NOTE | 2025-01-27 15:53 | A.OFFPC_ITS ---
Vital Signs 01/27/25 15:53 Height 5 ft 6 in Weight 173 lb BMI 27.9 BP 110/60 Blood Pressure Location Lt brachial Position Sitting Intake Visit Reasons: annual exam Intake Note: Patient here for a physical exam Student Admissions Clerk Required: No Accompanied by: Self / Same As Patient Allergies Penicillins Allergy (Intermediate, Verified 01/27/25 16:01) SICKNESS ampicillin Allergy (Unknown, Verified 01/27/25 16:01) Unknown Medication List - Last Reconciled 01/27/25 by Zelda Marion MD acetaminophen 1,000 mg (2 x 500 mg) PO Q6H PRN aspirin (Adult Low Dose Aspirin) 81 mg PO DAILY atorvastatin 20 mg PO BEDTIME cyclobenzaprine 10 mg PO TID ergocalciferol (vitamin D2) 1,250 mcg PO QWEEK lidocaine 5% 1 patch topical DAILY magnesium oxide 400 mg PO DAILY meloxicam 15 mg PO DAILY triamcinolone acetonide 0.025% 1 appl topical BID Tobacco use date assessed: 11/04/24 Fall risk assessment: No Falls in past year Last assessed Fall Risk: 01/27/25 Dental Screening Dental Screen Date: 01/27/25 Did you have a dental visit in the last 12 months?: Yes Did you have a dental problem in the last 6 months where you did not have access to dental care?: No Was dental information given to patient?: Patient has dentist HPI HPI Comments History of Present Illness Details The patient is a 69-year-old male presenting for an annual physical examination. The patient has a history of prostate cancer, for which he underwent surgery. His father also had prostate cancer, which is relevant to his family history. The patient reports bilateral knee pain, with the right knee being more affected. He has undergone imaging studies which did not reveal any significant findings, and he has not yet seen an orthopedist due to cost concerns. The patient has elevated random blood glucose levels, which will be re-evaluated with fasting glucose tests. Additionally, his bilirubin levels are slightly elevated, although liver function tests are normal. The patient has eczema, for which he uses a topical cream on his hands. Preventative care measures include a colonoscopy performed in 2020, with the next one scheduled for 2030. He has not received a tetanus vaccination in over ten years and plans to confirm this with his before proceeding. [facility] Medical History (Updated 01/27/25 @ 16:17 by Zelda Marion MD) Anemia Diverticulosis Overweight (BMI 25.0-29.9) Right flank pain Low back pain radiating to lower extremity Rib pain on right side Osteoarthritis of right shoulder Hypercholesterolemia Eczema Hyperglycemia Prostate cancer Vitamin D deficiency Contusion of chest wall Surgical History History of colonoscopy (~07/11/21) History of appendectomy History of prostatectomy Family History Father Prostate cancer Mother No problems noted. Social History Housing: House Alcohol intake: current Alcohol intake frequency: holidays/special occasions only Patient Tobacco Use Status: Former Tobacco user Tobacco use type: Cigarette e-Cigarette/Vaping Use: Never Used Second Hand Smoke Exposure: Yes service: No Current occupational status: employed Cognitive needs: No Hearing needs: No Vision needs: Yes (glasses) Questionnaire PHQ-9 Over the last 2 weeks, how often have you been bothered by any of the following problems? 1. Little interest or pleasure in doing things: not at all 2. Feeling down, depressed, or hopeless: not at all 3. Trouble falling or staying asleep, or sleeping too much: not at all 4. Feeling tired or having little energy: not at all 5. Poor appetite or overeating: not at all 6. Feeling bad about yourself - or that you are a failure or have let yourself or your family down: not at all 7. Trouble concentrating on things, such as reading the newspaper or watching television: nearly every day 8. Moving or speaking so slowly that other people could have noticed. Or the opposite - being so fidgety or restless that you have been moving around a lot more than usual: not at all 9. Thoughts that you would be better off or of hurting yourself in some way: not at all Total score: 3 Depression Screening Interpretation: Negative Depression Screening Done: Yes 83665 - PHQ-9 Billing: Yes Source: Developed by Drs. Bart Terry, Zeynep Reyes, Santos Uriarte and colleagues, with an educational nahun from [employer]. Thrive Questionnaire Date Thrive assessed: 01/27/25 I am a: Patient What is your living situation today?: I have a steady place to live Within the past 12 months, did the food you bought not last and you didn't have the money to get more?: I choose not to answer this question Within the past 12 months, did you worry whether your food would run out before you got money to buy more?: I choose not to answer this question Do you have trouble paying for medicines?: I choose not to answer this question Do you have trouble getting transportation to medical appointments?: I choose not to answer this question Do you have trouble paying your heating and electricity bill?: I choose not to a nswer this question Do you have trouble taking care of your child, family member or friend?: I choose not to answer this question Do you have trouble with day-to-day activities such as bathing, preparing meals, shopping, managing finances, etc.?: No Are you currently unemployed and looking for a job?: No Are you interested in more education?: No Please select the resources that you would like help with: None Currently or been in a relationship where the following occur: No concerns reported THRIVE Score: 0 AUDIT C Alcohol Use Questionnaire (AUDIT-C) 1. How often do you have a drink containing alcohol?: 2-4 times a month 2. How many drinks containing alcohol do you have on a typical day when you are drinking?: 3 or 4 3. How often do you have six or more drinks on one occasion?: Never Total Score: 3 HALLIE-7 AMB Questionnaire HALLIE-7 Date HALLIE - 7 assessed: 01/27/25 Feeling nervous, anxious, or on edge: 0 = Not at all Not being able to stop or control worryin = Not at all Worrying too much about different things: 0 = Not at all Trouble relaxin = Not at all Being so restless that it is hard to sit still: 0 = Not at all Becoming easily annoyed or irritable: 0 = Not at all Feeling afraid as if something awful might happen: 0 = Not at all Total HALLIE-7 score (0-4 normal; 5-9 mild; 10-14 moderate; 15-21 severe): 0 Source: Developed by Zeynep Lopez.W. Eric, Santos Uriarte and colleagues, with an educational nahun from [employer]. HALLIE-7 Assessment Billing HALLIE-7 Assessment Tool: HALLIE-7 Assessment 38939 Review of Systems Const All systems reviewed & are unremarkable except as noted in HPI and below Card Denies chest pain at rest, Denies chest pain with activity, Denies edema, Denies irregular heart rhythm, Denies claudication, Denies dyspnea, Denies dyspnea on exertion, Denies orthopnea, Denies paroxysmal nocturnal dyspnea and Denies slow heart rate Resp Denies cough, Denies dyspnea and Denies dyspnea on exertion GI Denies abdominal pain, Denies change in bowel habits, Denies excessive flatus, Denies nausea and Denies vomiting Denies urinary hesitancy, Denies urinary incontinence and Denies urinary urgency Musc Denies abnormal gait, Denies atrophy, Denies deformity and Denies limited range of motion Skin/Breast Denies bleeding lesions, Denies changing lesions and Denies rash Neuro Denies abnormal gait, Denies behavioral changes, Denies confusion and Denies lack of coordination Psych Denies behavioral changes and Denies confusion Physical exam (Primary Care) Vital Signs: Last Vital Signs BP 110/60 01/27/25 15:53 BMI result Body Mass Index 27.9 Tobacco/Smoking Status: Tobacco use Status Tobacco use date assessed 11/04/24 01/27/25 15:58 Patient Tobacco Use Status Former Tobacco user 01/27/25 15:58 Tobacco use type Cigarette 01/27/25 15:58 e-Cigarette/Vaping Use Never Used 01/27/25 15:58 PHQ-9: PHQ-9 Score PHQ-9: Total score 3 01/27/25 15:58 Depression Screening Interpretation: Negative Thrive Assessment: Date of Thrive Assessment Date Thrive assessed 01/27/25 01/27/25 15:58 Currently or been in a relationship where the following occur: No concerns reported Const General: No confusion Orientation/consciousness: patient oriented x3 and No confusion HENMT Head: Yes normal to inspection, Yes normocephalic and Yes atraumatic Ears: external ears normal Eyes General: appearance normal, both eyes and all related structures Eyelids: Yes eyelids normal Conjunctivae: conjunctivae normal Neck Neck: Yes normal visual inspection and Yes supple Resp Effort & Inspection: normal respiratory effort Auscultation: clear to auscultation bilaterally Cardio Jugular venous distension: no JVD Rate: regular rate Rhythm: regular rhythm Heart sounds: S1 normal heart sound present and S2 normal heart sound present GI Inspection: Yes normal to inspection Palpation (GI): Soft to palpation and nontender Auscultation: normal bowel sounds Skin General skin exam: no rashes or lesions noted Neuro General: patient oriented x3, no focal motor deficits and No confusion Extrem General: Yes full ROM Psych Appearance: grossly normal Coding Level of Care Code Est Pt Level 4 (44896) Est Pt Prev Care >65y(98787) Diagnoses Physical exam Z00.00 Hearing loss H91.90 Prostate cancer C61 Chronic pain of left knee M25.562; G89.29 Chronicity: chronic Chronic pain of right knee M25.561; G89.29 Chronicity: chronic Lumbar pain M54.50 Additional Codes PHQ-9 - 07806 - PHQ-9 Billing: Yes ([id number]) HALLIE-7 Assessment Billing - HALLIE-7 Assessment Tool: HALLIE-7 Assessment 49582 ([id number]) Time Spent (min) 36 Assessment & Plan Assessment & Plan (1) Physical exam: Code(s): Z00.00 - Encounter for general adult medical examination without abnormal findings Category: Medical (2) Hearing loss: Code(s): H91.90 - Unspecified hearing loss, unspecified ear Category: Medical (3) Prostate cancer: Code(s): C61 - Malignant neoplasm of prostate Category: Medical (4) Left knee pain: Code(s): M25.562 - Pain in left knee Category: Medical Qualifiers: Chronicity: chronic Qualified Code(s): M25.562 - Pain in left knee; G89.29 - Other chronic pain (5) Right knee pain: Code(s): M25.561 - Pain in right knee Category: Medical Qualifiers: Chronicity: chronic Qualified Code(s): M25.561 - Pain in right knee; G89.29 - Other chronic pain (6) Lumbar pain: Code(s): M54.50 - Low back pain, unspecified Category: Medical Plan The patient will be referred to an orthopedist for further evaluation of bilateral knee pain, as previous imaging did not reveal significant findings. A fasting blood glucose test will be conducted to further assess elevated random blood glucose levels. The patient is advised to confirm his tetanus vaccination status with his and consider receiving the vaccine if overdue. Continued use of topical cream for eczema management is recommended. Patient was informed and verbally consented to the use of an ambient scribe for clinic note documentation during this visit. Orders: Referrals Orthopedics Referral G89.29 - Other chronic pain, M25.561 - Pain in right knee, M25.562 - Pain in left knee Pain Management Referral M54.50 - Low back pain, unspecified Speech and Hearing Referral H91.90 - Unspecified hearing loss, unspecified ear
== END 2025-01-27 16:15 | disposition home or self-care (01) ==
LOC: HO.HMCH 15:47
PROVIDERS: PCP Internal Medicine; Visit Provider Internal Medicine
DX: Z00.00 Encounter for general adult medical examination without abnormal findings (principal); M25.562 Pain in left knee; C61 Malignant neoplasm of prostate; H91.93 Unspecified hearing loss, bilateral; G89.29 Other chronic pain; M25.561 Pain in right knee; M54.50 Low back pain, unspecified

== ENCOUNTER → 2025-01-27 15:46 | Outpatient (BNVA) | payer OTHER, SELFPAY | PROVIDERS: PCP Internal Medicine; Visit Provider Internal Medicine | DX: Z00.00 Encounter for general adult medical examination without abnormal findings (principal); M25.561 Pain in right knee; M25.562 Pain in left knee; H91.90 Unspecified hearing loss, unspecified ear; G89.29 Other chronic pain; M54.50 Low back pain, unspecified; Z85.46 Personal history of malignant neoplasm of prostate | CPT/HCPCS: 96127 ==

== ENCOUNTER 2025-02-03 09:36 | Outpatient (REF) | payer OTHER, SELFPAY ==
--- NOTE | ~2025-02-03 | XR_ITS ---
CLINICAL HISTORY: M25.561 - Pain in right knee Right knee three views Comparison: None provided Findings: No acute fracture or dislocation noted. No significant joint effusion identified. No soft tissue foreign body. Impression: No acute bony abnormality This document has been electronically signed by: Jaswant Le MD on 02/03/2025 22:33:59
--- OUTSIDE RECORDS SUMMARY | 2025-02-03 09:53 | XMS_ITS | Clinical Summary ---
Author Organization [facility] Address [address] [place] [address] Care Team Providers Care Otm Consultant Name Role Phone Damon Pastrana MD Primary Care Provider [phone] Source Comments PLEASE NOTE, if this patient [...] Imm-Zoster, Recombinant (2 of 2) 11/21/2023 09/26/19 [id number] ( season) 2024 09/26/2023, 09/10/2021, 12/25/2020, Additional [...] HEPATITIS C ANTIBODY NON-REACT AWILDA NON-REACT AWILDA [facility] Comment: HCV antibody was non-reactive. There is no laboratory evidence of HCV infection. In most cases, no further action is required. However, if recent HCV exposure is suspected, a test for HCV RNA (test code 29357) is suggested. For additional information please refer to http://[employer]Urban Mapping/faq/PSY61e6 (This link is being provided for informational/ educational purposes only.) Blood Blood / Unknown 09/26/2023 9 :52 AM EST 09/26/2023 9:52 AM EST us Damon Pastrana MD LAB - BLOOD DRAW Final Resul t [facility] [address] [address], [facility] [address] [address] * (ABNORMAL) LIPIDS W RFLX TO DIRECT LDL (09/26/2023 9:52 AM EST) CHOLESTEROL, TOTAL 223(H) <200 mg/dL [facility] HDL CHOLESTEROL 64 > OR = 40 mg/dL [facility] TRIGLYCERIDES 33 <150 mg/dL [facility] LDL-CHOLESTEROL 149(H) 99 mg/dL (calc) [facility] Comment: Reference range: <100 Desirable range <100 mg/dL for primary prevention; <70 mg/dL for patients with CHD or diabetic patients with > or = 2 CHD risk factors. LDL-C is now calculated using the Singh-Cannon calculation, which is a validated novel method providing better accuracy than the Friedewald equation in the estimation of LDL-C. Singh SS et al. GAB. 2013;310(19): 0844-4809 (http://[employer].Yardsale/faq/BBX777) CHOL/HDLC RATIO 3.5 <5.0 (calc) [facility] NON-HDL CHOLESTEROL 159(H) <130 mg/dL (calc) [facility] Comment: For patients with diabetes plus 1 major ASCVD risk factor, treating to a non-HDL-C goal of <100 mg/dL (LDL-C of <70 mg/dL) is considered a therapeutic option. Blood Blood / Unknown 09/26/2023 9 :52 AM EST 09/26/2023 9:52 AM EST us Damon Pastrana MD LAB - BLOOD DRAW Final Resul t [facility] [address] [address], [facility] [address] [place] [address] * (ABNORMAL) COMPREHENSIVE METABOLIC PANEL (09/26/2023 9:52 AM EST) GLUCOSE 129(H) 65 - 99 mg/dL [facility] Comment: Fasting reference interval For someone without known diabetes, a glucose value >125 mg/dL indicates that they may have diabetes and this should be confirmed with a follow-up test. UREA NITROGEN (BUN) 19 7 - 25 mg/dL [facility] CREATININE (blood) 0.80 0.70 - 1.35 mg/dL [facility] EGFR 98 > OR = 60 mL/min/1. 73m2 [facility] BUN/CREATININE RATIO SEE NOTE: [facility] Comment: Not Reported: BUN and Creatinine are within reference range. SODIUM 138 135 - 146 mmol/L [facility] POTASSIUM 4.3 3.5 - 5.3 mmol/L [facility] CHLORIDE 103 98 - 110 mmol/L [facility] CARBON DIOXIDE 27 20 - 32 mmol/L [facility] CALCIUM 8.9 8.6 - 10.3 mg/dL [facility] PROTEIN, TOTAL 7.2 6.1 - 8.1 g/dL [facility] ALBUMIN 4.5 3.6 - 5.1 g/dL [facility] GLOBULIN 2.7 1.9 - 3.7 g/dL (calc) [facility] ALBUMIN/GLOBULI N RATIO 1.7 1.0 - 2.5 (calc) [facility] BILIRUBIN, TOTAL 1.0 0.2 - 1.2 mg/dL [facility] ALKALINE PHOSPHATASE 64 35 - 144 U/L [facility] AST 26 10 - 35 U/L [facility] ALT 32 9 - 46 U/L [facility] Blood Blood / Unknown 09/26/2023 9 :52 AM EST 09/26/2023 9:52 AM EST Damon Pastrana MD LAB - BLOOD DRAW Edited Resu lt - Final [facility] [address] [address], [facility] [address] [place] [address] * HISTORIC COLONOSCOPY (07/17/2021 3:00 AM EST) 07/17/2021 3:00 AM EST Damon Pastrana MD PROCEDURES Edited Resul t - Final from Last 3 Months or Most Recently Relevant to Health Maintenance Insurance [facility] Care Teams Otm Consultant Relationship Specialty Start Date End Date Damon Pastrana MD [address] [place] [address] PCP - General Internal Medicine 09/26/23
--- OUTSIDE RECORDS SUMMARY | 2025-02-03 09:53 | XMS_ITS | Clinical Summary ---
Author Organization [facility], Address [address] [place] [address] [place] [address] Phone Care Team Providers Care Tar Man Name Role Phone [place] Moyer MD Primary Care Provider [phone] Allergies Active Allergy Reactions Criticality Noted Date [...] severe COVID-19: None ? Healthcare worker or dye lab technician? No ? COVID-19 Tested? - Yes - Date Tested 11/03/2019 Testing Location - [facility] - Testing Results - Positive [...] patient's age to complete this topic Insurance [facility] Care Teams Tar Man Relationship Specialty Start Date End Date Jackson Moyer MD [address] [place] [address] PCP - General Internal Medicine 11/24/19
--- OUTSIDE RECORDS SUMMARY | 2025-02-03 09:53 | XMS_ITS | Encounter Summary ---
Author Organization [facility] Address [address] [place] [address] Care Team Providers Care Environmental Remediation Consultant Name Role Phone Joni Woodruff MD Primary Care Provider Joni Sotelo MD Unavailable Unavailable Lashawn Mitchell RN Unavailable Encounter Details Date Type Department Care Team (Late st Contact Info) Description 01/03/2016 Telephone [facility] [place] [address] Alonso Gonzales MD [address] [place] [id number] Social History Tobacco Use Types Packs/Day Years [...] and would like to discuss w/ someone. Cypriot only. documented in this encounter Plan of Treatment Not on file documented as of this encounter Visit Diagnoses Not on filedocumented in this encounter Care Teams Environmental Remediation Consultant Relationship Specialty Start Date End Date Joni Woodruff MD PCP - General 04/03/15 Joni Woodruff MD Internal Medicine 03/06/15 Lashawn Mitchell RN [address] [place] [address] Oncology Nurse Navigator 04/10/16 documented as of this encounter
--- OUTSIDE RECORDS SUMMARY | 2025-02-03 09:53 | XMS_ITS | Clinical Summary ---
Author Organization [facility] it Address [address] [place] [address] Care Team Providers Care Mill Turner Name Role Phone Unavailable Primary Care Provider [...]
== END 2025-02-03 09:37 | disposition home or self-care (01) ==
LOC: HO.LAB 09:36
PROVIDERS: PCP Internal Medicine; Visit Provider Physician Assistant Medical
DX: M25.561 Pain in right knee (principal)
CPT/HCPCS: 73562

== ENCOUNTER → 2025-02-03 09:40 | Outpatient (BNV) | payer OTHER, SELFPAY | PROVIDERS: PCP Internal Medicine; Visit Provider Radiology Diagnostic Radiology | DX: M25.561 Pain in right knee (principal) | CPT/HCPCS: 73562 ==

== ENCOUNTER 2025-02-10 09:58 | Outpatient (REF) | payer OTHER, SELFPAY ==
[2025-02-10 10:05] LABS: MANUAL DIFF FLAG NO
[2025-02-10 10:44] LABS: Hematocrit 41.3 % (42.0-52.0); Hemoglobin 13.4 g/dl (14.0-18.0); Imm Gran Abs Auto 0.02 X10*3/uL (0.00-0.03); Imm Gran Pct Auto 0.4 % (0.0-0.4); Lymphocytes Absolute Auto 1.6 X10*3/uL (1.2-4.9); Mean Corpuscular HGB Conc 32.4 g/dl (31.0-36.0); Mean Corpuscular Hemoglobin 31.8 pg (27.0-33.0); Mean Corpuscular Volume 97.9 fL (80.0-98.0); NRBC Abs Auto 0.000 X10*3/uL (0.0-0.012); NRBC Pct Auto 0.0 /100WBC (0.0-0.2); Platelet Count 134 X10*3/uL (160-400); Red Blood Count 4.22 X10*6/uL (4.60-5.80); White Blood Count 4.5 X10*3/uL (4.8-10.8)
--- OUTSIDE RECORDS SUMMARY | 2025-02-10 10:44 | XMS_ITS | Encounter Summary ---
Author Organization [facility] Address [address] [place] [address] Care Team Providers Care Lion Tamer Name Role Phone Joni Woodruff MD Primary Care Provider Joni Sotelo MD Unavailable Unavailable Lashawn Mitchell RN Unavailable Encounter Details Date Type Department Care Team (Late st Contact Info) Description 01/03/2016 Telephone [facility] [place] [address] Alonso Gonzales MD [address] [place] [id number] Social History Tobacco Use Types Packs/Day Years [...] and would like to discuss w/ someone. Dutch only. documented in this encounter Plan of Treatment Not on file documented as of this encounter Visit Diagnoses Not on filedocumented in this encounter Care Teams Lion Tamer Relationship Specialty Start Date End Date Joni Woodruff MD PCP - General 04/03/15 Joni Woodruff MD Internal Medicine 03/06/15 Lashawn Mitchell RN [address] [place] [address] Oncology Nurse Navigator 04/10/16 documented as of this encounter
--- OUTSIDE RECORDS SUMMARY | 2025-02-10 10:45 | XMS_ITS | Clinical Summary ---
Author Organization [facility], Address [address] [place] [address] [place] [address] Phone Care Team Providers Care Veterinary Epidemiologist Name Role Phone [place] Moyer MD Primary Care Provider [phone] Allergies Active Allergy Reactions Criticality Noted Date [...] severe COVID-19: None ? Healthcare worker or vocational services specialist? No ? COVID-19 Tested? - Yes - Date Tested 11/03/2019 Testing Location - [facility] - Testing Results - Positive ? [...] patient's age to complete this topic Insurance [facility] Care Teams Veterinary Epidemiologist Relationship Specialty Start Date End Date Jackson Moyer MD [address] [place] [address] PCP - General Internal Medicine 11/24/19
--- OUTSIDE RECORDS SUMMARY | 2025-02-10 10:45 | XMS_ITS | Clinical Summary ---
Author Organization [facility] it Address [address] [place] [address] Care Team Providers Care Cutter And Edge Trimmer Name Role Phone Unavailable Primary Care Provider [...] Panel) 08/15/2023 Colorectal Cancer Screening: Colonoscopy 08/15/2023 Falls Risk Assessment 08/15/2023 Hepatitis C Screening 08/15/2023 Social Influencers of Health Screening 08/15/2023 COVID-19 Vaccine (1 - 2023-2 5 season) 2024 Depression Screening 07/21/2024 Influenza Vaccine (#1) 2025 RSV Immunization Adult [...]
--- OUTSIDE RECORDS SUMMARY | 2025-02-10 10:45 | XMS_ITS | Clinical Summary ---
Author Organization [facility] Address [address] [place] [address] Care Team Providers Care Product Introduction Manager Name Role Phone Damon Pastrana MD Primary Care Provider [phone] Source Comments PLEASE NOTE, if this patient [...] Imm-Zoster, Recombinant (2 of 2) 11/21/2023 09/26/19 [id number] ( season) 2024 09/26/2023, 09/10/2021, 12/25/2020, Additional [...] HEPATITIS C ANTIBODY NON-REACT AWILDA NON-REACT AWILDA [facility] Comment: HCV antibody was non-reactive. There is no laboratory evidence of HCV infection. In most cases, no further action is required. However, if recent HCV exposure is suspected, a test for HCV RNA (test code 90529) is suggested. For additional information please refer to http://BlockTrail.Rockpack/faq/MNP90i6 (This link is being provided for informational/ educational purposes only.) Blood Blood / Unknown 09/26/2023 9 :52 AM EST 09/26/2023 9:52 AM EST us Damon Pastrana MD LAB - BLOOD DRAW Final Resul t [facility] [address] [address], [facility] [address] [address] * (ABNORMAL) LIPIDS W RFLX TO DIRECT LDL (09/26/2023 9:52 AM EST) CHOLESTEROL, TOTAL 223(H) <200 mg/dL [facility] HDL CHOLESTEROL 64 > OR = 40 mg/dL [facility] TRIGLYCERIDES 33 <150 mg/dL [facility] LDL-CHOLESTEROL 149(H) 99 mg/dL (calc) [facility] Comment: Reference range: <100 Desirable range <100 mg/dL for primary prevention; <70 mg/dL for patients with CHD or diabetic patients with > or = 2 CHD risk factors. LDL-C is now calculated using the Singh-Cannon calculation, which is a validated novel method providing better accuracy than the Friedewald equation in the estimation of LDL-C. Singh SS et al. GAB. 2013;310(19): 8734-1295 (http://BlockTrail.NatureBox/faq/JJJ263) CHOL/HDLC RATIO 3.5 <5.0 (calc) [facility] NON-HDL CHOLESTEROL 159(H) <130 mg/dL (calc) [facility] Comment: For patients with diabetes plus 1 major ASCVD risk factor, treating to a non-HDL-C goal of <100 mg/dL (LDL-C of <70 mg/dL) is considered a therapeutic option. Blood Blood / Unknown 09/26/2023 9 :52 AM EST 09/26/2023 9:52 AM EST us Damon Pastrana MD LAB - BLOOD DRAW Final Resul t [facility] [address] [address], [facility] [address] [place] [address] * (ABNORMAL) COMPREHENSIVE METABOLIC PANEL (09/26/2023 9:52 AM EST) GLUCOSE 129(H) 65 - 99 mg/dL [facility] Comment: Fasting reference interval For someone without known diabetes, a glucose value >125 mg/dL indicates that they may have diabetes and this should be confirmed with a follow-up test. UREA NITROGEN (BUN) 19 7 - 25 mg/dL [facility] CREATININE (blood) 0.80 0.70 - 1.35 mg/dL [facility] EGFR 98 > OR = 60 mL/min/1. 73m2 [facility] BUN/CREATININE RATIO SEE NOTE: [facility] Comment: Not Reported: BUN and Creatinine are within reference range. SODIUM 138 135 - 146 mmol/L [facility] POTASSIUM 4.3 3.5 - 5.3 mmol/L [facility] CHLORIDE 103 98 - 110 mmol/L [facility] CARBON DIOXIDE 27 20 - 32 mmol/L [facility] CALCIUM 8.9 8.6 - 10.3 mg/dL [facility] PROTEIN, TOTAL 7.2 6.1 - 8.1 g/dL [facility] ALBUMIN 4.5 3.6 - 5.1 g/dL [facility] GLOBULIN 2.7 1.9 - 3.7 g/dL (calc) [facility] ALBUMIN/GLOBULI N RATIO 1.7 1.0 - 2.5 (calc) [facility] BILIRUBIN, TOTAL 1.0 0.2 - 1.2 mg/dL [facility] ALKALINE PHOSPHATASE 64 35 - 144 U/L [facility] AST 26 10 - 35 U/L [facility] ALT 32 9 - 46 U/L [facility] Blood Blood / Unknown 09/26/2023 9 :52 AM EST 09/26/2023 9:52 AM EST Damon Pastrana MD LAB - BLOOD DRAW Edited Resu lt - Final [facility] [address] [address], [facility] [address] [place] [address] * HISTORIC COLONOSCOPY (07/17/2021 3:00 AM EST) 07/17/2021 3:00 AM EST Damon Pastrana MD PROCEDURES Edited Resul t - Final from Last 3 Months or Most Recently Relevant to Health Maintenance Insurance [facility] Care Teams Product Introduction Manager Relationship Specialty Start Date End Date Damon Pastrana MD [address] [place] [address] PCP - General Internal Medicine 09/26/23
[2025-02-10 11:20] LABS: Alanine Aminotransferase 36 U/L (0-40); Albumin Level 4.2 g/dL (3.5-5.0); Alkaline Phosphatase 71 U/L (39-117); Anion Gap 7 (12-20); Aspartate Amino Transferase 30 U/L (5-37); Blood Urea Nitrogen 16 mg/dL (9-16); Calcium 9.0 mg/dL (8.4-10.2); Carbon Dioxide 31 mmol/L (22-29); Chloride 108 mmol/L (96-108); Cholesterol 168 mg/dL (<200); Estimated Glomerular Filt Rate > 60; HDL Cholesterol 53 mg/dL (>40); Iron 127 mcg/dL (45-160); Percent Iron Saturation 55 % (15-50); Potassium 4.1 mmol/L (3.3-5.1); Sodium 142 mmol/L (135-145); Total Iron Binding Capacity 229 mcg/dL (228-428); Total Protein 7.3 g/dL (6.5-8.0); Triglycerides 33 mg/dL (<150); Unsaturated Iron Binding 102 ug/dL
== END 2025-02-10 09:59 | disposition home or self-care (01) ==
LOC: HO.LAB 09:58
PROVIDERS: PCP Internal Medicine; Visit Provider Internal Medicine
DX: E55.9 Vitamin D deficiency, unspecified (principal); D64.9 Anemia, unspecified; E78.5 Hyperlipidemia, unspecified; R73.9 Hyperglycemia, unspecified
CPT/HCPCS: 36415; 80053; 80061; 82306; 83540; 85025

== ENCOUNTER 2025-02-15 08:22 | Outpatient (AMB) | payer OTHER, SELFPAY ==
--- OUTSIDE RECORDS SUMMARY | 2025-02-15 08:33 | XMS_ITS | Clinical Summary ---
Author Organization [facility], Address [address] [place] [address] [place] [address] Phone Care Team Providers Care Nursery Nurse Name Role Phone Jackson Moyer MD Primary Care Provider [phone] Allergies Active Allergy Reactions Criticality Noted Date [...] severe COVID-19: None ? Healthcare worker or surgical instrument mechanic? No ? COVID-19 Tested? - Yes - Date Tested 11/03/2019 Testing Location - [facility] - Testing Results - Positive ? Is [...] patient's age to complete this topic Insurance [facility] Care Teams Nursery Nurse Relationship Specialty Start Date End Date Jackson Moyer MD [address] [place] [address] PCP - General Internal Medicine 11/24/19
--- OUTSIDE RECORDS SUMMARY | 2025-02-15 08:33 | XMS_ITS | Clinical Summary ---
Author Organization [facility] Address [address] [place] [address] Care Team Providers Care Cell Feed Department Supervisor Name Role Phone Damon Pastrana MD Primary Care Provider [phone] Source Comments PLEASE NOTE, if this patient [...] Imm-Zoster, Recombinant (2 of 2) 11/21/2023 09/26/19 [id number] ( season) 2024 09/26/2023, 09/10/2021, 12/25/2020, Additional [...] HEPATITIS C ANTIBODY NON-REACT AWILDA NON-REACT AWILDA [facility] Comment: HCV antibody was non-reactive. There is no laboratory evidence of HCV infection. In most cases, no further action is required. However, if recent HCV exposure is suspected, a test for HCV RNA (test code 23178) is suggested. For additional information please refer to http://SNADEC.Sparql City/faq/JQR51b5 (This link is being provided for informational/ educational purposes only.) Blood Blood / Unknown 09/26/2023 9 :52 AM EST 09/26/2023 9:52 AM EST us Damon Pastrana MD LAB - BLOOD DRAW Final Resul t [facility] [address] [address], [facility] [address] [address] * (ABNORMAL) LIPIDS W RFLX TO DIRECT LDL (09/26/2023 9:52 AM EST) CHOLESTEROL, TOTAL 223(H) <200 mg/dL [facility] HDL CHOLESTEROL 64 > OR = 40 mg/dL [facility] TRIGLYCERIDES 33 <150 mg/dL [facility] LDL-CHOLESTEROL 149(H) 99 mg/dL (calc) [facility] Comment: Reference range: <100 Desirable range <100 mg/dL for primary prevention; <70 mg/dL for patients with CHD or diabetic patients with > or = 2 CHD risk factors. LDL-C is now calculated using the Singh-Cannon calculation, which is a validated novel method providing better accuracy than the Friedewald equation in the estimation of LDL-C. Singh SS et al. GAB. 2013;310(19): 0813-8848 (http://SNADEC.Tale Me Stories/faq/JMC790) CHOL/HDLC RATIO 3.5 <5.0 (calc) [facility] NON-HDL CHOLESTEROL 159(H) <130 mg/dL (calc) [facility] Comment: For patients with diabetes plus 1 major ASCVD risk factor, treating to a non-HDL-C goal of <100 mg/dL (LDL-C of <70 mg/dL) is considered a therapeutic option. Blood Blood / Unknown 09/26/2023 9 :52 AM EST 09/26/2023 9:52 AM EST us Damon Psatrana MD LAB - BLOOD DRAW Final Resul t [facility] [address] [address], [facility] [address] [place] [address] * (ABNORMAL) COMPREHENSIVE METABOLIC PANEL (09/26/2023 9:52 AM EST) GLUCOSE 129(H) 65 - 99 mg/dL [facility] Comment: Fasting reference interval For someone without known diabetes, a glucose value >125 mg/dL indicates that they may have diabetes and this should be confirmed with a follow-up test. UREA NITROGEN (BUN) 19 7 - 25 mg/dL [facility] CREATININE (blood) 0.80 0.70 - 1.35 mg/dL [facility] EGFR 98 > OR = 60 mL/min/1. 73m2 [facility] BUN/CREATININE RATIO SEE NOTE: [facility] Comment: Not Reported: BUN and Creatinine are within reference range. SODIUM 138 135 - 146 mmol/L [facility] POTASSIUM 4.3 3.5 - 5.3 mmol/L [facility] CHLORIDE 103 98 - 110 mmol/L [facility] CARBON DIOXIDE 27 20 - 32 mmol/L [facility] CALCIUM 8.9 8.6 - 10.3 mg/dL [facility] PROTEIN, TOTAL 7.2 6.1 - 8.1 g/dL [facility] ALBUMIN 4.5 3.6 - 5.1 g/dL [facility] GLOBULIN 2.7 1.9 - 3.7 g/dL (calc) [facility] ALBUMIN/GLOBULI N RATIO 1.7 1.0 - 2.5 (calc) [facility] BILIRUBIN, TOTAL 1.0 0.2 - 1.2 mg/dL [facility] ALKALINE PHOSPHATASE 64 35 - 144 U/L [facility] AST 26 10 - 35 U/L [facility] ALT 32 9 - 46 U/L [facility] Blood Blood / Unknown 09/26/2023 9 :52 AM EST 09/26/2023 9:52 AM EST Damon Pastrana MD LAB - BLOOD DRAW Edited Resu lt - Final [facility] [address] [address], [facility] [address] [place] [address] * HISTORIC COLONOSCOPY (07/17/2021 3:00 AM EST) 07/17/2021 3:00 AM EST Damon Pastrana MD PROCEDURES Edited Resul t - Final from Last 3 Months or Most Recently Relevant to Health Maintenance Insurance [facility] Care Teams Cell Feed Department Supervisor Relationship Specialty Start Date End Date Damon Pastrana MD [address] [place] [address] PCP - General Internal Medicine 09/26/23
--- OUTSIDE RECORDS SUMMARY | 2025-02-15 08:33 | XMS_ITS | Clinical Summary ---
Author Organization [facility] it Address [address] [place] [address] Care Team Providers Care Rope Cutter Name Role Phone Unavailable Primary Care Provider [...]
--- OUTSIDE RECORDS SUMMARY | 2025-02-15 08:33 | XMS_ITS | Encounter Summary ---
Author Organization [facility] Address [address] [place] [address] Care Team Providers Care Pad Machine Offbearer Name Role Phone Joni Woodruff MD Primary Care Provider Joni Sotelo MD Unavailable Unavailable Lashawn Mitchell RN Unavailable Encounter Details Date Type Department Care Team (Late st Contact Info) Description 01/03/2016 Telephone [facility] [place] [address] Alonso Gonzales MD [address] [place] [id number] Social History Tobacco Use Types Packs/Day Years [...] and would like to discuss w/ someone. Ghanaian only. documented in this encounter Plan of Treatment Not on file documented as of this encounter Visit Diagnoses Not on filedocumented in this encounter Care Teams Pad Machine Offbearer Relationship Specialty Start Date End Date Joni Woodruff MD PCP - General 04/03/15 Joni Woodruff MD Internal Medicine 03/06/15 Lashawn Mitchell RN [address] [place] [address] Oncology Nurse Navigator 04/10/16 documented as of this encounter
--- NOTE | 2025-02-15 08:36 | A.OFFVIS_ITS ---
Vital Signs 02/15/25 08:37 Height 5 ft 6 in Weight 172 lb BMI 27.8 BP 115/67 Blood Pressure Location Rt brachial Position Sitting Respiration 16 Pulse 86 Pulse Source Pulse Oximeter Pulse Oximetry (%) 98 Oxygen Delivery Method Room Air Intake Visit Reasons: Low Back Pain Business System Manager Required: Yes Business System Manager Name: Fritz [id number] Accompanied by: self Allergies Penicillins Allergy (Intermediate, Verified 02/15/25 08:41) SICKNESS ampicillin Allergy (Unknown, Verified 02/15/25 08:41) Unknown HPI Comments Details: The patient is a 69-year-old male presenting with back pain. The back pain started approximately three months ago and has been persistent since then. The pain is primarily located on the right side and is exacerbated by bending and standing up after sitting for prolonged periods. Patient denies inciting injury, fall, trauma. The patient reports that the pain is achy in nature and worsens during work activities, particularly when lifting heavy objects. He works with machines to make boxes and cartons, which involves handling heavy pallets. The pain does not radiate down the leg, and there is no associated leg pain. The patient has been taking Tylenol, anti-inflammatory medications, and muscle relaxers, but reports no significant relief from these interventions. He has not yet started physical therapy but is awaiting an appointment. The patient has tried topical treatments such as lidocaine patches and Icy Hot, which have not provided relief. The patient also reports knee pain, particularly in the right knee, but imaging studies including X-rays and a CT scan have not shown any abnormalities. He is scheduled to see orthopedics next month for further evaluation of his knee pain. - Onset: Approximately three months ago - Quality: Achy - Location: Right side of the back - Exacerbating factors: Bending, standing up after sitting, work activities involving lifting heavy objects - Relieving factors: None identified - Interference: Affects work due to lifting heavy pallets - Affect: Pain impacts work activities - Analgesia: Currently using Tylenol, anti-inflammatory medications, and muscle relaxers without significant relief - Adverse Effects: None reported - Activities of Daily Living: Pain affects ability to work with heavy pallets - Aberrant Drug Related Behaviors: None reported [facility] Medical History Anemia Diverticulosis Overweight (BMI 25.0-29.9) Right flank pain Low back pain radiating to lower extremity Rib pain on right side Osteoarthritis of right shoulder Hypercholesterolemia Eczema Hyperglycemia Prostate cancer Vitamin D deficiency Contusion of chest wall Surgical History History of colonoscopy (~07/11/21) History of appendectomy History of prostatectomy Family History (Updated 01/27/25 @ 16:08 by Zelda Marion MD) Father Prostate cancer Mother No problems noted. Social History Housing: House Alcohol intake: current Alcohol intake frequency: holidays/special occasions only Patient Tobacco Use Status: Former Tobacco user Tobacco use type: Cigarette e-Cigarette/Vaping Use: Never Used Second Hand Smoke Exposure: Yes service: No Current occupational status: employed Cognitive needs: No Hearing needs: No Vision needs: Yes (glasses) Review of Systems Const Details: - Musculoskeletal: Reports back pain, denies leg pain - Musculoskeletal: Reports knee pain, imaging studies negative Physical Exam Exam Exam: General: awake, alert, oriented. Answers questions appropriately. Fully engaged in examination. Skin: warm, dry, intact HEENT: Normocephalic. Hearing intact. Cardiac: External chest normal in appearance. Respiratory: No cough, audible wheezing or stridor. Abdomen: without gross distension. MS: No obvious swelling or deformities. Able to stand on bilateral tiptoes and bilateral heels.? Able to transition from sit to stand unassisted. Ambulates with bilaterally normal heel strike and toe off Decreased lumbar range of motion, pain with away forward flexion. Bilateral lower extremity strength 5/5 SLR negative bilaterally Right SIJ: Gaenslen positive, thigh thrust positive, SI compression positive. Tenderness over right PSIS. Tenderness over right lumbar paraspinal muscles Neurological: Oriented to person, place, time and situation. Thought process intact. No gait abnormalities appreciated. Psychiatric: Appropriate mood and affect. Good judgment and insight. Vital Signs: Last Vital Signs Pulse 86 02/15/25 08:37 Resp 16 02/15/25 08:37 BP 115/67 02/15/25 08:37 Pulse Ox 98 02/15/25 08:37 Oxygen Delivery Method Room Air 02/15/25 08:37 BMI result Body Mass Index 27.8 Results Reviewed Results Reviewed: 3/17/25 CT/CT abdomen pelvis w IV con FINDINGS: LOWER CHEST: The visualized lung bases are clear. There is no pleural effusion. CARDIOVASCULATURE: The heart is normal in size. There is no pericardial effusion. LIVER: The liver is normal in size and contour. No liver mass is identified. The hepatic and portal veins are patent. GALLBLADDER / BILE DUCTS: The gallbladder is unremarkable. There is no intra or extrahepatic biliary ductal dilatation. SPLEEN: The spleen is normal in size. No focal splenic lesion is identified. PANCREAS: The pancreas is unremarkable in appearance. ADRENAL GLANDS: Within normal limits. KIDNEYS/RETROPERITONEUM: No renal calculi are identified. There is no hydronephrosis. No renal masses are identified. LYMPH NODES: No abdominal or pelvic lymphadenopathy. VASCULATURE: The abdominal aorta is normal in caliber. MESENTERY/PERITONEUM: No free fluid. No masses. There is no free intraperitoneal gas. STOMACH: The stomach is collapsed, limiting evaluation. SMALL BOWEL: The small bowel is normal in caliber. COLON: There is a large amount of stool throughout the colon. There is diverticulosis of the descending colon, without evidence of diverticulitis. APPENDIX: The appendix is not seen, however no inflammatory changes are seen adjacent to the cecum. URINARY BLADDER/PELVIC ORGANS: The urinary bladder is collapsed, limiting evaluation. The prostate is normal in size. BONES / SOFT TISSUES: No suspicious bony or soft tissue abnormalities. IMPRESSION: Large amount of stool throughout the colon. Diverticulosis of the descending colon without evidence of diverticulitis. 09/17/24 Examination: Lumbar spine 4 views. CLINICAL INDICATION: Low back pain. COMPARISON: None. FINDINGS: There is normal lumbar lordosis. The vertebral heights, alignment and disc heights are normal. There is no pars defect or listhesis. No visible acute fracture or dislocation seen. There is no lytic process. The SI joints are symmetrical and normal. FINDINGS: Unremarkable lumbar spine exam. Assessment & Plan Assessment & Plan (1) Lumbar spondylosis: Code(s): M47.816 - Spondylosis without myelopathy or radiculopathy, lumbar region Category: Medical (2) Lumbar pain: Code(s): M54.50 - Low back pain, unspecified Category: Medical (3) Sacroiliac joint dysfunction of right side: Code(s): M53.3 - Sacrococcygeal disorders, not elsewhere classified Category: Medical Plan The patient will be referred to physical therapy to address the back pain, with a focus on exercises to improve flexibility and strength. If physical therapy does not alleviate the symptoms, the patient will return for further evaluation and consideration of injection therapy. Patient requesting referral to [facility] in [place] due to proximity to his home. He also requests Puerto Rican-speaking therapist. The patient is advised to continue current medications, although they have not provided significant relief, and to monitor for any changes in symptoms. An appointment with orthopedics is scheduled for next month to further evaluate the knee pain. Patient was informed and verbally consented to the use of an ambient scribe for clinic note documentation during this visit. Orders: Orders PT Evaluation and Treatment Today M47.816 - Spondylosis without myelopathy or radiculopathy, lumbar region, M53.3 - Sacrococcygeal disorders, not elsewhere classified, M54.50 - Low back pain, unspecified Coding Level of Care Code New Pt Level 4 (84340) Complex EM visit Add On G2211 Diagnoses Lumbar spondylosis M47.816 Lumbar pain M54.50 Sacroiliac joint dysfunction of right side M53.3
[2025-02-15 08:37] VITALS: BP 115/67; PULSE 86; RESP 16; O2SAT 98; BMI 27.8
== END 2025-02-15 09:05 | disposition home or self-care (01) ==
LOC: HO.PMC 08:22
PROVIDERS: PCP Internal Medicine; Referring Provider Internal Medicine; Visit Provider Registered Nurse Emergency
DX: M47.816 Spondylosis without myelopathy or radiculopathy, lumbar region (principal); M54.50 Low back pain, unspecified; M53.3 Sacrococcygeal disorders, not elsewhere classified
CPT/HCPCS: 99204

== ENCOUNTER → 2025-03-30 11:10 | Outpatient (BNV) | payer OTHER, SELFPAY | PROVIDERS: PCP Internal Medicine; Visit Provider Internal Medicine | DX: D61.818 Other pancytopenia (principal) | CPT/HCPCS: 99204 ==

== ENCOUNTER 2025-04-04 11:18 | Outpatient (AMB) | payer OTHER, SELFPAY ==
--- NOTE | 2025-04-04 11:24 | MHC.OFFVIS ---
Vital Signs 04/04/25 11:32 Height 5 ft 6 in Weight 173 lb BMI 27.9 Intake Visit Reasons: New prob-Bilateral knee pain Intake Note: Aurelio is a 69 year old male who presents today as a new patient for an evaluation of bilateral knee pain. Patient recently seen by PCP, where he expressed his right knee causes him the most discomfort. Patient reports his pain has been present for about a year that has been getting worse. His knees give out on him. States that he has been taking vitamin D that past 1-2 years. No previous treatment. Denies injury. Pack Puller Name: Megan ID#[id number] Allergies Penicillins Allergy (Intermediate, Verified 04/04/25 11:28) SICKNESS ampicillin Allergy (Unknown, Verified 04/04/25 11:28) Unknown Medication List - Last Reconciled 04/04/25 by Delmis Huynh PA-C acetaminophen 1,000 mg (2 x 500 mg) PO Q6H PRN aspirin (Adult Low Dose Aspirin) 81 mg PO DAILY atorvastatin 20 mg PO BEDTIME cyclobenzaprine 10 mg PO TID ergocalciferol (vitamin D2) 1,250 mcg PO QWEEK meloxicam 15 mg PO DAILY HPI HPI New prob-Bilateral knee pain: Details: 69 yo male presents to the office today for bilat knee pain right worse than left. He denies injury , sri pain with prolonged standing and after working all day. He states the pain is better during the weekend when he is not working. He was taking meloxicam which was prescribed by his primary care doctor but he states it is not helpful. He has had no other treatment to date. [facility] Medical History Anemia Diverticulosis Overweight (BMI 25.0-29.9) Right flank pain Low back pain radiating to lower extremity Rib pain on right side Osteoarthritis of right shoulder Hypercholesterolemia Eczema Hyperglycemia Prostate cancer Vitamin D deficiency Contusion of chest wall Surgical History History of colonoscopy (~07/11/21) History of appendectomy History of prostatectomy Family History (Updated 01/27/25 @ 16:08 by Zelda Marion MD) Father Prostate cancer Mother No problems noted. Social History (Updated 04/04/25 @ 11:31 by Yumiko Polo Taya) Household Members: Spouse and Children Housing: House Are you a primary lead care manager to a significant other at home: No Do you presently have visiting nurse or other home services: No Alcohol intake: current Alcohol intake frequency: holidays/special occasions only Patient Tobacco Use Status: Former Tobacco user Tobacco use type: Cigarette e-Cigarette/Vaping Use: Never Used Second Hand Smoke Exposure: Yes service: No Current occupational status: employed Current occupation: warehouse, left hand dominant Cognitive needs: No Hearing needs: No Vision needs: Yes (glasses) Review of Systems Const All systems reviewed & are unremarkable except as noted in HPI and below Physical Exam Vital Signs: BMI result Body Mass Index 27.9 Const General: cooperative and no acute distress Orientation/consciousness: patient oriented x3 Resp Effort & Inspection: normal respiratory effort and able to speak in complete sentences Cardio Peripheral pulses: Peripheral pulses 2+ throughout Neuro General: patient oriented x3 Extrem Other: Bilateral knees normal to inspection he has full range of motion with crepitus on the right. He does have medial joint line tenderness on the right. No specific tenderness along the joint line on the left. Calf supple and nontender neurovascularly intact. Results Reviewed Results Reviewed: Previous x-rays on both knees are significant for medial compartment arthritis. Assessment & Plan Assessment & Plan (1) Osteoarthritis of knees, bilateral: Code(s): M17.0 - Bilateral primary osteoarthritis of knee Category: Medical Plan: We discussed options today which includes continued conservative management with physical therapy. An order was placed today and he was given the information to contact them and make an appointment. I also gave him a prescription for Celebrex to take twice a day for 2 weeks. He will discontinue the meloxicam. If symptoms persist or worsen over the next 6-8 weeks she will contact our office to discuss injection otherwise follow up as needed. Orders: Orders PT Evaluation and Treatment Today M17.0 - Bilateral primary osteoarthritis of knee Medications: New celecoxib (Celebrex) 200 mg PO BID 60 caps 3RF 30 days Discontinued meloxicam Discontinued Reason: Doctor's Order 15 mg PO DAILY 14 tabs 0RF Coding Level of Care Code New Pt Level 3 (31079) Complex EM visit Add On G2211 Diagnoses Osteoarthritis of knees, bilateral M17.0
[2025-04-04 11:32] VITALS: BMI 27.9
--- OUTSIDE RECORDS SUMMARY | 2025-04-04 15:23 | XMS_ITS | Encounter Summary ---
Author Organization [facility] Address [address] [place] [address] Care Team Providers Care Quality Control Microbiologist Name Role Phone Joni Woodruff MD Primary Care Provider Joni Sotelo MD Unavailable Unavailable Lashawn Mitchell RN Unavailable Encounter Details Date Type Department Care Team (Late st Contact Info) Description 04/20/2015 Scanned Document [address] [phone] Provider, Generic Social History Tobacco [...] on filedocumented in this encounter Care Teams Quality Control Microbiologist Relationship Specialty Start Date End Date Joni Woodruff MD PCP - General 04/03/15 Joni Woodruff MD Internal Medicine 03/06/15 Lashawn Mitchell RN [address] [address] Oncology Nurse Navigator 04/10/16 documented as of this encounter
--- OUTSIDE RECORDS SUMMARY | 2025-04-04 15:23 | XMS_ITS | Encounter Summary ---
Author Organization [facility] Address [address] [place] [address] Care Team Providers Care Water Jet Loom Fixer Name Role Phone Joni Woodruff MD Primary Care Provider Joni Sotelo MD Unavailable Unavailable Lashawn Mitchell RN Unavailable Encounter Details Date Type Department Care Team (Late st Contact Info) Description 07/11/2015 Scanned Document [address] [phone] Provider, Generic Social History Tobacco [...] on filedocumented in this encounter Care Teams Water Jet Loom Fixer Relationship Specialty Start Date End Date Joni Woodruff MD PCP - General 04/03/15 Joni Woodruff MD Internal Medicine 03/06/15 Lashawn Mitchell RN [address] [address] Oncology Nurse Navigator 04/10/16 documented as of this encounter
--- OUTSIDE RECORDS SUMMARY | 2025-04-04 15:23 | XMS_ITS | Clinical Summary ---
Author Organization [facility] Address [address] [place] [address] Care Team Providers Care Public Health Director Name Role Phone Joni Woodruff MD Primary Care Provider Joni Sotelo MD Unavailable Unavailable Lashawn Mitchell RN Unavailable Allergies Active Allergy Reactions Criticality Noted Date Comments Penicillins Other (See Comments) ,GI Intolerance/Nausea/Vomiting Low 03/06/2015 dizziness Medications aspirin 81 MG tablet Aspirin 81 MG Oral Tablet TAKE 1 TABLET DAILY. ; Start Date: ; End Date: Active ergocalciferol (ERGOCALCIFEROL) 13926 units capsuleIndication s:Vitamin D Deficiency Take 1 [...] to sexual activity not to exceed 5 [id number] mg in 24 hrs 50 tablet 11 [...] 82 01/16/2018 3:03 PM EDT Temperature 36.1 C (97 F) 10/08/2016 1:09 PM EDT Respiratory Rate 18 01/16/2018 3:03 PM EDT Oxygen Saturation - - Inhaled Oxygen Concentration - - Weight 71.2 kg (157 lb) 01/16/2018 3:03 PM EDT Height 167.6 cm (5' 6 ) 01/16/2018 3:03 PM EDT Body Mass Index 25.34 01/16/2018 3:03 PM EDT Plan of Treatment Health Maintenance Due Date Last Done Comments Advance Care Planning 1955 Hepatitis C Virus Screening 1955 Pneumococcal Vaccines 50+ (1 of 1 - PCV) 2006 Zoster (Shingles) Vaccine (1 of 2) 2006 DTaP/Tdap/Td Vaccines (1 - Tdap) 01/31/2010 01/30/2010 COVID-19 Vaccine (1 - season) 2025 RSV Vaccine 60 years and older and [...] Ag/Ab, 4th Gen NON-REACT AWILDA NON-REACT AWILDA [facility] Comment: HIV-1 antigen and HIV-1/HIV-2 antibodies were not detected. There is no laboratory evidence of HIV infection. PLEASE NOTE: This information has been disclosed to you from records whose confidentiality may be protected by state law. If your state requires such protection, then the state law prohibits you from making any further disclosure of the information without the specific written consent of the person to whom it pertains, or as otherwise permitted by law. A general authorization for the release of medical or other information is NOT sufficient for this purpose. For additional information please refer to http://education.GamingTurf/faq/ERN384 (This link is being provided for informational/ educational purposes only.) The performance of this assay has not been clinically validated in patients less than 2 years old. Blood specimen (specimen) 11/20/2017 4:01 PM EDT 11/21/2017 6:28 AM EDT Narrative Resulting Agency Comment Performing Organization Information: Site ID: [id number] Name: [employer] [employer] Address: [address] [place] [address], [place] [address] Director: Uche Rock MD us Joni Woodruff MD LAB BLOOD ORDERABLES Final Re sult [facility] [address] [facility] 3rd Floor, [place] [address] from Last 3 Months or Most Recently Relevant to Health Maintenance Care Teams Public Health Director Relationship Specialty Start Date End Date Joni Woodruff MD PCP - General 04/03/15 Joni Woodruff MD Internal Medicine 03/06/15 Lashawn Mitchell, RN [address] [place] [address] Oncology Nurse Navigator 04/10/16
--- OUTSIDE RECORDS SUMMARY | 2025-04-04 15:23 | XMS_ITS | Encounter Summary ---
Author Organization [facility] Address [address] [place] [address] Care Team Providers Care Cloth Checker Name Role Phone Joni Woodruff MD Primary Care Provider Joni Sotelo MD Unavailable Unavailable Lashawn Mitchell RN Unavailable Encounter Details Date Type Department Care Team (Late st Contact Info) Description 01/03/2016 Telephone [facility] [place] [address] Alonso Gonzales MD [address] [place] [address] Social History Tobacco Use Types Packs/Day Years [...] and would like to discuss w/ someone. Armenian only. documented in this encounter Plan of Treatment Not on file documented as of this encounter Visit Diagnoses Not on filedocumented in this encounter Care Teams Cloth Checker Relationship Specialty Start Date End Date Joni Woodruff MD PCP - General 04/03/15 Joni Woodruff MD Internal Medicine 03/06/15 Lashawn Mitchell RN [address] [place] [address] Oncology Nurse Navigator 04/10/16 documented as of this encounter
--- OUTSIDE RECORDS SUMMARY | 2025-04-04 15:24 | XMS_ITS | Encounter Summary ---
Author Organization [facility] Address [address] [place] [address] Care Team Providers Care Tile Edger Name Role Phone Joni Woodruff MD Primary Care Provider Joni Sotelo MD Unavailable Unavailable Lashawn Mitchell RN Unavailable [phone] Encounter Details Date Type Department Care Team (Late st Contact Info) Description 03/20/2017 Scanned Document [address] [phone] Joni Woodruff MD Social History [...] on filedocumented in this encounter Care Teams Tile Edger Relationship Specialty Start Date End Date Joni Woodruff MD PCP - General 04/03/15 Joni Woodruff MD Internal Medicine 03/06/15 Lashawn Mitchell RN [address] [address] Oncology Nurse Navigator 04/10/16 documented as of this encounter
--- OUTSIDE RECORDS SUMMARY | 2025-04-04 15:24 | XMS_ITS | Encounter Summary ---
Author Organization [facility] Address [address] [place] [address] Care Team Providers Care Staffing Operations Manager Name Role Phone Joni Woodruff MD Primary Care Provider Joni Sotelo MD Unavailable Unavailable Lashawn Mitchell RN Unavailable [phone] Encounter Details Date Type Department Care Team (Late st Contact Info) Description 03/12/2016 Scanned Document [address] [phone] Provider, Generic Social History Tobacco [...] on filedocumented in this encounter Care Teams Staffing Operations Manager Relationship Specialty Start Date End Date Joni Woodruff MD PCP - General 04/03/15 Joni Woodruff MD Internal Medicine 03/06/15 Lashawn Mitchell RN [address] [address] Oncology Nurse Navigator 04/10/16 documented as of this encounter
--- OUTSIDE RECORDS SUMMARY | 2025-04-04 15:24 | XMS_ITS | Clinical Summary ---
Author Organization [facility] [employer] [facility] it Address [address] [place] [address] Care Team Providers Care Fur Glazer Name Role Phone Unavailable Primary Care Provider [...] 08/15/2023 Social Influencers of Health Screening 08/15/2023 Depression Screening 07/21/2024 COVID-19 Vaccine ( - 2023-2 5 season) 2025 Influenza Vaccine (#1) 2025 RSV Immunization Adult [...]
--- OUTSIDE RECORDS SUMMARY | 2025-04-04 15:24 | XMS_ITS | Encounter Summary ---
Author Organization [facility] Address [address] [place] [address] Care Team Providers Care Service Member Name Role Phone Joni Woodruff MD Primary Care Provider Joni Sotelo MD Unavailable Unavailable Lashawn Mitchell RN Unavailable Encounter Details Date Type Department Care Team (Late st Contact Info) Description 03/23/2015 Scanned Document [address] [phone] Provider, Generic Social History Tobacco [...] filedocumented in this encounter Care Teams Service Member Relationship Specialty Start Date End Date Joni Woodruff MD PCP - General 04/03/15 Joni Woodruff MD Internal Medicine 03/06/15 Lashawn Mitchell RN [address] [address] Oncology Nurse Navigator 04/10/16 documented as of this encounter
--- OUTSIDE RECORDS SUMMARY | 2025-04-04 15:24 | XMS_ITS | Clinical Summary ---
Author Organization [facility] Address [address] [employer] [address] [place] [address] Care Team Providers Care Stars Analytical Lead Name Role Phone Damon Pastrana MD Primary Care Provider [phone] Source Comments PLEASE NOTE, if this patient [...] Imm-Zoster, Recombinant (2 of 2) 11/21/2023 09/26/19 24 Alcohol and Drug Screen 07/21/2024 09/26/2023 Depression Annual Screen 07/21/2024 09/26/2023 Hypertension Screening (#1) 09/25/2024 Lipid Screening 09/25/2024 09/26/2023 Tobacco Screening 09/25/2024 09/26/2023 [id number] ( season) 2025 09/26/2023, 09/10/2021, 12/25/2020, Additional history exists Imm-Influenza (#1) 2025 Diabetes Screening 09/25/2026 09/26/2023 [...] HEPATITIS C ANTIBODY NON-REACT AWILDA NON-REACT AWILDA [facility] Comment: HCV antibody was non-reactive. There is no laboratory evidence of HCV infection. In most cases, no further action is required. However, if recent HCV exposure is suspected, a test for HCV RNA (test code 09271) is suggested. For additional information please refer to http://Externautics.OMNIlife science/faq/MVJ88k8 (This link is being provided for informational/ educational purposes only.) Blood Blood / Unknown 09/26/2023 9 :52 AM EST 09/26/2023 9:52 AM EST us Damon Pastrana MD LAB - BLOOD DRAW Final Resul t [facility] [address] [address], [facility] [address] [address] * (ABNORMAL) LIPIDS W RFLX TO DIRECT LDL (09/26/2023 9:52 AM EST) CHOLESTEROL, TOTAL 223(H) <200 mg/dL [facility] HDL CHOLESTEROL 64 > OR = 40 mg/dL [facility] TRIGLYCERIDES 33 <150 mg/dL [facility] LDL-CHOLESTEROL 149(H) 99 mg/dL (calc) [facility] Comment: Reference range: <100 Desirable range <100 mg/dL for primary prevention; <70 mg/dL for patients with CHD or diabetic patients with > or = 2 CHD risk factors. LDL-C is now calculated using the Singh-Cannon calculation, which is a validated novel method providing better accuracy than the Friedewald equation in the estimation of LDL-C. Singh SS et al. GAB. 2013;310(19): 4197-7141 (http://Externautics.Rackup/faq/ZCG642) CHOL/HDLC RATIO 3.5 <5.0 (calc) [facility] NON-HDL CHOLESTEROL 159(H) <130 mg/dL (calc) [facility] Comment: For patients with diabetes plus 1 major ASCVD risk factor, treating to a non-HDL-C goal of <100 mg/dL (LDL-C of <70 mg/dL) is considered a therapeutic option. Blood Blood / Unknown 09/26/2023 9 :52 AM EST 09/26/2023 9:52 AM EST us Damon Pastrana MD LAB - BLOOD DRAW Final Resul t [facility] [address] [address], [facility] [address] [place] [address] * (ABNORMAL) COMPREHENSIVE METABOLIC PANEL (09/26/2023 9:52 AM EST) GLUCOSE 129(H) 65 - 99 mg/dL [facility] Comment: Fasting reference interval For someone without known diabetes, a glucose value >125 mg/dL indicates that they may have diabetes and this should be confirmed with a follow-up test. UREA NITROGEN (BUN) 19 7 - 25 mg/dL [facility] CREATININE (blood) 0.80 0.70 - 1.35 mg/dL [facility] EGFR 98 > OR = 60 mL/min/1. 73m2 [facility] BUN/CREATININE RATIO SEE NOTE: [facility] Comment: Not Reported: BUN and Creatinine are within reference range. SODIUM 138 135 - 146 mmol/L [facility] POTASSIUM 4.3 3.5 - 5.3 mmol/L [facility] CHLORIDE 103 98 - 110 mmol/L [facility] CARBON DIOXIDE 27 20 - 32 mmol/L [facility] CALCIUM 8.9 8.6 - 10.3 mg/dL [facility] PROTEIN, TOTAL 7.2 6.1 - 8.1 g/dL [facility] ALBUMIN 4.5 3.6 - 5.1 g/dL [facility] GLOBULIN 2.7 1.9 - 3.7 g/dL (calc) [facility] ALBUMIN/GLOBULI N RATIO 1.7 1.0 - 2.5 (calc) [facility] BILIRUBIN, TOTAL 1.0 0.2 - 1.2 mg/dL [facility] ALKALINE PHOSPHATASE 64 35 - 144 U/L [facility] AST 26 10 - 35 U/L [facility] ALT 32 9 - 46 U/L [facility] Blood Blood / Unknown 09/26/2023 9 :52 AM EST 09/26/2023 9:52 AM EST Damon Pastrana MD LAB - BLOOD DRAW Edited Resu lt - Final [facility] [address] [address], [facility] [address] [place] [address] * HISTORIC COLONOSCOPY (07/17/2021 3:00 AM EST) 07/17/2021 3:00 AM EST Damon Pastrana MD PROCEDURES Edited Resul t - Final from Last 3 Months or Most Recently Relevant to Health Maintenance Insurance [facility] Care Teams Stars Analytical Lead Relationship Specialty Start Date End Date Damon Pastrana MD [address] [place] [address] PCP - General Internal Medicine 09/26/23
--- OUTSIDE RECORDS SUMMARY | 2025-04-04 15:24 | XMS_ITS | Encounter Summary ---
Author Organization [facility] Address [address] [place] [address] Care Team Providers Care Machine Rope Maker Name Role Phone Joni Woodruff MD Primary Care Provider Joni Sotelo MD Unavailable Unavailable Lashawn Mitchell RN Unavailable Reason for Visit * Reason Onset Date Comments Medication Refill 04/24/2017 Encounter Details Date Type Department Care Team (Late st Contact Info) Description 04/24/2017 Refill [facility] Urologic Surgery [place] [address] [facility] [address] [place] [address] Suad Orr, CONSULTING NETWORKING ENGINEER [address] [place] [address] Social History Tobacco Use Types Packs/Day Years [...] on filedocumented in this encounter Care Teams Machine Rope Maker Relationship Specialty Start Date End Date Joni Woodruff MD PCP - General 04/03/15 Joni Woodruff MD Internal Medicine 03/06/15 Lashawn Mitchell RN [address] [place] [address] Oncology Nurse Navigator 04/10/16 documented as of this encounter
--- OUTSIDE RECORDS SUMMARY | 2025-04-04 15:24 | XMS_ITS | Clinical Summary ---
Author Organization [facility], Address [address] [place] [address] [place] [address] Phone Care Team Providers Care Graphic Design Intern Name Role Phone Jackson Moyer MD Primary Care Provider [phone] Allergies Active Allergy Reactions Criticality Noted Date [...] severe COVID-19: None ? Healthcare worker or fisher hand line? No ? COVID-19 Tested? - Yes - Date Tested 11/03/2019 Testing Location - [facility] - Testing Results - Positive ? [...] patient's age to complete this topic Insurance [facility] Care Teams Graphic Design Intern Relationship Specialty Start Date End Date Jackson Moyer MD [address] [place] [address] PCP - General Internal Medicine 11/24/19
--- OUTSIDE RECORDS SUMMARY | 2025-04-04 15:24 | XMS_ITS | Encounter Summary ---
Author Organization [facility] Address [address] [place] [address] Care Team Providers Care Mental Health Director Name Role Phone Joni Woodruff MD Primary Care Provider Joni Sotelo MD Unavailable Unavailable Lashawn Mitchell RN Unavailable Encounter Details Date Type Department Care Team (Late st Contact Info) Description 03/06/2015 Scanned Document [address] [facility] [address] [place] [phone] Provider, Generic Social History Tobacco Use [...] on filedocumented in this encounter Care Teams Mental Health Director Relationship Specialty Start Date End Date Joni Woodruff MD PCP - General 04/03/15 Joni Woodruff MD Internal Medicine 03/06/15 Lashawn Mitchell RN [address] [place] [address] Oncology Nurse Navigator 04/10/16 documented as of this encounter
--- OUTSIDE RECORDS SUMMARY | 2025-04-04 15:24 | XMS_ITS | Encounter Summary ---
Author Organization [facility] Address [address] [place] [address] Care Team Providers Care Mail Messenger Contractor Name Role Phone Joni Woodruff MD Primary Care Provider Joni Sotelo MD Unavailable Unavailable Lashawn Mitchell RN Unavailable Encounter Details Date Type Department Care Team (Late st Contact Info) Description 02/14/2015 Scanned Document [address] [phone] Provider, Generic Social History Tobacco [...] on filedocumented in this encounter Care Teams Mail Messenger Contractor Relationship Specialty Start Date End Date Joni Woodruff MD PCP - General 04/03/15 Joni Woodruff MD Internal Medicine 03/06/15 Lashawn Mitchell, RN [address] [address] Oncology Nurse Navigator 04/10/16 documented as of this encounter
--- OUTSIDE RECORDS SUMMARY | 2025-04-04 15:24 | XMS_ITS | Encounter Summary ---
Author Organization [facility] Address [address] [place] [address] Care Team Providers Care Hand Decorator Name Role Phone Joni Woodruff MD Primary Care Provider Joni Sotelo MD Unavailable Unavailable Lashawn Mitchell RN Unavailable [phone] Encounter Details Date Type Department Care Team (Late st Contact Info) Description 06/21/2016 Scanned Document [address] [facility] [address] [place] [phone] Provider, Generic Social History Tobacco Use [...] filedocumented in this encounter Care Teams Hand Decorator Relationship Specialty Start Date End Date Joni Woodruff MD PCP - General 04/03/15 Joni Woodruff MD Internal Medicine 03/06/15 Lashawn Mitchell RN [address] [place] [address] Oncology Nurse Navigator 04/10/16 documented as of this encounter
--- OUTSIDE RECORDS SUMMARY | 2025-04-04 15:24 | XMS_ITS | Encounter Summary ---
Author Organization [facility] Address [address] [place] [address] Care Team Providers Care Deli/Bakery Associate Name Role Phone Joni Woodruff MD Primary Care Provider Joni Sotelo MD Unavailable Unavailable Lashawn Mitchell RN Unavailable Encounter Details Date Type Department Care Team (Late st Contact Info) Description 04/16/2016 Scanned Document [facility] [address] [facility] [address] [place] [phone] Provider, Generic Social History Tobacco Use Types [...] on filedocumented in this encounter Care Teams Deli/Bakery Associate Relationship Specialty Start Date End Date Joni Woodruff MD PCP - General 04/03/15 Joni Woodruff MD Internal Medicine 03/06/15 Lashawn Mitchell RN [address] [address] Oncology Nurse Navigator 04/10/16 documented as of this encounter
--- OUTSIDE RECORDS SUMMARY | 2025-04-04 15:24 | XMS_ITS | Encounter Summary ---
Author Organization [facility] Address [address] [place] [address] Care Team Providers Care Bus Driver Supervisor Name Role Phone Joni Woodruff MD Primary Care Provider Joni Sotelo MD Unavailable Unavailable Lashawn Mitchell RN Unavailable [phone] Encounter Details Date Type Department Care Team (Late st Contact Info) Description 11/21/2017 Scanned Document [address] [phone] Joni Woodruff MD Social History [...] on filedocumented in this encounter Care Teams Bus Driver Supervisor Relationship Specialty Start Date End Date Joni Woodruff MD PCP - General 04/03/15 Joni Woodruff MD Internal Medicine 03/06/15 Lashawn Mitchell RN [address] [address] Oncology Nurse Navigator 04/10/16 documented as of this encounter
== END 2025-04-04 11:57 | disposition home or self-care (01) ==
LOC: HO.HOS 11:19
PROVIDERS: PCP Internal Medicine; Visit Provider Physician Assistant
DX: M17.0 Bilateral primary osteoarthritis of knee (principal)
CPT/HCPCS: 99203

== ENCOUNTER 2025-04-12 08:48 | Outpatient (AMB) | payer OTHER, SELFPAY ==
[2025-04-12 09:04] VITALS: BP 108/62; PULSE 75; O2SAT 96; BMI 27.5
--- NOTE | 2025-04-12 09:04 | MHC.OFFVIS ---
Vital Signs 04/12/25 09:04 Height 5 ft 6 in Weight 170 lb 2 oz BMI 27.5 BP 108/62 Blood Pressure Location Rt brachial Position Sitting Pulse 75 Pulse Source Pulse Oximeter Pulse Oximetry (%) 96 Oxygen Delivery Method Room Air Intake Visit Reasons: 3m follow up Intake Note: Patient presents follow up PIERRE/RLS. Compliance in chart(42/90days, >=4hrs-36%, Average Usage-2hr 15min, Pressure-9cm, Med Leaks-0.1, AHI-3.1). Patient states pressure is to high(brought in machine) Motor Transport Inspector Required: Yes Motor Transport Inspector Services: Motor Transport Inspector Present Motor Transport Inspector Name: Malachi [id number] Information Interpreted: non-clinical & clinical Accompanied by: Self / Same As Patient Allergies Penicillins Allergy (Intermediate, Verified 04/12/25 09:14) SICKNESS ampicillin Allergy (Unknown, Verified 04/12/25 09:14) Unknown HPI Comments Details: 69 y/o Chinese speaking male patient presents for a follow up of PIERRE on CPAP. Director Patient on IPAD helps with history. 11/2024 Titration study completed, pressures adjusted to 9cmH20, breathing and oxygen stabilized at 4-9cmH20. He has a h/o tachycardia and takes aspirin daily. The CPAP compliance and therapy response (06/25/24-09/22/24) reviewed with patient. Total use is 33% and the avg use is 1hour and 53min. The usage days 33% and the average usage hours 1 hr 53 min, AHI is 1.5. He washes the mask, changes his tubing and filters, tubing and fills water in the reservoir with water. He is unable to tolerate the pressures at 9cmH20, as he feels they are too strong for him and he is unable to take a breath. We adjusted his pressures to 7.8cmH20 via [employer] online today. He goes to bed at 2am as he works from 3 pm to 2 am, sometimes when he gets home at 3am, and he forgets to put the cpap machine on. He is trying to use his machine more consistently now, however due to the pressures he was unable to tolerate the mask.He denies morning headaches. RLS symptoms: Continues to have bilateral leg pain, with paresthesias r>l. It does not wake him up from sleep. He c/o r. knee pain> l.knee pain, difficult to get up and sit down because the knee sounds like it is making noises. Discussed wearing knee brace when ambulating and using meloxicam 15mg as needed. He said PT was not effective in teaching him any exercises which helped to alleviate pain. He declines orthopedic referral and pain management. He takes 10mg cyclobenzaprine TID. His STM is poor, he forgets tasks, names and has word finding difficulties. He forgets phone numbers. He has to write everything down or he forgets. He uses his navigation to go to drive to locations and will get lost. MMSE is 27/ 30 today. FH + for AD. 2016 Prostatectomy - Reji, pcp- pt. wants to have a psa repeated due to h/o prostate cancer, denies urgency, frequency, low back pain, hematuria. [facility] Medical History Anemia Diverticulosis Overweight (BMI 25.0-29.9) Right flank pain Low back pain radiating to lower extremity Rib pain on right side Osteoarthritis of right shoulder Hypercholesterolemia Eczema Hyperglycemia Prostate cancer Vitamin D deficiency Contusion of chest wall Surgical History History of colonoscopy (~07/11/21) History of appendectomy History of prostatectomy Family History Father Prostate cancer Mother No problems noted. Social History Household Members: Spouse and Children Housing: House Are you a primary direct care staffer to a significant other at home: No Do you presently have visiting nurse or other home services: No Alcohol intake: current Alcohol intake frequency: holidays/special occasions only Patient Tobacco Use Status: Former Tobacco user Tobacco use type: Cigarette e-Cigarette/Vaping Use: Never Used Second Hand Smoke Exposure: Yes service: No Current occupational status: employed Current occupation: warehouse, left hand dominant Cognitive needs: No Hearing needs: No Vision needs: Yes (glasses) Physical Exam Vital Signs: Last Vital Signs Pulse 75 04/12/25 09:04 BP 108/62 04/12/25 09:04 Pulse Ox 96 04/12/25 09:04 Oxygen Delivery Method Room Air 04/12/25 09:04 BMI result Body Mass Index 27.5 Const General: cooperative Nutritional Appearance: average body habitus Orientation/consciousness: patient oriented x3 HEENT Throat: Yes other (mallampati grade.) Eyes Pupils: Equal, round and reactive pupils present Resp Effort & Inspection: normal respiratory effort and able to speak in complete sentences Back/Spine/Pelvis Back: back tenderness Thoracic/Lumbar Spine: pain with thoraco-lumbar ROM, thoraco-lumbar spasm on the right and lumbar spinal tenderness at L4 Neuro General: patient oriented x3 and moves all extremities Cranial nerves: Yes Equal, round and reactive pupils present, Yes Normal accommodation reflex present, Yes Midline tongue present, Yes Ability to bilaterally rotate head present and Yes Ability to bilaterally elevate shoulders present Gait exam (Neuro): Normal gait present Motor exam (neuro): 5/5 motor strength present throughout and Normal motor muscle tone present throughout Coordination: [id number] test normal Psych Other: anxious Appearance: grossly normal Thought process: Normal thought process present Thought content: Normal thought content present Orientation What is the (year) (season) (date) (day) (month)?: year, season, date, day and month Where are we (state) (county) (town or city) (hospital) (floor)?: state, county, town or city, hospital/clinic and floor Registration Name of 3 unrelated objects clearly and slowly, then ask patient to repeat all 3 of them. (1st repeat determines score. Make sure they can repeat all three): object 1, object 2 and object 3 Attention & Calculation (CHOOSE ONE) Ask pt to begin with 100 & count backward by 7. Stop after 5 repeats. If pt cannot ask them to spell the word WORLD backward.: 72 and 65 Recall Ask patient to repeat the 3 items from question #3.: object 1, object 2 and object 3 Language Show patient a wristwatch & ask what it is. Repeat for pencil.: watch and pencil Ask the patient to repeat the phrase 'No ifs, ands, or buts' after you.: correct Ask the patient to 'take a piece of paper with their right hand' 'fold paper in half' 'place paper on floor': take paper in right hand, fold paper in half and place paper on floor Print the sentence 'CLOSE YOUR EYES' on a piece. If patient actually closes eyes then score.: followed written direction Give patient a blank piece of paper & ask to write a sentence. Score if it contains a noun & verb.: sentence contains subject and verb Ask patient to copy figure of intersecting pentagons exactly. Score if all 10 angles & 2 intersects are included.: all 10 angles present & 2 are intersected Score Score: 27 Results Reviewed Results Reviewed: Findings: No acute fracture or dislocation noted. No significant joint effusion identified. No soft tissue foreign body. Impression: No acute bony abnormality. Assessment & Plan Assessment & Plan (1) Obstructive sleep apnea: Comment: Severe degree of sleep apnea. The AHI was 65/hr and oxygen oc was 62%. Titration 11/2024 9cmH20 Code(s): G47.33 - Obstructive sleep apnea (adult) (pediatric) Category: Medical (2) Left knee pain: Code(s): M25.562 - Pain in left knee Category: Medical Qualifiers: Chronicity: chronic Qualified Code(s): M25.562 - Pain in left knee; G89.29 - Other chronic pain (3) Right knee pain: Code(s): M25.561 - Pain in right knee Category: Medical Qualifiers: Chronicity: chronic Qualified Code(s): M25.561 - Pain in right knee; G89.29 - Other chronic pain (4) RLS (restless legs syndrome): Comment: declines meds today Code(s): G25.81 - Restless legs syndrome Category: Medical (5) Difficulty in urination: Code(s): R39.198 - Other difficulties with micturition Category: Medical Plan Titration study completed pressures set to 9cmH20, today we adjusted pressures to 7.8cmH20 per pt. request. Continue to use CPAP. Stressed compliance, use CPAP nightly and more than 4 hours. Rest Less /Leg Cramps, 400mg Magnesium PO at bedtime daily and B6, 200mg, declines meds today for RLS symptoms. Labs reviewed with pt. Pt to f/u with urology for PSA due to history of prostate cancer. F/u in 6 monhts. Orders: Referrals Urology Referral R39.198 - Other difficulties with micturition Coding Level of Care Code Est Pt Level 4 (08558) Diagnoses Obstructive sleep apnea G47.33 Chronic pain of left knee M25.562; G89.29 Chronicity: chronic Chronic pain of right knee M25.561; G89.29 Chronicity: chronic RLS (restless legs syndrome) G25.81 Difficulty in urination R39.198
--- OUTSIDE RECORDS SUMMARY | 2025-04-12 09:57 | XMS_ITS | Encounter Summary ---
Author Organization [facility] Address [address] [place] [address] Care Team Providers Care Insurance Inspector Name Role Phone Joni Woodruff MD Primary Care Provider Joni Sotelo MD Unavailable Unavailable Lashawn Mitchell RN Unavailable Encounter Details Date Type Department Care Team (Late st Contact Info) Description 03/20/2017 Scanned Document [address] [phone] Joni Woodruff MD Social History [...] filedocumented in this encounter Care Teams Insurance Inspector Relationship Specialty Start Date End Date Joni Woodruff MD PCP - General 04/03/15 Joni Woodruff MD Internal Medicine 03/06/15 Lashawn Mitchell RN [address] [address] Oncology Nurse Navigator 04/10/16 documented as of this encounter
--- OUTSIDE RECORDS SUMMARY | 2025-04-12 09:57 | XMS_ITS | Encounter Summary ---
Author Organization [facility] Address [address] [place] [address] Care Team Providers Care Die Tester Name Role Phone Joni Woodruff MD Primary Care Provider Joni Sotelo MD Unavailable Unavailable Lashawn Mitchell RN Unavailable Encounter Details Date Type Department Care Team (Late st Contact Info) Description 03/23/2015 Scanned Document [address] [phone] Provider, Generic Social History Tobacco [...] on filedocumented in this encounter Care Teams Die Tester Relationship Specialty Start Date End Date Joni Woodruff MD PCP - General 04/03/15 Joni Woodruff MD Internal Medicine 03/06/15 Lashawn Mitchell RN [address] [address] Oncology Nurse Navigator 04/10/16 documented as of this encounter
--- OUTSIDE RECORDS SUMMARY | 2025-04-12 09:57 | XMS_ITS | Clinical Summary ---
Author Organization [facility] it Address [address] [place] [address] Care Team Providers Care Charge Rn Name Role Phone Unavailable Primary Care Provider [...]
--- OUTSIDE RECORDS SUMMARY | 2025-04-12 09:57 | XMS_ITS | Encounter Summary ---
Author Organization [facility] Address [address] [place] [address] Care Team Providers Care Engagement Specialist Name Role Phone Joni Woodruff MD Primary Care Provider Joni Sotelo MD Unavailable Unavailable Lashawn Mitchell RN Unavailable Encounter Details Date Type Department Care Team (Late st Contact Info) Description 03/06/2015 Scanned Document [address] [facility] [address] [place] [phone] Provider, Generic Social History Tobacco Use [...] on filedocumented in this encounter Care Teams Engagement Specialist Relationship Specialty Start Date End Date Joni Woodruff MD PCP - General 04/03/15 Joni Woodruff MD Internal Medicine 03/06/15 Lashawn Mitchell RN [address] [place] [address] Oncology Nurse Navigator 04/10/16 documented as of this encounter
--- OUTSIDE RECORDS SUMMARY | 2025-04-12 09:57 | XMS_ITS | Clinical Summary ---
Author Organization [facility], Address [address] [place] [address] [place] [address] Phone Care Team Providers Care Ambulatory Care Nurse Name Role Phone Jackson Moyer MD Primary Care Provider [phone] Allergies Active Allergy Reactions Criticality Noted Date [...] COVID-19: None ? Healthcare worker or first coat operator? No ? COVID-19 Tested? - Yes - Date Tested 11/03/2019 Testing Location - [facility] - Testing Results - Positive ? [...] patient's age to complete this topic Insurance [facility] Care Teams Ambulatory Care Nurse Relationship Specialty Start Date End Date Jackson Moyer MD [address] [place] [address] PCP - General Internal Medicine 11/24/19
--- OUTSIDE RECORDS SUMMARY | 2025-04-12 09:57 | XMS_ITS | Encounter Summary ---
Author Organization [facility] Address [address] [place] [address] Care Team Providers Care Cardiology Clinical Consultant Name Role Phone Joni Woodruff MD Primary Care Provider Joni Sotelo MD Unavailable Unavailable Lashawn Mitchell RN Unavailable Encounter Details Date Type Department Care Team (Late st Contact Info) Description 04/20/2015 Scanned Document [address] [phone] Provider, Generic Social History Tobacco [...] on filedocumented in this encounter Care Teams Cardiology Clinical Consultant Relationship Specialty Start Date End Date Joni Woodruff MD PCP - General 04/03/15 Joni Woodruff MD Internal Medicine 03/06/15 Lashawn Mitchell RN [address] [address] Oncology Nurse Navigator 04/10/16 documented as of this encounter
--- OUTSIDE RECORDS SUMMARY | 2025-04-12 09:57 | XMS_ITS | Clinical Summary ---
Author Organization [facility] Address [address] [place] [address] Care Team Providers Care Filer Metal Patterns Name Role Phone Damon Pastrana MD Primary Care Provider [phone] Source Comments PLEASE NOTE, if this patient [...] Screening 09/25/2024 09/26/2023 Tobacco Screening 09/25/2024 09/26/2023 [id number] ( season) 2025 09/26/2023, 09/10/2021, 12/25/2020, Additional [...] HEPATITIS C ANTIBODY NON-REACT AWILDA NON-REACT AWILDA [facility] Comment: HCV antibody was non-reactive. There is no laboratory evidence of HCV infection. In most cases, no further action is required. However, if recent HCV exposure is suspected, a test for HCV RNA (test code 88901) is suggested. For additional information please refer to http://Bare Snacks.Stylehive/faq/CQI53z8 (This link is being provided for informational/ educational purposes only.) Blood Blood / Unknown 09/26/2023 9 :52 AM EST 09/26/2023 9:52 AM EST us Damon Pastrana MD LAB - BLOOD DRAW Final Resul t [employer] [address] [address], [facility] [address] [address] * (ABNORMAL) LIPIDS W RFLX TO DIRECT LDL (09/26/2023 9:52 AM EST) CHOLESTEROL, TOTAL 223(H) <200 mg/dL [facility] HDL CHOLESTEROL 64 > OR = 40 mg/dL [facility] TRIGLYCERIDES 33 <150 mg/dL [facility] LDL-CHOLESTEROL 149(H) 99 mg/dL (calc) [facility] Comment: Reference range: <100 Desirable range <100 mg/dL for primary prevention; <70 mg/dL for patients with CHD or diabetic patients with > or = 2 CHD risk factors. LDL-C is now calculated using the Singh-Cannon calculation, which is a validated novel method providing better accuracy than the Friedewald equation in the estimation of LDL-C. Singh SS et al. GAB. 2013;310(19): 0975-6714 (http://Bare Snacks.LoudCloud Systems/faq/RRO242) CHOL/HDLC RATIO 3.5 <5.0 (calc) [facility] NON-HDL CHOLESTEROL 159(H) <130 mg/dL (calc) [facility] Comment: For patients with diabetes plus 1 major ASCVD risk factor, treating to a non-HDL-C goal of <100 mg/dL (LDL-C of <70 mg/dL) is considered a therapeutic option. Blood Blood / Unknown 09/26/2023 9 :52 AM EST 09/26/2023 9:52 AM EST us Damon Pastrana MD LAB - BLOOD DRAW Final Resul t [facility] [address] [address], [facility] [address] [place] [address] * (ABNORMAL) COMPREHENSIVE METABOLIC PANEL (09/26/2023 9:52 AM EST) GLUCOSE 129(H) 65 - 99 mg/dL [facility] Comment: Fasting reference interval For someone without known diabetes, a glucose value >125 mg/dL indicates that they may have diabetes and this should be confirmed with a follow-up test. UREA NITROGEN (BUN) 19 7 - 25 mg/dL [facility] CREATININE (blood) 0.80 0.70 - 1.35 mg/dL [facility] EGFR 98 > OR = 60 mL/min/1. 73m2 [facility] BUN/CREATININE RATIO SEE NOTE: [employer] Comment: Not Reported: BUN and Creatinine are within reference range. SODIUM 138 135 - 146 mmol/L [facility] POTASSIUM 4.3 3.5 - 5.3 mmol/L [employer] [facility] CHLORIDE 103 98 - 110 mmol/L [facility] CARBON DIOXIDE 27 20 - 32 mmol/L [facility] CALCIUM 8.9 8.6 - 10.3 mg/dL [facility] PROTEIN, TOTAL 7.2 6.1 - 8.1 g/dL [facility] ALBUMIN 4.5 3.6 - 5.1 g/dL [facility] GLOBULIN 2.7 1.9 - 3.7 g/dL (calc) [facility] ALBUMIN/GLOBULI N RATIO 1.7 1.0 - 2.5 (calc) [facility] BILIRUBIN, TOTAL 1.0 0.2 - 1.2 mg/dL [facility] ALKALINE PHOSPHATASE 64 35 - 144 U/L [facility] AST 26 10 - 35 U/L [facility] ALT 32 9 - 46 U/L [facility] Blood Blood / Unknown 09/26/2023 9 :52 AM EST 09/26/2023 9:52 AM EST Damon Pastrana MD LAB - BLOOD DRAW Edited Resu lt - Final [facility] [address] [address], [facility] [address] [place] [address] * HISTORIC COLONOSCOPY (07/17/2021 3:00 AM EST) 07/17/2021 3:00 AM EST Damon Pastrana MD PROCEDURES Edited Resul t - Final from Last 3 Months or Most Recently Relevant to Health Maintenance Insurance [facility] Care Teams Filer Metal Patterns Relationship Specialty Start Date End Date Damon Pastrana MD [address] [place] [address] PCP - General Internal Medicine 09/26/23
--- OUTSIDE RECORDS SUMMARY | 2025-04-12 09:57 | XMS_ITS | Encounter Summary ---
Author Organization [facility] Address [address] [place] [address] Care Team Providers Care Supervisor Ornamental Ironworking Name Role Phone Joni Woodruff MD Primary Care Provider Joni Sotelo MD Unavailable Unavailable Lashawn Mitchell RN Unavailable [phone] Encounter Details Date Type Department Care Team (Late st Contact Info) Description 02/14/2015 Scanned Document [address] [phone] Provider, Generic Social History [...] filedocumented in this encounter Care Teams Supervisor Ornamental Ironworking Relationship Specialty Start Date End Date Joni Woodruff MD PCP - General 04/03/15 Joni Woodruff MD Internal Medicine 03/06/15 Lashawn Mitchell, RN [address] [place] [address] [address] Oncology Nurse Navigator 04/10/16 documented as of this encounter
--- OUTSIDE RECORDS SUMMARY | 2025-04-12 09:57 | XMS_ITS | Encounter Summary ---
Author Organization [facility] Address [address] [place] [address] Care Team Providers Care Rubbing Bed Operator Name Role Phone Joni Woodruff MD Primary Care Provider Joni Sotelo MD Unavailable Unavailable Lashawn Mitchell RN Unavailable [phone] Encounter Details Date Type Department Care Team (Late st Contact Info) Description 01/03/2016 Telephone [facility] [place] [address] Alonso Gonzales MD [address] [place] [address] Social History Tobacco Use Types Packs/Day Years [...] and would like to discuss w/ someone. Moroccan only. documented in this encounter Plan of Treatment Not on file documented as of this encounter Visit Diagnoses Not on filedocumented in this encounter Care Teams Rubbing Bed Operator Relationship Specialty Start Date End Date Joni Woodruff MD PCP - General 04/03/15 Joni Woodruff MD Internal Medicine 03/06/15 Lashawn Mitchell RN [address] [place] [address] Oncology Nurse Navigator 04/10/16 documented as of this encounter
--- OUTSIDE RECORDS SUMMARY | 2025-04-12 09:57 | XMS_ITS | Encounter Summary ---
Author Organization [facility] Address [address] [place] [address] Care Team Providers Care Drywall Stripper Name Role Phone Joni Woodruff MD Primary Care Provider Joni Sotelo MD Unavailable Unavailable Lashawn Mitchell RN Unavailable Encounter Details Date Type Department Care Team (Late st Contact Info) Description 03/12/2016 Scanned Document [address] [phone] Provider, Generic Social History Tobacco [...] on filedocumented in this encounter Care Teams Drywall Stripper Relationship Specialty Start Date End Date Joni Woodruff MD PCP - General 04/03/15 Joni Woodruff MD Internal Medicine 03/06/15 Lashawn Mitchell RN [address] [address] Oncology Nurse Navigator 04/10/16 documented as of this encounter
--- OUTSIDE RECORDS SUMMARY | 2025-04-12 09:57 | XMS_ITS | Encounter Summary ---
Author Organization [facility] Address [address] [place] [address] Care Team Providers Care Lastex Operator Name Role Phone Joni Woodruff MD Primary Care Provider Joni Sotelo MD Unavailable Unavailable Lashawn Mitchell RN Unavailable Encounter Details Date Type Department Care Team (Late st Contact Info) Description 07/11/2015 Scanned Document [address] [phone] Provider, Generic Social History Tobacco [...] on filedocumented in this encounter Care Teams Lastex Operator Relationship Specialty Start Date End Date Joni Woodruff MD PCP - General 04/03/15 Joni Woodruff MD Internal Medicine 03/06/15 Lashawn Mitchell RN [address] [address] Oncology Nurse Navigator 04/10/16 documented as of this encounter
--- OUTSIDE RECORDS SUMMARY | 2025-04-12 09:57 | XMS_ITS | Encounter Summary ---
Author Organization [facility] Address [address] [place] [address] Care Team Providers Care Administrative Support Specialist Name Role Phone Joni Woodruff MD Primary Care Provider Joni Sotelo MD Unavailable Unavailable Lashawn Mitchell RN Unavailable [phone] Encounter Details Date Type Department Care Team (Late st Contact Info) Description 06/21/2016 Scanned Document [address] [facility] [address] [place] [phone] Provider, Generic Social History Tobacco Use [...] on filedocumented in this encounter Care Teams Administrative Support Specialist Relationship Specialty Start Date End Date Joni Woodruff MD PCP - General 04/03/15 Joni Woodruff MD Internal Medicine 03/06/15 Lashawn Mitchell RN [address] [place] [address] Oncology Nurse Navigator 04/10/16 documented as of this encounter
--- OUTSIDE RECORDS SUMMARY | 2025-04-12 09:57 | XMS_ITS | Encounter Summary ---
Author Organization [facility] Address [address] [place] [address] Care Team Providers Care Steam And Power Superintendent Name Role Phone Joni Woodruff MD Primary Care Provider Joni Sotelo MD Unavailable Unavailable Lashawn Mitchell RN Unavailable Encounter Details Date Type Department Care Team (Late st Contact Info) Description 11/21/2017 Scanned Document [address] [phone] Joni Woodruff MD Social History [...] on filedocumented in this encounter Care Teams Steam And Power Superintendent Relationship Specialty Start Date End Date Joni Woodruff MD PCP - General 04/03/15 Joni Woodruff MD Internal Medicine 03/06/15 Lashawn Mitchell RN [address] [address] Oncology Nurse Navigator 04/10/16 documented as of this encounter
--- OUTSIDE RECORDS SUMMARY | 2025-04-12 09:57 | XMS_ITS | Encounter Summary ---
Author Organization Formerly [facility] Address [address] [place] [address] Care Team Providers Care Fitness Services Manager Name Role Phone Joni Woodruff MD Primary Care Provider Joni Sotelo MD Unavailable Unavailable Lashawn Mitchell RN Unavailable [phone] Reason for Visit * Reason Onset Date Comments Medication Refill 04/24/2017 Encounter Details Date Type Department Care Team (Late st Contact Info) Description 04/24/2017 Refill [facility] [place] [address] [facility] [address] [place] [address] Suad Orr, CAPITAL PROJECT ENGINEER [address] [place] [address] Social History Tobacco Use Types Packs/Day Years [...] on filedocumented in this encounter Care Teams Fitness Services Manager Relationship Specialty Start Date End Date Joni Woodruff MD PCP - General 04/03/15 Joni Woodruff MD Internal Medicine 03/06/15 Lashawn Mitchell RN [address] [place] [address] Oncology Nurse Navigator 04/10/16 documented as of this encounter
--- OUTSIDE RECORDS SUMMARY | 2025-04-12 09:57 | XMS_ITS | Clinical Summary ---
Author Organization [facility] Address [address] [place] [address] Care Team Providers Care Serology Teacher Name Role Phone Joni Woodruff MD Primary Care Provider Joni Sotelo MD Unavailable Unavailable Lashawn Mitchell RN Unavailable Allergies Active Allergy Reactions Criticality Noted Date Comments Penicillins Other (See Comments) ,GI Intolerance/Nausea/Vomiting Low 03/06/2015 dizziness Medications aspirin 81 MG tablet Aspirin 81 MG Oral Tablet TAKE 1 TABLET DAILY. ; Start Date: ; End Date: Active ergocalciferol (ERGOCALCIFEROL) 76247 units capsuleIndication s:Vitamin D Deficiency Take 1 [...] to sexual activity not to exceed 5 ptm=783 mg in 24 hrs 50 tablet 11 [...] Ag/Ab, 4th Gen NON-REACT AWILDA NON-REACT AWILDA [employer] [facility] NL1 Comment: HIV-1 antigen and HIV-1/HIV-2 [...] purpose. For additional information please refer to http://education.[employer]/faq/ABG420 (This link is being provided for informational/ educational purposes only.) The performance of this assay has not been clinically validated in patients less than 2 years old. Blood specimen (specimen) 11/20/2017 4:01 PM EDT 11/21/2017 6:28 AM EDT Narrative Resulting Agency Comment Performing Organization Information: Site ID: [id number] Name: [facility] Address: [address] [place] [address], [place] [address] Director: Uche Rock MD us Joni Woodruff MD LAB BLOOD ORDERABLES Final Re sult [facility] [employer] [facility] [address] [facility] 3rd Floor, [place] [address] from Last 3 Months or Most Recently Relevant to Health Maintenance Care Teams Serology Teacher Relationship Specialty Start Date End Date Joni Woodruff MD PCP - General 04/03/15 Joni Woodruff MD Internal Medicine 03/06/15 Lashawn Mitchell, RN [address] [place] [address] Oncology Nurse Navigator 04/10/16
--- OUTSIDE RECORDS SUMMARY | 2025-04-12 09:57 | XMS_ITS | Encounter Summary ---
Author Organization [facility] Address [address] [place] [address] Care Team Providers Care Paint Striping Machine Operator Name Role Phone Joni Woodruff MD Primary Care Provider Joni Sotelo MD Unavailable Unavailable Lashawn Mitchell RN Unavailable Encounter Details Date Type Department Care Team (Late st Contact Info) Description 04/16/2016 Scanned Document [facility] 80 [facility] [address] [place] [phone] Provider, Generic Social History Tobacco Use Types [...] on filedocumented in this encounter Care Teams Paint Striping Machine Operator Relationship Specialty Start Date End Date Joni Woodruff MD PCP - General 04/03/15 Joni Woodruff MD Internal Medicine 03/06/15 Lashawn Mitchell RN [address] [address] Oncology Nurse Navigator 04/10/16 documented as of this encounter
== END 2025-04-12 10:10 | disposition home or self-care (01) ==
LOC: HO.HSMS 08:49
PROVIDERS: PCP Internal Medicine; Visit Provider Physician Assistant Medical
DX: G47.33 Obstructive sleep apnea (adult) (pediatric) (principal); M25.562 Pain in left knee; G89.29 Other chronic pain; M25.561 Pain in right knee; G25.81 Restless legs syndrome; R39.198 Other difficulties with micturition
CPT/HCPCS: 99214

== ENCOUNTER 2025-04-23 15:02 | Emergency (ER) | payer OTHER, SELFPAY ==
--- NOTE | ~2025-04-23 | XR_ITS ---
CLINICAL HISTORY: cough 2 view chest x-ray. Comparison: None Findings: No consolidation. Heart size normal. No acute fracture. Impression: Lungs are clear. This document has been electronically signed by: Damon Cannon MD on 04/23/2025 17:16:07
[2025-04-23 15:07] VITALS: BP 120/61; PULSE 93; RESP 16; TEMP 36.7; O2SAT 98; BMI 27.8
--- NOTE | 2025-04-23 15:07 | ED_ITS ---
HPI - General Adult General Chief complaint: Upper Respiratory Symptoms Stated complaint: cold/cough Time Seen by Provider: 04/23/25 17:33 Source: patient and historic interpreter Mode of arrival: ambulatory Limitations: language barrier History of Present Illness HPI narrative: 69-year-old male presents for evaluation of a dry, nonproductive cough that has been going on for approximately 2 months. Patient states he has been using [id number] medication with minimal relief. He denies any fevers chills nausea or vomiting. He denies any sick contacts. He has had multiple negative COVID tests. Patient feels as though he is starting to have some sputum production over the past 2 weeks. He denies any dyspnea on exertion or orthopnea. No lower extremity edema. Patient states it is worse when he is supine. Symptoms are relieved when he is sitting or standing. He does have some sour eructations as well as frequent eructations. No LAYA inhibitor use. No frequent NSAID use. Related Data Home Medications ?Medication ?Instructions ?Recorded ?Confirmed aspirin 81 mg tablet,delayed 81 mg PO DAILY 07/31/21 0 04/04/25 release (Adult Low Dose Aspirin) Previous Rx's ?Medication ?Instructions ?Recorded atorvastatin 20 mg tablet 20 mg PO BEDTIME #90 tabs acetaminophen 500 mg capsule 1,000 mg (2 x 500 mg) PO Q6H PRN 09/02/24 pain #30 caps cyclobenzaprine 10 mg tablet 10 mg PO TID Pain #90 tab s 09/03/24 ergocalciferol (vitamin D2) 1,250 1,250 mcg PO QWEEK # 12 caps 03/07/25 mcg (50,000 unit) capsule celecoxib 200 mg capsule (Celebrex) 200 mg PO BID 30 d ays #60 caps 04/04/25 omeprazole 20 mg capsule,delayed 20 mg PO DAILY #14 ca ps 04/23/25 release Allergies Allergy/AdvReac Type Severity Reaction Status Date / Time Penicillins Allergy Intermediate SICKNESS Verified 04/23/25 15:10 ampicillin Allergy Unknown Unknown Verified 04/23/25 15:10 Review of Systems 2 Review of Systems: Yes all other systems are reviewed and are negative Respiratory: Respiratory: Reports cough Gastrointestinal: Gastrointestinal: Denies abdominal pain and Reports belching PMFSH Past Medical History Medical History Anemia Diverticulosis Overweight (BMI 25.0-29.9) Right flank pain Low back pain radiating to lower extremity Rib pain on right side Osteoarthritis of right shoulder Hypercholesterolemia Eczema Hyperglycemia Prostate cancer Vitamin D deficiency Contusion of chest wall Surgical History History of colonoscopy (~07/11/21) History of appendectomy History of prostatectomy Family History Family History Father Prostate cancer Mother No problems noted. Social History Social History Household Members: Spouse and Children Housing: House Are you a primary complex care nurse to a significant other at home: No Do you presently have visiting nurse or other home services: No Alcohol intake: current Alcohol intake frequency: holidays/special occasions only Patient Tobacco Use Status: Former Tobacco user Tobacco use type: Cigarette e-Cigarette/Vaping Use: Never Used Second Hand Smoke Exposure: Yes Advance Directives: No Advance Directives Information Provided: No Do you have a plan to hurt others: No Plan service: No Current occupational status: employed Current occupation: warehouse, left hand dominant Cognitive needs: No Hearing needs: No Vision needs: Yes (glasses) Physical Exam ED Vital Signs: Vital Signs - 24 hr 04/23/25 15:07 04/23/25 18:10 Temperature 98.1 F 98.1 F Pulse Rate 93 93 Respiratory Rate 16 16 Blood Pressure 120/61 120/61 Pulse Oximetry 98 98 Oxygen Delivery Method Room Air Room Air BMI result Body Mass Index 27.8 HENMT Other: Oropharynx is moist. Speaks full clear sentences. Resp Effort & Inspection: normal respiratory effort Auscultation: clear to auscultation bilaterally Cardio Rate: regular rate Rhythm: regular rhythm Course Course Course Narrative: Medical screening exam performed. Please refer to detailed history, exam, evaluation, and management by primary provider. Two months of a cough, continues to persist. Now with chest pain with coughing. No sputum production. JS Medical Decision Making Medical Decision Making MDM Narrative: 69-year-old male presents with a cough for approximately 2 months. No infectious process at this time. Chest x-ray is unremarkable. Labs within normal ranges. Given the patient's symptoms that are worse with supine, sour eructations and frequent eructations may be related to GI. Trial of omeprazole. Patient feels comfortable with discharge plan home. No further questions at this time. Differential Diagnosis Differential Diagnoses: The differential diagnosis associated with the presentation includes Dyspepsia Pneumonia Bronchitis ACS Lab Data MDM Lab Attestation statement: I reviewed the patient's lab results. 04/23/25 15:39 04/23/25 15:39 Labs: Lab Results 04/23/25 Range/Units 15:39 WBC 5.6 (4.8-10.8) X10*3/uL RBC 3.99 L (4.60-5.80) X10*6/uL Hgb 12.9 L (14.0-18.0) g/dl Hct 37.9 L (42.0-52.0) % MCV 95.0 (80.0-98.0) fL MCH 32.3 (27.0-33.0) pg MCHC 34.0 (31.0-36.0) g/dl RDW 11.6 (11.0-16.0) % Plt Count 152 L (160-400) X10*3/uL MPV 10.8 (9.4-12.4) fL Immature Gran % (Auto) 0.2 (0.0-0.4) % Neut % (Auto) 60.5 (45-73) % Lymph % (Auto) 28.5 (20-40) % [place] % (Auto) 6.7 (2-11) % Eos % (Auto) 3.6 (0-4) % Baso % (Auto) 0.5 (0-2) % Lymph # (Auto) 1.6 (1.2-4.9) X10*3/uL [place] # (Auto) 0.4 (0.1-1.2) X10*3/uL Eos # (Auto) 0.2 (0.0-0.4) X10*3/uL Baso # (Auto) 0.0 (0.0-0.2) X10*3/uL Abs Immat Gran (auto) 0.01 (0.00-0.03) X10*3/uL Absolute Neuts (auto) 3.4 (2.0-8.3) x10*3/uL Absolute Nucleated RBC 0.000 (0.0-0.012) X10*3/uL Nucleated RBC % (auto) 0.0 (0.0-0.2) /100WBC Sodium 140 (135-145) mmol/L Potassium 4.4 (3.3-5.1) mmol/L Chloride 107 (96-108) mmol/L Carbon Dioxide 25 (22-29) mmol/L Anion Gap 12 (12-20) BUN 18 H (9-16) mg/dL Creatinine 0.93 (0.5-1.4) mg/dL Estim Creat Clear Calc 74.7 Estimated GFR > 60 Random Glucose 183 H (60-115) mg/dL Calcium 9.0 (8.4-10.2) mg/dL Troponin I High Sens < 2.7 (<3.5-35.0) ng/L COVID-19 (BASIL) Negative (Negative) COVID-19 Clin Com See Note Discharge Plan Discharge Clinical Impression: Cough, Chronic cough due to gastroesophageal reflux disease Patient Disposition: Home, Self-Care Instructions: Diet for Stomach Ulcers and Gastritis (ED), GERD (Gastroesophageal Reflux Disease) (ED) Additional Instructions: Omeprazole as directed. Follow-up with your primary care provider. Call this week to schedule a follow- up appointment. Return to the emergency department if you have any worsening of symptoms, or any concerns. Get well soon! Prescriptions: New omeprazole 20 mg capsule,delayed release(DR/EC) 20 mg PO DAILY Qty: 14 0RF No Action atorvastatin 20 mg tablet 20 mg PO BEDTIME Qty: 90 1RF ergocalciferol (vitamin D2) 1,250 mcg (50,000 unit) capsule 1,250 mcg PO QWEEK Qty: 12 1RF aspirin [Adult Low Dose Aspirin] 81 mg tablet,delayed release (DR/EC) 81 mg PO DAILY acetaminophen 500 mg capsule 1,000 mg PO Q6H PRN (Reason: pain) Qty: 30 0RF cyclobenzaprine 10 mg tablet 10 mg PO TID Qty: 90 1RF celecoxib [Celebrex] 200 mg capsule 200 mg PO BID 30 Days Qty: 60 3RF Interventions: ED Discharge Assessment Last Done: 04/23/25 18:10 Discharge Date/Time: 04/23/25 18:11 Print Language: Argentine
--- NOTE | 2025-04-23 15:12 | ECG_ITS ---
Test Reason : CP Blood Pressure : */* mmHG Vent. Rate : 70 BPM Atrial Rate : 70 BPM P-R Int : 168 ms QRS Dur : 88 ms QT Int : 380 ms P-R-T Axes : 62 19 67 degrees QTcB Int : 410 ms Normal sinus rhythm Cannot rule out Anterior infarct , age undetermined Abnormal ECG No previous ECGs available Referred By: Zenon Willoughby Electronically Signed By: RC VASQUES
--- OUTSIDE RECORDS SUMMARY | 2025-04-23 15:31 | XMS_ITS | Encounter Summary ---
Author Organization [facility] Address [address] [place] [address] Care Team Providers Care Senior Cyber Intelligence Analyst Name Role Phone Joni Woodruff MD Primary Care Provider Joni Sotelo MD Unavailable Unavailable Lashawn Mitchell RN Unavailable Encounter Details Date Type Department Care Team (Late st Contact Info) Description 04/20/2015 Scanned Document [address] [phone] Provider, Generic Social History [...] filedocumented in this encounter Care Teams Senior Cyber Intelligence Analyst Relationship Specialty Start Date End Date Joni Woodruff MD PCP - General 04/03/15 Joni Woodruff MD Internal Medicine 03/06/15 Lashawn Mitchell RN [address] [address] Oncology Nurse Navigator 04/10/16 documented as of this encounter
--- OUTSIDE RECORDS SUMMARY | 2025-04-23 15:31 | XMS_ITS | Encounter Summary ---
Author Organization [facility] Address [address] [place] [address] Care Team Providers Care Vehicle Upholsterer Name Role Phone Joni Woodruff MD Primary Care Provider Joni Sotelo MD Unavailable Unavailable Lashawn Mitchell RN Unavailable [phone] Encounter Details Date Type Department Care Team (Late st Contact Info) Description 01/03/2016 Telephone [facility] [place] [address] Alonso Gonzales MD [address] [place] [id number] Social History Tobacco Use Types Packs/Day Years [...] and would like to discuss w/ someone. German only. documented in this encounter Plan of Treatment Not on file documented as of this encounter Visit Diagnoses Not on filedocumented in this encounter Care Teams Vehicle Upholsterer Relationship Specialty Start Date End Date Joni Woodruff MD PCP - General 04/03/15 Joni Woodruff MD Internal Medicine 03/06/15 Lashawn Mitchell RN [address] [place] [address] Oncology Nurse Navigator 04/10/16 documented as of this encounter
--- OUTSIDE RECORDS SUMMARY | 2025-04-23 15:31 | XMS_ITS | Encounter Summary ---
Author Organization [facility] Address [address] [place] [address] Care Team Providers Care Shoer Name Role Phone Joni Woodruff MD Primary Care Provider Joni Sotelo MD Unavailable Unavailable Lashawn Mitchell RN Unavailable [phone] Encounter Details Date Type Department Care Team (Late st Contact Info) Description 04/16/2016 Scanned Document [facility] 80 [facility] [address] [place] [phone] Provider, Generic Social History Tobacco Use Types [...] on filedocumented in this encounter Care Teams Shoer Relationship Specialty Start Date End Date Joni Woodruff MD PCP - General 04/03/15 Joni Woodruff MD Internal Medicine 03/06/15 Lashawn Mitchell RN [address] [address] Oncology Nurse Navigator 04/10/16 documented as of this encounter
--- OUTSIDE RECORDS SUMMARY | 2025-04-23 15:31 | XMS_ITS | Encounter Summary ---
Author Organization [facility] Address [address] [place] [address] Care Team Providers Care Locksmith Helper Name Role Phone Joni Woodruff MD Primary Care Provider Joni Sotelo MD Unavailable Unavailable Lashawn Mitchell RN Unavailable Encounter Details Date Type Department Care Team (Late st Contact Info) Description 03/12/2016 Scanned Document [address] [phone] Provider, Generic Social History Tobacco [...] on filedocumented in this encounter Care Teams Locksmith Helper Relationship Specialty Start Date End Date Joni Woodruff MD PCP - General 04/03/15 Joni Woodruff MD Internal Medicine 03/06/15 Lashawn Mitchell RN [address] [address] Oncology Nurse Navigator 04/10/16 documented as of this encounter
--- OUTSIDE RECORDS SUMMARY | 2025-04-23 15:31 | XMS_ITS | Clinical Summary ---
Author Organization [facility] Address [address] [place] [address] Care Team Providers Care Community Outreach Coordinator Name Role Phone Joni Woodruff MD Primary Care Provider Joni Sotelo MD Unavailable Unavailable Lashawn Mitchell RN Unavailable Allergies Active Allergy Reactions Criticality Noted Date Comments Penicillins Other (See Comments) ,GI Intolerance/Nausea/Vomiting Low 03/06/2015 dizziness Medications aspirin 81 MG tablet Aspirin 81 MG Oral Tablet TAKE 1 TABLET DAILY. ; Start Date: ; End Date: Active ergocalciferol (ERGOCALCIFEROL) 71710 units capsuleIndication s:Vitamin D Deficiency Take 1 [...] to sexual activity not to exceed 5 eyz=746 mg in 24 hrs 50 tablet 11 [...] Ag/Ab, 4th Gen NON-REACT AWILDA NON-REACT AWILDA [employer] NL1 Comment: HIV-1 antigen and HIV-1/HIV-2 [...] purpose. For additional information please refer to http://education.[employer]/faq/XTB090 (This link is being provided for informational/ educational purposes only.) The performance of this assay has not been clinically validated in patients less than 2 years old. Blood specimen (specimen) 11/20/2017 4:01 PM EDT 11/21/2017 6:28 AM EDT Narrative Resulting Agency Comment Performing Organization Information: Site ID: [id number] Name: [facility] [facility] Address: [address] [place] [address], [place] [address] Director: Uche Rock MD us Joni Woodruff MD LAB BLOOD ORDERABLES Final Re sult [facility] [address] [facility] 3rd Floor, [place] [address] from Last 3 Months or Most Recently Relevant to Health Maintenance Care Teams Community Outreach Coordinator Relationship Specialty Start Date End Date Joni Woodruff MD PCP - General 04/03/15 Joni Woodruff MD Internal Medicine 03/06/15 Lashawn Mitchell, RN [address] [place] [address] Oncology Nurse Navigator 04/10/16
--- OUTSIDE RECORDS SUMMARY | 2025-04-23 15:31 | XMS_ITS | Encounter Summary ---
Author Organization [facility] Address [address] [place] [address] Care Team Providers Care Crime Scene Specialist Name Role Phone Joni Woodruff MD Primary Care Provider Joni Sotelo MD Unavailable Unavailable Lashawn Mitchell RN Unavailable [phone] Encounter Details Date Type Department Care Team (Late st Contact Info) Description 03/23/2015 Scanned Document [address] [phone] Provider, Generic Social History Tobacco [...] on filedocumented in this encounter Care Teams Crime Scene Specialist Relationship Specialty Start Date End Date Joni Woodruff MD PCP - General 04/03/15 Joni Woodruff MD Internal Medicine 03/06/15 Lashawn Mitchell RN [address] [address] Oncology Nurse Navigator 04/10/16 documented as of this encounter
--- OUTSIDE RECORDS SUMMARY | 2025-04-23 15:31 | XMS_ITS | Clinical Summary ---
Author Organization [facility], Address [address] [place] [address] [place] [address] Phone Care Team Providers Care Lpn Instructor Name Role Phone Jackson Moyer MD Primary Care Provider [phone] Allergies Active Allergy Reactions Criticality Noted Date [...] severe COVID-19: None ? Healthcare worker or airplane first officer? No ? COVID-19 Tested? - Yes - Date Tested 11/03/2019 Testing Location - [facility] - Testing Results - Positive [...] [facility] Care Teams Lpn Instructor Relationship Specialty Start Date End Date Jackson Moyer MD [address] [place] [phone] PCP - General Internal Medicine 11/24/19
--- OUTSIDE RECORDS SUMMARY | 2025-04-23 15:31 | XMS_ITS | Encounter Summary ---
Author Organization [facility] Address [address] [place] [address] Care Team Providers Care Electrical Project Manager Name Role Phone Joni Woodruff MD Primary Care Provider Joni Sotelo MD Unavailable Unavailable Lashawn Mitchell RN Unavailable Encounter Details Date Type Department Care Team (Late st Contact Info) Description 07/11/2015 Scanned Document [address] [phone] Provider, Generic Social History Tobacco [...] on filedocumented in this encounter Care Teams Electrical Project Manager Relationship Specialty Start Date End Date Joni Woodruff MD PCP - General 04/03/15 Joni Woodruff MD Internal Medicine 03/06/15 Lashawn Mitchell RN [address] [address] Oncology Nurse Navigator 04/10/16 documented as of this encounter
--- OUTSIDE RECORDS SUMMARY | 2025-04-23 15:31 | XMS_ITS | Encounter Summary ---
Author Organization [facility] Address [address] [place] [address] Care Team Providers Care Ndt Inspector Name Role Phone Joni Woodruff MD Primary Care Provider Joni Sotelo MD Unavailable Unavailable Lashawn Mitchell RN Unavailable [phone] Encounter Details Date Type Department Care Team (Late st Contact Info) Description 03/20/2017 Scanned Document [address] [phone] Joni Woodruff MD Social History [...] on filedocumented in this encounter Care Teams Ndt Inspector Relationship Specialty Start Date End Date Joni Woodruff MD PCP - General 04/03/15 Joni Woodruff MD Internal Medicine 03/06/15 Lashawn Mitchell RN [address] [address] Oncology Nurse Navigator 04/10/16 documented as of this encounter
--- OUTSIDE RECORDS SUMMARY | 2025-04-23 15:32 | XMS_ITS | Encounter Summary ---
Author Organization [facility] Address [address] [place] [address] Care Team Providers Care Sliver Handler Name Role Phone Joni Woodruff MD Primary Care Provider Joni Sotelo MD Unavailable Unavailable Lashawn Mitchell RN Unavailable Encounter Details Date Type Department Care Team (Late st Contact Info) Description 03/06/2015 Scanned Document [address] [facility] [address] [place] [phone] Provider, Generic Social History Tobacco Use [...] on filedocumented in this encounter Care Teams Sliver Handler Relationship Specialty Start Date End Date Joni Woodruff MD PCP - General 04/03/15 Joni Woodruff MD Internal Medicine 03/06/15 Lashawn Mitchell RN [address] [place] [address] Oncology Nurse Navigator 04/10/16 documented as of this encounter
--- OUTSIDE RECORDS SUMMARY | 2025-04-23 15:32 | XMS_ITS | Encounter Summary ---
Author Organization [facility] Address [address] [place] [address] Care Team Providers Care Defence Force Senior Officer Name Role Phone Joni Woodruff MD Primary Care Provider Joni Sotelo MD Unavailable Unavailable Lashawn Mitchell RN Unavailable [phone] Encounter Details Date Type Department Care Team (Late st Contact Info) Description 06/21/2016 Scanned Document [address] [facility] [address] [place] [phone] Provider, Generic Social History Tobacco Use [...] on filedocumented in this encounter Care Teams Defence Force Senior Officer Relationship Specialty Start Date End Date Joni Woodruff MD PCP - General 04/03/15 Joni Woodruff MD Internal Medicine 03/06/15 Lashawn Mitchell RN [address] [place] [address] Oncology Nurse Navigator 04/10/16 documented as of this encounter
--- OUTSIDE RECORDS SUMMARY | 2025-04-23 15:32 | XMS_ITS | Encounter Summary ---
Author Organization [facility] Address [address] [place] [address] Care Team Providers Care X Ray Developer Name Role Phone Joni Woodruff MD Primary Care Provider Joni Sotelo MD Unavailable Unavailable Lashawn Mitchell RN Unavailable Encounter Details Date Type Department Care Team (Late st Contact Info) Description 02/14/2015 Scanned Document [address] [phone] Provider, Generic Social History Tobacco [...] on filedocumented in this encounter Care Teams X Ray Developer Relationship Specialty Start Date End Date Joni Woodruff MD PCP - General 04/03/15 Joni Woodruff MD Internal Medicine 03/06/15 Lashawn Mitchell, RN [address] [address] Oncology Nurse Navigator 04/10/16 documented as of this encounter
--- OUTSIDE RECORDS SUMMARY | 2025-04-23 15:32 | XMS_ITS | Encounter Summary ---
Author Organization [facility] Address [address] [place] [address] Care Team Providers Care Master Ship Name Role Phone Joni Woodruff MD Primary Care Provider Joni Sotelo MD Unavailable Unavailable Lashawn Mitchell RN Unavailable Reason for Visit * Reason Onset Date Comments Medication Refill 04/24/2017 Encounter Details Date Type Department Care Team (Late st Contact Info) Description 04/24/2017 Refill [facility] Urologic Surgery [place] [address] [facility] [address] [place] [address] Suad Orr, LEVEL DESIGNER [address] [place] [address] Social History Tobacco Use Types Packs/Day Years [...] on filedocumented in this encounter Care Teams Master Ship Relationship Specialty Start Date End Date Joni Woodruff MD PCP - General 04/03/15 Joni Woodruff MD Internal Medicine 03/06/15 Lashawn Mitchell RN [address] [place] [address] Oncology Nurse Navigator 04/10/16 documented as of this encounter
--- OUTSIDE RECORDS SUMMARY | 2025-04-23 15:32 | XMS_ITS | Clinical Summary ---
Author Organization [employer] Address [address] [place] [address] Care Team Providers Care Continuity Tester Name Role Phone Unavailable Primary Care Provider [...] Date Last Done Comments Colorectal Cancer Screening: Colonoscopy 1955 DTaP,Tdap,and Td Vaccines (1 - Tdap) 10/07/1975 Pneumococcal Vaccine: 50+ Ye ars (1 of 1 - PCV) 2006 Zoster Vaccines (1 of 2) 2006 Abdominal Aortic Aneurysm (A AA) Screen 08/15/2023 Cholesterol Screening (Lipid Panel) 08/15/2023 Falls Risk Assessment 08/15/2023 Hepatitis C [...]
--- OUTSIDE RECORDS SUMMARY | 2025-04-23 15:32 | XMS_ITS | Encounter Summary ---
Author Organization [facility] Address [address] [place] [address] Care Team Providers Care Louver Mortiser Operator Name Role Phone Joni Woodruff MD Primary Care Provider Joni Sotelo MD Unavailable Unavailable Lashawn Mitchell RN Unavailable [phone] Encounter Details Date Type Department Care Team (Late st Contact Info) Description 11/21/2017 Scanned Document [address] [phone] Joni Woodruff MD Social History [...] on filedocumented in this encounter Care Teams Louver Mortiser Operator Relationship Specialty Start Date End Date Joni Woodruff MD PCP - General 04/03/15 Joni Woodruff MD Internal Medicine 03/06/15 Lashawn Mitchell RN [address] [address] Oncology Nurse Navigator 04/10/16 documented as of this encounter
[2025-04-23 15:50] LABS: MANUAL DIFF FLAG NO
[2025-04-23 15:52] LABS: Hematocrit 37.9 % (42.0-52.0); Hemoglobin 12.9 g/dl (14.0-18.0); Imm Gran Abs Auto 0.01 X10*3/uL (0.00-0.03); Imm Gran Pct Auto 0.2 % (0.0-0.4); Lymphocytes Absolute Auto 1.6 X10*3/uL (1.2-4.9); Mean Corpuscular HGB Conc 34.0 g/dl (31.0-36.0); Mean Corpuscular Hemoglobin 32.3 pg (27.0-33.0); Mean Corpuscular Volume 95.0 fL (80.0-98.0); NRBC Abs Auto 0.000 X10*3/uL (0.0-0.012); NRBC Pct Auto 0.0 /100WBC (0.0-0.2); Platelet Count 152 X10*3/uL (160-400); Red Blood Count 3.99 X10*6/uL (4.60-5.80); White Blood Count 5.6 X10*3/uL (4.8-10.8)
[2025-04-23 16:09] LABS: COVID-19 Test Negative (Negative); IDNOW Serial# 55D5AD1C
[2025-04-23 16:10] LABS: Anion Gap 12 (12-20); Blood Urea Nitrogen 18 mg/dL (9-16); Calcium 9.0 mg/dL (8.4-10.2); Carbon Dioxide 25 mmol/L (22-29); Chloride 107 mmol/L (96-108); Creatinine Clr Calc Pharmacy 74.7; Estimated Glomerular Filt Rate > 60; Potassium 4.4 mmol/L (3.3-5.1); Sodium 140 mmol/L (135-145)
[2025-04-23 16:22] LABS: Troponin-I High Sensitivity < 2.7 ng/L (<3.5-35.0)
[2025-04-23 18:10] VITALS: BP 120/61; PULSE 93; RESP 16; TEMP 36.7; O2SAT 98
== END 2025-04-23 18:11 | disposition home or self-care (01) ==
PROVIDERS: Physician Assistant; Emergency Provider Student in an Organized Health Care Education/Training Program; PCP Internal Medicine
DX: K21.9 Gastro-esophageal reflux disease without esophagitis (principal); Z79.899 Other long term (current) drug therapy
CPT/HCPCS: 71046; 80048; 84484; 85025; 87635; 93005; 99283

== ENCOUNTER → 2025-04-23 15:08 | Outpatient (BNV) | payer OTHER, SELFPAY | PROVIDERS: Emergency Provider Student in an Organized Health Care Education/Training Program; PCP Internal Medicine; Visit Provider Radiology Diagnostic Radiology | DX: R05.9 Cough, unspecified (principal) | CPT/HCPCS: 71046 ==

== ENCOUNTER → 2025-04-23 15:12 | Outpatient (BNV) | payer OTHER, SELFPAY | PROVIDERS: Emergency Provider Student in an Organized Health Care Education/Training Program; PCP Internal Medicine; Visit Provider Internal Medicine | DX: R94.31 Abnormal electrocardiogram [ECG] [EKG] (principal); R07.9 Chest pain, unspecified | CPT/HCPCS: 93010 ==

== ENCOUNTER 2025-06-21 08:43 | Outpatient (AMB) | payer OTHER, SELFPAY ==
--- NOTE | 2025-06-21 08:45 | MHC.OFFVIS ---
Intake Visit Reasons: history of prostate cancer UA SET Intake Note: New Patient is present for History of Prostate Cancer Urology Rx: none Blood Thinners:aspirin Imaging completed: Abd /Pelvis CT 10/04/24 Labs done : 10/22/24 PSA <0.10 Geographic Information Systems Director Required: Yes Geographic Information Systems Director Language: South Korean Accompanied by: Self / Same As Patient Allergies Penicillins Allergy (Intermediate, Verified 06/21/25 08:46) SICKNESS ampicillin Allergy (Unknown, Verified 06/21/25 08:46) Unknown HPI Comments Details: Aurelio is a pleasant South Korean-speaking male. He is a patient of Dr. Hobbs. He is seen for the following urologic conditions - prostate cancer - radiation cystitis South Korean translation provided by qualified certified medical biller History of prostate cancer in 2017. Status post surgery in [place] followed by radiation therapy Urinary urgency Marked urgency with accidents Consistent with radiation cystitis Trial oxybutynin Check PSA PFSH Medical History Anemia Diverticulosis Overweight (BMI 25.0-29.9) Right flank pain Low back pain radiating to lower extremity Rib pain on right side Osteoarthritis of right shoulder Hypercholesterolemia Eczema Hyperglycemia Prostate cancer Vitamin D deficiency Contusion of chest wall Surgical History History of colonoscopy (~07/11/21) History of appendectomy History of prostatectomy Family History Father Prostate cancer Mother No problems noted. Social History Household Members: Spouse and Children Housing: House Are you a primary health care facilities inspector to a significant other at home: No Do you presently have visiting nurse or other home services: No Alcohol intake: current Alcohol intake frequency: holidays/special occasions only Patient Tobacco Use Status: Former Tobacco user Tobacco use type: Cigarette e-Cigarette/Vaping Use: Never Used Second Hand Smoke Exposure: Yes service: No Current occupational status: employed Current occupation: warehouse, left hand dominant Cognitive needs: No Hearing needs: No Vision needs: Yes (glasses) Review of Systems Const Denies chills and Denies fever(s) Card Reports no additional complaints and Denies syncope Resp Denies cough GI Denies abdominal pain and Denies heartburn Reports as per HPI and Denies change in libido Neuro Denies syncope Psych Denies change in libido Endo Denies change in libido Physical Exam Const General: cooperative, healthy appearing, comfortable and no acute distress Orientation/consciousness: patient oriented x3 HEENT Face and sinus: Yes normal facial exam Mouth: moist mucous membranes Neck Neck: Yes normal visual inspection, Yes full ROM and Yes trachea midline Chest Chest palpation & inspection: normal inspection of the chest Resp Effort & Inspection: normal respiratory effort, able to speak in complete sentences and no respiratory distress GI Inspection: Yes normal to inspection Back/Spine/Pelvis Cervical Spine: normal cervical lordosis Thoracic/Lumbar Spine: thoracic and lumbar spine normal to inspection Skin General skin exam: no rashes or lesions noted Neuro General: patient oriented x3, gait normal, tone normal and moves all extremities Extrem General: Yes normal to inspection and Yes capillary refill normal Results AMB Urinalysis, Automated UA Leukoctes 0 Angelica/uL Last Edit by Yesika Simmons [facility] on 06/21/25 08:53 UA Nitrite Negative Last Edit by Yesika Simmons [facility] on 06/21/25 08:53 UA Urobilinogen 0.2 mg/dL Last Edit by Yesika Simmons [facility] on 06/21/25 08:53 UA Protein 0 mg/dL Last Edit by Yesika Simmons [facility] on 06/21/25 08:53 UA pH 7.0 Last Edit by Yesika Simmons [facility] on 06/21/25 08:53 UA Blood 0 Manish/uL Last Edit by Yesika Simmons [facility] on 06/21/25 08:53 UA Specific [place] 1.015 Last Edit by Yesika Simmons [facility] on 06/21/25 08:53 UA Ketone Negative Last Edit by Yesika Simmons [facility] on 06/21/25 08:53 UA Bilirubin 0 mg/dL Last Edit by Yesika Simmons [facility] on 06/21/25 08:53 UA Glucose 0 mg/dL Last Edit by Yesika Simmons [facility] on 06/21/25 08:53 Results Reviewed Results Reviewed: Laboratory Last Values Urine pH (Auto) 7.0 06/21/25 08:52 Specific [place] (Auto) 1.015 06/21/25 08:52 Urine Protein (Auto) 0 mg/dL 06/21/25 08:52 Glucose (UA)(Auto) 0 mg/dL 06/21/25 08:52 Urine Ketones (Auto) Negative 06/21/25 08:52 Urine Blood (Auto) 0 Manish/uL 06/21/25 08:52 Urine Nitrite (Auto) Negative 06/21/25 08:52 Urine Bilirubin (Auto) 0 mg/dL 06/21/25 08:52 Urine Urobilinogen (Auto) 0.2 mg/dL 06/21/25 08:52 Leukocyte Esterase (Auto) 0 Angelica/uL 06/21/25 08:52 Assessment & Plan Assessment & Plan (1) Prostate cancer: Code(s): C61 - Malignant neoplasm of prostate Category: Medical (2) Radiation cystitis: Code(s): N30.40 - Irradiation cystitis without hematuria Category: Medical (3) Urinary urgency: Code(s): R39.15 - Urgency of urination Category: Medical Plan PSA now Trial oxybutynin Orders: Orders Prostate Specific Antigen 6 Months C61 - Malignant neoplasm of prostate Medications: New oxybutynin chloride ER 5 mg PO DAILY 30 tabs 1RF 30 days N30.40 - Irradiation cystitis without hematuria Patient Instructions: This note is constructed using voice recognition software. While every effort has been made to ensure accuracy banquet supervisor errors may have been included. Imaging studies, laboratory and physical exam results were discussed and reviewed in detail. No major barriers to patient understanding were identified. An opportunity to ask questions regarding the treatment plan was provided. All questions were answered. The patient expressed understanding and agreement with the above treatment plan. The patient is aware they should contact our office by phone for worsening of their current condition or the appearance of new urologic symptoms. Compliance is encouraged with any medications and followup testing that is ordered. It is a privilege to participate in the urologic care of your patient. If you have any questions or concerns regarding treatment for the above conditions, or other urologic issues, please do not hesitate to contact me. The office telephone contact is [phone]. Sincerely, Dr Nj Kan MD, JOVITA [facility] - Urology Compassionate Specialist Care for the Genitourinary System Coding Level of Care Code New Pt Level 4 (23266) Diagnoses Prostate cancer C61 Radiation cystitis N30.40 Urinary urgency R39.15
--- OUTSIDE RECORDS SUMMARY | 2025-06-21 08:52 | XMS_ITS | Encounter Summary ---
Author Organization [facility] Address [address] [place] [address] Care Team Providers Care Demurrage Agent Name Role Phone Joni Woodruff MD Primary Care Provider Joni Sotelo MD Unavailable Unavailable Lashawn Mitchell RN Unavailable Encounter Details Date Type Department Care Team (Late st Contact Info) Description 07/11/2015 Scanned Document [address] [phone] Provider, Generic Social History [...] on filedocumented in this encounter Care Teams Demurrage Agent Relationship Specialty Start Date End Date Joni Woodruff MD PCP - General 04/03/15 Joni Woodruff MD Internal Medicine 03/06/15 Lashawn Mitchell RN [address] [address] Oncology Nurse Navigator 04/10/16 documented as of this encounter
--- OUTSIDE RECORDS SUMMARY | 2025-06-21 08:53 | XMS_ITS | Encounter Summary ---
Author Organization [facility] Address [address] [place] [address] Care Team Providers Care Home Care Giver Name Role Phone Joni Woodruff MD Primary Care Provider Joni Sotelo MD Unavailable Unavailable Lashawn Mitchell RN Unavailable Encounter Details Date Type Department Care Team (Late st Contact Info) Description 04/20/2015 Scanned Document [address] [phone] Provider, Generic Social History Tobacco [...] on filedocumented in this encounter Care Teams Home Care Giver Relationship Specialty Start Date End Date Joni Woodruff MD PCP - General 04/03/15 Joni Woodruff MD Internal Medicine 03/06/15 Lashawn Mitchell RN [address] [address] Oncology Nurse Navigator 04/10/16 documented as of this encounter
--- OUTSIDE RECORDS SUMMARY | 2025-06-21 08:53 | XMS_ITS | Encounter Summary ---
Author Organization [facility] Address [address] [place] [address] Care Team Providers Care Black Top Paver Operator Name Role Phone Joni Woodruff MD Primary Care Provider Joni Sotelo MD Unavailable Unavailable Lashawn Mitchell RN Unavailable Encounter Details Date Type Department Care Team (Late st Contact Info) Description 03/12/2016 Scanned Document [address] [phone] Provider, Generic Social History Tobacco [...] on filedocumented in this encounter Care Teams Black Top Paver Operator Relationship Specialty Start Date End Date Joni Woodruff MD PCP - General 04/03/15 Joni Woodruff MD Internal Medicine 03/06/15 Lashawn Mitchell RN [address] [address] Oncology Nurse Navigator 04/10/16 documented as of this encounter
--- OUTSIDE RECORDS SUMMARY | 2025-06-21 08:53 | XMS_ITS | Encounter Summary ---
Author Organization [facility] Address [address] [place] [address] Care Team Providers Care Remote Sensing Advisor Name Role Phone Joni Woodruff MD Primary Care Provider Joni Sotelo MD Unavailable Unavailable Lashawn Mitchell RN Unavailable [phone] Encounter Details Date Type Department Care Team (Late st Contact Info) Description 04/16/2016 Scanned Document [facility] [address] [facility] [address] [place] [phone] Provider, Generic Social History Tobacco Use Types [...] on filedocumented in this encounter Care Teams Remote Sensing Advisor Relationship Specialty Start Date End Date Joni Woodruff MD PCP - General 04/03/15 Joni Woodruff MD Internal Medicine 03/06/15 Lashawn Mitchell RN [address] [address] Oncology Nurse Navigator 04/10/16 documented as of this encounter
--- OUTSIDE RECORDS SUMMARY | 2025-06-21 08:53 | XMS_ITS | Encounter Summary ---
Author Organization [facility] Address [address] [place] [address] Care Team Providers Care Recreational Facilities Motel Manager Name Role Phone Joni Woodruff MD Primary Care Provider Joni Sotelo MD Unavailable Unavailable Lashawn Mitchell RN Unavailable Encounter Details Date Type Department Care Team (Late st Contact Info) Description 11/21/2017 Scanned Document [address] [phone] Joni Woodruff MD Social History [...] on filedocumented in this encounter Care Teams Recreational Facilities Motel Manager Relationship Specialty Start Date End Date Joni Woodruff MD PCP - General 04/03/15 Joni Woodruff MD Internal Medicine 03/06/15 Lashawn Mitchell RN [address] [address] Oncology Nurse Navigator 04/10/16 documented as of this encounter
--- OUTSIDE RECORDS SUMMARY | 2025-06-21 08:53 | XMS_ITS | Clinical Summary ---
Author Organization [facility] Address [address] [place] [address] Care Team Providers Care Grounds Supervisor Name Role Phone Joni Woodruff MD Primary Care Provider Joni Sotelo MD Unavailable Unavailable Lashawn Mitchell RN Unavailable Allergies Active Allergy Reactions Criticality Noted Date Comments Penicillins Other (See Comments) ,GI Intolerance/Nausea/Vomiting Low 03/06/2015 dizziness Medications aspirin 81 MG tablet Aspirin 81 MG Oral Tablet TAKE 1 TABLET DAILY. ; Start Date: ; End Date: Active ergocalciferol (ERGOCALCIFEROL) 41754 units capsuleIndication s:Vitamin D Deficiency Take 1 [...] to sexual activity not to exceed 5 wdi=452 mg in 24 hrs 50 tablet 11 [...] Vaccine (1 - season) 2025 RSV Vaccine 50 years and older and Patients (1 - [...] Ag/Ab, 4th Gen NON-REACT AWILDA NON-REACT AWILDA [facility] Comment: HIV-1 antigen and HIV-1/HIV-2 [...] purpose. For additional information please refer to http://education.[employer]/faq/SJP513 (This link is being provided for informational/ educational purposes only.) The performance of this assay has not been clinically validated in patients less than 2 years old. Blood specimen (specimen) 11/20/2017 4:01 PM EDT 11/21/2017 6:28 AM EDT Narrative Resulting Agency Comment Performing Organization Information: Site ID: [id number] Name: [facility] Address: [address] [place] [address], [place] [address] Director: Uche Rock MD us Joni Woodruff MD LAB BLOOD ORDERABLES Final Re sult [facility] [address] [facility] [address], [place] [address] from Last 3 Months or Most Recently Relevant to Health Maintenance Care Teams Grounds Supervisor Relationship Specialty Start Date End Date Joni Woodruff MD PCP - General 04/03/15 Joni Woodruff MD Internal Medicine 03/06/15 Lashawn Mitchell, RN [address] [place] [address] Oncology Nurse Navigator 04/10/16
--- OUTSIDE RECORDS SUMMARY | 2025-06-21 08:53 | XMS_ITS | Clinical Summary ---
Author Organization [employer] [facility] it[facility] Address [address] [place] [address] Care Team Providers Care In School Suspension Coordinator Name Role Phone Unavailable Primary Care Provider [...] Depression Screening 07/21/2024 COVID-19 Vaccine ( - 2024-2 6 season) 2025 Influenza Vaccine (#1) 2025 RSV [...]
--- OUTSIDE RECORDS SUMMARY | 2025-06-21 08:53 | XMS_ITS | Encounter Summary ---
Author Organization [facility] Address [address] [place] [address] Care Team Providers Care Help Desk Support Specialist Name Role Phone Joni Woodruff MD Primary Care Provider Joni Sotelo MD Unavailable Unavailable Lashawn Mitchell RN Unavailable [phone] Encounter Details Date Type Department Care Team (Late st Contact Info) Description 03/23/2015 Scanned Document [address] [phone] Provider, Generic Social History Tobacco [...] on filedocumented in this encounter Care Teams Help Desk Support Specialist Relationship Specialty Start Date End Date Joni Woodruff MD PCP - General 04/03/15 Joni Woodruff MD Internal Medicine 03/06/15 Lashawn Mitchell RN [address] [address] Oncology Nurse Navigator 04/10/16 documented as of this encounter
--- OUTSIDE RECORDS SUMMARY | 2025-06-21 08:53 | XMS_ITS | Clinical Summary ---
Author Organization [facility] Address [address] [place] [address] [place] [address] Phone Care Team Providers Care Leaf Stamper Name Role Phone Jackson Moyer MD Primary [...] severe COVID-19: None ? 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 COVID-19 Tested? - Yes - Date Tested 11/03/2019 Testing Location - [facility] - Testing Results - Positive ? Is [...] this topic Insurance [facility] Care Teams Leaf Stamper Relationship Specialty Start Date End Date Jackson Moyer MD [address] [place] [phone] PCP - General Internal Medicine 11/24/19
--- OUTSIDE RECORDS SUMMARY | 2025-06-21 08:53 | XMS_ITS | Encounter Summary ---
Author Organization [facility] Address [address] [place] [address] Care Team Providers Care Surveying Teacher Name Role Phone Joni Woodruff MD Primary Care Provider Joni Sotelo MD Unavailable Unavailable Lashawn Mitchell RN Unavailable Encounter Details Date Type Department Care Team (Late st Contact Info) Description 02/14/2015 Scanned Document [address] [phone] Provider, Generic Social History Tobacco [...] on filedocumented in this encounter Care Teams Surveying Teacher Relationship Specialty Start Date End Date Joni Woodruff MD PCP - General 04/03/15 Joni Woodruff MD Internal Medicine 03/06/15 Lashawn Mitchell, RN [address] [address] Oncology Nurse Navigator 04/10/16 documented as of this encounter
--- OUTSIDE RECORDS SUMMARY | 2025-06-21 08:53 | XMS_ITS | Encounter Summary ---
Author Organization [facility] Address [address] [place] [address] Care Team Providers Care Wildlife Rehabilitator Name Role Phone Joni Woodruff MD Primary Care Provider Joni Sotelo MD Unavailable Unavailable Lashawn Mitchell RN Unavailable [phone] Encounter Details Date Type Department Care Team (Late st Contact Info) Description 03/06/2015 Scanned Document [address] [facility] [address] [place] [phone] Provider, Generic Social History Tobacco Use [...] on filedocumented in this encounter Care Teams Wildlife Rehabilitator Relationship Specialty Start Date End Date Joni Woodruff MD PCP - General 04/03/15 Joni Woodruff MD Internal Medicine 03/06/15 Lashawn Mitchell RN [address] [place] [address] Oncology Nurse Navigator 04/10/16 documented as of this encounter
--- OUTSIDE RECORDS SUMMARY | 2025-06-21 08:53 | XMS_ITS | Encounter Summary ---
Author Organization [facility] Address [address] [place] [address] Care Team Providers Care Learning And Development Officer Name Role Phone Joni Woodruff MD Primary Care Provider Joni Sotelo MD Unavailable Unavailable Lashawn Mitchell RN Unavailable [phone] Encounter Details Date Type Department Care Team (Late st Contact Info) Description 03/20/2017 Scanned Document [address] [phone] Joni Woodruff MD Social History [...] on filedocumented in this encounter Care Teams Learning And Development Officer Relationship Specialty Start Date End Date Joni Woodruff MD PCP - General 04/03/15 Joni Woodruff MD Internal Medicine 03/06/15 Lashawn Mitchell RN [address] [address] Oncology Nurse Navigator 04/10/16 documented as of this encounter
--- OUTSIDE RECORDS SUMMARY | 2025-06-21 08:53 | XMS_ITS | Encounter Summary ---
Author Organization [facility] Address [address] [place] [address] Care Team Providers Care Heat Treat Worker Name Role Phone Joni Woodruff MD Primary Care Provider Joni Sotelo MD Unavailable Unavailable Lashawn Mitchell RN Unavailable Encounter Details Date Type Department Care Team (Late st Contact Info) Description 06/21/2016 Scanned Document [address] [facility] [address] [place] [phone] Provider, Generic Social History Tobacco Use [...] on filedocumented in this encounter Care Teams Heat Treat Worker Relationship Specialty Start Date End Date Joni Woodruff MD PCP - General 04/03/15 Joni Woodruff MD Internal Medicine 03/06/15 Lashawn Mitchell RN [address] [place] [address] Oncology Nurse Navigator 04/10/16 documented as of this encounter
== END 2025-06-21 09:12 | disposition home or self-care (01) ==
LOC: HO.HUSH 08:44
PROVIDERS: PCP Internal Medicine; Visit Provider Urology
DX: C61 Malignant neoplasm of prostate (principal); N30.40 Irradiation cystitis without hematuria; R39.15 Urgency of urination
CPT/HCPCS: 99204

== ENCOUNTER 2025-06-21 09:16 | Outpatient (REF) | payer OTHER, SELFPAY ==
[2025-06-21 11:16] LABS: Prostate Specific Antigen < 0.10 ng/mL (<0.05-4.0)
== END 2025-06-21 09:17 | disposition home or self-care (01) ==
LOC: HO.10HDL 09:16
PROVIDERS: Visit Provider Urology
DX: C61 Malignant neoplasm of prostate (principal); Z12.5 Encounter for screening for malignant neoplasm of prostate
CPT/HCPCS: 36415; 84153